=== PATIENT | male | born 1940 | race Caucasian/White ===

== ENCOUNTER 2019-11-07 18:41 | Inpatient (IN) | payer MEDICARE ==
--- NOTE | 2019-11-07 19:04 | ED ---
Chest Pain HPI - General Chief Complaint: Chest Pain Stated Complaint: chest pain Time Seen by Provider: 11/07/19 18:51 Source: patient, RN notes reviewed, old records reviewed Mode of arrival: wheelchair Limitations: no limitations - History of Present Illness Initial Comments: This is a 70-year-old male here with chest pain history of heart disease history of significant bypass with stents after bypass. Patient does follow-up cardiology in the area is on blood thinners. Patient states she's had increasing chest pain for about a month now/C with exertion but sometimes a sporadic he does take nitro has been taking his nitroglycerin more than normal. Patient is currently having chest pain left-sided chest pain and heaviness MD Complaint: chest pain -: month(s) Onset: during rest, during exertion Pain Location: left chest Severity: mild Severity scale (1-10): 3 Quality: aching, heaviness Consistency: intermittent Improves With: nothing Worsens With: exertion, inspiration Anginal Symptoms: diaphoresis, dyspnea Other Symptoms: palpitations Treatments Prior to Arrival: nitroglycerin - Related Data Allergies Allergy/AdvReac Type Severity Reaction Status Date / Time morphine Allergy Unknown Verified 11/07/19 18:45 Review of Systems ROS Statement: Those systems with pertinent positive or pertinent negative responses have been documented in the HPI. ROS Other: All systems not noted in ROS Statement are negative. EKG Findings - EKG Comments: EKG Findings:: EKG shows sinus a rate of 90, WI 162, QRS 110, QTC 497 Past Medical History Past Medical History: Hyperlipidemia, Hypertension, Myocardial Infarction ([place]), Thyroid Disorder History of Any Multi-Drug Resistant Organisms: None Reported Past Surgical History: Cholecystectomy, Heart Catheterization With Stent Additional Past Surgical History / Comment(s): thyroidectomy Past Psychological History: No Psychological Hx Reported Smoking Status: Never smoker Past Alcohol Use History: None Reported Past Drug Use History: None Reported General Exam Limitations: no limitations General appearance: alert, in no apparent distress Head exam: Present: atraumatic, normocephalic, normal inspection Eye exam: Present: normal appearance, PERRL, EOMI. Absent: scleral icterus, conjunctival injection, periorbital swelling ENT exam: Present: normal exam, mucous membranes moist Neck exam: Present: normal inspection. Absent: tenderness, meningismus, lymphadenopathy Respiratory exam: Present: normal lung sounds bilaterally. Absent: respiratory distress, wheezes, rales, rhonchi, stridor Cardiovascular Exam: Present: regular rate, normal rhythm, normal heart sounds. Absent: systolic murmur, diastolic murmur, rubs, gallop, clicks GI/Abdominal exam: Present: soft, normal bowel sounds. Absent: distended, tenderness, guarding, rebound, rigid Extremities exam: Present: normal inspection, full ROM, normal capillary refill. Absent: tenderness, pedal edema, joint swelling, calf tenderness Back exam: Present: normal inspection Neurological exam: Present: alert, oriented X3, CN II-XII intact Psychiatric exam: Present: normal affect, normal mood Skin exam: Present: warm, dry, intact, normal color. Absent: rash Course Vital Signs 11/07/19 11/07/19 18:46 20:13 Temperature 97.4 F L Pulse Rate 100 100 Respiratory 18 18 Rate Blood Pressure 156/96 150/101 O2 Sat by Pulse 93 L 95 Oximetry - Reevaluation(s) Reevaluation #1: 11/07/19 21:09 Medical records reviewed Reevaluation #2: 11/07/19 21:09 Patient's pain is improved, improve here in the ER Reevaluation #3: 11/07/19 21:09 Patient informed of findings results, questions answered - Consultations Consultation #1: Spoke with [facility] agreeable for admission Chest Pain MDM - MDM 78 male to the ER for evaluation. Patient was is a for evaluation of chest pain. Patient to be admitted for chest pain elevated troponin anticoagulation and cardiology management evaluation Critical Care Time Critical Care Time: Yes Total Critical Care Time: 31 Disposition Clinical Impression: NSTEMI (non-ST elevated myocardial infarction), ACS (acute coronary syndrome) Disposition: ADMITTED IP TO THIS HOSP Condition: Serious Is patient prescribed a controlled substance at d/c from ED?: No Referrals: Neville Sorensen DO [Primary Care Provider] - 1-2 days
[2019-11-07 19:19] LABS: Basophils # (A) 0.1 k/uL (0-0.2); Basophils % (A) 1 %; Eosinophils # (A) 0.3 k/uL (0-0.7); Eosinophils % (A) 3 %; HCT 43.9 % (39.0-53.0); Lymphocytes # (A) 1.9 k/uL (1.0-4.8); Lymphocytes % (A) 19 %; MCH 29.7 pg (25.0-35.0); MCHC 31.8 g/dL (31.0-37.0); MCV 93.3 fL (80.0-100.0); Mean Platelet Volume 7.8; Monocytes # (A) 0.7 k/uL (0-1.0); Monocytes % (A) 8 %; Neutrophils # (A) 6.7 k/uL (1.3-7.7); Neutrophils % (A) 68 %; Platelet Count 264 k/uL (150-450); RBC 4.71 m/uL (4.30-5.90); RDW 14.7 % (11.5-15.5); WBC 9.9 k/uL (3.8-10.6)
[2019-11-07 19:30] LABS: Calcium 9.7 mg/dL (8.4-10.2); Potassium 4.3 mmol/L (3.5-5.1); Total Bilirubin 0.6 mg/dL (0.2-1.3); Total Protein 6.8 g/dL (6.3-8.2)
[2019-11-07 19:40] LABS: Partial Thromboplastin Time 22.2 sec (22.0-30.0); Prothrombin Time 10.7 sec (9.0-12.0)
[2019-11-07] MEDS ORDERED: NITROGLYCERIN OINT 1 INCH/GM PACKET TOPICAL STA (20:04)
[2019-11-07] MEDS ORDERED: HYDROmorphone 1 MG/ML 1 ML SYRINGE IVP PRN (20:04)
[2019-11-07] MEDS ORDERED: HYDROmorphone 1 MG/ML 1 ML SYRINGE IVP STA (20:04)
--- NOTE | 2019-11-07 20:05 | XR ---
EXAMINATION TYPE: XR chest 2V DATE OF EXAM: 11/07/2019 COMPARISON: NONE HISTORY: Chest pain TECHNIQUE: 2 views FINDINGS: There is coarse interstitial density throughout the lungs. There are sternal wires. There i s mild blunting right costophrenic angle. There are chest leads. IMPRESSION: Interstitial pulmonary infiltrates probably due to pulmonary fibrosis. Mild heart failure not excluded. Small right pleural effusion. No significant cardiomegaly.
[2019-11-07] MEDS ORDERED: HEPARIN SODIUM,PORCINE 5,000 UNIT/ML 1 ML VIAL IV ONE (21:06)
[2019-11-07] MEDS ORDERED: HEPARIN SODIUM,PORCINE 5,000 UNIT/ML 1 ML VIAL IV PRN (21:06)
[2019-11-07] MEDS ORDERED: ASPIRIN 81 MG PO STA (21:06)
[2019-11-07] MEDS ORDERED: NITROGLYCERIN SL TABS 0.4 MG TAB SUBLINGUAL PRN (21:06)
[2019-11-07] MEDS: SODIUM CHLORIDE 0.9% 1,000 ML IV SCH (21:23)
[2019-11-07] MEDS: HEPARIN SOD,PORK IN 0.45% NACL 25,000 UNIT in 0.45% NACL 1 250ML.BAG IV SCH (21:29)
[2019-11-08 06:08] LABS: Glucose,Whole Blood 91 mg/dL (75-99)
[2019-11-08] MEDS: LEVOTHYROXINE 125 MCG TAB PO SCH (06:17)
[2019-11-08] MEDS: INSULIN ASPART (NovoLOG) 100 UNIT/ML VIAL SQ SCH ×4 (06:17→20:24)
--- NOTE | 2019-11-08 08:39 | P.CRDCN ---
History of Present Illness Consult date: 11/08/19 Chief complaint: Chest pain History of present illness: This is a very pleasant 78-year-old gentleman who currently follows with Dr. Vasquez or regular basis with a past medical history significant for coronary artery disease and prior coronary artery bypass grafting as well as stenting with unknown details at this point, chronic kidney disease, hypertension, and dyslipidemia, presented to the hospital complaining of chest discomfort. The patient underwent a heart catheterization about 6 months ago pleasant and subsequently he was sent to [facility] where he underwent stenting. The details on all of that are unavailable and we are in process of getting a copy of the heart catheterization from [place] and also a copy of the procedure from [facility]. Clinically he has done well still about a week ago when he started experiencing intermittent episodes of chest discomfort. For the last week he has been experiencing the chest discomfort mostly once he walked from his car to his home and at that point he has been utilizing nitroglycerin. Yesterday the chest discomfort has gotten worse where he utilize 3 nitroglycerin without any improvement in the chest discomfort. Because of that he decided to come to the emergency room. Currently he is chest pain-free. The chest discomfort was radiating to his arm and was associated with shortness of breath as well as sweating. The EKG showed sinus rhythm with ST segment elevation about 1 mm in aVR. The enzymes came in to be abnormal with first troponin normal but subsequent troponin came in to be at 12. The patient was ruled in for acute non-ST elevation myocardial infarction. Beside that his creatinine is not completely normal and his GFR around 45 at this point. He is on IV fluid at this point and also he is on heparin. I had a long discussion with him regard ing the next step. I did advise the patient to undergo a heart catheterization for further cardiac evaluation. Meanwhile I am going to restart the patient on dual antiplatelet therapy and also anti-ischemic medication and also obtain an echocardiogram was Doppler to evaluate the left ventricle systolic function. Beside that I would contact Dr. Vasquez to perform a heart catheterization on the gentleman Past Medical History Past Medical History: Diabetes Mellitus, Hyperlipidemia, Hypertension, Myocardial Infarction ([place]), Thyroid Disorder Last Myocardial Infarction Date:: unknown History of Any Multi-Drug Resistant Organisms: None Reported Past Surgical History: Cholecystectomy, Heart Catheterization With Stent Additional Past Surgical History / Comment(s): thyroidectomy Date of Last Stent Placement:: unknown Past Psychological History: No Psychological Hx Reported Smoking Status: Never smoker Past Alcohol Use History: None Reported Past Drug Use History: None Reported Medications and Allergies Home Medications Medication Instructions Recorded Confirmed Type Aspirin 81 mg PO HS@209911/07/19 11/07/19 History Atorvastatin [Lipitor] 20 mg PO HS@209911/07/19 11/07/19 History Carvedilol [Coreg] 3.125 mg PO BID@0900,209911/07/19 11/07/19 History Docusate [Colace] 100 mg PO BID@999,219911/07/19 11/07/19 History Febuxostat [Uloric] 40 mg PO DAILY@99911/07/19 11/07/19 History Fenofibrate Nanocrystallized 145 mg PO DAILY@99911/07/19 11/07/19 History [Fenofibrate] Fluocinolone Acetonide [Lidex Soln] 1 applic TOPICAL BID PRN 11/07/19 11/07/19 History Insulin Detemir [Levemir Flextouch] 35 units SQ HS@209911/07/19 11/07/19 History Isosorbide Mononitrate ER [Imdur] 30 mg PO BID@0900,209911/07/19 11/07/19 History Ketoconazole 2% Shampoo [Nizoral] 1 applic TOPICAL Q3D PRN 11/07/19 11/07/19 History Levothyroxine Sodium 125 mcg PO AC-BRKFST 11/07/19 11/07/19 History Linagliptin [Tradjenta] 5 mg PO DAILY@99911/07/19 11/07/19 History Multivitamins, Thera [Multivitamin 1 tab PO DAILY@99911/07/19 11/07/19 History (formulary)] Nitroglycerin Sl Tabs [Nitrostat] 0.4 mg SUBLINGUAL Q5M PRN 11/07/19 11/07/19 History [place]-3 Fatty Acids/Fish Oil [Fish 1 cap PO DAILY@99911/07/19 11/07/19 History Oil 1,000 mg Softgel] Ranolazine [Ranexa] 1,000 mg PO BID@0900,209911/07/19 11/07/19 History Ticagrelor [Brilinta] 90 mg PO BID@0900,2100 11/07/19 11/07/19 History Triamterene-Hctz 37.5-25Mg 1 cap PO Q48H 11/07/19 11/07/19 History [Dyazide 37.5-25 Capsule] Ubidecarenone [Co Q-10] 200 mg PO HS@2200 11/07/19 11/07/19 History Allergies Allergy/AdvReac Type Severity Reaction Status Date / Time morphine Allergy Unknown Verified 11/07/19 18:45 Physical Exam Vitals: Vital Signs Temp Pulse Pulse Resp BP BP Pulse Ox 11/08/19 04:00 98.1 F 84 16 141/77 94 L 11/08/19 00:00 87 18 11/07/19 22:14 92 18 142/94 95 11/07/19 21:21 98.3 F 87 18 143/89 95 11/07/19 20:30 94 16 138/96 95 11/07/19 20:13 100 18 150/101 95 11/07/19 18:46 97.4 F L 100 18 156/96 93 L Intake and Output 11/07/19 11/08/19 11/08/19 22:59 06:59 14:59 Intake Total 540 54.219 Output Total 300 200 Balance 540 -245.781 -200 Intake: Intake, IV Titration 54.219 Amount Heparin Sod,Pork in 0.45% 54.219 NaCl 25,000 unit In 0.45 % NaCl 1 250ml.bag @ 11 UNITS/KG/HR 9.979 mls/hr IV .Q24H [facility] Rx#: [id number] Oral 540 Output: Urine 300 200 Other: Voiding Method Urinal # Voids 1 Weight 90.718 kg 85.9 kg - Constitutional General appearance: no acute distress - Respiratory Respiratory: bilateral: CTA - Cardiovascular Rhythm: regular Heart sounds: normal: S1, S2 Results 11/07/19 19:05 11/07/19 19:05 Cardiac Enzymes 11/07/19 11/07/19 11/08/19 Range/Units 19:05 19:05 01:59 AST 41 (17-59) U/L Troponin I 0.128 H* 12.900 H* (0.000-0.034) ng/mL Coagulation 11/07/19 11/08/19 Range/Units 19:05 01:59 PT 10.7 (9.0-12.0) sec APTT 22.2 31.8 H (22.0-30.0) sec CBC 11/07/19 Range/Units 19:05 WBC 9.9 (3.8-10.6) k/uL RBC 4.71 (4.30-5.90) m/uL Hgb 14.0 (13.0-17.5) gm/dL Hct 43.9 (39.0-53.0) % Plt Count 264 (150-450) k/uL Comprehensive Metabolic Panel 11/07/19 Range/Units 19:05 Sodium 138 (137-145) mmol/L Potassium 4.3 (3.5-5.1) mmol/L Chloride 106 (98-107) mmol/L Carbon Dioxide 25 (22-30) mmol/L BUN 31 H (9-20) mg/dL Creatinine 1.44 H (0.66-1.25) mg/dL Glucose 121 H (74-99) mg/dL Calcium 9.7 (8.4-10.2) mg/dL AST 41 (17-59) U/L ALT 22 (4-49) U/L Alkaline Phosphatase 87 (38-126) U/L Total Protein 6.8 (6.3-8.2) g/dL Albumin 4.0 (3.5-5.0) g/dL Current Medications Generic Name Dose Route Start Last Admin Trade Name Freq PRN Reason Stop Dose Admin Aspirin 325 mg 11/08/19 09:00 Aspirin PO DAILY [facility] Heparin Sodium (Porcine) 0 unit 11/07/19 21:06 Heparin IV Q6HR PRN Low PTT Protocol Hydromorphone HCl 1 mg 11/07/19 20:04 11/07/19 22:21 Dilaudid IVP 1 mg Q4HR PRN Administration Pain Sodium Chloride 1,000 mls @ 100 mls/hr 11/07/19 21:15 11/07/19 21:23 Saline 0.9% IV 100 mls/hr .Q10H [place] Administration Heparin Sodium/Sodium Chloride 250 mls @ 9.979 mls/hr 11/07/19 21:15 11/08/19 02:55 25,000 unit/ Sodium Chloride IV 14 units/kg/hr .Q24H [facility] 12.701 mls/hr Titration Protocol 11 UNITS/KG/HR Insulin Aspart 0 unit 11/08/19 07:30 11/08/19 06:17 Novolog SQ Not Given ACHS [facility] Protocol Levothyroxine Sodium 125 mcg 11/08/19 07:30 11/08/19 06:17 Synthroid PO Not Given AC-BRKFST [facility] Metoprolol Tartrate 25 mg 11/08/19 09:00 Lopressor PO BID [facility] Nitroglycerin 0.4 mg 11/07/19 21:06 Nitrostat SUBLINGUAL Q5M PRN Chest Pain Intake and Output 11/07/19 11/08/19 11/08/19 22:59 06:59 14:59 Intake Total 540 54.219 Output Total 300 200 Balance 540 -245.781 -200 Intake: Intake, IV Titration 54.219 Amount Heparin Sod,Pork in 0.45% 54.219 NaCl 25,000 unit In 0.45 % NaCl 1 250ml.bag @ 11 UNITS/KG/HR 9.979 mls/hr IV .Q24H [facility] Rx#: [id number] Oral 540 Output: Urine 300 200 Other: Voiding Method Urinal # Voids 1 Weight 90.718 kg 85.9 kg 11/07/19 19:05 11/07/19 19:05 Assessment and Plan Assessment: Assessment #1 acute non-ST elevation myocardial infarction #2 history of coronary artery disease with prior revascularization with unknown details #3 chronic kidney disease #4 diabetes #5 hypertension #6 dyslipidemia Plan Continue IV heparin at this point Obtain a copy of the heart catheterization and angioplasty and stenting I recommended proceeding with coronary angiogram Continue dual antiplatelet therapy An echocardiogram was Doppler IV fluid Follow-up with the patient
[2019-11-08] MEDS ORDERED: METOPROLOL TARTRATE 25 MG TAB PO SCH (09:00)
[2019-11-08 09:14] LABS: Mean Platelet Volume 7.6; Platelet Count 242 k/uL (150-450)
[2019-11-08] MEDS: RANOLAZINE 500 MG TAB.ER.12H PO SCH ×2 (09:40→20:43)
[2019-11-08] MEDS: ISOSORBIDE MONONITRATE ER 30 MG TAB.ER.24H PO SCH ×2 (09:40→20:43)
[2019-11-08] MEDS: ASPIRIN 325 MG TAB PO SCH (09:40)
[2019-11-08] MEDS: CARVEDILOL 3.125 MG TAB PO SCH ×2 (09:40→17:19)
[2019-11-08] MEDS: ALLOPURINOL 100 MG TAB PO SCH (09:41)
[2019-11-08] MEDS: FENOFIBRATE 160 MG TAB PO SCH (09:41)
[2019-11-08] MEDS: TICAGRELOR 90 MG TAB PO SCH ×2 (09:41→20:43)
[2019-11-08] MEDS: DOCUSATE 100 MG CAP PO SCH ×2 (09:41→20:43)
[2019-11-08] MEDS: MULTIVITAMINS, THERA 1 EACH TAB PO SCH (09:41)
[2019-11-08 09:43] LABS: Cholesterol 138 mg/dL (<200); HDL Cholesterol 40 mg/dL (40-60); LDL Cholesterol,Calculated 63 mg/dL (0-99); Triglycerides 177 mg/dL (<150)
[2019-11-08] MEDS: SODIUM CHLORIDE 0.9% 1,000 ML IV SCH ×2 (09:50→17:22)
[2019-11-08] MEDS ORDERED: NITROGLYCERIN SL TABS 0.4 MG TAB SUBLINGUAL PRN (10:04)
[2019-11-08] MEDS ORDERED: ATORVASTATIN 80 MG TAB PO STA (10:04)
[2019-11-08] MEDS ORDERED: ALPRAZolam 0.5 MG TAB PO PRN (10:04)
[2019-11-08] MEDS ORDERED: ASPIRIN 325 MG TAB PO STA (10:04)
[2019-11-08] MEDS ORDERED: SODIUM CHLORIDE 0.9% 1,000 ML in EMPTY BAG 1 BAG IV ONE (10:04)
[2019-11-08] MEDS ORDERED: ALPRAZolam 0.25 MG TAB PO PRN (10:04)
--- NOTE | 2019-11-08 10:36 | P.HPIM ---
History of Present Illness Patient is a 72-year-old pleasant male came in with compensative chest pain pressure-like sensation had has been having on and off episodes from for about a be did take one nitroglycerin which didn't help his chest pain was much worse yesterday because of which he does it complain ER and patient is found to have significant EKG changes in the anterolateral leads ST depressions in the anterolateral leads with elevated troponin up to 12 patient is on IV heparin being treated for non-ST elevation myocardial infarction. Patient denied any chest pain presently patient is an ideal antiplatelet therapy beta preston at this time. Patient denied any short of breath orthopnea proximal nocturnal dyspnea does not doesn't appear to be in heart failure exacerbation at this time patient will undergo cardiac catheterization today. Review of Systems REVIEW OF SYSTEMS: CONSTITUTIONAL: No fever, no malaise, no fatigue. HEENT: No recent visual problems or hearing problems. Denied any sore throat. CARDIOVASCULAR: No orthopnea, PND, no palpitations, no syncope. PULMONARY: No shortness of breath, no cough, no hemoptysis. GASTROINTESTINAL: No diarrhea, no nausea, no vomiting, no abdominal pain. NEUROLOGICAL: No headaches, no weakness, no numbness. HEMATOLOGICAL: Denies any bleeding or petechiae. GENITOURINARY: Denies any burning micturition, frequency, or urgency. MUSCULOSKELETAL/RHEUMATOLOGICAL: Denies any joint pain, swelling, or any muscle pain. ENDOCRINE: Denies any polyuria or polydipsia. The rest of the 14-point review of systems is negative. Past Medical History Past Medical History: Diabetes Mellitus, Hyperlipidemia, Hypertension, Myoc ardial Infarction (VT), Thyroid Disorder Last Myocardial Infarction Date:: unknown History of Any Multi-Drug Resistant Organisms: None Reported Past Surgical History: Cholecystectomy, Heart Catheterization With Stent Additional Past Surgical History / Comment(s): thyroidectomy Date of Last Stent Placement:: unknown Past Psychological History: No Psychological Hx Reported Smoking Status: Never smoker Past Alcohol Use History: None Reported Past Drug Use History: None Reported Medications and Allergies Home Medications Medication Instructions Recorded Confirmed Type Aspirin 81 mg PO HS@209911/07/19 11/07/19 History Atorvastatin [Lipitor] 20 mg PO HS@209911/07/19 11/07/19 History Carvedilol [Coreg] 3.125 mg PO BID@0900,209911/07/19 11/07/19 History Docusate [Colace] 100 mg PO BID@999,219911/07/19 11/07/19 History Febuxostat [Uloric] 40 mg PO DAILY@99911/07/19 11/07/19 History Fenofibrate Nanocrystallized 145 mg PO DAILY@99911/07/19 11/07/19 History [Fenofibrate] Fluocinolone Acetonide [Lidex Soln] 1 applic TOPICAL BID PRN 11/07/19 11/07/19 History Insulin Detemir [Levemir Flextouch] 35 units SQ HS@209911/07/19 11/07/19 History Isosorbide Mononitrate ER [Imdur] 30 mg PO BID@899,209911/07/19 11/07/19 History Ketoconazole 2% Shampoo [Nizoral] 1 applic TOPICAL Q3D PRN 11/07/19 11/07/19 History Levothyroxine Sodium 125 mcg PO AC-BRKFST 11/07/19 11/07/19 History Linagliptin [Tradjenta] 5 mg PO DAILY@99911/07/19 11/07/19 History Multivitamins, Thera [Multivitamin 1 tab PO DAILY@99911/07/19 11/07/19 History (formulary)] Nitroglycerin Sl Tabs [Nitrostat] 0.4 mg SUBLINGUAL Q5M PRN 11/07/19 11/07/19 History [place]-3 Fatty Acids/Fish Oil [Fish 1 cap PO DAILY@99911/07/19 11/07/19 History Oil 1,000 mg Softgel] Ranolazine [Ranexa] 1,000 mg PO BID@0900,209911/07/19 11/07/19 History Ticagrelor [Brilinta] 90 mg PO BID@0900,209911/07/19 11/07/19 History Triamterene-Hctz 37.5-25Mg 1 cap PO Q48H 11/07/19 11/07/19 History [Dyazide 37.5-25 Capsule] Ubidecarenone [Co Q-10] 200 mg PO HS@219911/07/19 11/07/19 History Allergies Allergy/AdvReac Type Severity Reaction Status Date / Time morphine Allergy Unknown Verified 11/07/19 18:45 Physical Exam Vitals: Vital Signs Temp Pulse Pulse Resp BP BP Pulse Ox 11/08/19 08:28 79 18 11/08/19 07:25 97.8 F 74 18 130/84 11/08/19 04:00 98.1 F 84 16 141/77 94 L 11/08/19 00:00 87 18 11/07/19 22:14 92 18 142/94 95 11/07/19 21:21 98.3 F 87 18 143/89 95 11/07/19 20:30 94 16 138/96 95 11/07/19 20:13 100 18 150/101 95 11/07/19 18:46 97.4 F L 100 18 156/96 93 L Intake and Output 11/07/19 11/08/19 11/08/19 22:59 06:59 14:59 Intake Total 540 54.219 Output Total 300 200 Balance 540 -245.781 -200 Intake: Intake, IV Titration 54.219 Amount Heparin Sod,Pork in 0.45% 54.219 NaCl 25,000 unit In 0.45 % NaCl 1 250ml.bag @ 11 UNITS/KG/HR 9.979 mls/hr IV .Q24H [facility] Rx#: [id number] Oral 540 Output: Urine 300 200 Other: Voiding Method Urinal Urinal # Voids 1 Weight 90.718 kg 85.9 kg PHYSICAL EXAMINATION: GENERAL: The patient is alert and oriented x3, not in any acute distress. Well developed, well nourished. HEENT: Pupils are round and equally reacting to light. EOMI. No scleral icterus. No conjunctival pallor. Normocephalic, atraumatic. No pharyngeal erythema. No thyromegaly. CARDIOVASCULAR: S1 and S2 present. No murmurs, rubs, or gallops. PULMONARY: Chest is clear to auscultation, no wheezing or crackles. ABDOMEN: Soft, nontender, nondistended, normoactive bowel sounds. No palpable organomegaly. MUSCULOSKELETAL: No joint swelling or deformity. EXTREMITIES: No cyanosis, clubbing, or pedal edema. NEUROLOGICAL: Gross neurological examination did not reveal any focal deficits. SKIN: No rashes. Results CBC & Chem 7: 11/08/19 08:35 11/07/19 19:05 Labs: Abnormal Lab Results - Last 24 Hours (Table) 11/07/19 11/07/19 11/08/19 Range/Units 19:05 19:05 01:59 APTT (22.0-30.0) sec BUN 31 H (9-20) mg/dL Creatinine 1.44 H (0.66-1.25) mg/dL Glucose 121 H (74-99) mg/dL Troponin I 0.128 H* 12.900 H* (0.000-0.034) ng/mL Triglycerides (<150) mg/dL 11/08/19 11/08/19 11/08/19 Range/Units 01:59 08:35 08:35 APTT 31.8 H (22.0-30.0) sec BUN (9-20) mg/dL Creatinine (0.66-1.25) mg/dL Glucose (74-99) mg/dL Troponin I 32.000 H* (0.000-0.034) ng/mL Triglycerides 177 H (<150) mg/dL 11/08/19 Range/Units 08:35 APTT 35.3 H (22.0-30.0) sec BUN (9-20) mg/dL Creatinine (0.66-1.25) mg/dL Glucose (74-99) mg/dL Troponin I (0.000-0.034) ng/mL Triglycerides (<150) mg/dL Thrombosis Risk Factor Assmnt - Choose All That Apply Any of the Below Risk Factors Present?: Yes Each Factor Represents 1 point: Acute VT, Heart failure (<1month) Other Risk Factors: Yes Each Risk Factor Represents 3 Points: Age 75 years or older Other congenital or acquired thrombophilia - If yes, enter type in comment: No Thrombosis Risk Factor Assessment Total Risk Factor Score: 5 Thrombosis Risk Factor Assessment Level: High Risk Assessment and Plan Plan: -Possible non-ST elevation microinfarction patient was monitored on heparin beta preston a dual antiplatelet therapy patient appears to have anterolateral ischemia in the circumflex or LAD lesion. Patient does have a history of coronary artery disease with a CABG in the past -Diabetes mellitus next and-hyperlipidemia -Hypertension -possible acute renal failure may be related to myocardial infarction we'll repeat the basic metabolic profile tomorrow, patient's present creatinine is 1.4 -Hyperlipidemia next line-hypothyroidism
[2019-11-08 11:56] LABS: Glucose,Whole Blood 97 mg/dL (75-99)
--- NOTE | 2019-11-08 15:47 | ECHOF ---
Referral Reason:chest pain MEASUREMENTS -------- HEIGHT: 177.8 cm WEIGHT: 85.7 kg BP: IVSd: 1.6 cm (0.6 - 1.1) LVIDd: 4.7 cm (3.9 - 5.3) LVPWd: 1.7 cm (0.6 - 1.1) IVSs: 1.9 cm LVIDs: 3.6 cm LVPWs: 2.1 cm RVIDd: 3.3 cm (< 3.3) LAESV Index (A-L): 50.34 ml/m Ao Diam: 3.6 cm (2.0 - 3.7) LA Diam: 4.5 cm (2.7 - 3.8) AV Cusp: 1.8 cm (1.5 - 2.6) EPSS: 0.6 cm MV E Conrad: 1.16 m/s MV DecT: 125 ms MV A Conrad: 0.82 m/s MV E/A Ratio: 1.42 RAP: 5.00 mmHg RVSP: 32.84 mmHg MV EF SLOPE: 93.74 mm/s (70 - 150) MV EXCURSION: 17.19 mm (> 18.000) FINDINGS -------- Sinus rhythm. This was a technically adequate study. The left ventricular size is normal. There is moderate concentric left ventricular hypertrophy. O verall left ventricular systolic function is moderately impaired with, an EF between 35 - 40 %. Lef t ventricular fillimg pressure cannot be estimated due to severe mitral regurgitation. Mid anterose ptal LV wall motion is hypokinetic. Apical septum LV wall motion is hypokinetic. The right ventricle is mildly enlarged. LA is severely dilated >40 ml/m2 The right atrial size is normal. Interatrial and interventricular septum intact. The aortic valve is trileaflet and appears structurally normal. There is mild aortic valve sclerosi s. There is no evidence of aortic regurgitation. There is no evidence of aortic stenosis. [id number] mitral regurgitation is present. Mild tricuspid regurgitation present. There is borderline pulmonary artery hypertension. The righ t ventricular systolic pressure, as measured by Doppler, is 32.84mmHg. There is no pulmonic regurgitation present. The aortic root size is normal. IVC Not well visulized. There is no pericardial effusion. CONCLUSIONS -------- 1. Sinus rhythm. 2. This was a technically adequate study. 3. The left ventricular size is normal. 4. There is moderate concentric left ventricular hypertrophy. 5. Overall left ventricular systolic function is moderately impaired with, an EF between 35 - 40 %. 6. Left ventricular fillimg pressure cannot be estimated due to severe mitral regurgitation. 7. Mid anteroseptal LV wall motion is hypokinetic. 8. Apical septum LV wall motion is hypokinetic. 9. The right ventricle is mildly enlarged. 10. LA is severely dilated >40 ml/m2 11. The right atrial size is normal. 12. Interatrial and interventricular septum intact. 13. The aortic valve is trileaflet and appears structurally normal. 14. There is mild aortic valve sclerosis. 15. There is no evidence of aortic regurgitation. 16. There is no evidence of aortic stenosis. 17. [id number] mitral regurgitation is present. 18. Mild tricuspid regurgitation present. 19. There is borderline pulmonary artery hypertension. 20. The right ventricular systolic pressure, as measured by Doppler, is 32.84mmHg. 21. There is no pulmonic regurgitation present. 22. The aortic root size is normal. 23. IVC Not well visulized. 24. There is no pericardial effusion. LOCOMOTIVE PIPE FITTER: Isadora Ryan RDCS
[2019-11-08 16:59] LABS: Glucose,Whole Blood 122 mg/dL (75-99)
[2019-11-08] MEDS: HEPARIN SOD,PORK IN 0.45% NACL 25,000 UNIT in 0.45% NACL 1 250ML.BAG IV SCH (17:20)
[2019-11-08 20:19] LABS: Glucose,Whole Blood 93 mg/dL (75-99)
[2019-11-08] MEDS: ATORVASTATIN 20 MG TAB PO SCH (20:43)
[2019-11-08] MEDS: INSULIN DETEMIR (LEVEMIR) 100 UNIT/ML SYR SQ SCH (20:46)
[2019-11-09] MEDS: INSULIN ASPART (NovoLOG) 100 UNIT/ML VIAL SQ SCH ×4 (06:06→21:04)
[2019-11-09 06:20] LABS: Glucose,Whole Blood 85 mg/dL (75-99)
[2019-11-09] MEDS: ALLOPURINOL 100 MG TAB PO SCH (06:29)
[2019-11-09] MEDS: LEVOTHYROXINE 125 MCG TAB PO SCH (06:29)
[2019-11-09] MEDS: CARVEDILOL 3.125 MG TAB PO SCH ×2 (06:29→16:42)
[2019-11-09] MEDS: FENOFIBRATE 160 MG TAB PO SCH (06:30)
[2019-11-09] MEDS: MULTIVITAMINS, THERA 1 EACH TAB PO SCH (06:30)
[2019-11-09] MEDS: DOCUSATE 100 MG CAP PO SCH ×2 (06:30→21:04)
[2019-11-09] MEDS: ASPIRIN 325 MG TAB PO SCH (06:30)
[2019-11-09] MEDS: ISOSORBIDE MONONITRATE ER 30 MG TAB.ER.24H PO SCH ×2 (06:31→21:04)
[2019-11-09] MEDS: RANOLAZINE 500 MG TAB.ER.12H PO SCH ×2 (06:31→21:04)
[2019-11-09] MEDS: TICAGRELOR 90 MG TAB PO SCH ×2 (06:34→21:04)
[2019-11-09] MEDS: HEPARIN SOD,PORK IN 0.45% NACL 25,000 UNIT in 0.45% NACL 1 250ML.BAG IV SCH (06:39)
[2019-11-09 06:44] LABS: Mean Platelet Volume 7.8; Platelet Count 234 k/uL (150-450)
[2019-11-09 07:48] LABS: Potassium 4.3 mmol/L (3.5-5.1)
[2019-11-09] MEDS ORDERED: IV FLUID CONTINUATION 600 ML IV ONE (08:32)
[2019-11-09] MEDS ORDERED: LIDOCAINE 1% INJ 10MG/ML (20 ML MDV) ONE (08:47)
[2019-11-09] MEDS ORDERED: TRIAMTERENE-HCTZ 37.5-25MG 1 EACH CAP PO SCH (09:00)
[2019-11-09] MEDS ORDERED: MIDAZOLAM 2 MG/2 ML VIAL IV ONE (09:13)
[2019-11-09] MEDS ORDERED: LIDOCAINE 1% INJ 10MG/ML (20 ML MDV) SQ ONE (09:14)
[2019-11-09] MEDS ORDERED: IOPAMIDOL-370 50ML BTL INJ ONE (09:58)
[2019-11-09] MEDS ORDERED: IOPAMIDOL-370 125ML BTL INJ ONE (09:58)
[2019-11-09] MEDS ORDERED: MAG HYDROX/AL HYDROX/SIMETH 30 ML CUP PO PRN (09:59)
[2019-11-09] MEDS ORDERED: RX INFO: IV CONTRAST WAS GIVEN 1 EACH MISC MISCELLANE PRN (09:59)
[2019-11-09] MEDS ORDERED: ATROPINE SULFATE 0.1 MG/ML 10ML SYRINGE IV PRN (09:59)
[2019-11-09] MEDS ORDERED: ZOLPIDEM 5 MG TAB PO PRN (09:59)
[2019-11-09] MEDS ORDERED: SODIUM CHLORIDE 0.9% 1,000 ML IV SCH (10:00)
--- NOTE | 2019-11-09 10:19 | P.PN ---
Subjective Patient is admitted for non-ST elevation microinfarction patient will undergo cardiac catheterization today Constitutional: Denied any fatigue denied any fever. Cardio vascular: denied any chest pain, palpitations Gastrointestinal denied any nausea vomiting Pulmonary: Denied any shortness of breath cough Neurologic denied any new focal deficits All inpatient medications were reviewed and appropriate changes in these medications as dictated in the interval history and assessment and plan. Objective - Vital Signs Vital signs: Vital Signs Temp 97.7 F 11/09/19 08:00 Pulse 78 11/09/19 08:00 Resp 18 11/09/19 08:00 BP 143/79 11/09/19 08:00 Pulse Ox 99 11/09/19 08:00 Intake & Output 11/08/19 11/09/19 11/09/19 18:59 06:59 18:59 Intake Total 1743.106 193.291 50 Output Total 200 Balance 1543.106 193.291 50 Weight 89.1 kg Intake: IV 50 Intake, IV Titration 1383.106 193.291 Amount Heparin Sod,Pork in 0.45% 183.106 193.291 NaCl 25,000 unit In 0.45 % NaCl 1 250ml.bag @ 11 UNITS/KG/HR 9.979 mls/hr IV .Q24H [facility] Rx#: [id number] Sodium Chloride 0.9% 1, 1200 000 ml @ 100 mls/hr IV . Q10H [facility] Rx#:[id number] Oral 360 Output: Urine 200 Other: Voiding Method Urinal Urinal # Voids 1 1 1 - Exam PHYSICAL EXAMINATION: GENERAL: The patient is alert and oriented x3, not in any acute distress. Well developed, well nourished. HEENT: Pupils are round and equally reacting to light. EOMI. No scleral icterus. No conjunctival pallor. Normocephalic, atraumatic. No pharyngeal erythema. No thyromegaly. CARDIOVASCULAR: S1 and S2 present. No murmurs, rubs, or gallops. PULMONARY: Chest is clear to auscultation, no wheezing or crackles. ABDOMEN: Soft, nontender, nondistended, normoactive bowel sounds. No palpable organomegaly. MUSCULOSKELETAL: No joint swelling or deformity. EXTREMITIES: No cyanosis, clubbing, or pedal edema. NEUROLOGICAL: Gross neurological examination did not reveal any focal deficits. SKIN: No rashes. - Labs CBC & Chem 7: 11/09/19 06:25 11/09/19 06:25 Labs: Abnormal Lab Results - Last 24 Hours (Table) 11/08/19 11/08/19 11/09/19 Range/Units 16:52 23:20 06:25 APTT 54.3 H (22.0-30.0) sec Chloride 110 H (98-107) mmol/L BUN 22 H (9-20) mg/dL Creatinine 1.31 H (0.66-1.25) mg/dL POC Glucose (mg/dL) 122 H (75-99) mg/dL 11/09/19 Range/Units 06:25 APTT 64.9 H (22.0-30.0) sec Chloride (98-107) mmol/L BUN (9-20) mg/dL Creatinine (0.66-1.25) mg/dL POC Glucose (mg/dL) (75-99) mg/dL Assessment and Plan Plan: -Possible non-ST elevation myocardial infarction patient was monitored on heparin beta preston a dual antiplatelet therapy patient appears to have anterolateral ischemia in the circumflex or LAD lesion. Patient does have a history of coronary artery disease with a CABG in the past. Patient will undergo cardiac catheterization to -Can start failure probably acute systolic dysfunction EF of around 35-40% patient is not in heart failure exacerbation at this time -Diabetes mellitus -hyperlipidemia -Hypertension -possible acute renal failure may be related to myocardial infarction we'll repeat the basic metabolic profile tomorrow, patient's present creatinine is 1.3, mild improvement competitors to -Hyperlipidemia -hypothyroidism
--- NOTE | 2019-11-09 10:25 | CC ---
CARDIAC CATHETERIZATION REPORT DATE OF SERVICE: 11/09/2019 PERFORMING PHYSICIAN: Jakub Kaur MD. PROCEDURE PERFORMED: 1. Selective left and right coronary angiogram. 2. ABREU to LAD angiogram. 3. SVG to RCA angiogram. 4. Aortic root angiogram. 5. Left heart catheterization. INDICATION: This is a 78-year-old gentleman with history of coronary artery disease and prior coronary artery bypass grafting and stenting with the last heart catheterization was performed at [facility] where at that point he underwent stenting of the SVG to RCA and was found to have patent ABREU to LAD, presented to [facility] with chest discomfort and ruled in for acute [id number] myocardial infarction. The patient does follow with Dr. Vasquez in the office on a regular basis. Dr. Vasquez is out of the town and I am performing the heart catheterization for him. APPROACH: Right common femoral artery. COMPLICATION: None. LEVEL OF SEDATION: Moderate with sedation length of 40 minutes. PROCEDURE DESCRIPTION: After obtaining an informed consent, the patient was brought to the cardiac blender laborer. The right common femoral artery was cannulated using micropuncture technique, the micropuncture wire passed easily, then I placed a 6-Occitan sheath in the right common femoral artery. I did selective right and left coronary angiogram using JL4 and JR4 catheters. SVG to RCA angiogram was performed using multipurpose catheter. The ABREU to LAD angiogram was performed using an IM catheter. After that, I did aortic root angiogram using a 6- Occitan pigtail catheter. After I did perform a left heart catheterization using a pigtail catheter as well. The procedure was completed without any complication. SELECTIVE CORONARY ANGIOGRAM: 1. The left main is 100% occluded. 2. RCA is 100% occluded as well in the midportion. CORONARY BYPASS ANGIOGRAM: 1. The ABREU to LAD is patent. 2. The SVG to RCA has in-stent restenosis appeared to be in the range of only 50%. 3. The aortic root angiogram was performed in the DENISE projection and using a power injection. The aortic root appeared to be mildly dilated. No evidence of any additional bypass is seen. HEMODYNAMICS: The LVEDP was 18-20 mmHg without significant gradient across the aortic valve. CONCLUSION: 1. Severe triple-vessel coronary artery disease. 2. Patent ABREU to LAD. 3. Intermediate in-stent restenosis involving the SVG to RCA. 4. Mildly dilated aortic root. 5. Elevated LVEDP. POSTPROCEDURE MANAGEMENT: Giving the above anatomy, I did recommend maximized medical treatment and follow up with the patient. JULIAN / TEQUILA: [id number] /
[2019-11-09 11:49] LABS: Glucose,Whole Blood 95 mg/dL (75-99)
[2019-11-09] MEDS: LINAGLIPTIN 5 MG TABLET PO SCH (12:14)
[2019-11-09 12:52] VITALS: BMI 28.1
[2019-11-09 16:57] LABS: Glucose,Whole Blood 88 mg/dL (75-99)
[2019-11-09] MEDS: NITROGLYCERIN SL TABS 0.4 MG TAB SUBLINGUAL PRN (18:03)
[2019-11-09] MEDS: INSULIN DETEMIR (LEVEMIR) 100 UNIT/ML SYR SQ SCH (21:04)
[2019-11-09] MEDS: ATORVASTATIN 20 MG TAB PO SCH (21:04)
[2019-11-09 21:14] LABS: Glucose,Whole Blood 109 mg/dL (75-99)
[2019-11-10] MEDS: NITROGLYCERIN SL TABS 0.4 MG TAB SUBLINGUAL PRN (01:59)
[2019-11-10 06:17] LABS: Glucose,Whole Blood 92 mg/dL (75-99)
[2019-11-10] MEDS: INSULIN ASPART (NovoLOG) 100 UNIT/ML VIAL SQ SCH ×4 (06:18→19:58)
[2019-11-10] MEDS: LEVOTHYROXINE 125 MCG TAB PO SCH (06:39)
[2019-11-10] MEDS: CARVEDILOL 3.125 MG TAB PO SCH (06:39)
[2019-11-10] MEDS: MULTIVITAMINS, THERA 1 EACH TAB PO SCH (09:41)
[2019-11-10] MEDS: TICAGRELOR 90 MG TAB PO SCH ×2 (09:41→19:56)
[2019-11-10] MEDS: ASPIRIN 325 MG TAB PO SCH (09:41)
[2019-11-10] MEDS: DOCUSATE 100 MG CAP PO SCH ×2 (09:41→19:56)
[2019-11-10] MEDS: ALLOPURINOL 100 MG TAB PO SCH (09:42)
[2019-11-10] MEDS: ISOSORBIDE MONONITRATE ER 30 MG TAB.ER.24H PO SCH (09:42)
[2019-11-10] MEDS: LINAGLIPTIN 5 MG TABLET PO SCH (09:42)
[2019-11-10] MEDS: RANOLAZINE 500 MG TAB.ER.12H PO SCH ×2 (09:42→19:56)
[2019-11-10] MEDS: FENOFIBRATE 160 MG TAB PO SCH (09:42)
[2019-11-10] MEDS ORDERED: CLOPIDOGREL 75 MG TAB PO SCH (10:00)
[2019-11-10 11:41] LABS: Glucose,Whole Blood 97 mg/dL (75-99)
--- NOTE | 2019-11-10 12:19 | P.PN ---
Subjective Progress Note Date: 11/10/19 Principal diagnosis: Acute non-ST elevation MO This is a very pleasant 78-year-old gentleman with history of coronary artery disease and prior coronary artery bypass grafting and stenting who was admitted to the hospital with a chest discomfort and ruled in for acute non ST elevation MO. He underwent a heart catheterization which revealed occluded left main and RCA with patent stent to the right coronary artery and patent ABREU to LAD. Maximize medical treatment was advised. The patient was seen today, 11/11/2019. He did have an episode of chest discomfort early this morning. Otherwise he has been up and around and he is asymptomatic. I am going to increase the dose of Coreg and also increase the dose of Imdur. He was started yesterday on Plavix as well as Ranexa. The echocardiogram revealed impaired LV function with EF between 35-40%. Objective - Vital Signs Vital signs: Vital Signs Temp 98.0 F 11/10/19 08:00 Pulse 89 11/10/19 04:00 Resp 18 11/10/19 08:00 BP 159/81 11/10/19 08:00 Pulse Ox 97 11/10/19 08:00 Intake & Output 11/09/19 11/10/19 11/10/19 18:59 06:59 18:59 Intake Total 290 370 180 Output Total 200 375 Balance 90 -5 180 Weight 89.1 kg 86.1 kg Intake: IV 50 Oral 240 370 180 Output: Urine 200 375 Other: Voiding Method Urinal Urinal # Voids 1 1 - Constitutional General appearance: Present: no acute distress - Respiratory Respiratory: bilateral: CTA - Cardiovascular Rhythm: regular Heart sounds: normal: S1, S2 - Labs CBC & Chem 7: 11/09/19 06:25 11/09/19 06:25 Labs: Abnormal Lab Results - Last 24 Hours (Table) 11/09/19 Range/Units 21:13 POC Glucose (mg/dL) 109 H (75-99) mg/dL Assessment and Plan Assessment: Assessment #1 acute non-ST elevation myocardial infarction #2 history of coronary artery disease with prior revascularization with unknown details #3 chronic kidney disease #4 diabetes #5 hypertension #6 dyslipidemia Plan Continue the current medical regimen. Continue dual antiplatelet therapy Increase the dose of Imdur Increase the dose of Coreg Continue Plavix and Ranexa
--- NOTE | 2019-11-10 14:57 | P.PN ---
Subjective Progress Note Date: 11/10/19 Principal diagnosis: Patient is a 72-year-old pleasant male came in with compensative chest pain pressure-like sensation had has been having on and off episodes from for about a be did take one nitroglycerin which didn't help his chest pain was much worse yesterday because of which he does it complain ER and patient is found to have significant EKG changes in the anterolateral leads ST depressions in the anterolateral leads with elevated troponin up to 12 patient is on IV heparin being treated for non-ST elevation myocardial infarction. Patient denied any chest pain presently patient is an ideal antiplatelet therapy beta preston at this time. Patient denied any short of breath orthopnea proximal nocturnal dyspnea does not doesn't appear to be in heart failure exacerbation at this time patient will undergo cardiac catheterization today. 11/09/2019 Patient is admitted for non-ST elevation microinfarction patient will undergo cardiac catheterization today Constitutional: Denied any fatigue denied any fever. Cardio vascular: denied any chest pain, palpitations Gastrointestinal denied any nausea vomiting Pulmonary: Denied any shortness of breath cough Neurologic denied any new focal deficits 11/10/2019 Patient is sitting up in the chair and appears to be in no acute distress. Patient underwent cardiac catheterization with Dr. Kaur yesterday and recommending maximum medical management at this time. Multiple medication adjustments have been made. Patient has been started on Plavix and will continue. Overnight patient had a brief episode of chest pain along with left arm pain and was given a nitro along with an EKG showing no new changes. Chest pain was relieved with nitro. Currently patient has no reports of chest pain, shortness of breath, or palpitations. Patient is afebrile. No reports of nausea or vomiting and patient is tolerating diet. Patient has been up and walking with no difficulties. Objective - Vital Signs Vital signs: Vital Signs Temp 98.0 F 11/10/19 08:00 Pulse 89 11/10/19 04:00 Resp 18 11/10/19 08:00 BP 159/81 11/10/19 08:00 Pulse Ox 97 11/10/19 08:00 Intake & Output 11/09/19 11/10/19 11/10/19 18:59 06:59 18:59 Intake Total 290 370 180 Output Total 200 375 Balance 90 -5 180 Weight 89.1 kg 86.1 kg Intake: IV 50 Oral 240 370 180 Output: Urine 200 375 Other: Voiding Method Urinal Urinal # Voids 1 1 - Exam GENERAL: The patient is alert and oriented x3, not in any acute distress. Well developed, well nourished. HEENT: Pupils are round and equally reacting to light. EOMI. No scleral icterus. No conjunctival pallor. Normocephalic, atraumatic. No pharyngeal erythema. No thyromegaly. CARDIOVASCULAR: S1 and S2 present. No murmurs, rubs, or gallops. PULMONARY: Chest is clear to auscultation, with no wheezing or crackles noted on exam ABDOMEN: Soft, nontender, nondistended, normoactive bowel sounds. No palpable organomegaly. MUSCULOSKELETAL: No joint swelling or deformity. EXTREMITIES: No cyanosis, clubbing, or pedal edema. NEUROLOGICAL: Gross neurological examination did not reveal any focal deficits. SKIN: No rashes. - Labs CBC & Chem 7: 11/09/19 06:25 11/09/19 06:25 Labs: Abnormal Lab Results - Last 24 Hours (Table) 11/09/19 Range/Units 21:13 POC Glucose (mg/dL) 109 H (75-99) mg/dL Assessment and Plan Assessment: -Possible non-ST elevation myocardial infarction patient was monitored on heparin beta preston a dual antiplatelet therapy patient appears to have anterolateral ischemia in the circumflex or LAD lesion. Patient does have a history of coronary artery disease with a CABG in the past. Patient underwent cardiac catheterization showing severe triple-vessel coronary artery disease, patent ABREU to LAD, intermediate in-stent restenosis involving the SVG to RCA, mildly dilated aortic root, elevated LVEDP. Recommending maximum medical treatment. Cardiology is following. Patient was started on Plavix -Congestive heart failure probably acute systolic dysfunction EF of around 35- 40%. patient is not in heart failure exacerbation at this time -Diabetes mellitus -hyperlipidemia -Hypertension -possible acute renal failure may be related to myocardial infarction, will re peat a.m. labs. Patient refused today's labs as he thought he was going home today. -Chronic kidney disease stage II-III -Hyperlipidemia -hypothyroidism
[2019-11-10 16:38] LABS: Glucose,Whole Blood 86 mg/dL (75-99)
[2019-11-10] MEDS: CARVEDILOL 6.25 MG TAB PO SCH (16:47)
[2019-11-10] MEDS: ATORVASTATIN 20 MG TAB PO SCH (19:55)
[2019-11-10] MEDS: ISOSORBIDE MONONITRATE ER 60 MG TAB.ER.24H PO SCH (19:55)
[2019-11-10 19:58] LABS: Glucose,Whole Blood 121 mg/dL (75-99)
[2019-11-10] MEDS: INSULIN DETEMIR (LEVEMIR) 100 UNIT/ML SYR SQ SCH (19:58)
[2019-11-11 06:18] LABS: Glucose,Whole Blood 78 mg/dL (75-99)
[2019-11-11] MEDS: CARVEDILOL 6.25 MG TAB PO SCH (06:31)
[2019-11-11] MEDS: INSULIN ASPART (NovoLOG) 100 UNIT/ML VIAL SQ SCH ×2 (06:31→14:25)
[2019-11-11] MEDS: LEVOTHYROXINE 125 MCG TAB PO SCH (06:31)
[2019-11-11 06:54] LABS: Calcium 9.1 mg/dL (8.4-10.2); Potassium 4.1 mmol/L (3.5-5.1)
[2019-11-11 07:56] VITALS: RESP 16
--- NOTE | 2019-11-11 08:57 | P.PN ---
Subjective Progress Note Date: 11/11/19 Principal diagnosis: Acute non-ST elevation IN This is a very pleasant 78-year-old gentleman with history of coronary artery disease and prior coronary artery bypass grafting and stenting who was admitted to the hospital with a chest discomfort and ruled in for acute non ST elevation IN. He underwent a heart catheterization which revealed occluded left main and RCA with patent stent to the right coronary artery and patent ABREU to LAD. Maximize medical treatment was advised. The patient was seen today, November [id number]. He had no more episodes of chest discomfort. He is on maximize medical treatment. From a cardiovascular standpoint overview, the patient can be discharged home Objective - Vital Signs Vital signs: Vital Signs Temp 98.7 F 11/11/19 07:55 Pulse 76 11/11/19 07:55 Resp 16 11/11/19 07:55 BP 142/83 11/11/19 07:55 Pulse Ox 96 11/11/19 07:55 Intake & Output 11/10/19 11/11/19 11/11/19 18:59 06:59 18:59 Intake Total 420 Output Total 800 Balance 420 -800 Weight 86.8 kg Intake: Oral 420 Output: Urine 800 Other: Voiding Method Urinal Urinal # Voids 1 - Constitutional General appearance: Present: no acute distress - Respiratory Respiratory: bilateral: CTA - Cardiovascular Rhythm: regular Heart sounds: normal: S1, S2 - Labs CBC & Chem 7: 11/09/19 06:25 11/11/19 06:17 Labs: Abnormal Lab Results - Last 24 Hours (Table) 11/10/19 11/11/19 Range/Units 19:57 06:17 Chloride 108 H (98-107) mmol/L Creatinine 1.27 H (0.66-1.25) mg/dL Glucose 72 L (74-99) mg/dL POC Glucose (mg/dL) 121 H (75-99) mg/dL Assessment and Plan Assessment: Assessment #1 acute non-ST elevation myocardial infarction #2 history of coronary artery disease with prior revascularization with unknown details #3 chronic kidney disease #4 diabetes #5 hypertension #6 dyslipidemia Plan Continue the current medical regimen. Continue dual antiplatelet therapy The patient can be discharged home
[2019-11-11] MEDS: ISOSORBIDE MONONITRATE ER 60 MG TAB.ER.24H PO SCH (09:07)
[2019-11-11] MEDS: RANOLAZINE 500 MG TAB.ER.12H PO SCH (09:07)
[2019-11-11] MEDS: TICAGRELOR 90 MG TAB PO SCH (09:07)
[2019-11-11] MEDS: FENOFIBRATE 160 MG TAB PO SCH (09:08)
[2019-11-11] MEDS: ALLOPURINOL 100 MG TAB PO SCH (09:08)
[2019-11-11] MEDS: ASPIRIN 325 MG TAB PO SCH (09:08)
[2019-11-11] MEDS: LINAGLIPTIN 5 MG TABLET PO SCH (09:08)
[2019-11-11] MEDS: MULTIVITAMINS, THERA 1 EACH TAB PO SCH (09:08)
[2019-11-11] MEDS: DOCUSATE 100 MG CAP PO SCH (09:08)
[2019-11-11 11:29] VITALS: BP 130/78; PULSE 71; TEMP 97.8
[2019-11-11 12:07] LABS: Glucose,Whole Blood 91 mg/dL (75-99)
--- NOTE | 2019-11-11 12:26 | P.DS ---
Providers Date of admission: 11/07/19 21:06 Expected date of discharge: 11/11/19 Attending physician: Tamiko Payne Consults: 11/07/19 21:06 Consult Physician Urgent Consulting Provider: Bishop Morgan Consult Reason/Comments: nstemi Do you want consulting provider notified?: Yes 11/09/19 09:59 Consult Physician Routine Consulting Provider: [facility] Consult Reason/Comments: Post Interventional patient Do you want consulting provider notified?: Already Contacted Primary care physician: Neville Sorensen Hospital Course: Final diagnosis -Possible non-ST elevation myocardial infarction patient appears to have anterolateral ischemia in the circumflex or LAD lesion. Patient does have a history of coronary artery disease with a CABG in the past. Patient underwent cardiac catheterization showing severe triple-vessel coronary artery disease, patent ABREU to LAD, intermediate in-stent restenosis involving the SVG to RCA, mildly dilated aortic root, elevated LVEDP. -Congestive heart failure probably acute systolic dysfunction EF of around 35- 40%, not in acute exacerbation -Diabetes mellitus -hyperlipidemia -Hypertension -possible acute renal failure may be related to myocardial infarction -Chronic kidney disease stage II-III -Hyperlipidemia -hypothyroidism Discharge disposition Patient is being discharged in a stable condition with guarded prognosis to home and will have home care in the outpatient setting. Patient will follow-up with Dr. Sorensen his primary care provider upon discharge. Patient will also be following up with cardiology in the outpatient setting as scheduled. Total time taken is 35 minutes. History of present illness Patient is a 72-year-old pleasant male came in with compensative chest pain pressure-like sensation had has been having on and off episodes from for about a be did take one nitroglycerin which didn't help his chest pain was much worse yesterday because of which he does it complain ER and patient is found to have significant EKG changes in the anterolateral leads ST depressions in the anterolateral leads with elevated troponin up to 12 patient is on IV heparin being treated for non-ST elevation myocardial infarction. Patient denied any chest pain presently patient is an ideal antiplatelet therapy beta preston at this time. Patient denied any short of breath orthopnea proximal nocturnal dyspnea does not doesn't appear to be in heart failure exacerbation at this time patient will undergo cardiac catheterization. 11/11/2019 During hospitalization patient underwent cardiac catheterization and cardiology is recommending maximum medical management. No further stenting done at this time and previous stents found to be patent. Patient will follow-up with cardiology in the outpatient setting in 1-2 weeks as scheduled. Patient will continue on aspirin along with Brilinta upon discharge. Patient has been free of chest pain for last 2-3 days per patient. patient would like to go home today . During hospitalization patient was found to have slightly elevated creatinine although it is currently trending down. Recommend repeat labs in a couple of days at his primary care follow-up to monitor creatinine. Current creatinine is 1.27. Patient denies any chest pain, shortness of breath, or palpitations. Patient is afebrile. No reports of nausea or vomiting and patient is tolerating diet. Today patient is stable for discharge and will be going today. On exam vital signs are stable. Temp is 97.8F, pulse is 71, respirations are 16, blood pressure is 130/78 oxygen saturation is 98% on room air. Cardio S1, S2 are present. Respiratory system shows clear to auscultation. Abdomen is soft and nontender. Nervous system shows no focal deficits. Please refer to medication reconciliation sheet for a list of medications. Patient Condition at Discharge: Stable Plan - Discharge Summary Discharge Rx Participant: No New Discharge Prescriptions: New Aspirin 325 mg PO DAILY 30 Days #30 tab Carvedilol [Coreg] 6.25 mg PO BID-W/MEALS 30 Days #60 tab Bisacodyl [Dulcolax] 5 mg PO DAILY #5 tablet. Isosorbide Mononitrate ER [Imdur] 60 mg PO BID@0900,2100 30 Days #60 tab.er.24h Continue Docusate [Colace] 100 mg PO BID@1000,2200 Fairview-3 Fatty Acids/Fish Oil [Fish Oil 1,000 mg Softgel] 1 cap PO DAILY@1000 Multivitamins, Thera [Multivitamin (formulary)] 1 tab PO DAILY@1000 Ketoconazole 2% Shampoo [Nizoral] 1 applic TOPICAL Q3D PRN PRN Reason: PSORIASIS Insulin Detemir [Levemir Flextouch] 35 units SQ HS@2100 Fluocinolone Acetonide [Lidex Soln] 1 applic TOPICAL BID PRN PRN Reason: PSORIASIS Nitroglycerin Sl Tabs [Nitrostat] 0.4 mg SUBLINGUAL Q5M PRN PRN Reason: Chest Pain Levothyroxine Sodium 125 mcg PO AC-BRKFST Ranolazine [Ranexa] 1,000 mg PO BID@899,2099 Fenofibrate Nanocrystallized [Fenofibrate] 145 mg PO DAILY@1000 Atorvastatin [Lipitor] 20 mg PO HS@2099 Ticagrelor [Brilinta] 90 mg PO BID@899,2099 Linagliptin [Tradjenta] 5 mg PO DAILY@1000 Febuxostat [Uloric] 40 mg PO DAILY@1000 Ubidecarenone [Co Q-10] 200 mg PO HS@220 Discontinued Aspirin 81 mg PO HS@2099 Triamterene-Hctz 37.5-25Mg [Dyazide 37.5-25 Capsule] 1 cap PO Q48H Isosorbide Mononitrate ER [Imdur] 30 mg PO BID@899,2099 Carvedilol [Coreg] 3.125 mg PO BID@00,2099 Discharge Medication List Atorvastatin [Lipitor] 20 mg PO HS@209911/07/19 [History] Docusate [Colace] 100 mg PO BID@999,219911/07/19 [History] Febuxostat [Uloric] 40 mg PO DAILY@99911/07/19 [History] Fenofibrate Nanocrystallized [Fenofibrate] 145 mg PO DAILY@99911/07/19 [History] Fluocinolone Acetonide [Lidex Soln] 1 applic TOPICAL BID PRN 11/07/19 [History] Insulin Detemir [Levemir Flextouch] 35 units SQ HS@209911/07/19 [History] Ketoconazole 2% Shampoo [Nizoral] 1 applic TOPICAL Q3D PRN 11/07/19 [History] Levothyroxine Sodium 125 mcg PO AC-BRKFST 11/07/19 [History] Linagliptin [Tradjenta] 5 mg PO DAILY@99911/07/19 [History] Multivitamins, Thera [Multivitamin (formulary)] 1 tab PO DAILY@99911/07/19 [History] Nitroglycerin Sl Tabs [Nitrostat] 0.4 mg SUBLINGUAL Q5M PRN 11/07/19 [History] [place]view-3 Fatty Acids/Fish Oil [Fish Oil 1,000 mg Softgel] 1 cap PO DAILY@99911/07/19 [History] Ranolazine [Ranexa] 1,000 mg PO BID@0900,209911/07/19 [History] Ticagrelor [Brilinta] 90 mg PO BID@0900,209911/07/19 [History] Ubidecarenone [Co Q-10] 200 mg PO HS@219911/07/19 [History] Aspirin 325 mg PO DAILY 30 Days #30 tab 11/11/19 [Rx] Bisacodyl [Dulcolax] 5 mg PO DAILY #5 tablet.dr 11/11/19 [Rx] Carvedilol [Coreg] 6.25 mg PO BID-W/MEALS 30 Days #60 tab 11/11/19 [Rx] Isosorbide Mononitrate ER [Imdur] 60 mg PO BID@899,2099 30 Days #60 tab.er.24h 11/11/19 [Rx] Follow up Appointment(s)/Referral(s): [facility]Card[facility] [NON-STAFF] - (After discharge, you will follow-up with your porter sample case. Once you have obtained a prescription for cardiac rehab, please call [phone] to set up an evaluation.) Neville Sorensen DO [Primary Care Provider] - 11/16/19 11:45 am Wilberto Vasquez MD [STAFF PHYSICIAN] - 11/18/19 2:45 pm (November 30 appt moved.) Patient Instructions/Handouts: *Surgery [facility] - After Heart Catheterization - [facility] Instructions, Angina (DC), Heart Healthy Diet (DC) Activity/Diet/Wound Care/Special Instructions: Cardiac catheterization precautions: 1. Support your puncture site by applying firm, steady pressure whenever you cough, laugh, sneeze or bear down to have a bowel movement (2-day restriction). 2. Watch for any excessive bruising, active bleeding, a firm knot forming under your skin, extreme tenderness and signs of infection (redness, swelling, fever). 3. Shower daily, do not soak puncture in a tub bath, jacuzzi, pool, blankenship etc. for 1 week. This is to prevent risk of infection. 4. Drink plenty of fluids the day of and day after your procedure to flush contrast dye out of your kidneys. 5. Take all medications as directed. Never stop any new medication without your physicians OK. 6. No driving for 2 days after procedure. 7. 10- pound weight lifting restriction for 1 week. 8. Low sodium/low fat diet. 9. Activity limited until follow up appointment with your porter sample case. In case of any problems, please call [facility], Antonia Bucio @ [phone]. Activity Limited until follow-up Follow-up with primary care provider upon discharge Follow-up with cardiology in the outpatient setting Continue current diet Discharge Disposition: HOME SELF-CARE
--- NOTE | 2019-11-14 11:09 | CDI ---
Documentation Clarification Form Date: 11/14/19 From: Buffy Ceron Phone: If you have a question about this query, please contact Jes Calabrese, [employer] at [phone] between 8am and 5pm. Admit Date: 11/07/19 Discharge Date:11/11/19 Patient Name: Jose Oshea Visit Number: [id number] ATTENTION: The Clinical Documentation Specialists (CDI) and [facility] Coding Staff appreciate your assistance in clarifying documentation. Please respond to the clarification below the line at the bottom and electronically sign. The CDI & [facility] Coding staff will review the response and follow-up if needed. Please note: Queries are made part of the Legal Health Record. If you have any questions, please contact the author of this message via ITS. Dear Dr. Jakub Kaur Acute non-ST elevation myocardial infarction is documented in: your consult note & 11/09 progress notes.Possible non-ST elevation myocardial infarction is documented in Dr. Cuevas's notes. Patient History/Risk Factors: CAD Clinical Indicators: CAD, previous CABG and stent placement. Heart cath revealed in-stent re-stenosis involving the SVG to RCA. Troponin: 0.128, 12.900, 32.000 EKG Results: H&P documentation states significant EKG changes in the anterolateral leads. Your consult documentation states EKG showed sinus rhythm with ST segment elevation about 1 mm in aVR. Treatment: Maximized medical treatment. In order to capture the severity of condition and necessary documentation specificity, please clarify cause of the NSTEMI: Coronary artery disease In-stent restenosis Other(please specify): Unable to determine Coronary artery disease MTDD
== END 2019-11-11 14:06 | disposition home or self-care (01) | DRG 281 ==
LOC: EC 18:41 → 3SCARD 21:06
PROVIDERS: ADMIT Hospitalist; ATTEND Hospitalist
PROC: B2111ZZ Fluoroscopy of Multiple Coronary Arteries using Low Osmolar Contrast (ICD-10-PCS; principal; 2019-11-09 09:00)
PROC: B2131ZZ Fluoroscopy of Multiple Coronary Artery Bypass Grafts using Low Osmolar Contrast (ICD-10-PCS; principal; 2019-11-09 09:00)
PROC: 4A023N7 Measurement of Cardiac Sampling and Pressure, Left Heart, Percutaneous Approach (ICD-10-PCS; principal; 2019-11-09 09:00)
DX: I21.4 Non-ST elevation (NSTEMI) myocardial infarction (principal); I13.0 Hypertensive heart and chronic kidney disease with heart failure and stage 1 through stage 4 chronic kidney disease, or unspecified chronic kidney disease; T82.855A Stenosis of coronary artery stent, initial encounter; I50.22 Chronic systolic (congestive) heart failure; E11.22 Type 2 diabetes mellitus with diabetic chronic kidney disease; N18.3 Chronic kidney disease, stage 3 (moderate); I25.10 Atherosclerotic heart disease of native coronary artery without angina pectoris; I77.819 Aortic ectasia, unspecified site; I77.810 Thoracic aortic ectasia; E78.5 Hyperlipidemia, unspecified; E89.0 Postprocedural hypothyroidism; I25.2 Old myocardial infarction; Z79.02 Long term (current) use of antithrombotics/antiplatelets; Z79.4 Long term (current) use of insulin; Z79.82 Long term (current) use of aspirin; Z79.890 Hormone replacement therapy; Z79.899 Other long term (current) drug therapy; Z95.1 Presence of aortocoronary bypass graft; Z88.5 Allergy status to narcotic agent; Y83.1 Surgical operation with implant of artificial internal device as the cause of abnormal reaction of the patient, or of later complication, without mention of misadventure at the time of the procedure
CPT/HCPCS: 36415; 71046; 80048; 80053; 80061; 83690; 83735; 83880; 84484; 85025; 85049; 85610; 85730; 93005; 93306; 93458; 94760; 96365; 96375; 96376; 99285

== ENCOUNTER 2021-07-02 10:31 | Observation (INO) | payer MEDICARE ==
[2021-07-02] MEDS ORDERED: ASPIRIN 81 MG PO STA (10:58)
--- NOTE | 2021-07-02 11:01 | ED ---
General Adult HPI - General Chief complaint: Chest Pain Stated complaint: Chest pain/left arm pain Time Seen by Provider: 07/02/21 10:43 Source: patient Mode of arrival: wheelchair Limitations: no limitations - History of Present Illness Initial comments: Dictation was produced using [employer] dictation software. please excuse any grammatical, word or spelling errors. Chief Complaint: 80-year-old male presents to the emergency department for chest pain and left upper extremity pain History of Present Illness: And is an 80-year-old male he reports that he has extensive history of coronary artery disease. 20 some odd years ago patient had quadruple bypass procedure. Patient has also had a multiple coronary artery stents placed after the bypass. Over the last several days patient has been having achy chest pressure with ration the left upper extremity. He states his symptoms have been increasing in intensity, duration and frequency. Patient states is nonexertional. His symptoms remind him of heart attacks in the past. Patient denies any chest pain at rest. He does however so have some mild left upper extremity pain. The ROS documented in this emergency department record has been reviewed and confirmed by me. Those systems with pertinent positive or negative responses have been documented in the HPI. All other systems are other negative and/or noncontributory. PHYSICAL EXAM: General Impression: Alert and oriented x3, not in acute distress HEENT: Normocephalic atraumatic, extra-ocular movements intact, pupils equal and reactive to light bilaterally, mucous membranes moist. Cardiovascular: Heart regular rate and rhythm Chest: Able to complete full sentences, no retractions, no tachypnea Abdomen: abdomen soft, non-tender, non-distended, no organomegaly Musculoskeletal: Pulses present and equal in all extremities, no peripheral edema Motor: no focal deficits noted Neurological: CN II-XII grossly intact, no focal motor or sensory deficits noted Skin: Intact with no visualized rashes Psych: Normal affect and mood ED course: 80-year-old male presents to the emergency department for symptoms concerning for acute coronary syndrome. Patient is extensive history of coronary artery disease. Vital signs upon arrival are within acceptable limits. Patient's well-appearing at bedside. He denies any chest pain at this time. He does however have some left upper chest pain that he reports is an indication that he is having coronary syndrome. EKG interpretation: Ventricular rate 70, sinus rhythm, IA interval 92, QRS 90, QTC 475. No IA prolongation, no QTC prolongation, no ST or T-wave changes noted. EKG compared to 11/07/2019 showing no changes. Overall, this EKG is unremarkable Laboratory evaluation obtained. CBC, coag panel, metabolic panel is unremarkable. Troponin is 0.077. Patient has history of elevated troponin. Chest x-ray shows right lower lobe infiltrate. Patient not having a cough or URI symptoms. Furthermore his pain is on the left side. Patient reevaluated at bedside 12:30 PM Condition. Patient is asymptomatic. Patient will be admitted to observation for serial troponins and cardiology consultation. - Related Data Home Medications Medication Instructions Recorded Confirmed Atorvastatin [Lipitor] 20 mg PO HS@209911/07/19 11/07/19 Docusate [Colace] 100 mg PO BID@999,219911/07/19 11/07/19 Febuxostat [Uloric] 40 mg PO DAILY@99911/07/19 11/07/19 Fenofibrate Nanocrystallized 145 mg PO DAILY@99911/07/19 11/07/19 [Fenofibrate] Fluocinolone Acetonide [Lidex 1 applic TOPICAL BID PRN 11/07/19 11/07/19 0.01% Soln] Insulin Detemir [Levemir Flextouch 35 units SQ HS@209911/07/19 11/07/19 Pen] Ketoconazole 2% Shampoo [Nizoral] 1 applic TOPICAL Q3D PRN 11/07/19 11/07/19 Levothyroxine Sodium 125 mcg PO AC-BRKFST 11/07/19 11/07/19 Linagliptin [Tradjenta] 5 mg PO DAILY@99911/07/19 11/07/19 Multivitamins, Thera [Multivitamin 1 tab PO DAILY@99911/07/19 11/07/19 (formulary)] Nitroglycerin Sl Tabs [Nitrostat] 0.4 mg SUBLINGUAL Q5M PRN 11/07/19 11/07/19 Hiram-3 Fatty Acids/Fish Oil [Fish 1 cap PO DAILY@99911/07/19 11/07/19 Oil 1,000 mg Softgel] Ranolazine [Ranexa] 1,000 mg PO BID@0900,209911/07/19 11/07/19 Ticagrelor [Brilinta] 90 mg PO BID@0900,2100 11/07/19 11/07/19 Ubidecarenone [Co Q-10] 200 mg PO HS@0 11/07/19 11/07/19 Previous Rx's Medication Instructions Recorded Aspirin 325 mg PO DAILY 30 Days #30 tab 11/11/19 Isosorbide Mononitrate ER [Imdur] 60 mg PO BID@0900,2100 30 Days #60 11/11/19 tab.er.24h bisacodyL [Dulcolax] 5 mg PO DAILY #5 tablet. 11/11/19 carvediloL [Coreg] 6.25 mg PO BID-W/MEALS 30 Days #60 11/11/19 tab Allergies Allergy/AdvReac Type Severity Reaction Status Date / Time morphine Allergy Unknown Verified 07/02/21 10:34 Review of Systems ROS Statement: Those systems with pertinent positive or pertinent negative responses have been documented in the HPI. ROS Other: All systems not noted in ROS Statement are negative. Past Medical History Past Medical History: Diabetes Mellitus, Hyperlipidemia, Hypertension, Myocardial Infarction ([place]), Thyroid Disorder Last Myocardial Infarction Date:: unknown History of Any Multi-Drug Resistant Organisms: None Reported Past Surgical History: Cholecystectomy, Heart Catheterization With Stent Additional Past Surgical History / Comment(s): thyroidectomy Date of Last Stent Placement:: unknown Past Psychological History: No Psychological Hx Reported Smoking Status: Never smoker Past Alcohol Use History: None Reported Past Drug Use History: None Reported General Exam Limitations: no limitations Course Vital Signs 07/02/21 07/02/21 07/02/21 10:35 11:00 11:40 Temperature 97.6 F Pulse Rate 69 68 Respiratory 18 24 16 Rate Blood Pressure 125/84 124/88 O2 Sat by Pulse 99 99 Oximetry Medical Decision Making - Lab Data Result diagrams: 07/02/21 11:02 07/02/21 11:02 Lab Results 07/02/21 07/02/21 07/02/21 Range/Units 11:02 11:02 11:02 WBC 11.7 H (3.8-10.6) k/uL RBC 5.09 (4.30-5.90) m/uL Hgb 15.5 (13.0-17.5) gm/dL Hct 46.6 (39.0-53.0) % MCV 91.6 (80.0-100.0) fL MCH 30.5 (25.0-35.0) pg MCHC 33.3 (31.0-37.0) g/dL RDW 14.7 (11.5-15.5) % Plt Count 379 (150-450) k/uL MPV 7.3 Neutrophils % 64 % Lymphocytes % 22 % Monocytes % 7 % Eosinophils % 3 % Basophils % 1 % Neutrophils # 7.4 (1.3-7.7) k/uL Lymphocytes # 2.6 (1.0-4.8) k/uL Monocytes # 0.8 (0-1.0) k/uL Eosinophils # 0.3 (0-0.7) k/uL Basophils # 0.1 (0-0.2) k/uL PT 10.5 (9.0-12.0) sec INR 1.0 (<1.2) APTT 22.1 (22.0-30.0) sec Sodium 138 (137-145) mmol/L Potassium 4.4 (3.5-5.1) mmol/L Chloride 103 (98-107) mmol/L Carbon Dioxide 25 (22-30) mmol/L Anion Gap 10 mmol/L BUN 30 H (9-20) mg/dL Creatinine 1.62 H (0.66-1.25) mg/dL Est GFR (CKD-EPI)AfAm 46 (>60 ml/min/1.73 sqM) Est GFR (CKD-EPI)NonAf 39 (>60 ml/min/1.73 sqM) Glucose 130 H (74-99) mg/dL Calcium 10.3 H (8.4-10.2) mg/dL Magnesium 2.2 (1.6-2.3) mg/dL Total Bilirubin 0.9 (0.2-1.3) mg/dL AST 28 (17-59) U/L ALT 15 (4-49) U/L Alkaline Phosphatase 68 (38-126) U/L Troponin I (0.000-0.034) ng/mL NT-Pro-B Natriuret Pep pg/mL Total Protein 7.4 (6.3-8.2) g/dL Albumin 4.2 (3.5-5.0) g/dL Lipase 143 (23-300) U/L 07/02/21 07/02/21 Range/Units 11:02 11:02 WBC (3.8-10.6) k/uL RBC (4.30-5.90) m/uL Hgb (13.0-17.5) gm/dL Hct (39.0-53.0) % MCV (80.0-100.0) fL MCH (25.0-35.0) pg MCHC (31.0-37.0) g/dL RDW (11.5-15.5) % Plt Count (150-450) k/uL MPV Neutrophils % % Lymphocytes % % Monocytes % % Eosinophils % % Basophils % % Neutrophils # (1.3-7.7) k/uL Lymphocytes # (1.0-4.8) k/uL Monocytes # (0-1.0) k/uL Eosinophils # (0-0.7) k/uL Basophils # (0-0.2) k/uL PT (9.0-12.0) sec INR (<1.2) APTT (22.0-30.0) sec Sodium (137-145) mmol/L Potassium (3.5-5.1) mmol/L Chloride (98-107) mmol/L Carbon Dioxide (22-30) mmol/L Anion Gap mmol/L BUN (9-20) mg/dL Creatinine (0.66-1.25) mg/dL Est GFR (CKD-EPI)AfAm (>60 ml/min/1.73 sqM) Est GFR (CKD-EPI)NonAf (>60 ml/min/1.73 sqM) Glucose (74-99) mg/dL Calcium (8.4-10.2) mg/dL Magnesium (1.6-2.3) mg/dL Total Bilirubin (0.2-1.3) mg/dL AST (17-59) U/L ALT (4-49) U/L Alkaline Phosphatase (38-126) U/L Troponin I 0.077 H* (0.000-0.034) ng/mL NT-Pro-B Natriuret Pep 2490 pg/mL Total Protein (6.3-8.2) g/dL Albumin (3.5-5.0) g/dL Lipase (23-300) U/L Disposition Clinical Impression: Chest pain Disposition: ADMITTED IP TO THIS HOSP Condition: Fair Referrals: Neville Sorensen DO [Primary Care Provider] - 1-2 days
[2021-07-02 11:13] LABS: Basophils # (A) 0.1 k/uL (0-0.2); Basophils % (A) 1 %; Eosinophils # (A) 0.3 k/uL (0-0.7); Eosinophils % (A) 3 %; HCT 46.6 % (39.0-53.0); HGB 15.5 gm/dL (13.0-17.5); Lymphocytes # (A) 2.6 k/uL (1.0-4.8); Lymphocytes % (A) 22 %; MCH 30.5 pg (25.0-35.0); MCHC 33.3 g/dL (31.0-37.0); MCV 91.6 fL (80.0-100.0); Mean Platelet Volume 7.3; Monocytes # (A) 0.8 k/uL (0-1.0); Monocytes % (A) 7 %; Neutrophils # (A) 7.4 k/uL (1.3-7.7); Neutrophils % (A) 64 %; Platelet Count 379 k/uL (150-450); RBC 5.09 m/uL (4.30-5.90); RDW 14.7 % (11.5-15.5); WBC 11.7 k/uL (3.8-10.6)
[2021-07-02 11:24] LABS: Albumin 4.2 g/dL (3.5-5.0); Calcium 10.3 mg/dL (8.4-10.2); Magnesium 2.2 mg/dL (1.6-2.3); Potassium 4.4 mmol/L (3.5-5.1); Total Bilirubin 0.9 mg/dL (0.2-1.3); Total Protein 7.4 g/dL (6.3-8.2)
--- NOTE | 2021-07-02 11:25 | XR ---
EXAMINATION TYPE: XR chest 2V DATE OF EXAM: 07/02/2021 COMPARISON: 11/07/2019 TECHNIQUE: PA and lateral views submitted. HISTORY: Chest pain FINDINGS: Heart enlarged and there is postoperative change. Right-sided consolidation and pleural effusion. No overt failure or pneumothorax. Curvature of the spine with arthropathy of the shoulders and degenerat veda changes. No overt failure. Underlying COPD suspected. IMPRESSION: 1. Right lower lobe infiltrate and small effusion.
[2021-07-02 11:36] LABS: Partial Thromboplastin Time 22.1 sec (22.0-30.0); Prothrombin Time 10.5 sec (9.0-12.0)
[2021-07-02] MEDS ORDERED: NITROGLYCERIN SL TABS 0.4 MG TAB SUBLINGUAL PRN (12:30)
--- NOTE | 2021-07-02 14:16 | P.CRDCN ---
History of Present Illness History of present illness: HISTORY OF PRESENTING ILLNESS This is a pleasant 80-year-old male past medical history significant for coronary artery disease status post CABG 1994 (ABREU-LAD, SVG-RCA, SVG- RC) and angioplasty with stent placement SBG- RCA in 2017 and PCI to rPLV in 2019 at [facility], ischemic cardiomyopathy, type 2 diabetes, hypertension, dyslipidemia. He follows in the office with Dr. Vasquez. We have been asked to see in consultation for chest pain. Patient presents emergency department with c hest pain and left arm pain. Patient states his chest pain started 1 week ago. Located on the left side of his chest. Describes it as aching. Non-exertional. He also has left upper extremity pain. He endorses associated shortness of breath and some dyspnea on exertion. His left arm pain is exacerbated by lifting his arm up, he denies injury. His symptoms are alleviated by resting. He cannot describe any specific aggravating symptoms. He denies any associated diaphoresis, nausea, palpitations, lightheadedness, dizziness, syncope or presyncope. He denies any symptoms of orthopnea or PND. He states his chest pain is similar to when he had stents placed in the past. He denies tobacco or alcohol use. DIAGNOSTICS EKG reveals sinus rhythm, PAC, heart rate 70, T wave inversions in lead I and a VL. Prior EKG in the office 10/2020 with similar findings Last Cardiac Catheterization 10/2019 revealed severe triple-vessel coronary artery disease, patent ABREU to LAD, SVG to RCA has in-stent restenosis appeared to be in the range of 50%, mildly dilated aortic root, elevated LVEDP. Most recent echocardiogram in the office 06/2020 revealed an EF 40-45%, moderate concentric hypertrophy, grade 2 diastolic dysfunction, mild mitral regurgitation, mild tricuspid regurgitation, aortic root is enlarged, ascending aorta is enlarged Chest xray right lower lobe infiltrate and small effusion, heart enlarged, no overt failure. Laboratory reviewed, troponin 0.07, proBNP 2490, WBC 11.7, hemoglobin 15.5, platelets 379, sodium 138, potassium 4.4, BUN 30, serum creatinine 1.6, magnesium 2.2, COVID-19 PCR negative REVIEW OF SYSTEMS At the time of my exam: CONSTITUTIONAL: Denies fever or chills. CARDIOVASCULAR: +chest pain, +shortness of breath, Denies orthopnea, PND or palpitations. RESPIRATORY: Denies cough. GASTROINTESTINAL: Denies abdominal pain, diarrhea, constipation, nausea or vomiting. MUSCULOSKELETAL: Denies myalgias. NEUROLOGIC: Denies numbness, tingling, headacbe or weakness. ENDOCRINE: Denies fatigue, weight change, polydipsia or polyurina. GENITOURINARY: Denies burning, hematuria or urgency with micturation. HEMATOLOGIC: Denies history of anemia or bleeding. PHYSICAL EXAMINATION Blood pressure 124/88 HR 68, afebrile 99% on room air CONSTITUTIONAL: No apparent distress. HEENT: Head is normocephalic. Pupils are equal, round. Sclerae anicteric. Mucous membranes of the mouth are moist. No JVD. No carotid bruit. CHEST EXAMINATION: Lungs are clear to auscultation. No chest wall tenderness is noted on palpation or with deep breathing. HEART EXAMINATION: Regular rate and rhythm. S1, S2 heard. Systolic murmur noted at apex. ABDOMEN: Soft, nontender. Positive bowel sounds. EXTREMITIES: 2+ peripheral pulses, no lower extremity edema and no calf tenderness. SKIN: warm, dry NEUROLOGIC EXAMINATION: Patient is awake, alert and oriented x3. ASSESSMENT Chest pain Acute on chronic kidney disease Coronary artery disease status post CABG and angioplasty with stent placement of bypass grafts at [facility] Ischemic cardiomyopathy Type 2 diabetes Hypertension Dyslipidemia PLAN Obtain 2D echocardiogram and doppler study to assess cardiac structure and function. Trend troponin Repeat EKG Lipid Panel Continue home cardiac medications Further recommendations based on further evaluation by Dr. Kaur and above findings Will keep NPO at midnight for possible testing/intervention Thank you kindly for this consultation. Nurse Practitioner note has been reviewed, I agree with a documented findings and plan of care. Patient was seen and examined. Past Medical History Past Medical History: Diabetes Mellitus, Hyperlipidemia, Hypertension, Myocardial Infarction ([place]), Thyroid Disorder Last Myocardial Infarction Date:: unknown History of Any Multi-Drug Resistant Organisms: None Reported Past Surgical History: Cholecystectomy, Heart Catheterization With Stent Additional Past Surgical History / Comment(s): thyroidectomy Date of Last Stent Placement:: unknown Past Psychological History: No Psychological Hx Reported Smoking Status: Never smoker Past Alcohol Use History: None Reported Past Drug Use History: None Reported Medications and Allergies Home Medications Medication Instructions Recorded Confirmed Type Atorvastatin [Lipitor] 20 mg PO HS@2100 11/07/19 07/02/21 History Febuxostat [Uloric] 40 mg PO HS 11/07/19 07/02/21 History Fenofibrate Nanocrystallized 145 mg PO HS 11/07/19 07/02/21 History [Fenofibrate] Linagliptin [Tradjenta] 5 mg PO DAILY 11/07/19 07/02/21 History Nitroglycerin Sl Tabs [Nitrostat] 0.4 mg SUBLINGUAL Q5M PRN 11/07/19 07/02/21 History Ranolazine [Ranexa] 1,000 mg PO BID@0900,209911/07/19 07/02/21 History Ticagrelor [Brilinta] 90 mg PO BID@0900,209911/07/19 07/02/21 History Aspirin EC [Ecotrin Low Dose] 81 mg PO HS 07/02/21 07/02/21 History Cinnamon 2,000mg 2,000 mg PO DAILY 07/02/21 07/02/21 History Co Q-10 200 mg PO DAILY 07/02/21 07/02/21 History Docusate [Colace] 200 mg PO BID 07/02/21 07/02/21 History Fish Oil/Dha/Epa [Fish Oil 1,200 1 cap PO DAILY 07/02/21 07/02/21 History mg Fish Oil] Isosorbide Mononitrate ER [Imdur] 60 mg PO HS 07/02/21 07/02/21 History Levothyroxine Sodium [Synthroid] 150 mcg PO DAILY 07/02/21 07/02/21 History Triamterene-Hctz 37.5-25Mg 1 cap PO DAILY 07/02/21 07/02/21 History [Dyazide 37.5-25 Capsule] carvediloL [Coreg] 6.25 mg PO DAILY 07/02/21 07/02/21 History Allergies Allergy/AdvReac Type Severity Reaction Status Date / Time morphine Allergy Unknown Verified 07/02/21 13:13 Physical Exam Vitals: Vital Signs Temp Pulse Resp BP Pulse Ox 07/02/21 11:40 68 16 124/88 99 07/02/21 11:00 24 07/02/21 10:35 97.6 F 69 18 125/84 99 Intake and Output 07/01/21 07/02/21 07/02/21 22:59 06:59 14:59 Other: Weight 86.183 kg Results 07/02/21 11:02 07/02/21 11:02 Cardiac Enzymes 07/02/21 07/02/21 Range/Units 11:02 11:02 AST 28 (17-59) U/L Troponin I 0.077 H* (0.000-0.034) ng/mL Coagulation 07/02/21 Range/Units 11:02 PT 10.5 (9.0-12.0) sec APTT 22.1 (22.0-30.0) sec CBC 07/02/21 Range/Units 11:02 WBC 11.7 H (3.8-10.6) k/uL RBC 5.09 (4.30-5.90) m/uL Hgb 15.5 (13.0-17.5) gm/dL Hct 46.6 (39.0-53.0) % Plt Count 379 (150-450) k/uL Comprehensive Metabolic Panel 07/02/21 Range/Units 11:02 Sodium 138 (137-145) mmol/L Potassium 4.4 (3.5-5.1) mmol/L Chloride 103 (98-107) mmol/L Carbon Dioxide 25 (22-30) mmol/L BUN 30 H (9-20) mg/dL Creatinine 1.62 H (0.66-1.25) mg/dL Glucose 130 H (74-99) mg/dL Calcium 10.3 H (8.4-10.2) mg/dL AST 28 (17-59) U/L ALT 15 (4-49) U/L Alkaline Phosphatase 68 (38-126) U/L Total Protein 7.4 (6.3-8.2) g/dL Albumin 4.2 (3.5-5.0) g/dL Current Medications Generic Name Dose Route Start Last Admin Trade Name Freq PRN Reason Stop Dose Admin Aspirin 325 mg 07/03/21 09:00 Aspirin 325 Mg Tab PO DAILY CALIXTO Nitroglycerin 0.4 mg 07/02/21 12:30 Nitroglycerin Sl Tabs 0.4 Mg Tab SUBLINGUAL Q5M PRN Chest Pain Intake and Output 07/01/21 07/02/21 07/02/21 22:59 06:59 14:59 Other: Weight 86.183 kg Patient Weight 07/03/21 06:59 Weight 86.183 kg 07/02/21 11:02 07/02/21 11:02
[2021-07-02] MEDS ORDERED: ISOSORBIDE MONONITRATE ER 60 MG TAB.ER.24H PO SCH (21:00)
[2021-07-02] MEDS ORDERED: ATORVASTATIN 20 MG TAB PO SCH (21:00)
[2021-07-02] MEDS ORDERED: FENOFIBRATE 160 MG TAB PO SCH (21:00)
[2021-07-02] MEDS: TICAGRELOR 90 MG TAB PO SCH (21:07)
[2021-07-02] MEDS ORDERED: MAG HYDROX/AL HYDROX/SIMETH 30 ML CUP PO PRN (21:21)
[2021-07-02] MEDS ORDERED: CALCIUM CARBONATE 500 MG CHEWABLE PO PRN (21:21)
[2021-07-02] MEDS ORDERED: ACETAMINOPHEN TAB 325 MG TAB PO PRN (21:21)
[2021-07-02] MEDS ORDERED: LACTULOSE 20 GM/30 ML CUP PO PRN (21:21)
[2021-07-02] MEDS ORDERED: NALOXONE 0.4 MG/ML 1 ML VIAL IV PRN (21:21)
[2021-07-02] MEDS ORDERED: ONDANSETRON 4 MG/2 ML VIAL IVP PRN (21:21)
[2021-07-02] MEDS ORDERED: MAGNESIUM HYDROXIDE 2,400 MG/10 ML CUP PO PRN (21:21)
[2021-07-02] MEDS ORDERED: MELATONIN 3 MG TABLET PO PRN (21:21)
[2021-07-02] MEDS ORDERED: ALPRAZolam 0.25 MG TAB PO PRN (21:21)
[2021-07-02] MEDS ORDERED: allopurinoL 100 MG TAB PO SCH (21:30)
[2021-07-02] MEDS ORDERED: NON FORMULARY DRUG (Aspirin Ec 81 MG Tablet) PO SCH (21:30)
--- NOTE | 2021-07-02 21:36 | P.HPIM ---
History of Present Illness H&P Date: 07/02/21 Chief Complaint: Chest pain This is a very pleasant 80-year-old patient who follows with . Package D[employer] Dr. Juancarlos Flowers locally. Chronic stable medical conditions include diabetes, hypertension, hyperlipidemia, hypothyroid. Has a history of coronary artery bypass. In October of last year patient had a non-Q-wave CT. Patient is found to have severe triple-vessel disease. It was decided to proceed with medical management. Patient normally active around the house. With 2 weeks's been having episodes of left-sided chest pain with left arm aching. Described a s a dull ache. No dizziness or lightheadedness. No perspiration. Patient normally is helped with nitroglycerin but for short durations now. Has decided to come in. Troponin was positive at 0.077. Patient has underlying CAD. Patient is accompanied by his daughter in the ER. Review of systems: GEN.: Tired EYES: None HEENT: None NECK: None RESPIRATORY: None CARDIOVASCULAR: As above GASTROINTESTINAL: Uses a stool softener has a bowel movement every day GENITOURINARY: None MUSCULOSKELETAL: None LYMPHATICS: None HEMATOLOGICAL: None PSYCHIATRY: None NEUROLOGICAL: None Past medical history to include: CAD with coronary bypass and stent. Last cardiac catheterization in October 2019 showing severe triple-vessel disease. Diabetes, hyperlipidemia, hypertension, CAD, hypothyroid. Social history: . Does not smoke or drink alcohol. Family history: Reviewed, noncontributory to presentation Physical examination: VITAL SIGNS: 97.6, 69, 18, 125/84, 99% of room air GENERAL: BMI 28.9, sitting up at the edge of the bed, awake a bit tired. EYES: Pupils equal. Conjunctiva normal. HEENT: External appearance of nose and ears normal, oral cavity grossly normal. NECK: JVD not raised; masses not palpable. HEART: First and second heart sounds are normal; no edema. LUNGS: Respiratory rate normal; clear to auscultation. ABDOMEN: Soft, nontender, liver spleen not palpable, no masses palpable. PSYCH: Alert and oriented x3; mood and affect normal. MUSCULOSKELETAL: Evidence of OA NEUROLOGICAL: Cranial nerves grossly intact; no facial asymmetry, power and sensation grossly intact. LYMPHATICS: No lymph nodes palpable in the axilla and neck INVESTIGATIONS, reviewed in the clinical context: WBC 11.7 hemoglobin 15.5 platelets 379 potassium 4.4 BUN 30 creatinine 1.6 to [Creatinine was 1.27 in October 2019] Troponin I 0.077, 0.053, 0.054 Coronavirus [PCR]: Not detected EKG tracing personally reviewed by me-normal sinus rhythm, poor R-wave progression, ST/T-wave changes Chest x-ray film personally reviewed by me-no infiltrates Assessment and plan: -Patient presented to [facility] chest pain. With known underlying CAD. Last cardiac catheterization in 2019 showed severe triple- vessel disease. Decision was made for medical management. Patient has positive troponin. With EKG changes. Possible acute non-Q wave CT. Patient does get some relief with nitrates. -CAD with a prior history of carotid bypass. 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 Given his age this is rather significant dose. Check thyroid function. -Hyperlipidemia Lipitor 20 mg daily at bedtime. -Diabetes mellitus type 2, oral hypoglycemic Lj 5 mg daily. Follow Accu-Chek -Chronic congestive heart failure from systolic dysfunction EF 35-40%. Follow fluid status -Moderate to severe mitral regurgitation Follow clinically Cardiology was consulted. Home medications resumed. Follow Accu-Cheks. Patient currently chest pain-free. Patient is being kept nothing by mouth after midnight for possible testing per cardiology. Past Medical History Past Medical History: Diabetes Mellitus, Hyperlipidemia, Hypertension, Myocardial Infarction (CT), Thyroid Disorder Last Myocardial Infarction Date:: unknown History of Any Multi-Drug Resistant Organisms: None Reported Past Surgical History: Cholecystectomy, Heart Catheterization With Stent Additional Past Surgical History / Comment(s): thyroidectomy Date of Last Stent Placement:: unknown Past Psychological History: No Psychological Hx Reported Smoking Status: Never smoker Past Alcohol Use History: None Reported Past Drug Use History: None Reported Medications and Allergies Home Medications Medication Instructions Recorded Confirmed Type Atorvastatin [Lipitor] 20 mg PO HS@2100 11/07/19 07/02/21 History Febuxostat [Uloric] 40 mg PO HS 11/07/19 07/02/21 History Fenofibrate Nanocrystallized 145 mg PO HS 11/07/19 07/02/21 History [Fenofibrate] Linagliptin [Tradjenta] 5 mg PO DAILY 11/07/19 07/02/21 History Nitroglycerin Sl Tabs [Nitrostat] 0.4 mg SUBLINGUAL Q5M PRN 11/07/19 07/02/21 History Ranolazine [Ranexa] 1,000 mg PO BID@0900,2100 11/07/19 07/02/21 History Ticagrelor [Brilinta] 90 mg PO BID@0900,2100 11/07/19 07/02/21 History Aspirin EC [Ecotrin Low Dose] 81 mg PO HS 07/02/21 07/02/21 History Cinnamon 2,000mg 2,000 mg PO DAILY 07/02/21 07/02/21 History Co Q-10 200 mg PO DAILY 07/02/21 07/02/21 History Docusate [Colace] 200 mg PO BID 07/02/21 07/02/21 History Fish Oil/Dha/Epa [Fish Oil 1,200 1 cap PO DAILY 07/02/21 07/02/21 History mg Fish Oil] Isosorbide Mononitrate ER [Imdur] 60 mg PO HS 07/02/21 07/02/21 History Levothyroxine Sodium [Synthroid] 150 mcg PO DAILY 07/02/21 07/02/21 History Triamterene-Hctz 37.5-25Mg 1 cap PO DAILY 07/02/21 07/02/21 History [Dyazide 37.5-25 Capsule] carvediloL [Coreg] 6.25 mg PO DAILY 07/02/21 07/02/21 History Allergies Allergy/AdvReac Type Severity Reaction Status Date / Time morphine Allergy Unknown Verified 07/02/21 13:13 Physical Exam Vitals: Vital Signs Temp Pulse Resp BP Pulse Ox 07/02/21 21:12 97.9 F 70 16 133/78 99 07/02/21 11:40 68 16 124/88 99 07/02/21 11:00 24 07/02/21 10:35 97.6 F 69 18 125/84 99 Intake and Output 07/02/21 07/02/21 07/02/21 06:59 14:59 22:59 Other: Weight 86.183 kg Results CBC & Chem 7: 07/02/21 11:02 07/02/21 11:02 Labs: Abnormal Lab Results - Last 24 Hours (Table) 07/02/21 07/02/21 07/02/21 Range/Units 11:02 11:02 11:02 WBC 11.7 H (3.8-10.6) k/uL BUN 30 H (9-20) mg/dL Creatinine 1.62 H (0.66-1.25) mg/dL Glucose 130 H (74-99) mg/dL Calcium 10.3 H (8.4-10.2) mg/dL Troponin I 0.077 H* (0.000-0.034) ng/mL 07/02/21 07/02/21 Range/Units 14:11 18:15 WBC (3.8-10.6) k/uL BUN (9-20) mg/dL Creatinine (0.66-1.25) mg/dL Glucose (74-99) mg/dL Calcium (8.4-10.2) mg/dL Troponin I 0.053 H* 0.054 H* (0.000-0.034) ng/mL
[2021-07-02 22:03] LABS: Glucose,Whole Blood 105 mg/dL (75-99)
[2021-07-02] MEDS: INSULIN ASPART (NovoLOG) 100 UNIT/ML VIAL SQ SCH (22:12)
[2021-07-02] MEDS: DOCUSATE 100 MG CAP PO SCH (22:27)
[2021-07-03 01:06] VITALS: TEMP 98
[2021-07-03 06:21] LABS: Glucose,Whole Blood 125 mg/dL (75-99)
[2021-07-03] MEDS: INSULIN ASPART (NovoLOG) 100 UNIT/ML VIAL SQ SCH ×2 (06:22→12:15)
[2021-07-03] MEDS ORDERED: LEVOTHYROXINE 75 MCG TAB PO SCH (06:30)
[2021-07-03] MEDS: DOCUSATE 100 MG CAP PO SCH (08:38)
[2021-07-03] MEDS: TICAGRELOR 90 MG TAB PO SCH (08:39)
[2021-07-03 09:00] VITALS: RESP 16
[2021-07-03] MEDS ORDERED: carvediloL 6.25 MG TAB PO SCH (09:00)
[2021-07-03] MEDS ORDERED: ASPIRIN 81 MG PO SCH (09:00)
[2021-07-03] MEDS ORDERED: LINAGLIPTIN 5 MG TABLET PO SCH (09:00)
[2021-07-03] MEDS ORDERED: ASPIRIN 325 MG TAB PO SCH (09:00)
[2021-07-03] MEDS ORDERED: carvediloL 12.5 MG TAB PO SCH ×2 (09:00→17:30)
[2021-07-03] MEDS ORDERED: TRIAMTERENE-HCTZ 37.5-25MG 1 EACH CAP PO SCH (09:00)
[2021-07-03] MEDS ORDERED: RANOLAZINE 500 MG TAB.ER.12H PO SCH (09:00)
[2021-07-03 10:41] LABS: Calcium 9.9 mg/dL (8.4-10.2); Potassium 4.3 mmol/L (3.5-5.1)
--- NOTE | 2021-07-03 11:34 | P.PN ---
Subjective This is a pleasant 80-year-old male past medical history significant for coronary artery disease status post CABG 1994 (ABREU-LAD, SVG-RCA, SVG- RC) and angioplasty with stent placement SBG- RCA in 2017 and PCI to rPLV in [address] [facility], ischemic cardiomyopathy, type 2 diabetes, hypertension, dyslipidemia. He follows in the office with Dr. Vasquez. We have been asked to see in consultation for chest pain. Patient presents emergency department with chest pain and left arm pain. Patient states his chest pain started 1 week ago. Located on the left side of his chest. Describes it as aching. Non-exertional. He also has left upper extremity pain. He endorses associated shortness of breath and some dyspnea on exertion. His left arm pain is exacerbated by lifting his arm up, he denies injury. His symptoms are alleviated by resting. He cannot describe any specific aggravating symptoms. He denies any associated diaphoresis, nausea, palpitations, lightheadedness, dizziness, syncope or presyncope. He denies any symptoms of orthopnea or PND. He states his chest pain is similar to when he had stents placed in the past. He denies tobacco or alcohol use. DIAGNOSTICS EKG reveals sinus rhythm, PAC, heart rate 70, T wave inversions in lead I and aVL. Prior EKG in the office 10/2020 with similar findings Last Cardiac Catheterization 10/2019 revealed severe triple-vessel coronary artery disease, patent ABREU to LAD, SVG to RCA has in-stent restenosis appeared to be in the range of 50%, mildly dilated aortic root, elevated LVEDP. Most recent echocardiogram in the office 06/2020 revealed an EF 40-45%, moderate concentric hypertrophy, grade 2 diastolic dysfunction, mild mitral regurgitation, mild tricuspid regurgitation, aortic root is enlarged, ascending aorta is enlarged 07/03/21: Patient seen and examined at bedside, no distress. He denies any further chest pain or shortness of breath. His left arm pain has improved. Labs reviewed troponin 0.07, 0.053, 0.054, sodium 135, potassium 4.3, BUN 30, serum creatinine 1.77. Patient states he is feeling much better and wants to be discharged later today. He's currently maintained on dual antiplatelet therapy with aspirin 81 mg daily, Brilinta 90 mg twice a day, atorvastatin 20 mg daily, carvedilol 6.25 Daily, lofibra 160 mg nightly, Imdur 60 mg nightly, Ranexa 1000 mg twice a day, Dyazide 30 7. 525mg daily. PHYSICAL EXAMINATION Blood pressure 117/84, heart rate 79, afebrile, maintaining saturations 99% on room air CONSTITUTIONAL: No apparent distress. HEENT: Neck Supple. No JVD. CHEST EXAMINATION: Lungs are clear to auscultation. HEART EXAMINATION: Regular rate and rhythm. S1, S2 heard. Systolic murmur noted at apex. ABDOMEN: Soft, nontender. Positive bowel sounds. EXTREMITIES: 2+ peripheral pulses, no lower extremity edema and no calf tenderness. NEUROLOGIC EXAMINATION: Patient is awake, alert and oriented x3. ASSESSMENT Chest pain Elevated troponin, could be related to patient's kidney disease however, cannot rule out ischemia Acute on chronic kidney disease Coronary artery disease status post CABG and angioplasty with stent placement of bypass grafts at [facility] Ischemic cardiomyopathy Type 2 diabetes Hypertension Dyslipidemia PLAN Obtain 2D echocardiogram and doppler study to assess cardiac structure and function. Recommend maximizing medical therapy at this time We will increase carvedilol to 12.5mg BID Continue aspirin, Brilinta, statin, Imdur, Ranexa, Lobfibra and Dyazide From a cardiology perspective, recommend increasing activity, if patient feeling well, no further chest pain or shortness of breath. Ok to discharge from cardiology perspective with current medical therapy and follow up with Dr. Vasquez in the office in 1-2 weeks. Nurse Practitioner note has been reviewed, I agree with a documented findings and plan of care. Patient was seen and examined. Objective - Vital Signs Vital signs: Vital Signs Temp 98.0 F 07/03/21 04:00 Pulse 79 07/03/21 08:00 Resp 16 07/03/21 08:00 BP 117/84 07/03/21 08:00 Pulse Ox 99 07/03/21 08:00 Intake & Output 07/02/21 07/03/21 07/03/21 18:59 06:59 18:59 Intake Total 0 Balance 0 Weight 86.183 kg 85.5 kg Intake: Oral 0 Other: # Voids 1 - Labs CBC & Chem 7: 07/02/21 11:02 07/03/21 09:31 Labs: Abnormal Lab Results - Last 24 Hours (Table) 07/02/21 07/02/21 07/02/21 Range/Units 11:02 11:02 14:11 Sodium (137-145) mmol/L BUN 30 H (9-20) mg/dL Creatinine 1.62 H (0.66-1.25) mg/dL Glucose 130 H (74-99) mg/dL POC Glucose (mg/dL) (75-99) mg/dL Calcium 10.3 H (8.4-10.2) mg/dL Troponin I 0.077 H* 0.053 H* (0.000-0.034) ng/mL 07/02/21 07/02/21 07/03/21 Range/Units 18:15 22:01 06:20 Sodium (137-145) mmol/L BUN (9-20) mg/dL Creatinine (0.66-1.25) mg/dL Glucose (74-99) mg/dL POC Glucose (mg/dL) 105 H 125 H (75-99) mg/dL Calcium (8.4-10.2) mg/dL Troponin I 0.054 H* (0.000-0.034) ng/mL 07/03/21 Range/Units 09:31 Sodium 135 L (137-145) mmol/L BUN 30 H (9-20) mg/dL Creatinine 1.77 H (0.66-1.25) mg/dL Glucose 147 H (74-99) mg/dL POC Glucose (mg/dL) (75-99) mg/dL Calcium (8.4-10.2) mg/dL Troponin I (0.000-0.034) ng/mL
[2021-07-03 11:53] LABS: Glucose,Whole Blood 118 mg/dL (75-99)
[2021-07-03 12:22] VITALS: BP 110/68; PULSE 71
--- NOTE | 2021-07-03 13:01 | ECHOF ---
Referral Reason:LV function MEASUREMENTS -------- HEIGHT: 172.7 cm WEIGHT: 86.2 kg BP: IVSd: 1.2 cm (0.6 - 1.1) LVIDd: 5.0 cm (3.9 - 5.3) LVPWd: 1.4 cm (0.6 - 1.1) EDV(Teich): 120 ml IVSs: 1.9 cm LVIDs: 2.8 cm LVPWs: 2.2 cm %IVS Thck: 58 % ESV(Teich): 30 ml EF(Teich): 75 % %FS: 44 % SV(Teich): 90 ml RVIDd: 3.1 cm (< 3.3) Ao Diam: 3.6 cm (2.0 - 3.7) LA Diam: 3.8 cm (2.7 - 3.8) AV Cusp: 2.3 cm (1.5 - 2.6) EPSS: 1.2 cm MV E Conrad: 0.63 m/s MV DecT: 324 ms MV Dec Grand: 2.0 m/s MV A Conrad: 0.92 m/s MV E/A Ratio: 0.69 MV PHT: 94 ms MR Vmax: 1.03 m/s MR maxP.27 mmHg AV Vmax: 1.18 m/s AV maxP.57 mmHg PV Vmax: 1.00 m/s PV maxP.99 mmHg ID Vmax: 1.40 m/s ID maxP.83 mmHg ID PHT: 257 ms ID DecT: 886 ms ID Dec Grand: 1.6 m/s TR Vmax: 1.24 m/s TR maxP.16 mmHg RAP: 5.00 mmHg RVSP: 11.16 mmHg MV EF SLOPE: 26.45 mm/s (70 - 150) MV EXCURSION: 13.28 mm (> 18.000) FINDINGS -------- This was a technically difficult study with suboptimal views. The left ventricular size is normal. There is mild concentric left ventricular hypertrophy. Overa ll left ventricular systolic function is low-normal with, an EF between 50 - 55 %. There is paradox ical/dysynergic septal motion consistent with post-operative status. dISTAL SEPTAL HYPOKINESIS The right ventricle is normal in size. The left atrial size is normal. The right atrial size is normal. The aortic valve is trileaflet and appears structurally normal. The mitral valve is normal. There is trace mitral regurgitation. The tricuspid valve appears structurally normal. Mild tricuspid regurgitation present. Right vent ricular systolic pressure is normal at < 35 mmHg. Pulmonic valve appears structurally normal. Trace/mild (physiologic) pulmonic regurgitation. The aortic root size is normal. IVC Not well visulized. There is no pericardial effusion. Lumason used CONCLUSIONS -------- 1. The left ventricular size is normal. 2. There is mild concentric left ventricular hypertrophy. 3. Overall left ventricular systolic function is low-normal with, an EF between 50 - 55 %. 4. There is paradoxical/dysynergic septal motion consistent with post-operative status. 5. There is trace mitral regurgitation. 6. Mild tricuspid regurgitation present. 7. Trace/mild (physiologic) pulmonic regurgitation. 8. There is no pericardial effusion. MACHINE HOSTLER: Shereen Raymundo RDCS
[2021-07-03 19:21] LABS: Chol/HDL Ratio 6.18 Ratio; HDL Cholesterol 36.1 mg/dL (40.00-60.00); LDL Cholesterol,Calculated 126.7 mg/dL (0.0-131.0); VLDL Calculation 60.2 mg/dL (5.00-40.00)
--- NOTE | 2021-07-03 22:27 | P.DS ---
Providers Date of admission: 07/02/21 12:30 Expected date of discharge: 07/03/21 Attending physician: Pranav Lemon Consults: 07/02/21 12:30 Consult Physician Urgent Consulting Provider: Wilberto Vasquez Consult Reason/Comments: chest pain Do you want consulting provider notified?: Yes Primary care physician: Neville Sorensen [facility] Course: Chief Complaint: Chest pain This is a very pleasant 80-year-old patient who follows with . [employer] Dr. Juancarlos Flowers locally. Chronic stable medical conditions include diabetes, hypertension, hyperlipidemia, hypothyroid. Has a history of coronary artery bypass. In October of last year patient had a non-Q-wave NC. Patient is found to have severe triple-vessel disease. It was decided to proceed with medical management. Patient normally active around the house. With 2 weeks's been having episodes of left-sided chest pain with left arm aching. Described as a dull ache. No dizziness or lightheadedness. No perspiration. Patient normally is helped with nitroglycerin but for short durations now. Has decided to come in. Troponin was positive at 0.077. Patient has underlying CAD. Patient is accompanied by his daughter in the ER. Admitted with acute non-Q wave NC. Seen by currently. Dose of Coreg increased. Nitrate increased. July 03. Patient is ambulating in the hallway. No cardiac symptoms. Doing well. Discussed with the patient and son. Cleared by cardiology. Patient will follow with Dr. Juancarlos Flowers Consultation: Dr. Perez from cardiology Past medical history to include: CAD with coronary bypass and stent. Last cardiac catheterization in October 2019 showing severe triple-vessel disease. Diabetes, hyperlipidemia, hypertension, CAD, hypothyroid. Social history: . Does not smoke or drink alcohol. Family history: Reviewed, noncontributory to presentation Physical examination: VITAL SIGNS: Afebrile, 71, 16, 1 10 x 68, 99% room air GENERAL: Sitting up, comfortable EYES: Pupils equal. Conjunctiva normal. HEENT: External appearance of nose and ears normal, oral cavity grossly normal. NECK: JVD not raised; masses not palpable. HEART: First and second heart sounds are normal; no edema. LUNGS: Respiratory rate normal; clear to auscultation. ABDOMEN: Soft, nontender, liver spleen not palpable, no masses palpable. PSYCH: Alert and oriented x3; mood and affect normal. MUSCULOSKELETAL: Evidence of OA INVESTIGATIONS, reviewed in the clinical context: July 03: Potassium 4.3 creatinine 1.77 LDL 126 2-D echocardiogram: EF 50-55%. WBC 11.7 hemoglobin 15.5 platelets 379 potassium 4.4 BUN 30 creatinine 1.6 to [Creatinine was 1.27 in October 2019] Troponin I 0.077, 0.053, 0.054 Coronavirus [PCR]: Not detected EKG tracing personally reviewed by me-normal sinus rhythm, poor R-wave progression, ST/T-wave changes Chest x-ray film personally reviewed by me-no infiltrates Assessment and plan: -. Possible acute non-Q wave NC. -CAD with a prior history of carotid bypass. 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 Given his age this is rather significant dose. Check thyroid function. -Hyperlipidemia Lipitor 20 mg daily at bedtime. -Diabetes mellitus type 2, oral hypoglycemic Lj 5 mg daily. Follow Accu-Chek -Chronic congestive heart failure from systolic dysfunction EF 35-40%. Follow fluid status -Moderate to severe mitral regurgitation Follow clinically Disposition: Home Patient Condition at Discharge: Fair Plan - Discharge Summary Discharge Rx Participant: Yes New Discharge Prescriptions: New Isosorbide Mononitrate ER [Imdur] 15 mg PO HS #30 tab Continue Nitroglycerin Sl Tabs [Nitrostat] 0.4 mg SUBLINGUAL Q5M PRN PRN Reason: Chest Pain Ranolazine [Ranexa] 1,000 mg PO BID@0900,2100 Fenofibrate Nanocrystallized [Fenofibrate] 145 mg PO HS Atorvastatin [Lipitor] 20 mg PO HS@2100 Ticagrelor [Brilinta] 90 mg PO BID@0900,2100 Linagliptin [Tradjenta] 5 mg PO DAILY Febuxostat [Uloric] 40 mg PO HS Triamterene-Hctz 37.5-25Mg [Dyazide 37.5-25 Capsule] 1 cap PO DAILY Docusate [Colace] 200 mg PO BID Aspirin EC [Ecotrin Low Dose] 81 mg PO HS Cinnamon 2,000mg 2,000 mg PO DAILY Levothyroxine Sodium [Synthroid] 150 mcg PO DAILY Fish Oil/Dha/Epa [Fish Oil 1,200 mg Fish Oil] 1 cap PO DAILY Co Q-10 200 mg PO DAILY Isosorbide Mononitrate ER [Imdur] 60 mg PO HS Changed carvediloL [Coreg] 6.25 mg PO BID #60 tab Discharge Medication List Atorvastatin [Lipitor] 20 mg PO HS@209911/07/19 [History] Febuxostat [Uloric] 40 mg PO HS 11/07/19 [History] Fenofibrate Nanocrystallized [Fenofibrate] 145 mg PO HS 11/07/19 [History] Linagliptin [Tradjenta] 5 mg PO DAILY 11/07/19 [History] Nitroglycerin Sl Tabs [Nitrostat] 0.4 mg SUBLINGUAL Q5M PRN 11/07/19 [History] Ranolazine [Ranexa] 1,000 mg PO BID@0900,209911/07/19 [History] Ticagrelor [Brilinta] 90 mg PO BID@0900,209911/07/19 [History] Aspirin EC [Ecotrin Low Dose] 81 mg PO HS 07/02/21 [History] Cinnamon 2,000mg 2,000 mg PO DAILY 07/02/21 [History] Co Q-10 200 mg PO DAILY 07/02/21 [History] Docusate [Colace] 200 mg PO BID 07/02/21 [History] Fish Oil/Dha/Epa [Fish Oil 1,200 mg Fish Oil] 1 cap PO DAILY 07/02/21 [History] Isosorbide Mononitrate ER [Imdur] 60 mg PO HS 07/02/21 [History] Levothyroxine Sodium [Synthroid] 150 mcg PO DAILY 07/02/21 [History] Triamterene-Hctz 37.5-25Mg [Dyazide 37.5-25 Capsule] 1 cap PO DAILY 07/02/21 [History] Isosorbide Mononitrate ER [Imdur] 15 mg PO HS #30 tab 07/03/21 [Rx] carvediloL [Coreg] 6.25 mg PO BID #60 tab 07/03/21 [Rx] Follow up Appointment(s)/Referral(s): Neville Sorensen DO [Primary Care Provider] - 1-2 days Wilberto Vasquez MD [STAFF PHYSICIAN] - 1 Week Discharge Disposition: HOME SELF-CARE
[2021-07-04] MEDS ORDERED: carvediloL 12.5 MG TAB PO SCH (09:00)
== END 2021-07-03 13:37 | disposition home or self-care (01) ==
LOC: EC 10:31 → 3SCARD 12:30
PROVIDERS: ADMIT Hospitalist; ATTEND Hospitalist
DX: R07.89 Other chest pain (principal); I25.5 Ischemic cardiomyopathy; R79.89 Other specified abnormal findings of blood chemistry; I25.10 Atherosclerotic heart disease of native coronary artery without angina pectoris; T82.855A Stenosis of coronary artery stent, initial encounter; I13.0 Hypertensive heart and chronic kidney disease with heart failure and stage 1 through stage 4 chronic kidney disease, or unspecified chronic kidney disease; I50.22 Chronic systolic (congestive) heart failure; N18.30 Chronic kidney disease, stage 3 unspecified; I08.1 Rheumatic disorders of both mitral and tricuspid valves; M19.90 Unspecified osteoarthritis, unspecified site; E11.22 Type 2 diabetes mellitus with diabetic chronic kidney disease; E78.5 Hyperlipidemia, unspecified; E89.0 Postprocedural hypothyroidism; R91.8 Other nonspecific abnormal finding of lung field; M79.602 Pain in left arm; I25.2 Old myocardial infarction; Z20.822 Contact with and (suspected) exposure to COVID-19; Z79.890 Hormone replacement therapy; Z79.4 Long term (current) use of insulin; Z79.899 Other long term (current) drug therapy; Z79.84 Long term (current) use of oral hypoglycemic drugs; Z79.02 Long term (current) use of antithrombotics/antiplatelets; Z79.82 Long term (current) use of aspirin; Z88.5 Allergy status to narcotic agent; Z90.49 Acquired absence of other specified parts of digestive tract; Z95.5 Presence of coronary angioplasty implant and graft; Z95.1 Presence of aortocoronary bypass graft
CPT/HCPCS: 99285; 36415; 93005; 83880; 80061; 80053; 80048; 84443; 83690; 83735; 84484; 85025; 85610; 85730; 87635; 71046; G0378 ×2; C8929; Q9950; 93306

== ENCOUNTER 2021-10-25 06:43 | Day surgery (SDC) | payer MEDICARE ==
[2021-10-23 15:13] VITALS: BMI 30.7
[~2021-10-25 06:43] MED LIST: ALPRAZolam 0.25 MG TAB PO PRN; ALPRAZolam 0.5 MG TAB PO PRN; ASPIRIN 325 MG TAB PO STA; ATORVASTATIN 80 MG TAB PO STA; NITROGLYCERIN SL TABS 0.4 MG TAB SUBLINGUAL PRN; SODIUM CHLORIDE 0.9% 1,000 ML in EMPTY BAG 1 BAG IV SCH
[2021-10-25] MEDS ORDERED: LIDOCAINE 1% INJ 10MG/ML (20 ML MDV) ONE (07:12)
[2021-10-25] MEDS ORDERED: VERAPAMIL 2.5 MG/ML 2 ML AMP ONE (07:12)
[2021-10-25 07:14] VITALS: RESP 18; TEMP 98
[2021-10-25 07:24] LABS: Basophils # (A) 0.1 k/uL (0-0.2); Basophils % (A) 1 %; Eosinophils # (A) 0.3 k/uL (0-0.7); Eosinophils % (A) 2 %; HCT 43.4 % (39.0-53.0); Lymphocytes # (A) 3.2 k/uL (1.0-4.8); Lymphocytes % (A) 28 %; MCH 30.5 pg (25.0-35.0); MCHC 32.3 g/dL (31.0-37.0); MCV 94.6 fL (80.0-100.0); Mean Platelet Volume 7.9; Monocytes # (A) 0.8 k/uL (0-1.0); Monocytes % (A) 7 %; Neutrophils # (A) 6.8 k/uL (1.3-7.7); Neutrophils % (A) 59 %; Platelet Count 291 k/uL (150-450); RBC 4.59 m/uL (4.30-5.90); RDW 14.1 % (11.5-15.5); WBC 11.4 k/uL (3.8-10.6)
[2021-10-25 07:33] LABS: Calcium 9.7 mg/dL (8.4-10.2); Potassium 4.5 mmol/L (3.5-5.1)
[2021-10-25] MEDS ORDERED: fentaNYL (PF) 50 MCG/ML 2 ML AMP ONE (07:36)
[2021-10-25] MEDS ORDERED: fentaNYL (PF) 50 MCG/ML 2 ML AMP IV ONE (07:43)
[2021-10-25] MEDS ORDERED: MIDAZOLAM 2 MG/2 ML VIAL IV ONE (07:43)
[2021-10-25] MEDS ORDERED: LIDOCAINE 1% INJ 10MG/ML (20 ML MDV) SQ ONE (07:45)
[2021-10-25] MEDS ORDERED: IOPAMIDOL-370 125ML BTL INJ ONE (08:23)
[2021-10-25] MEDS ORDERED: RX INFO: IV CONTRAST WAS GIVEN 1 EACH MISC MISCELLANE PRN (08:24)
[2021-10-25] MEDS ORDERED: SODIUM CHLORIDE 0.9% 1,000 ML IV SCH (08:30)
[2021-10-25] MEDS ORDERED: SODIUM CHLORIDE 0.9% 500 ML 500 ML IV ONE (12:35)
[2021-10-25 14:58] VITALS: PULSE 64
[2021-10-25 14:59] VITALS: BP 140/74
--- NOTE | 2021-11-06 09:23 | CC ---
CARDIAC CATHETERIZATION REPORT DATE OF PROCEDURE: 10/25/2021. INDICATION: Unstable angina. PROCEDURE NOTE: After obtaining informed consent, left heart catheterization, coronary angiogram and selective injection of the bypass grafts was performed via the right femoral artery. The pilot point right and left coronary arteries were engaged using size 4 right and left Martha catheters. ABREU was engaged using a Tawana catheter. The right coronary artery bypass was finally engaged using a multipurpose catheter. Patient tolerated the procedure well without any obvious immediate complications. Total sedation time was 30 minutes. FINDINGS: HEMODYNAMICS: Left ventricular end-diastolic pressure was 18 mm. There was no significant gradient across the aortic valve. LEFT VENTRICULOGRAM: Left ventriculogram was not performed. ANGIOGRAPHIC DATA Left main coronary artery. Left main coronary artery is a short vessel and appears occluded, divides into LAD and circumflex coronary artery. Both have severe disease and are occluded proximally. Right coronary artery appears totally occluded in its mid portion with severe disease involving the proximal and mid segments. Venous graft to the RCA is patent. It was previously stented; the stent appears patent. There is diffuse disease in it. The pilot point PLV is diffusely diseased. PDA is free of disease. ABREU to LAD appears patent. CONCLUSIONS: Severe three-vessel coronary artery disease with patent ABREU to LAD and patent venous graft to the RCA with diffuse disease involving the PLV branch. MMODL / IJN: [id number] /
== END 2021-10-25 15:31 | disposition home or self-care (01) ==
LOC: CATHCVL 06:43
PROVIDERS: ATTEND Internal Medicine Cardiovascular Disease
DX: I20.0 Unstable angina (principal); I25.10 Atherosclerotic heart disease of native coronary artery without angina pectoris
CPT/HCPCS: 93459; 80048; 85025; C1887; C1769 ×2; C1894 ×2; J2250; J2001; J3010; Q9967

== ENCOUNTER 2022-04-06 12:10 | Emergency (ER) | payer MEDICARE ==
[2022-04-06 12:21] VITALS: RESP 18; TEMP 98.5
[2022-04-06] MEDS ORDERED: LIDOCAINE 5% PATCH TOPICAL STA (12:48)
[2022-04-06] MEDS ORDERED: SODIUM CHLORIDE 0.9% 500 ML 500 ML IV STA (12:55)
--- NOTE | 2022-04-06 13:00 | ED ---
General Adult HPI - General Chief complaint: Fall Stated complaint: Fall, R shoulder pain Time Seen by Provider: 04/06/22 12:14 Source: patient, RN notes reviewed, old records reviewed Mode of arrival: wheelchair Limitations: no limitations - History of Present Illness Initial comments: Patient is an 81-year-old male with past medical history remarkable for CAD, diabetes, hypertension who presents emergency Department with musculoskeletal pain following a fall. Patient fell twice in the last week. Last week he fell and hurt his right shoulder, as well as his right forehead. X-ray of the shoulder at that time revealed no acute fractures. Patient also fell a few days ago, and injured his left inferior anterior rib. There is bruising at that site as well as over his right knee, in improved bruising over his right shoulder. Was brought in by his , who is concerned for possible urinary issues as his urine has been dark in the normal addition to musculoskeletal trauma. No loss of consciousness when he fell. Patient is on antiplatelet medications. Last fall was 3 days ago. Has been acting normally except for intermittent lighthead edness episodes which resolved when he sits down. Denies any cough, chest pain, fevers, chills. Denies any abdominal pain, nausea, vomiting. Normally does not ambulate with a walker, but has been using it for ounces he states he feels somewhat more weak lately as well as unsteady due to the falls the pain in his knee, ribs, shoulder. Presents for further evaluation at this time. - Related Data Home Medications Medication Instructions Recorded Confirmed Atorvastatin [Lipitor] 20 mg PO HS@209911/07/19 10/25/21 Febuxostat [Uloric] 40 mg PO HS 11/07/19 10/25/21 Fenofibrate Nanocrystallized 145 mg PO HS 11/07/19 10/25/21 [Fenofibrate] Nitroglycerin Sl Tabs [Nitrostat] 0.4 mg SUBLINGUAL Q5M PRN 11/07/19 10/25/21 Ranolazine [Ranexa] 1,000 mg PO BID@0900,209911/07/19 10/25/21 Ticagrelor [Brilinta] 90 mg PO BID@0900,209911/07/19 10/25/21 Aspirin EC [Ecotrin Low Dose] 81 mg PO HS 07/02/21 10/25/21 Cinnamon 2,000mg 2,000 mg PO DAILY 07/02/21 10/25/21 Co Q-10 200 mg PO DAILY 07/02/21 10/25/21 Docusate [Colace] 200 mg PO BID 07/02/21 10/25/21 Fish Oil/Dha/Epa [Fish Oil 1,200 1 cap PO DAILY 07/02/21 10/25/21 mg Fish Oil] Isosorbide Mononitrate ER [Imdur] 60 mg PO HS 07/02/21 10/25/21 Levothyroxine Sodium [Synthroid] 150 mcg PO DAILY 07/02/21 10/25/21 Triamterene-Hctz 37.5-25Mg 1 cap PO DAILY 07/02/21 10/25/21 [Dyazide 37.5-25 Capsule] Isosorbide Mononitrate ER [Imdur] 15 mg PO QAM 10/23/21 10/25/21 Previous Rx's Medication Instructions Recorded carvediloL [Coreg] 6.25 mg PO BID #60 tab 07/03/21 Lidocaine 5% Patch [Lidoderm 5% 1 patch TOPICAL DAILY PRN 7 Days 04/06/22 Patch] #7 patch Allergies Allergy/AdvReac Type Severity Reaction Status Date / Time morphine Allergy Unknown Verified 04/06/22 12:21 Review of Systems ROS Statement: Those systems with pertinent positive or pertinent negative responses have been documented in the HPI. Review of Systems: CONST: Denies fever EYES: Denies blurry vision ENT: Denies nasal congestion C/V: Denies Chest pain RESP: Denies shortness of breath GI: Denies abdominal pain : Denies dysuria SKIN: Denies rash. MSK: Endorses joint pain NEURO: Denies headache ROS Other: All systems not noted in ROS Statement are negative. Past Medical History Past Medical History: Coronary Artery Disease (CAD), Diabetes Mellitus, Hyperlipidemia, Hypertension, Myocardial Infarction (NH), Thyroid Disorder Additional Past Medical History / Comment(s): SOB, diet control diabetic, Last Myocardial Infarction Date:: unknown History of Any Multi-Drug Resistant Organisms: None Reported Past Surgical History: Appendectomy, Coronary Bypass/CABG, Heart Catheterization With Stent Additional Past Surgical History / Comment(s): thyroidectomy , CABG 25 yrs ago, 2-3 cardiac stents, toya cataracts Past Anesthesia/Blood Transfusion Reactions: No Reported Reaction Date of Last Stent Placement:: 2019 Past Psychological History: No Psychological Hx Reported Smoking Status: Never smoker Past Alcohol Use History: None Reported Past Drug Use History: None Reported - Past Family History Mother Family Medical History: No Reported History General Exam - General Exam Comments Initial Comments: General: Appears in no acute distress. HEAD: Normal with no signs of head trauma. Healing abrasion over the right forehead. No step-offs or deformities. Negative arizmendi sign. Negative raccoon eyes. EYES: PERRLA, EOMI, conjunctiva normal, no discharge. Pupils are 3 mm and equal bilaterally. ENT: Hearing grossly intact, normal oropharynx. RESPIRATORY: Clear breath sounds bilaterally. No wheezes, rales, or rhonchi. C/V: Regular rate and rhythm. S1 and S2 auscultated, no edema, peripheral pulses 2+ and intact throughout ABD: Abd is soft, nontender, nondistended EXT: Normal range of motion, no obvious deformity. Pelvis is stable. No midline spinal tenderness palpation. Tenderness to palpation over the inferior most anterior rib on the left side with overlying bruising. Tenderness to palpation over the patella on the right knee. Normal range of motion of all extremities. Tenderness to palpation over the anterior right shoulder at the AC joint. No obvious signs of separation. SKIN: Located over the superior aspect of the anterior right humerus, anterior aspect of the right knee. Has a healing abrasion to the right forehead. NEURO: Alert and oriented x 4. Cranial nerves II-XII intact. No focal sensory or strength deficits. And to ambulate without difficulty. GCS of 15. NIH of 0. Limitations: no limitations Course Vital Signs 04/06/22 04/06/22 12:18 15:48 Temperature 98.5 F Pulse Rate 91 Pulse Rate [ 82 Sitting] Pulse Rate [ 87 Standing] Pulse Rate [ 75 Supine] Respiratory 18 Rate Blood Pressure 112/73 Blood Pressure 122/89 [Sitting] Blood Pressure 91/65 [Standing] Blood Pressure 126/83 [Supine] O2 Sat by Pulse 95 Oximetry Medical Decision Making - Medical Decision Making Based on the patient's presentation and physical exam, I did recommend that we obtain basic laboratory studies with concern for kidney issues as he has had darker urine lately. We'll also obtain a screening EKG due to his lightheadedness as well as plain film x-rays of the right shoulder, chest and ribs, pelvis, right knee. Recommended CT brain as well due to the fall last week and some increased lightheadedness. Patient was in agreement with this plan. Declines analgesia at this time except for lidocaine patch. Will be given a small fluid bolus. Vital signs are within normal limits. Patient's EKG shows no signs of acute ischemia. His chronic changes. Dr. studies are remarkable for leukocytosis of 12.1. Patient has a elevated BUN/creatinine at his baseline in the setting of CK D. Urinalysis is unremarkable. Patient's imaging shows no acute injuries. Brain CT shows no acute intracranial process. Orthostatic vital signs were obtained and were somewhat positive. However he was asymptomatic. I discussed at length with the patient as well as his . Decision was made to discharge home at this time with close follow-up. They were in agreement this plan. Discussed strict return precautions. I will provide the patient with a prescription for lidocaine patch, incentive spirometer. I instructed the patient to follow up with their PCP in the next 1-3 days. I explained that the patient should return to the emergency department if they experience any worsening symptoms. Strict return precautions were discussed with the patient. The patient expressed understanding of these instructions. I answered all questions that the patient had. The patient was discharged home in good condition with their prescriptions and follow up information. - Lab Data Result diagrams: 04/06/22 12:57 04/06/22 12:57 Lab Results 04/06/22 04/06/22 04/06/22 Range/Units 12:57 12:57 12:57 WBC 12.1 H (3.8-10.6) k/uL RBC 5.21 (4.30-5.90) m/uL Hgb 15.6 (13.0-17.5) gm/dL Hct 48.8 (39.0-53.0) % MCV 93.7 (80.0-100.0) fL MCH 29.9 (25.0-35.0) pg MCHC 32.0 (31.0-37.0) g/dL RDW 14.2 (11.5-15.5) % Plt Count 363 (150-450) k/uL MPV 7.8 Neutrophils % 68 % Lymphocytes % 19 % Monocytes % 8 % Eosinophils % 1 % Basophils % 1 % Neutrophils # 8.3 H (1.3-7.7) k/uL Lymphocytes # 2.3 (1.0-4.8) k/uL Monocytes # 1.0 (0-1.0) k/uL Eosinophils # 0.2 (0-0.7) k/uL Basophils # 0.1 (0-0.2) k/uL Sodium 134 L (137-145) mmol/L Potassium 3.9 (3.5-5.1) mmol/L Chloride 98 (98-107) mmol/L Carbon Dioxide 26 (22-30) mmol/L Anion Gap 10 mmol/L BUN 40 H (9-20) mg/dL Creatinine 1.76 H (0.66-1.25) mg/dL Est GFR (CKD-EPI)AfAm 41 (>60 ml/min/1.73 sqM) Est GFR (CKD-EPI)NonAf 36 (>60 ml/min/1.73 sqM) Glucose 188 H (74-99) mg/dL Calcium 9.8 (8.4-10.2) mg/dL Magnesium 2.3 (1.6-2.3) mg/dL Total Bilirubin 1.0 (0.2-1.3) mg/dL AST 42 (17-59) U/L ALT 23 (4-49) U/L Alkaline Phosphatase 81 (38-126) U/L Total Protein 7.0 (6.3-8.2) g/dL Albumin 4.2 (3.5-5.0) g/dL Urine Color Yellow Urine Appearance Clear (Clear) Urine pH 6.0 (5.0-8.0) Ur Specific [place] 1.013 (1.001-1.035) Urine Protein Negative (Negative) Urine Glucose (UA) Trace H (Negative) Urine Ketones Negative (Negative) Urine Blood Negative (Negative) Urine Nitrite Negative (Negative) Urine Bilirubin Negative (Negative) Urine Urobilinogen <2.0 (<2.0) mg/dL Ur Leukocyte Esterase Negative (Negative) Disposition Clinical Impression: Fall, Rib pain, Orthostatic hypotension, CKD (chronic kidney disease) Disposition: HOME SELF-CARE Condition: Good Additional Instructions: Falls may be related to orthostatic hypotension. Please stay hydrated and follow up with PCP and cardiology for Blood Pressure medication review and monitoring. Prescriptions: Lidocaine 5% Patch [Lidoderm 5% Patch] 1 patch TOPICAL DAILY PRN 7 Days #7 patch PRN Reason: Pain Is patient prescribed a controlled substance at d/c from ED?: No Referrals: Rody Mercedes DO [Primary Care Provider] - 1-2 days Time of Disposition: 15:40
[2022-04-06 13:07] LABS: Basophils # (A) 0.1 k/uL (0-0.2); Basophils % (A) 1 %; Eosinophils # (A) 0.2 k/uL (0-0.7); Eosinophils % (A) 1 %; HCT 48.8 % (39.0-53.0); HGB 15.6 gm/dL (13.0-17.5); Lymphocytes # (A) 2.3 k/uL (1.0-4.8); Lymphocytes % (A) 19 %; MCH 29.9 pg (25.0-35.0); MCV 93.7 fL (80.0-100.0); Mean Platelet Volume 7.8; Monocytes % (A) 8 %; Neutrophils # (A) 8.3 k/uL (1.3-7.7); Neutrophils % (A) 68 %; Platelet Count 363 k/uL (150-450); RBC 5.21 m/uL (4.30-5.90); RDW 14.2 % (11.5-15.5); WBC 12.1 k/uL (3.8-10.6)
[2022-04-06 13:30] LABS: Albumin 4.2 g/dL (3.5-5.0); Calcium 9.8 mg/dL (8.4-10.2); Magnesium 2.3 mg/dL (1.6-2.3); Potassium 3.9 mmol/L (3.5-5.1)
--- NOTE | 2022-04-06 13:49 | XR ---
EXAMINATION TYPE: XR knee complete RT DATE OF EXAM: 04/06/2022 1:29 PM INDICATION: Patient age:Male; 81 years old; Reason for study: fall, pain; COMPARISON: None. TECHNIQUE: The Right knee(s) was examined in 3 projections. Frontal, lateral and oblique. FINDINGS: Unicompartmental total knee arthroplasty of the medial compartment. Hardware appears intact . Mild osteophyte formation of the lateral joint compartment and patellofemoral joint. No evidence of any acute osseous pathology, joint space narrowing, soft tissue swelling, or joint effusion is noted . There is significant atherosclerosis of the arterial vasculature. IMPRESSION: 1. No acute osseous pathology. 2. Unicompartmental arthroplasty with hardware in appropriate position. 3. Bicompartmental osteoarthritic changes.
--- NOTE | 2022-04-06 13:50 | XR ---
EXAMINATION TYPE: XR shoulder complete RT DATE OF EXAM: 04/06/2022 1:29 PM INDICATION: Patient age:Male; 81 years old; Reason for study: fall, pain; COMPARISON: None TECHNIQUE: The right shoulder was examined in AP, internally rotated and scapular Y projections. . FINDINGS: No evidence of acute osseous pathology, joint dislocation, or soft tissue swelling. The remaining por tions of the visualized chest are unremarkable. [place]ssify formation of the distal clavicle and acromion are present as well as the glenoid and humeral h ead. Sternotomy wires and surgical clips are present. IMPRESSION: 1. No acute osseous pathology. 2. Moderate osteoarthrosis changes of the shoulder.
--- NOTE | 2022-04-06 13:52 | XR ---
EXAMINATION TYPE: XR ribs LT w pa chest xray DATE OF EXAM: 04/06/2022 1:29 PM INDICATION: Patient age:Male; 81 years old; Reason for study: fall, pain; COMPARISON: None TECHNIQUE: Multiple views of the left ribs including frontal lateral and oblique FINDINGS: No evidence for displaced rib fracture. There is multilevel disc degeneration changes with scoliosis changes. There are surgical clips throughout the mediastinum and sternotomy wires. There is degeneration changes of the left shoulder. There is moderate stool burden throughout the colon. IMPRESSION RIBS: 1. No acute osseous pathology. 2. Left shoulder osteoarthrosis. 3. Postsurgical changes mediastinum. 4. Large severe degeneration changes of the spine.
--- NOTE | 2022-04-06 13:52 | XR ---
EXAMINATION TYPE: XR pelvis AP view DATE OF EXAM: 04/06/2022 1:29 PM INDICATION: Patient age:Male; 81 years old; Reason for study: fall; PHH. COMPARISON: None TECHNIQUE: The pelvis was examined in a single projection. FINDINGS: There is no evidence of fracture or dislocation. There is no soft tissue abnormality. No a bnormal calcifications are present. Multilevel degenerative changes of the lower spine. Degeneration changes of the hips with osteophyte formation. IMPRESSION: 1. No acute osseous pathology. 2. Mild to moderate bilateral hip osteoarthrosis.
--- NOTE | 2022-04-06 14:17 | CT ---
EXAMINATION TYPE: CT brain wo con CT DLP: 1239.4 mGycm, Automated exposure control for dose reduction was used. DATE OF EXAM: 04/06/2022 2:09 PM COMPARISON: None. CLINICAL INDICATION:Male, 81 years old with history of fall, Fall, on blood thinners TECHNIQUE: Brain: Multiple axial CT images of the brain were obtained without IV contrast. Coronal and sagittal reformats reviewed. FINDINGS: Brain: Extra-axial spaces: No abnormal extra-axial fluid collections. Ventricular system: Exvacuodilatation of the posterior horn of the left lateral ventricle. Cerebral parenchyma: No acute intraparenchymal hemorrhage or mass effect. Encephalomalacia demonstra danny within the left occipital lobe. The chirinos-white junction is well differentiated. Scattered hypoatt enuating areas are seen within the white matter. Cerebellum: Unremarkable. Mass effect: No evidence of midline shift. Intracranial vasculature: Atherosclerotic calcifications of the intracranial vessels. Soft tissues: Normal. Calvarium/osseous structures: No depressed skull fracture. Paranasal sinuses and mastoid air cells: Clear Visualized orbits: Bilateral aphakia IMPRESSION: * No acute intracranial process. * Remote injury to the left occipital lobe. * Nonspecific white matter changes, likely secondary to chronic small vessel ischemic disease.
[2022-04-06 15:19] LABS: Appearance,Urine Clear (Clear); Bilirubin,Urine Negative (Negative); Blood,Urine Negative (Negative); Color,Urine Yellow; Glucose,Urine (UA) Trace (Negative); Ketones,Urine Negative (Negative); Leukocyte Esterase,Urine Negative (Negative); Nitrite,Urine Negative (Negative); Protein,Urine Negative (Negative); Specific Gravity,Urine 1.013 (1.001-1.035); Urobilinogen,Urine <2.0 mg/dL (<2.0)
[2022-04-06 15:49] VITALS: BP 126/83; PULSE 75
== END 2022-04-06 16:10 | disposition home or self-care (01) ==
LOC: EC 12:10
DX: S40.011A Contusion of right shoulder, initial encounter (principal); S00.81XA Abrasion of other part of head, initial encounter; R07.81 Pleurodynia; I95.1 Orthostatic hypotension; I12.0 Hypertensive chronic kidney disease with stage 5 chronic kidney disease or end stage renal disease; E11.22 Type 2 diabetes mellitus with diabetic chronic kidney disease; N18.9 Chronic kidney disease, unspecified; D72.829 Elevated white blood cell count, unspecified; R94.4 Abnormal results of kidney function studies; I25.10 Atherosclerotic heart disease of native coronary artery without angina pectoris; E78.5 Hyperlipidemia, unspecified; I25.2 Old myocardial infarction; E07.9 Disorder of thyroid, unspecified; Z95.1 Presence of aortocoronary bypass graft; Z79.899 Other long term (current) drug therapy; Z79.890 Hormone replacement therapy; Z79.82 Long term (current) use of aspirin; Z88.5 Allergy status to narcotic agent; W19.XXXA Unspecified fall, initial encounter
CPT/HCPCS: 36415; 70450; 72170; 80053; 81003; 83735; 85025; 93005; 96360; 99284

== ENCOUNTER 2022-06-18 19:14 | Inpatient (IN) | payer MEDICARE ==
[2022-06-18] MEDS ORDERED: ASPIRIN 81 MG PO STA (19:38)
[2022-06-18] MEDS ORDERED: NITROGLYCERIN OINT 1 INCH/GM PACKET TOPICAL STA (19:38)
--- NOTE | 2022-06-18 19:53 | ED ---
General Adult HPI - General Chief complaint: Chest Pain Stated complaint: chest pain Time Seen by Provider: 06/18/22 19:30 Source: patient, RN notes reviewed, old records reviewed Mode of arrival: wheelchair - History of Present Illness Initial comments: This is an 81-year-old male with a past medical history significant for high blood pressure high cholesterol and previous coronary artery stents and history of PR. I saw the patient the hallway prior to him getting to a room. Patient complains of chest pain for the last week he states it's in the anterior left portion of his chest that does not radiate anywhere he states he is significantly more short of breath than normal. Patient states the pain is intermittent. Patient denies any fever chills or cough. Patient denies any diaphoretic episodes. Patient denies any nausea vomiting. Patient denies any significant cough. Patient denies abdominal pain patient denies nausea vomiting diarrhea. Patient denies lightheadedness or dizziness. Patient took 3 nitroglycerin which took his pain away. - Related Data Home Medications Medication Instructions Recorded Confirmed Atorvastatin [Lipitor] 20 mg PO HS@209911/07/19 10/25/21 Febuxostat [Uloric] 40 mg PO HS 11/07/19 10/25/21 Fenofibrate Nanocrystallized 145 mg PO HS 11/07/19 10/25/21 [Fenofibrate] Nitroglycerin Sl Tabs [Nitrostat] 0.4 mg SUBLINGUAL Q5M PRN 11/07/19 10/25/21 Ranolazine [Ranexa] 1,000 mg PO BID@0900,209911/07/19 10/25/21 Ticagrelor [Brilinta] 90 mg PO BID@0900,209911/07/19 10/25/21 Aspirin EC [Ecotrin Low Dose] 81 mg PO HS 07/02/21 10/25/21 Cinnamon 2,000mg 2,000 mg PO DAILY 07/02/21 10/25/21 Co Q-10 200 mg PO DAILY 07/02/21 10/25/21 Docusate [Colace] 200 mg PO BID 07/02/21 10/25/21 Fish Oil/Dha/Epa [Fish Oil 1,200 1 cap PO DAILY 07/02/21 10/25/21 mg Fish Oil] Isosorbide Mononitrate ER [Imdur] 60 mg PO HS 07/02/21 10/25/21 Levothyroxine Sodium [Synthroid] 150 mcg PO DAILY 07/02/21 10/25/21 Triamterene-Hctz 37.5-25Mg 1 cap PO DAILY 07/02/21 10/25/21 [Dyazide 37.5-25 Capsule] Isosorbide Mononitrate ER [Imdur] 15 mg PO QAM 10/23/21 10/25/21 Previous Rx's Medication Instructions Recorded carvediloL [Coreg] 6.25 mg PO BID #60 tab 07/03/21 Lidocaine 5% Patch [Lidoderm 5% 1 patch TOPICAL DAILY PRN 7 Days 04/06/22 Patch] #7 patch Allergies Allergy/AdvReac Type Severity Reaction Status Date / Time morphine Allergy Unknown Verified 06/18/22 19:25 Review of Systems ROS Statement: Those systems with pertinent positive or pertinent negative responses have been documented in the HPI. ROS Other: All systems not noted in ROS Statement are negative. Past Medical History Past Medical History: Coronary Artery Disease (CAD), Diabetes Mellitus, Hyperlipidemia, Hypertension, Myocardial Infarction (PR), Thyroid Disorder Additional Past Medical History / Comment(s): SOB, diet control diabetic, Last Myocardial Infarction Date:: unknown History of Any Multi-Drug Resistant Organisms: None Reported Past Surgical History: Appendectomy, Coronary Bypass/CABG, Heart Catheterization With Stent Additional Past Surgical History / Comment(s): thyroidectomy , CABG 25 yrs ago, 2-3 cardiac stents, toya cataracts Past Anesthesia/Blood Transfusion Reactions: No Reported Reaction Date of Last Stent Placement:: 2019 Past Psychological History: No Psychological Hx Reported Smoking Status: Never smoker Past Alcohol Use History: None Reported Past Drug Use History: None Reported - Past Family History Mother Family Medical History: No Reported History General Exam - General Exam Comments Initial Comments: GENERAL: Patient is well-developed and well-nourished. Patient is nontoxic and well- hydrated and is in mild distress. ENT: Neck is soft and supple. No significant lymphadenopathy is noted. Oropharynx is clear. Moist mucous membranes. Neck has full range of motion without e liciting any pain. EYES: The sclera were anicteric and conjunctiva were pink and moist. Extraocular movements were intact and pupils were equal round and reactive to light. Eyelids were unremarkable. PULMONARY: Unlabored respirations. Good breath sounds bilaterally. No audible rales rhonchi or wheezing was noted. CARDIOVASCULAR: There is a regular rate and rhythm without any murmurs gallops or rubs. ABDOMEN: Soft and nontender with normal bowel sounds. SKIN: Skin is clear with no lesions or rashes and otherwise unremarkable. NEUROLOGIC: Patient is alert and oriented x3. Cranial nerves II through XII are grossly intact. Motor and sensory are also intact. Normal speech, volume and content. Symmetrical smile. MUSCULOSKELETAL: Normal extremities with adequate strength and full range of motion. No lower extremity swelling or edema. No calf tenderness. LYMPHATICS: No significant lymphadenopathy is noted PSYCHIATRIC: Normal psychiatric evaluation. Course Vital Signs 06/18/22 06/18/22 06/18/22 19:20 20:13 20:14 Temperature 97.8 F Pulse Rate 88 84 Respiratory 18 18 Rate Blood Pressure 134/83 110/86 O2 Sat by Pulse 99 98 Oximetry Medical Decision Making - Medical Decision Making EKG shows sinus rhythm at 87 bpm SD interval is 233 QRS is 1:30 QT interval 410 QTC is 454. Patient's EKG shows no significant ST segment elevation however there are Q waves in V1 and V2 which was seen in previous EKGs. Patient also has slight ST segment depression in 1 and aVL which again was seen in previous EKG. Patient had a chest x-ray done showed pulmonary edema. I give the patient Lasix. Patient's troponin was elevated. Patient had a non-STEMI so started the patient on heparin. I spoke with cardiology. Dr. Allred will see the patient in the morning. [facility] agreed to admit the patient I admitted the patient wro te admitting orders. I continue nitro paste heparin and aspirin on the floor. - Lab Data Result diagrams: 06/18/22 20:02 06/18/22 20:02 Lab Results 06/18/22 06/18/22 06/18/22 Range/Units 20:02 20:02 20:02 WBC 10.0 (3.8-10.6) k/uL RBC 4.11 L (4.30-5.90) m/uL Hgb 12.7 L (13.0-17.5) gm/dL Hct 38.9 L (39.0-53.0) % MCV 94.6 (80.0-100.0) fL MCH 31.0 (25.0-35.0) pg MCHC 32.8 (31.0-37.0) g/dL RDW 14.3 (11.5-15.5) % Plt Count 262 (150-450) k/uL MPV 8.2 Neutrophils % 69 % Lymphocytes % 20 % Monocytes % 7 % Eosinophils % 1 % Basophils % 1 % Neutrophils # 6.9 (1.3-7.7) k/uL Lymphocytes # 1.9 (1.0-4.8) k/uL Monocytes # 0.7 (0-1.0) k/uL Eosinophils # 0.1 (0-0.7) k/uL Basophils # 0.1 (0-0.2) k/uL PT 11.5 (9.0-12.0) sec INR 1.1 (<1.2) APTT 22.1 (22.0-30.0) sec Sodium 139 (137-145) mmol/L Potassium 4.1 (3.5-5.1) mmol/L Chloride 106 (98-107) mmol/L Carbon Dioxide 22 (22-30) mmol/L Anion Gap 11 mmol/L BUN 26 H (9-20) mg/dL Creatinine 1.42 H (0.66-1.25) mg/dL Est GFR (CKD-EPI)AfAm 53 (>60 ml/min/1.73 sqM) Est GFR (CKD-EPI)NonAf 46 (>60 ml/min/1.73 sqM) Glucose 118 H (74-99) mg/dL Calcium 9.2 (8.4-10.2) mg/dL Magnesium 1.9 (1.6-2.3) mg/dL Total Bilirubin 0.9 (0.2-1.3) mg/dL AST 33 (17-59) U/L ALT 18 (4-49) U/L Alkaline Phosphatase 64 (38-126) U/L Troponin I (0.000-0.034) ng/mL NT-Pro-B Natriuret Pep pg/mL Total Protein 5.9 L (6.3-8.2) g/dL Albumin 3.6 (3.5-5.0) g/dL Coronavirus (PCR) (Not Detectd) 06/18/22 06/18/22 06/18/22 Range/Units 20:02 20:02 20:09 WBC (3.8-10.6) k/uL RBC (4.30-5.90) m/uL Hgb (13.0-17.5) gm/dL Hct (39.0-53.0) % MCV (80.0-100.0) fL MCH (25.0-35.0) pg MCHC (31.0-37.0) g/dL RDW (11.5-15.5) % Plt Count (150-450) k/uL MPV Neutrophils % % Lymphocytes % % Monocytes % % Eosinophils % % Basophils % % Neutrophils # (1.3-7.7) k/uL Lymphocytes # (1.0-4.8) k/uL Monocytes # (0-1.0) k/uL Eosinophils # (0-0.7) k/uL Basophils # (0-0.2) k/uL PT (9.0-12.0) sec INR (<1.2) APTT (22.0-30.0) sec Sodium (137-145) mmol/L Potassium (3.5-5.1) mmol/L Chloride (98-107) mmol/L Carbon Dioxide (22-30) mmol/L Anion Gap mmol/L BUN (9-20) mg/dL Creatinine (0.66-1.25) mg/dL Est GFR (CKD-EPI)AfAm (>60 ml/min/1.73 sqM) Est GFR (CKD-EPI)NonAf (>60 ml/min/1.73 sqM) Glucose (74-99) mg/dL Calcium (8.4-10.2) mg/dL Magnesium (1.6-2.3) mg/dL Total Bilirubin (0.2-1.3) mg/dL AST (17-59) U/L ALT (4-49) U/L Alkaline Phosphatase (38-126) U/L Troponin I 0.440 H* (0.000-0.034) ng/mL NT-Pro-B Natriuret Pep 6980 pg/mL Total Protein (6.3-8.2) g/dL Albumin (3.5-5.0) g/dL Coronavirus (PCR) Not Detected (Not Detectd) Critical Care Time Critical Care Time: Yes Total Critical Care Time: 35 Disposition Clinical Impression: NSTEMI (non-ST elevated myocardial infarction), Pulmonary edema Disposition: ADMITTED IP TO THIS HOSP Time of Disposition: 20:46
[2022-06-18 20:09] LABS: Basophils # (A) 0.1 k/uL (0-0.2); Basophils % (A) 1 %; Eosinophils # (A) 0.1 k/uL (0-0.7); Eosinophils % (A) 1 %; HCT 38.9 % (39.0-53.0); HGB 12.7 gm/dL (13.0-17.5); Lymphocytes # (A) 1.9 k/uL (1.0-4.8); Lymphocytes % (A) 20 %; MCHC 32.8 g/dL (31.0-37.0); MCV 94.6 fL (80.0-100.0); Mean Platelet Volume 8.2; Monocytes # (A) 0.7 k/uL (0-1.0); Monocytes % (A) 7 %; Neutrophils # (A) 6.9 k/uL (1.3-7.7); Neutrophils % (A) 69 %; Platelet Count 262 k/uL (150-450); RBC 4.11 m/uL (4.30-5.90); RDW 14.3 % (11.5-15.5)
[2022-06-18 20:18] LABS: INR 1.1 (<1.2); Partial Thromboplastin Time 22.1 sec (22.0-30.0); Prothrombin Time 11.5 sec (9.0-12.0)
--- NOTE | 2022-06-18 20:25 | XR ---
EXAMINATION TYPE: XR chest 2V DATE OF EXAM: 06/18/2022 8:20 PM COMPARISON: Chest radiographs from 04/06/2022 TECHNIQUE: XR chest 2V Frontal view of the chest. CLINICAL INDICATION:Male, 81 years old with history of Chest Pain; FINDINGS: Lungs/Pleura: There is no evidence of pleural effusion, focal consolidation, or pneumothorax. Pulmonary vascularity: Pulmonary vascular congestion. Heart/mediastinum: Cardiomediastinal silhouette is enlarged and stable. Musculoskeletal: No acute osseous pathology. Midline sternotomy wires and surgical clips project over the mediastinum. IMPRESSION: Cardiomegaly and mild pulmonary vascular congestion. Correlate with BNP for congestive heart failure.
[2022-06-18 20:27] LABS: Albumin 3.6 g/dL (3.5-5.0); Calcium 9.2 mg/dL (8.4-10.2); Magnesium 1.9 mg/dL (1.6-2.3); Potassium 4.1 mmol/L (3.5-5.1); Total Bilirubin 0.9 mg/dL (0.2-1.3); Total Protein 5.9 g/dL (6.3-8.2)
[2022-06-18] MEDS ORDERED: FUROSEMIDE 10 MG/ML 4 ML VIAL IV STA (20:39)
[2022-06-18] MEDS ORDERED: HEPARIN SODIUM 1,000 UN/ML (10ML VL) IV ONE (20:43)
[2022-06-18] MEDS ORDERED: NITROGLYCERIN SL TABS 0.4 MG TAB SUBLINGUAL PRN (20:47)
[2022-06-18] MEDS: HEPARIN SOD,PORK IN 0.45% NACL 25,000 UNIT in 0.45% NACL 1 250ML.BAG IV SCH (21:20)
[2022-06-18] MEDS ORDERED: NITROGLYCERIN-D5W PMX 50 MG in DEXTROSE/WATER 1 250ML.BAG IV SCH (23:15)
[2022-06-19] MEDS ORDERED: NITROGLYCERIN OINT 1 INCH/GM PACKET TOPICAL SCH
[2022-06-19] MEDS ORDERED: ATORVASTATIN 20 MG TAB PO SCH (00:30)
[2022-06-19 04:06] LABS: African American GFR (CKD) 50 (>60 ml/min/1.73 sqM); Anion Gap 12 mmol/L; Blood Urea Nitrogen 27 mg/dL (9-20); Carbon Dioxide 22 mmol/L (22-30); Chloride 105 mmol/L (98-107); Glucose 110 mg/dL (74-99); Non-African American GFR(CKD) 43 (>60 ml/min/1.73 sqM); Potassium 3.7 mmol/L (3.5-5.1); Sodium 139 mmol/L (137-145)
[2022-06-19] MEDS ORDERED: HEPARIN SODIUM 1,000 UN/ML (10ML VL) IV PRN (06:07)
[2022-06-19] MEDS ORDERED: carvediloL 6.25 MG TAB PO SCH (07:30)
[2022-06-19] MEDS ORDERED: carvediloL 6.25 MG TAB PO STA (08:44)
[2022-06-19] MEDS ORDERED: ASPIRIN 325 MG TAB PO SCH (09:00)
[2022-06-19] MEDS ORDERED: TRIAMTERENE-HCTZ 37.5-25MG 1 EACH TAB PO SCH (09:00)
[2022-06-19 09:02] LABS: LDL Cholesterol,Calculated 87.6 mg/dL (0.0-131.0)
[2022-06-19] MEDS: RANOLAZINE 500 MG TAB.ER.12H PO SCH ×2 (09:11→20:49)
[2022-06-19] MEDS: SODIUM CHLORIDE 0.9% 1,000 ML IV SCH ×2 (09:12→20:49)
[2022-06-19] MEDS: TICAGRELOR 90 MG TAB PO SCH ×2 (09:12→20:49)
[2022-06-19] MEDS ORDERED: ALPRAZolam 0.25 MG TAB PO PRN (10:26)
[2022-06-19] MEDS ORDERED: NITROGLYCERIN SL TABS 0.4 MG TAB SUBLINGUAL PRN (10:26)
[2022-06-19] MEDS ORDERED: ALPRAZolam 0.5 MG TAB PO PRN (10:26)
--- NOTE | 2022-06-19 10:37 | CA ---
Transthoracic Echo Report Name: Jose Oshea Age: 81 Gender: M : 1940 Exam Date: 06/19/2022 09:48 Exam Location: [facility] Ht (in): 69 Wt (lb): 166 Ordering Physician: Kimberly Boothe Attending/Referring Phys: [id number], Tl [employer] Beveler Shira Quintanilla, KEITH Procedure CPT: Indications: LV function, Chest pain, NSTEMI Cardiac Hx: Technical Quality: Good Contrast 1: Total Dose (mL): Contrast 2: Total Dose (mL): MEASUREMENTS (Male / Female) Normal Values 2D ECHO LV Diastolic Diameter PLAX 5.2 cm 4.2 - 5.9 / 3.9 - 5.3 cm LV Systolic Diameter PLAX 3.6 cm IVS Diastolic Thickness 1.5 cm 0.6 - 1.0 / 0.6 - 0.9 cm LVPW Diastolic Thickness 1.4 cm 0.6 - 1.0 / 0.6 - 0.9 cm LV Relative Wall Thickness 0.6 RV Internal Dim ED PLAX 3.4 cm LA Systolic Diameter LX 4.0 cm 3.0 - 4.0 / 2.7 - 3.8 cm LA Volume 68.6 cm??? 18 - 58 / 22 - 52 cm??? M-MODE Aortic Root Diameter MM 3.6 cm MV E Point Septal Separation 1.3 cm AV Cusp Separation MM 2.0 cm DOPPLER AV Peak Velocity 128.0 cm/s AV Peak Gradient 6.6 mmHg MV Area PHT 4.6 cm??? Mitral E Point Velocity 88.6 cm/s Mitral A Point Velocity 113.5 cm/s Mitral E to A Ratio 0.8 MV Deceleration Time 163.5 ms MV E' Velocity 3.1 cm/s Mitral E to MV E' Ratio 29.0 FINDINGS Left Ventricle Left ventricular ejection fraction is estimated at 35-40 %. Left ventricular cavity size normal. Moderate concentric left ventricular hypertrophy. Severe hypokinesis to akinesis of the mid anterior wall, anteroapical and apical septal segment. Right Ventricle Mild right ventricular dilatation. Unable to estimate the right ventricular systolic pressure. Right Atrium Normal right atrial size. Left Atrium Mildly increased left atrial volume. Mildly increased left atrial area. No evidence for an atrial septal defect. Mitral Valve Mitral valve thickened. Mild mitral regurgitation. Aortic Valve Focal thickening of the aortic valve cusps. No aortic valve stenosis or regurgitation. Tricuspid Valve Structurally normal tricuspid valve. Pulmonic Valve Mild pulmonic regurgitation. Pericardium Normal pericardium. No pericardial or pleural effusion. Aorta Normal size aortic root and proximal ascending aorta. CONCLUSIONS 1. Severely impaired left ventricle systolic function with segmental wall motion abnormality consistent with CAD 2. Mild mitral regurgitation 3. No pericardial effusion Previewed by: Dr. Bishop Morgan MD (Electronically Signed) Final Date: 19 June 2022 10:36
--- NOTE | 2022-06-19 10:39 | P.CRDCN ---
History of Present Illness Consult date: 06/19/22 History of present illness: HISTORY OF PRESENT ILLNESS: This is a 81-year-old male with a past medical history significant for coronary artery disease with previous CABG x 3 vessel in 1994 (ABREU to LAD, SVG to PDA, SVG to PLV of RCA)and subsequent stenting at [facility] in 2019 of the PLV branch, chronic kidney disease, hypertension, and hyperlipidemia. Patient follows in the office with Dr. Vasquez. We have been asked to see the patient in consultation for chest pain. Patient examined at the bedside. Patient states he has been having chest pain on and off for proximally last 2 weeks. He reports having shortness of breath with minimal exertion. He states the pain this time is located in the middle of his chest. He states usually in the past he has had radiation down his arm. He reports yesterday the pain was severe and he took a total of 3 nitro with minimal relief so he came to the emergency room for further evaluation. The patient was started on IV heparin and IV nitro. The patient states that since his infusions began, he has remained chest pain-free. * EKG reveals sinus mechanism with nonspecific ST-T wave changes. Repeat EKG reveals mild ST depression. * Chest xray cardiomegaly and mild pulmonary vascular congestion. * Laboratory data: WBC 10.0. Hemoglobin 12.7. Platelet count 262. Sodium 139. Potassium 3.7. BUN 27. Creatinine 1.51. Troponin 0.440. 0.497. 0.4-9. * Current home cardiac medications include Brilinta 90mg BID, aspirin 81 mg daily, Lipitor 20 mg at night, fenofibrate 145 mg at night, carvedilol 6.25 mg daily, Imdur 75 mg at night, Ranexa 1000 mg twice a day, and Triamterene-hctz 37.5-25mg daily * Most recent echocardiogram obtained in June 2021 revealed ejection fraction 50-55%. * Cardiac catheterization history: October 2021 revealing severe three-vessel coronary artery disease with patent ABREU to LAD and patent venous graft to the RCA with diffuse disease involving the PLV branch. Medical management was recommended. REVIEW OF SYSTEMS: At the time of my exam: CONSTITUTIONAL: Denies fever or chills. HEENT: Denies blurred vision, vision changes, or eye pain. Denies hemoptysis CARDIOVASCULAR: Denies chest pain. Denies orthopnea. Denies PND. Denies palpitations RESPIRATORY: Denies shortness of breath. GASTROINTESTINAL: Denies abdominal pain. Denies nausea or vomiting. HEMATOLOGIC: Denies bleeding disorders. GENITOURINARY: Denies any blood in urine. SKIN: Denies pruitis. Denies rash. PHYSICAL EXAM: VITAL SIGNS: Reviewed. GENERAL: Well-developed in no acute distress. HEENT: Head is normocephalic. Pupils are equal, round. Sclerae anicteric. Mucous membranes of the mouth are moist. Neck supple. No JVD or thyromegaly LUNGS: Respirations even and unlabored. Lungs essentially clear to auscultation bilaterally. HEART: Regular rate and rhythm. S1 and S2 heard. ABDOMEN: Soft. Nondistended. Nontender. EXTREMITIES: Normal range of motion. No clubbing or cyanosis. Peripheral pulses intact. No lower extremity edema NEUROLOGIC: Awake and alert. Oriented x 3. ASSESSMENT: Chest pain Non-STEMI Coronary artery disease with previous CABG and PCI Hypertension Hyperlipidemia Chronic kidney disease PLAN: Resume home cardiac medications Increase carvedilol to 12.5 mg twice a day Continue IV heparin infusion Decrease nitro drip to 5 mics and wean off as tolerated Hold Triamterene-hctz Continue with IVF hydration Check BMP in AM Obtain 2-D echo to assess cardiac structure and function Nothing by mouth at midnight Patient to undergo cardiac cath tomorrow with Dr. Vasquez Nurse practitioner note has been reviewed by physician. Signing provider agrees with the documented findings, assessment, and plan of care. Past Medical History Past Medical History: Coronary Artery Disease (CAD), Diabetes Mellitus, Hyperlipidemia, Hypertension, Myocardial Infarction ([place]), Thyroid Disorder Additional Past Medical History / Comment(s): SOB, diet control diabetic, Last Myocardial Infarction Date:: unknown History of Any Multi-Drug Resistant Organisms: None Reported Past Surgical History: Appendectomy, Coronary Bypass/CABG, Heart Catheterization With Stent Additional Past Surgical History / Comment(s): thyroidectomy , CABG 25 yrs ago, 2-3 cardiac stents, toya cataracts Past Anesthesia/Blood Transfusion Reactions: No Reported Reaction Date of Last Stent Placement:: 2019 Past Psychological History: No Psychological Hx Reported Smoking Status: Never smoker Past Alcohol Use History: None Reported Past Drug Use History: None Reported - Past Family History Mother Family Medical History: No Reported History Medications and Allergies Home Medications Medication Instructions Recorded Confirmed Type Atorvastatin [Lipitor] 20 mg PO HS 11/07/19 06/18/22 History Febuxostat [Uloric] 40 mg PO DAILY 11/07/19 06/18/22 History Fenofibrate Nanocrystallized 145 mg PO HS 11/07/19 06/18/22 History [Fenofibrate] Nitroglycerin Sl Tabs [Nitrostat] 0.4 mg SUBLINGUAL Q5M PRN 11/07/19 06/18/22 History Ticagrelor [Brilinta] 90 mg PO BID 11/07/19 06/18/22 History Aspirin EC [Ecotrin Low Dose] 81 mg PO DAILY 07/02/21 06/18/22 History Isosorbide Mononitrate ER [Imdur] 60 mg PO HS 07/02/21 06/18/22 History Ascorbic Acid [Vitamin C] 500 mg PO DAILY 06/18/22 06/18/22 History Isosorbide Mononitrate ER [Imdur] 15 mg PO HS 06/18/22 06/18/22 History Levothyroxine Sodium [Synthroid] 125 mcg PO DAILY 06/18/22 06/18/22 History Ranolazine [Ranolazine ER] 1,000 mg PO BID 06/18/22 06/18/22 History Triamterene/Hydrochlorothiazid 1 tab PO DAILY 06/18/22 06/18/22 History [Triamterene-Hctz 37.5-25 mg Tb] Ubidecarenone [Coenzyme Q10] 200 mg PO DAILY 06/18/22 06/18/22 History carvediloL [Coreg] 6.25 mg PO DAILY 06/18/22 06/18/22 History Allergies Allergy/AdvReac Type Severity Reaction Status Date / Time morphine Allergy Unknown Verified 06/18/22 21:12 Physical Exam Vitals: Vital Signs Temp Pulse Pulse Resp BP BP Pulse Ox 06/19/22 08:00 97.7 F 86 17 125/86 98 06/19/22 06:38 142/89 06/19/22 05:36 89 142/97 06/19/22 04:36 86 152/98 06/19/22 03:36 97.8 F 91 22 149/81 98 06/19/22 02:36 92 143/92 06/19/22 01:36 90 146/95 06/19/22 00:36 92 147/94 97 06/19/22 00:21 90 146/92 06/19/22 00:06 94 154/96 06/18/22 23:51 89 136/84 06/18/22 23:07 97.7 F 94 20 129/84 93 L 06/18/22 23:00 90 133/89 06/18/22 22:33 90 122/82 06/18/22 21:55 97.6 F 84 20 130/86 96 06/18/22 21:17 84 18 144/93 98 06/18/22 20:14 110/86 06/18/22 20:13 84 18 98 06/18/22 19:20 97.8 F 88 18 134/83 99 Intake and Output 06/18/22 06/19/22 06/19/22 22:59 06:59 14:59 Intake Total 81.91 58.4 Output Total 600 Balance -518.09 58.4 Intake: Intake, IV Titration 81.91 58.4 Amount Heparin Sod,Pork in 0.45% 81.91 NaCl 25,000 unit In 0.45 % NaCl 1 250ml.bag @ 12 UNITS/KG/HR 9.308 mls/hr IV .Q24H [facility] Rx#: [id number] Nitroglycerin-D5w Pmx 50 58.4 mg In Dextrose/Water 1 250ml.bag @ 20 MCG/MIN 6 mls/hr IV .Q24H [facility] Rx#: [id number] Output: Urine 600 Other: Voiding Method External Catheter Urinal Urinal Weight 77.564 kg 75.5 kg Results 06/18/22 20:02 06/19/22 03:27 Cardiac Enzymes 06/18/22 06/18/22 06/18/22 Range/Units 20:02 20:02 21:33 AST 33 (17-59) U/L Troponin I 0.440 H* 0.497 H* (0.000-0.034) ng/mL 06/19/22 Range/Units 00:10 AST (17-59) U/L Troponin I 0.429 H* (0.000-0.034) ng/mL Coagulation 06/18/22 06/19/22 Range/Units 20:02 03:27 PT 11.5 (9.0-12.0) sec APTT 22.1 36.2 H (22.0-30.0) sec Lipids 06/19/22 Range/Units 03:27 Triglycerides 239.00 H (0.00-149.00) mg/dL Cholesterol 172.00 (0.00-200.00) mg/dL HDL Cholesterol 36.60 L (40.00-60.00) mg/dL Cholesterol/HDL Ratio 4.70 Ratio CBC 06/18/22 Range/Units 20:02 WBC 10.0 (3.8-10.6) k/uL RBC 4.11 L (4.30-5.90) m/uL Hgb 12.7 L (13.0-17.5) gm/dL Hct 38.9 L (39.0-53.0) % Plt Count 262 (150-450) k/uL Comprehensive Metabolic Panel 06/18/22 06/19/22 Range/Units 20:02 03:27 Sodium 139 139 (137-145) mmol/L Potassium 4.1 3.7 (3.5-5.1) mmol/L Chloride 106 105 (98-107) mmol/L Carbon Dioxide 22 22 (22-30) mmol/L BUN 26 H 27 H (9-20) mg/dL Creatinine 1.42 H 1.51 H (0.66-1.25) mg/dL Glucose 118 H 110 H (74-99) mg/dL Calcium 9.2 9.0 (8.4-10.2) mg/dL AST 33 (17-59) U/L ALT 18 (4-49) U/L Alkaline Phosphatase 64 (38-126) U/L Total Protein 5.9 L (6.3-8.2) g/dL Albumin 3.6 (3.5-5.0) g/dL Current Medications Generic Name Dose Route Start Last Admin Trade Name Freq PRN Reason Stop Dose Admin Aspirin 81 mg 06/20/22 09:00 Aspirin 81 Mg PO DAILY [facility] Atorvastatin Calcium 40 mg 06/19/22 21:00 Atorvastatin 40 Mg Tab PO HS [facility] Carvedilol 12.5 mg 06/19/22 17:30 Carvedilol 12.5 Mg Tab PO BID-W/MEALS [facility] Fenofibrate 160 mg 06/19/22 21:00 Fenofibrate 160 Mg Tab PO HS [facility] Heparin Sodium (Porcine) 0 unit 06/19/22 06:07 06/19/22 06:31 Heparin Sodium 1,000 Un/Ml (10ml Vl) IV 1,925 unit PER PROTOCOL PRN Administration Low PTT Protocol Heparin Sodium/Sodium Chloride 250 mls @ 9.308 mls/hr 06/18/22 21:00 06/19/22 06:08 25,000 unit/ Sodium Chloride IV 14 units/kg/hr .Q24H [facility] 10.859 mls/hr Titration Protocol 12 UNITS/KG/HR Nitroglycerin/Dextrose 50 mg/ 250 mls @ 1.5 mls/hr 06/18/22 23:15 06/19/22 09:14 IV Solution IV 5 mcg/min .Q24H [facility] 1.5 mls/hr Titration Protocol 5 MCG/MIN Sodium Chloride 1,000 mls @ 100 mls/hr 06/19/22 08:45 06/19/22 09:12 Saline 0.9% IV 100 mls/hr .Q10H [facility] Administration Nitroglycerin 0.4 mg 06/18/22 20:47 06/18/22 22:31 Nitroglycerin Sl Tabs 0.4 Mg Tab SUBLINGUAL 0.4 mg Q5M PRN Administration Chest Pain Ranolazine 1,000 mg 06/19/22 09:00 06/19/22 09:11 Ranolazine 500 Mg Tab.Er.12h PO 1,000 mg BID [facility] Administration Ticagrelor 90 mg 06/19/22 09:00 06/19/22 09:12 Ticagrelor 90 Mg Tab PO 90 mg BID [facility] Administration Triamterene/Hydrochlorothiazide 1 each 06/19/22 09:00 06/19/22 09:13 Triamterene-Hctz 37.5-25mg 1 Each Tab PO 1 each DAILY [facility] Administration Intake and Output 06/18/22 06/19/22 06/19/22 22:59 06:59 14:59 Intake Total 81.91 58.4 Output Total 600 Balance -518.09 58.4 Intake: Intake, IV Titration 81.91 58.4 Amount Heparin Sod,Pork in 0.45% 81.91 NaCl 25,000 unit In 0.45 % NaCl 1 250ml.bag @ 12 UNITS/KG/HR 9.308 mls/hr IV .Q24H [facility] Rx#: [id number] Nitroglycerin-D5w Pmx 50 58.4 mg In Dextrose/Water 1 250ml.bag @ 20 MCG/MIN 6 mls/hr IV .Q24H [facility] Rx#: [id number] Output: Urine 600 Other: Voiding Method External Catheter Urinal Urinal Weight 77.564 kg 75.5 kg 06/18/22 20:02 06/19/22 03:27
[2022-06-19] MEDS: NITROGLYCERIN OINT 1 INCH/GM PACKET TOPICAL SCH ×2 (12:19→20:49)
--- NOTE | 2022-06-19 12:22 | P.HPIM ---
History of Present Illness H&P Date: 06/19/22 Chief Complaint: Chest pain History of present illness; patient is a 81-year-old gentleman with past medical history significant for coronary artery disease status post CABG and stenting, hypertension, hyperlipidemia who presented to the ER because of chest pain that started 1 week ago. Chest pain was central in location, pressure-like, associated with shortness of breath. Shortness of breath was present on exertion and patient is only walk up to his driveway and he would get short of breath. Patient denies any orthopnea or PND. There was no complete of any swelling of feet. Because of this chest pain and shortness of breath patient decided to come to the ER of [place]. In the ER, patient was worked up, initial WBC was 10, hemoglobin 12.7, sodium was 139, potassium was 4.1, creatinine was 1.42. Initial troponin was elevated at 0.440. Patient was started on pharmacy dose heparin and nitro drip and was admitted to hospitalist service with consultation to cardiology. REVIEW OF SYSTEMS: CONSTITUTIONAL: No fever, no malaise, no fatigue. HEENT: No recent visual problems or hearing problems. Denied any sore throat. CARDIOVASCULAR: No orthopnea, PND, no palpitations, no syncope. PULMONARY: Complaining of shortness of breath on exertion. no cough, no hemoptysis. GASTROINTESTINAL: No diarrhea, no nausea, no vomiting, no abdominal pain. NEUROLOGICAL: No headaches, no weakness, no numbness. HEMATOLOGICAL: Denies any bleeding or petechiae. GENITOURINARY: Denies any burning micturition, frequency, or urgency. MUSCULOSKELETAL/RHEUMATOLOGICAL: Denies any joint pain, swelling, or any muscle pain. ENDOCRINE: Denies any polyuria or polydipsia. The rest of the 14-point review of systems is negative. PHYSICAL EXAMINATION: GENERAL: The patient is alert and oriented x3, not in any acute distress. Well developed, well nourished. HEENT: Pupils are round and equally reacting to light. EOMI. No scleral icterus. No conjunctival pallor. Normocephalic, atraumatic. No pharyngeal erythema. No thyromegaly. CARDIOVASCULAR: S1 and S2 present. No murmurs, rubs, or gallops. PULMONARY: Chest is clear to auscultation, no wheezing or crackles. ABDOMEN: Soft, nontender, nondistended, normoactive bowel sounds. No palpable organomegaly. MUSCULOSKELETAL: No joint swelling or deformity. EXTREMITIES: No cyanosis, clubbing, or pedal edema. NEUROLOGICAL: Gross neurological examination did not reveal any focal deficits. SKIN: No rashes. Assessment Chest pain Non-STEMI Coronary artery disease with previous CABG and PCI Hypertension Hyperlipidemia Chronic kidney disease Plan; Monitor vital signs. Monitor CBC. Continue telemetry monitoring. Monitor renal functions. Continue pharmacy dose heparin. Continue nitro drip. Resume home meds. Consult cardiology DVT prophylaxis: Heparin Past Medical History Past Medical History: Coronary Artery Disease (CAD), Diabetes Mellitus, Hyperlipidemia, Hypertension, Myocardial Infarction ([place]), Thyroid Disorder Additional Past Medical History / Comment(s): SOB, diet control diabetic, Last Myocardial Infarction Date:: unknown History of Any Multi-Drug Resistant Organisms: None Reported Past Surgical History: Appendectomy, Coronary Bypass/CABG, Heart Catheterization With Stent Additional Past Surgical History / Comment(s): thyroidectomy , CABG 25 yrs ago, 2-3 cardiac stents, toya cataracts Past Anesthesia/Blood Transfusion Reactions: No Reported Reaction Date of Last Stent Placement:: 2019 Past Psychological History: No Psychological Hx Reported Smoking Status: Never smoker Past Alcohol Use History: None Reported Past Drug Use History: None Reported - Past Family History Mother Family Medical History: No Reported History Medications and Allergies Home Medications Medication Instructions Recorded Confirmed Type Atorvastatin [Lipitor] 20 mg PO HS 11/07/19 06/18/22 History Febuxostat [Uloric] 40 mg PO DAILY 11/07/19 06/18/22 History Fenofibrate Nanocrystallized 145 mg PO HS 11/07/19 06/18/22 History [Fenofibrate] Nitroglycerin Sl Tabs [Nitrostat] 0.4 mg SUBLINGUAL Q5M PRN 11/07/19 06/18/22 History Ticagrelor [Brilinta] 90 mg PO BID 11/07/19 06/18/22 History Aspirin EC [Ecotrin Low Dose] 81 mg PO DAILY 07/02/21 06/18/22 History Isosorbide Mononitrate ER [Imdur] 60 mg PO HS 07/02/21 06/18/22 History Ascorbic Acid [Vitamin C] 500 mg PO DAILY 06/18/22 06/18/22 History Isosorbide Mononitrate ER [Imdur] 15 mg PO HS 06/18/22 06/18/22 History Levothyroxine Sodium [Synthroid] 125 mcg PO DAILY 06/18/22 06/18/22 History Ranolazine [Ranolazine ER] 1,000 mg PO BID 06/18/22 06/18/22 History Triamterene/Hydrochlorothiazid 1 tab PO DAILY 06/18/22 06/18/22 History [Triamterene-Hctz 37.5-25 mg Tb] Ubidecarenone [Coenzyme Q10] 200 mg PO DAILY 06/18/22 06/18/22 History carvediloL [Coreg] 6.25 mg PO DAILY 06/18/22 06/18/22 History Allergies Allergy/AdvReac Type Severity Reaction Status Date / Time morphine Allergy Unknown Verified 06/18/22 21:12 Physical Exam Vitals: Vital Signs Temp Pulse Pulse Resp BP BP Pulse Ox 06/19/22 08:00 97.7 F 86 17 125/86 98 06/19/22 06:38 142/89 06/19/22 05:36 89 142/97 06/19/22 04:36 86 152/98 06/19/22 03:36 97.8 F 91 22 149/81 98 06/19/22 02:36 92 143/92 06/19/22 01:36 90 146/95 06/19/22 00:36 92 147/94 97 06/19/22 00:21 90 146/92 06/19/22 00:06 94 154/96 06/18/22 23:51 89 136/84 06/18/22 23:07 97.7 F 94 20 129/84 93 L 06/18/22 23:00 90 133/89 06/18/22 22:33 90 122/82 06/18/22 21:55 97.6 F 84 20 130/86 96 06/18/22 21:17 84 18 144/93 98 06/18/22 20:14 110/86 06/18/22 20:13 84 18 98 06/18/22 19:20 97.8 F 88 18 134/83 99 Intake and Output 06/18/22 06/19/22 06/19/22 22:59 06:59 14:59 Intake Total 81.91 62.325 Output Total 600 Balance -518.09 62.325 Intake: Intake, IV Titration 81.91 62.325 Amount Heparin Sod,Pork in 0.45% 81.91 NaCl 25,000 unit In 0.45 % NaCl 1 250ml.bag @ 12 UNITS/KG/HR 9.308 mls/hr IV .Q24H [facility] Rx#: [id number] Nitroglycerin-D5w Pmx 50 62.325 mg In Dextrose/Water 1 250ml.bag @ 20 MCG/MIN 6 mls/hr IV .Q24H [facility] Rx#: [id number] Output: Urine 600 Other: Voiding Method External Catheter Urinal Urinal Weight 77.564 kg 75.5 kg Results CBC & Chem 7: 06/18/22 20:02 06/19/22 03:27 Labs: Abnormal Lab Results - Last 24 Hours (Table) 06/18/22 06/18/22 06/18/22 Range/Units 20:02 20:02 20:02 RBC 4.11 L (4.30-5.90) m/uL Hgb 12.7 L (13.0-17.5) gm/dL Hct 38.9 L (39.0-53.0) % APTT (22.0-30.0) sec BUN 26 H (9-20) mg/dL Creatinine 1.42 H (0.66-1.25) mg/dL Glucose 118 H (74-99) mg/dL Troponin I 0.440 H* (0.000-0.034) ng/mL Total Protein 5.9 L (6.3-8.2) g/dL Triglycerides (0.00-149.00) mg/dL VLDL Cholesterol, Calc (5.00-40.00) mg/dL HDL Cholesterol (40.00-60.00) mg/dL 06/18/22 06/19/22 06/19/22 Range/Units 21:33 00:10 03:27 RBC (4.30-5.90) m/uL Hgb (13.0-17.5) gm/dL Hct (39.0-53.0) % APTT (22.0-30.0) sec BUN 27 H (9-20) mg/dL Creatinine 1.51 H (0.66-1.25) mg/dL Glucose 110 H (74-99) mg/dL Troponin I 0.497 H* 0.429 H* (0.000-0.034) ng/mL Total Protein (6.3-8.2) g/dL Triglycerides 239.00 H (0.00-149.00) mg/dL VLDL Cholesterol, Calc 47.80 H (5.00-40.00) mg/dL HDL Cholesterol 36.60 L (40.00-60.00) mg/dL 06/19/22 06/19/22 Range/Units 03:27 11:16 RBC (4.30-5.90) m/uL Hgb (13.0-17.5) gm/dL Hct (39.0-53.0) % APTT 36.2 H 61.6 H (22.0-30.0) sec BUN (9-20) mg/dL Creatinine (0.66-1.25) mg/dL Glucose (74-99) mg/dL Troponin I (0.000-0.034) ng/mL Total Protein (6.3-8.2) g/dL Triglycerides (0.00-149.00) mg/dL VLDL Cholesterol, Calc (5.00-40.00) mg/dL HDL Cholesterol (40.00-60.00) mg/dL Thrombosis Risk Factor Assmnt - Choose All That Apply Each Risk Factor Represents 3 Points: Age 75 years or older Thrombosis Risk Factor Assessment Total Risk Factor Score: 3 Thrombosis Risk Factor Assessment Level: Moderate Risk
[2022-06-19] MEDS: carvediloL 12.5 MG TAB PO SCH (17:29)
[2022-06-19] MEDS: ATORVASTATIN 40 MG TAB PO SCH (20:49)
[2022-06-19] MEDS: FENOFIBRATE 160 MG TAB PO SCH (20:49)
[2022-06-19] MEDS: HEPARIN SOD,PORK IN 0.45% NACL 25,000 UNIT in 0.45% NACL 1 250ML.BAG IV SCH (20:52)
[2022-06-20] MEDS: NITROGLYCERIN OINT 1 INCH/GM PACKET TOPICAL SCH ×3 (04:24→21:55)
[2022-06-20] MEDS: SODIUM CHLORIDE 0.9% 1,000 ML in EMPTY BAG 1 BAG IV SCH ×2 (04:24→16:03)
[2022-06-20] MEDS: SODIUM CHLORIDE 0.9% 1,000 ML IV SCH ×2 (04:25→21:55)
[2022-06-20] MEDS ORDERED: ASPIRIN 325 MG TAB PO ONE (05:00)
[2022-06-20] MEDS ORDERED: ATORVASTATIN 80 MG TAB PO ONE (05:00)
[2022-06-20] MEDS: carvediloL 12.5 MG TAB PO SCH ×2 (05:07→17:44)
[2022-06-20] MEDS: LEVOTHYROXINE 125 MCG TAB PO SCH (05:07)
[2022-06-20] MEDS: RANOLAZINE 500 MG TAB.ER.12H PO SCH ×2 (05:07→19:54)
[2022-06-20] MEDS: TICAGRELOR 90 MG TAB PO SCH ×2 (05:08→19:54)
[2022-06-20 06:04] LABS: Glucose,Whole Blood 110 mg/dL (70-110)
[2022-06-20] MEDS ORDERED: HEPARIN SODIUM,PORCINE 10,000 UNIT in SODIUM CHLORIDE 0.9% 1,000 ML IRRIGATION PRN (07:00)
[2022-06-20] MEDS ORDERED: HEPARIN SODIUM,PORCINE 2,500 UNIT in SODIUM CHLORIDE 0.9% 250 ML IRRIGATION PRN (07:00)
[2022-06-20] MEDS ORDERED: IV FLUID CONTINUATION 1,000 ML IV ONE (07:25)
[2022-06-20] MEDS ORDERED: fentaNYL (PF) 50 MCG/ML 2 ML AMP ONE (07:31)
[2022-06-20] MEDS ORDERED: fentaNYL (PF) 50 MCG/ML 2 ML AMP IV ONE (07:42)
[2022-06-20] MEDS ORDERED: MIDAZOLAM 2 MG/2 ML VIAL IV ONE (07:42)
[2022-06-20] MEDS ORDERED: LIDOCAINE 1% INJ 10MG/ML (30 ML VIAL-PF) SQ ONE (07:44)
[2022-06-20] MEDS ORDERED: HEPARIN SODIUM 1,000 UN/ML (10ML VL) ONE (08:08)
[2022-06-20] MEDS ORDERED: niCARdipine 25 MG/10 ML VIAL ONE (08:08)
[2022-06-20] MEDS ORDERED: HEPARIN SODIUM 1,000 UN/ML (10ML VL) IV ONE (08:10)
[2022-06-20] MEDS: niCARdipine Syringe (1,000 mcg/10 mL) INTRACORON ONE ×3 (08:36→09:20)
[2022-06-20] MEDS ORDERED: IOPAMIDOL-370 125ML BTL INJ ONE ×3 (08:52)
[2022-06-20] MEDS ORDERED: IOPAMIDOL-370 100ML BTL INJ ONE (09:39)
[2022-06-20] MEDS ORDERED: SODIUM CHLORIDE 0.9% 1,000 ML IV ONE (09:40)
[2022-06-20] MEDS ORDERED: RX INFO: IV CONTRAST WAS GIVEN 1 EACH MISC MISCELLANE PRN (10:00)
[2022-06-20] MEDS ORDERED: SODIUM CHLORIDE 0.9% 1,000 ML in EMPTY BAG 1 BAG IV SCH (10:00)
[2022-06-20] MEDS ORDERED: ZOLPIDEM 5 MG TAB PO PRN (10:00)
[2022-06-20] MEDS ORDERED: ATROPINE SULFATE 0.1 MG/ML 10ML SYRINGE IV PRN (10:00)
[2022-06-20] MEDS ORDERED: MAG HYDROX/AL HYDROX/SIMETH 30 ML CUP PO PRN (10:00)
[2022-06-20] MEDS ORDERED: NITROGLYCERIN SL TABS 0.4 MG TAB SUBLINGUAL PRN (10:00)
[2022-06-20 10:52] LABS: Basophils # (A) 0.1 k/uL (0-0.2); Basophils % (A) 1 %; Eosinophils # (A) 0.2 k/uL (0-0.7); Eosinophils % (A) 2 %; HCT 37.8 % (39.0-53.0); Hypochromasia Slight; Lymphocytes # (A) 1.7 k/uL (1.0-4.8); Lymphocytes % (A) 16 %; MCH 30.7 pg (25.0-35.0); MCHC 31.7 g/dL (31.0-37.0); MCV 96.7 fL (80.0-100.0); Mean Platelet Volume 8.3; Monocytes # (A) 0.7 k/uL (0-1.0); Monocytes % (A) 7 %; Neutrophils % (A) 73 %; Platelet Count 219 k/uL (150-450); RBC 3.91 m/uL (4.30-5.90); RDW 14.1 % (11.5-15.5)
[2022-06-20 11:12] LABS: Calcium 8.2 mg/dL (8.4-10.2); Potassium 3.8 mmol/L (3.5-5.1); Total Bilirubin 0.9 mg/dL (0.2-1.3); Total Protein 5.5 g/dL (6.3-8.2)
[2022-06-20] MEDS: ASCORBIC ACID 500 MG TAB PO SCH (12:04)
[2022-06-20] MEDS: allopurinoL 100 MG TAB PO SCH (12:04)
--- NOTE | 2022-06-20 13:28 | P.PN ---
Subjective Progress Note Date: 06/20/22 patient is a 81-year-old gentleman with past medical history significant for coronary artery disease status post CABG and stenting, hypertension, hyperlipidemia who presented to the ER because of chest pain that started 1 week ago. Chest pain was central in location, pressure-like, associated with shortn ess of breath. Shortness of breath was present on exertion and patient is only walk up to his driveway and he would get short of breath. Patient denies any orthopnea or PND. There was no complete of any swelling of feet. Because of this chest pain and shortness of breath patient decided to come to the ER of [facility]. In the ER, patient was worked up, initial WBC was 10, hemoglobin 12.7, sodium was 139, potassium was 4.1, creatinine was 1.42. Initial troponin was elevated at 0.440. Patient was started on pharmacy dose heparin and nitro drip and was admitted to hospitalist service with consultation to cardiology. 06/20/22. Patient seen and examined. Currently nothing by mouth going for cardiac cath today. No acute issues overnight. Vital signs stable REVIEW OF SYSTEMS: CONSTITUTIONAL: No fever, no malaise, no fatigue. CARDIOVASCULAR: No chest pain, orthopnea, PND, no palpitations, no syncope. PULMONARY: No shortness of breath, no cough, no hemoptysis. PHYSICAL EXAMINATION: GENERAL: The patient is alert and oriented x3, not in any acute distress. Well developed, well nourished. HEENT: Pupils are round and equally reacting to light. EOMI. No scleral icterus. No conjunctival pallor. Normocephalic, atraumatic. No pharyngeal erythema. No thyromegaly. CARDIOVASCULAR: S1 and S2 present. No murmurs, rubs, or gallops. PULMONARY: Chest is clear to auscultation, no wheezing or crackles. ABDOMEN: Soft, nontender, nondistended, normoactive bowel sounds. No palpable organomegaly. MUSCULOSKELETAL: No joint swelling or deformity. EXTREMITIES: No cyanosis, clubbing, or pedal edema. NEUROLOGICAL: Gross neurological examination did not reveal any focal deficits. SKIN: No rashes. Assessment Chest pain Non-STEMI Coronary artery disease with previous CABG and PCI Hypertension Hyperlipidemia Chronic kidney disease Plan; Monitor vital signs. Monitor CBC. Continue telemetry monitoring. Monitor renal functions. Continue pharmacy dose heparin. Continue nitro drip. Currently nothing by mouth going for cardiac cath. Follow-up on cardiology recommendations Objective - Vital Signs Vital signs: Vital Signs Temp 97.8 F 06/19/22 20:00 Pulse 56 L 06/20/22 13:03 Resp 16 06/20/22 13:03 BP 116/72 06/20/22 13:03 Pulse Ox 100 06/20/22 13:03 FiO2 Intake & Output 06/19/22 06/20/22 06/20/22 18:59 06:59 18:59 Intake Total 2726.331 1386.989 600 Output Total 200 250 Balance 1233.445 989.989 600 Weight 82.8 kg Intake: IV 93.12 80 600 Heparin Sod,Pork in 0.45% 87.12 80 NaCl 25,000 unit In 0.45 % NaCl 1 250ml.bag @ 12 UNITS/KG/HR 9.308 mls/hr IV .Q24H [facility] Rx#: [id number] Nitroglycerin-D5w Pmx 50 6 mg In Dextrose/Water 1 250ml.bag @ 5 MCG/MIN 1.5 mls/hr IV .Q24H [facility] Rx#: [id number] Intake, IV Titration 121.133 8606.989 Amount Heparin Sod,Pork in 0.45% 159.989 NaCl 25,000 unit In 0.45 % NaCl 1 250ml.bag @ 12 UNITS/KG/HR 9.308 mls/hr IV .Q24H [facility] Rx#: [id number] Nitroglycerin-D5w Pmx 50 62.325 mg In Dextrose/Water 1 250ml.bag @ 5 MCG/MIN 1.5 mls/hr IV .Q24H [facility] Rx#: [id number] Sodium Chloride 0.9% 1, 800 1000 000 ml @ 100 mls/hr IV . Q10H [facility] Rx#:[id number] Oral 478 0 Output: Urine 200 250 Other: Voiding Method Urinal Urinal # Voids 1 - Labs CBC & Chem 7: 06/20/22 10:28 06/20/22 10:28 Labs: Abnormal Lab Results - Last 24 Hours (Table) 06/20/22 06/20/22 06/20/22 Range/Units 10:28 10: 10: WBC 11.0 H (3.8-10.6) k/uL RBC 3.91 L (4.30-5.90) m/uL Hgb 12.0 L (13.0-17.5) gm/dL Hct 37.8 L (39.0-53.0) % Neutrophils # 8.0 H (1.3-7.7) k/uL APTT 161.0 H* (22.0-30.0) sec Sodium 133 L (137-145) mmol/L BUN 35 H (9-20) mg/dL Creatinine 2.13 H (0.66-1.25) mg/dL Glucose 109 H (74-99) mg/dL Calcium 8.2 L (8.4-10.2) mg/dL Total Protein 5.5 L (6.3-8.2) g/dL Albumin 3.0 L (3.5-5.0) g/dL
[2022-06-20] MEDS: ATORVASTATIN 40 MG TAB PO SCH (19:54)
[2022-06-20] MEDS: FENOFIBRATE 160 MG TAB PO SCH (19:54)
[2022-06-20] MEDS ORDERED: FAMOTIDINE 20 MG/2 ML VIAL IV SCH (21:00)
[2022-06-20] MEDS: HEPARIN SOD,PORK IN 0.45% NACL 25,000 UNIT in 0.45% NACL 1 250ML.BAG IV SCH (21:55)
[2022-06-21] MEDS: SODIUM CHLORIDE 0.9% 1,000 ML IV SCH ×2 (03:36→20:29)
[2022-06-21] MEDS: SODIUM CHLORIDE 0.9% 1,000 ML in EMPTY BAG 1 BAG IV SCH ×2 (03:36→20:38)
[2022-06-21] MEDS: NITROGLYCERIN OINT 1 INCH/GM PACKET TOPICAL SCH ×3 (03:36→20:37)
[2022-06-21] MEDS: carvediloL 12.5 MG TAB PO SCH ×2 (06:10→18:40)
[2022-06-21] MEDS: LEVOTHYROXINE 125 MCG TAB PO SCH (06:10)
--- NOTE | 2022-06-21 07:23 | P.PN ---
Subjective Progress Note Date: 06/21/22 Principal diagnosis: CAD This is a very pleasant 81-year-old gentleman with extensive cardiac history consistent CAD with prior revascularization in terms off bypass and stenting as well as ischemic cardiomyopathy as well as hypertension and dyslipidemia who presented to the hospital with chest discomfort and ruled in for acute coronary event. He underwent a heart catheterization by Dr. Flowers yesterday and was found to have ear CAD involving the graft to the PDA and the graft to PLV. He underwent revascularization with balloon angioplasty of the graft to PDA and stenting of the graft to PLV. He was seen this morning. He is asymptomatic. He is hemodynamically stable. He is on dual antiplatelet therapy and he is also on high intensity statin. His creatinine is slightly worse and he is known to have low GFR to start with. From a cardiovascular standpoint of view, the patient potentially can be discharged home and follows with Dr. Flowers as an outpatient. Currently he is not on any nephrotoxic medication. Objective - Vital Signs Vital signs: Vital Signs Temp 98.1 F 06/20/22 20:00 Pulse 62 06/21/22 04:00 Resp 18 06/21/22 04:00 BP 126/70 06/21/22 04:00 Pulse Ox 95 06/21/22 04:00 FiO2 Intake & Output 06/20/22 06/21/22 06/21/22 18:59 06:59 18:59 Intake Total 840 400 Output Total 2200 Balance 840 -1800 Intake: IV 600 Intake, IV Titration 400 Amount Sodium Chloride 0.9% 1, 400 000 ml @ 100 mls/hr IV . Q10H [facility] Rx#:[id number] Oral 240 Output: Urine 2200 Straight 1000 Other: Voiding Method Urinal - Constitutional General appearance: Present: no acute distress - Respiratory Respiratory: bilateral: CTA - Cardiovascular Heart sounds: normal: S1, S2 - Labs CBC & Chem 7: 06/20/22 10:28 06/20/22 10:28 Labs: Abnormal Lab Results - Last 24 Hours (Table) 06/20/22 06/20/22 06/20/22 Range/Units 10:28 10: 10: WBC 11.0 H (3.8-10.6) k/uL RBC 3.91 L (4.30-5.90) m/uL Hgb 12.0 L (13.0-17.5) gm/dL Hct 37.8 L (39.0-53.0) % Neutrophils # 8.0 H (1.3-7.7) k/uL APTT 161.0 H* (22.0-30.0) sec Sodium 133 L (137-145) mmol/L BUN 35 H (9-20) mg/dL Creatinine 2.13 H (0.66-1.25) mg/dL Glucose 109 H (74-99) mg/dL Calcium 8.2 L (8.4-10.2) mg/dL Total Protein 5.5 L (6.3-8.2) g/dL Albumin 3.0 L (3.5-5.0) g/dL Assessment and Plan Assessment: Assessment #1 CAD and status post PCI as described above #2 hypertension #3 hyperlipidemia #4 renal failure #5 cardiomyopathy, ischemic Plan #1 continue the current medical regimen #2 monitor the creatinine as an outpatient #3 continue dual antiplatelet therapy #4 follow-up with the patient and the patient potentially can be discharged home in the next 12-24
[2022-06-21] MEDS: allopurinoL 100 MG TAB PO SCH (10:02)
[2022-06-21] MEDS: RANOLAZINE 500 MG TAB.ER.12H PO SCH ×2 (10:02→20:37)
[2022-06-21] MEDS: ASPIRIN 81 MG PO SCH (10:02)
[2022-06-21] MEDS: TICAGRELOR 90 MG TAB PO SCH ×2 (10:03→20:36)
[2022-06-21] MEDS: ASCORBIC ACID 500 MG TAB PO SCH (10:03)
[2022-06-21 10:22] LABS: Basophils # (A) 0.1 k/uL (0-0.2); Basophils % (A) 1 %; Eosinophils # (A) 0.3 k/uL (0-0.7); Eosinophils % (A) 3 %; HCT 39.9 % (39.0-53.0); HGB 12.3 gm/dL (13.0-17.5); Hypochromasia Slight; Lymphocytes # (A) 1.3 k/uL (1.0-4.8); Lymphocytes % (A) 13 %; MCH 29.5 pg (25.0-35.0); MCHC 30.9 g/dL (31.0-37.0); MCV 95.7 fL (80.0-100.0); Monocytes # (A) 0.5 k/uL (0-1.0); Monocytes % (A) 5 %; Neutrophils # (A) 7.7 k/uL (1.3-7.7); Neutrophils % (A) 77 %; Platelet Count 239 k/uL (150-450); RBC 4.17 m/uL (4.30-5.90); RDW 14.5 % (11.5-15.5); WBC 10.1 k/uL (3.8-10.6)
[2022-06-21 12:41] LABS: Amorphous Sediment,Urine Few /hpf; Appearance,Urine Cloudy (Clear); Bilirubin,Urine Negative (Negative); Blood,Urine Large (Negative); Color,Urine Light Red; Glucose,Urine (UA) Negative (Negative); Ketones,Urine Negative (Negative); Leukocyte Esterase,Urine Negative (Negative); Nitrite,Urine Negative (Negative); Protein,Urine Trace (Negative); RBC,Urine >182 /hpf (0-5); Specific Gravity,Urine 1.023 (1.001-1.035); Squamous Epithelial Cell,Urine <1 /hpf (0-4); Urobilinogen,Urine <2.0 mg/dL (<2.0); WBC,Urine 6 /hpf (0-5)
--- NOTE | 2022-06-21 12:55 | P.PN ---
Subjective patient is a 81-year-old gentleman with past medical history significant for coronary artery disease status post CABG and stenting, hypertension, hy perlipidemia who presented to the ER because of chest pain that started 1 week ago. Chest pain was central in location, pressure-like, associated with shortness of breath. Shortness of breath was present on exertion and patient is only walk up to his driveway and he would get short of breath. Patient denies any orthopnea or PND. There was no complete of any swelling of feet. Because of this chest pain and shortness of breath patient decided to come to the ER of [place]. In the ER, patient was worked up, initial WBC was 10, hemoglobin 12.7, sodium was 139, potassium was 4.1, creatinine was 1.42. Initial troponin was elevated at 0.440. Patient was started on pharmacy dose heparin and nitro drip and was admitted to hospitalist service with consultation to cardiology. 06/20/22. Patient seen and examined. Currently nothing by mouth going for cardiac cath today. No acute issues overnight. Vital signs stable Resume care of the patient today 06/21/2022 This is a pleasant 81 old male who presents with chest pain. He is status post cardiac cath with Dr. Vasquez yesterday status post balloon angioplasty of the graft to the posterior descending artery, ORTHOPEDIC SURGEON and stenting of the graft to the PLV branch posterior left ventricular branch. Patient currently kept on aspirin and brillinta , and is doing well with no more chest pain or dyspnea he was asking if he can be discharged home. Over patient creatinine is going up 1.5, 2.1 today 2.6. He has some evidence of obstructive uropathy and Hargrove catheter was placed, looks mildly traumatic on urinalysis. We got to repeat urinalysis Also he is on Coreg Patient wanted to leave today, I explained the risks and benefits for him and he verbalized understanding and acceptance Objective - Vital Signs Vital signs: Vital Signs Temp 97.2 F L 06/21/22 11:45 Pulse 58 L 06/21/22 11:45 Resp 16 06/21/22 11:45 BP 112/69 06/21/22 11:45 Pulse Ox 100 06/21/22 11:45 FiO2 Intake & Output 06/20/22 06/21/22 06/21/22 18:59 06:59 18:59 Intake Total 840 400 118 Output Total 2200 650 Balance 840 -1800 -532 Intake: IV 600 Intake, IV Titration 400 Amount Sodium Chloride 0.9% 1, 400 000 ml @ 100 mls/hr IV . Q10H [facility] Rx#:[id number] Oral 240 118 Output: Urine 2200 650 Straight 1000 Other: Voiding Method Urinal Urinal - Exam GENERAL: The patient is alert and oriented x3, not in any acute distress. Well developed, well nourished. HEENT: Pupils are round and equally reacting to light. EOMI. No scleral icterus. No conjunctival pallor. Normocephalic, atraumatic. No pharyngeal erythema. No thyromegaly. CARDIOVASCULAR: S1 and S2 present. No murmurs, rubs, or gallops. PULMONARY: Chest is clear to auscultation, no wheezing or crackles. ABDOMEN: Soft, nontender, nondistended, normoactive bowel sounds. No palpable organomegaly. MUSCULOSKELETAL: No joint swelling or deformity. EXTREMITIES: No cyanosis, clubbing, or pedal edema. NEUROLOGICAL: Gross neurological examination did not reveal any focal deficits. SKIN: No rashes. no petechiae. - Labs CBC & Chem 7: 06/21/22 09:13 06/21/22 09:13 Labs: Abnormal Lab Results - Last 24 Hours (Table) 06/21/22 06/21/22 06/21/22 Range/Units 09:13 09:13 12:00 RBC 4.17 L (4.30-5.90) m/uL Hgb 12.3 L (13.0-17.5) gm/dL MCHC 30.9 L (31.0-37.0) g/dL Sodium 134 L (137-145) mmol/L Carbon Dioxide 21 L (22-30) mmol/L BUN 35 H (9-20) mg/dL Creatinine 2.68 H (0.66-1.25) mg/dL Glucose 176 H (74-99) mg/dL Urine Protein Trace H (Negative) Urine Blood Large H (Negative) Urine RBC >182 H (0-5) /hpf Urine WBC 6 H (0-5) /hpf Amorphous Sediment Few H (None) /hpf Assessment and Plan Assessment: non-STEMI status post cardiac cath and balloon angioplasty of the graft to the posterior descending artery, ORTHOPEDIC SURGEON and stenting of the graft to the PLV branch posterior left ventricular branch Acute kidney injury Chronic kidney disease Hypertension Hyperlipidemia Plan: This is a pleasant 81 years old male status post balloon angioplasty and revascularization for his coronary artery graft but he is developing a KI Continue with aspirin and brillinta 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 Continue same treatment. Continue with symptomatic treatment. Resume home medication. Monitor lytes and vitals. DVT and GI prophylaxis. Further recommendations as per clinical course of the patient DVT prophylaxis: On aspirin and brillinta GI Prophylaxis: Pepcid PT/OT: Pending Prognosis is guarded
[2022-06-21 14:12] VITALS: BMI 26.9
[2022-06-21] MEDS: ATORVASTATIN 40 MG TAB PO SCH (20:36)
[2022-06-21] MEDS: FAMOTIDINE 20 MG TAB PO SCH (20:37)
[2022-06-21] MEDS: FENOFIBRATE 160 MG TAB PO SCH (20:37)
[2022-06-22] MEDS: SODIUM CHLORIDE 0.9% 1,000 ML IV SCH ×3 (05:09→20:39)
[2022-06-22] MEDS: NITROGLYCERIN OINT 1 INCH/GM PACKET TOPICAL SCH ×3 (05:10→20:39)
[2022-06-22] MEDS: HEPARIN SOD,PORK IN 0.45% NACL 25,000 UNIT in 0.45% NACL 1 250ML.BAG IV SCH ×2 (05:10→23:49)
[2022-06-22] MEDS: SODIUM CHLORIDE 0.9% 1,000 ML in EMPTY BAG 1 BAG IV SCH ×2 (05:10→19:51)
[2022-06-22] MEDS: LEVOTHYROXINE 125 MCG TAB PO SCH (06:26)
[2022-06-22] MEDS: carvediloL 12.5 MG TAB PO SCH ×2 (06:26→17:19)
--- NOTE | 2022-06-22 07:12 | P.PN ---
Subjective Progress Note Date: 06/22/22 Principal diagnosis: CAD This is a very pleasant 81-year-old gentleman with extensive cardiac history consistent CAD with prior revascularization in terms off bypass and stenting as well as ischemic cardiomyopathy as well as hypertension and dyslipidemia who presented to the hospital with chest discomfort and ruled in for acute coronary event. He underwent a heart catheterization by Dr. Flowers yesterday and was found to have ear CAD involving the graft to the PDA and the graft to PLV. He underwent revascularization with balloon angioplasty of the graft to PDA and stenting of the graft to PLV. He was seen this morning. He is asymptomatic. He is hemodynamically stable. He is on dual antiplatelet therapy and he is also on high intensity statin. His creatinine is slightly worse and he is known to have low GFR to start with. From a cardiovascular standpoint of view, the patient potentially can be discharged home and follows with Dr. Flowers as an outpatient. Currently he is not on any nephrotoxic medication. 06/22/2022 The patient was this morning. He remains asymptomatic from a cardiovascular standpoint overview. And he remains hemodynamically stable. Apparently he has been struggling in urinating and currently he does have a Hargrove catheter. He might have a component of obstructive uropathy. That could be contributing to his elevated creatinine yesterday. We don't have creatinine from this morning. He is on dual antiplatelet therapy and statin. From a cardiovascular standpoint of view, the patient potentially can be discharged home if he is stable from the urology standpoint overview Objective - Vital Signs Vital signs: Vital Signs Temp 98.9 F 06/22/22 04:00 Pulse 76 06/22/22 04:00 Resp 18 06/22/22 04:00 BP 129/72 06/22/22 04:00 Pulse Ox 98 06/22/22 04:00 FiO2 Intake & Output 06/21/22 06/22/22 06/22/22 18:59 06:59 18:59 Intake Total 598 120 Output Total 650 1999 Balance -52 -1880 Weight 82.8 kg Intake: Oral 598 120 Output: Urine 650 2000 Straight 600 Other: Voiding Method Urinal Indwelling Catheter - Constitutional General appearance: Present: no acute distress - Respiratory Respiratory: bilateral: diminished - Cardiovascular Rhythm: regular Abnormal Heart Sounds: Present: systolic murmur - Labs CBC & Chem 7: 06/21/22 09:13 06/21/22 09:13 Labs: Abnormal Lab Results - Last 24 Hours (Table) 06/21/22 06/21/22 06/21/22 Range/Units 09:13 09:13 12:00 RBC 4.17 L (4.30-5.90) m/uL Hgb 12.3 L (13.0-17.5) gm/dL MCHC 30.9 L (31.0-37.0) g/dL Sodium 134 L (137-145) mmol/L Carbon Dioxide 21 L (22-30) mmol/L BUN 35 H (9-20) mg/dL Creatinine 2.68 H (0.66-1.25) mg/dL Glucose 176 H (74-99) mg/dL Urine Protein Trace H (Negative) Urine Blood Large H (Negative) Urine RBC >182 H (0-5) /hpf Urine WBC 6 H (0-5) /hpf Amorphous Sediment Few H (None) /hpf Assessment and Plan Assessment: Assessment #1 CAD and status post PCI as described above #2 hypertension #3 hyperlipidemia #4 renal failure #5 cardiomyopathy, ischemic Plan #1 continue the current medical regimen #2 monitor the creatinine as an outpatient #3 the patient can be discharged home if he is stable from the urology standpoint of view
[2022-06-22] MEDS: TICAGRELOR 90 MG TAB PO SCH ×2 (08:34→20:40)
[2022-06-22] MEDS: RANOLAZINE 500 MG TAB.ER.12H PO SCH ×2 (08:34→20:40)
[2022-06-22] MEDS: allopurinoL 100 MG TAB PO SCH (08:34)
[2022-06-22] MEDS: ASPIRIN 81 MG PO SCH (08:34)
[2022-06-22] MEDS: ASCORBIC ACID 500 MG TAB PO SCH (08:34)
[2022-06-22 09:04] LABS: Appearance,Urine Cloudy (Clear); Bacteria,Urine Rare /hpf; Bilirubin,Urine Negative (Negative); Blood,Urine Large (Negative); Color,Urine Light Red; Glucose,Urine (UA) Negative (Negative); Ketones,Urine Negative (Negative); Leukocyte Esterase,Urine Large (Negative); Mucus,Urine Rare /hpf; Nitrite,Urine Negative (Negative); Protein,Urine 1+ (Negative); RBC,Urine >182 /hpf (0-5); Specific Gravity,Urine 1.017 (1.001-1.035); Squamous Epithelial Cell,Urine 2 /hpf (0-4); Urobilinogen,Urine <2.0 mg/dL (<2.0); WBC,Urine 71 /hpf (0-5)
[2022-06-22 10:42] LABS: Calcium 8.7 mg/dL (8.4-10.2); Magnesium 1.9 mg/dL (1.6-2.3)
--- NOTE | 2022-06-22 11:17 | P.NPCON ---
History of Present Illness - Reason for Consult Consult date: 06/22/22 acute renal failure - Chief Complaint Chest pains - History of Present Illness 81-year-old gentleman with history of coronary artery disease status post CABG coming to the hospital with chest pains. He has chronic kidney disease stage IIIB with a baseline creatinine of 1.5-1.7 MG per DL. He underwent cardiac catheterization with balloon angioplasty. He also has Hargrove catheter. Denies any nausea vomiting diarrhea. Post cardiac cath she had fluid resuscitation. Peak creatinine in the hospital with 0.68 MG per DL, improved to 1.9 MG per DL today. Review of Systems Constitutional: Reports as per HPI Past Medical History Past Medical History: Coronary Artery Disease (CAD), Diabetes Mellitus, Hyperlipidemia, Hypertension, Myocardial Infarction ([place]), Thyroid Disorder Additional Past Medical History / Comment(s): SOB, diet control diabetic, Last Myocardial Infarction Date:: unknown History of Any Multi-Drug Resistant Organisms: None Reported Past Surgical History: Appendectomy, Coronary Bypass/CABG, Heart Catheterization With Stent Additional Past Surgical History / Comment(s): thyroidectomy , CABG 25 yrs ago, 2-3 cardiac stents, toya cataracts Past Anesthesia/Blood Transfusion Reactions: No Reported Reaction Date of Last Stent Placement:: 2019 Past Psychological History: No Psychological Hx Reported Smoking Status: Never smoker Past Alcohol Use History: None Reported Past Drug Use History: None Reported - Past Family History Mother Family Medical History: No Reported History Medications and Allergies Home Medications Medication Instructions Recorded Confirmed Type Atorvastatin [Lipitor] 20 mg PO HS 11/07/19 06/18/22 History Febuxostat [Uloric] 40 mg PO DAILY 11/07/19 06/18/22 History Fenofibrate Nanocrystallized 145 mg PO HS 11/07/19 06/18/22 History [Fenofibrate] Nitroglycerin Sl Tabs [Nitrostat] 0.4 mg SUBLINGUAL Q5M PRN 11/07/19 06/18/22 History Ticagrelor [Brilinta] 90 mg PO BID 11/07/19 06/18/22 History Aspirin EC [Ecotrin Low Dose] 81 mg PO DAILY 07/02/21 06/18/22 History Isosorbide Mononitrate ER [Imdur] 60 mg PO HS 07/02/21 06/18/22 History Ascorbic Acid [Vitamin C] 500 mg PO DAILY 06/18/22 06/18/22 History Isosorbide Mononitrate ER [Imdur] 15 mg PO HS 06/18/22 06/18/22 History Levothyroxine Sodium [Synthroid] 125 mcg PO DAILY 06/18/22 06/18/22 History Ranolazine [Ranolazine ER] 1,000 mg PO BID 06/18/22 06/18/22 History Triamterene/Hydrochlorothiazid 1 tab PO DAILY 06/18/22 06/18/22 History [Triamterene-Hctz 37.5-25 mg Tb] Ubidecarenone [Coenzyme Q10] 200 mg PO DAILY 06/18/22 06/18/22 History carvediloL [Coreg] 6.25 mg PO DAILY 06/18/22 06/18/22 History Allergies Allergy/AdvReac Type Severity Reaction Status Date / Time morphine Allergy Unknown Verified 06/18/22 21:12 Physical Exam Vitals: Vital Signs Temp Pulse Pulse Resp BP Pulse Ox 06/22/22 08:30 97.7 F 74 16 103/64 99 06/22/22 04:00 98.9 F 76 18 129/72 98 06/22/22 01:21 63 62 17 06/21/22 23:00 97.7 F 63 17 102/62 99 06/21/22 21:00 94 L 06/21/22 20:00 97.4 F L 65 18 114/72 97 06/21/22 16:00 70 18 121/76 98 06/21/22 11:45 97.2 F L 58 L 16 112/69 100 Intake and Output 06/21/22 06/22/22 06/22/22 22:59 06:59 14:59 Intake Total 120 120 Output Total 600 1400 Balance -480 -1400 120 Intake: Oral 120 120 Output: Urine 600 1400 Straight 600 Other: Voiding Method Indwelling Catheter Indwelling Catheter Indwelling Catheter No acute distress S1-S2 heard Lungs clear No edema Hargrove Results - Lab Results Most recent lab results Calcium 8.7 mg/dL (8.4-10.2) 06/22/22 10:04 Magnesium 1.9 mg/dL (1.6-2.3) 06/22/22 10:04 06/21/22 09:13 06/22/22 10:04 Assessment and Plan Assessment: #1 acute kidney injury multifactorial ATN. #2 CK D stage IIIB with a baseline creatinine of 1.5-1.7 MG per DL. #3 coronary artery disease status post CABG #4 hypertension with chronic kidney disease Plan: #1 renal function improving. Continue with IV fluids overnight. #2 avoid nephrotoxic agents and hypotensive episodes. #3 no JERONIMO inhibitor's/ARB's at this time. Can be restarted as outpatient when renal function stable.
--- NOTE | 2022-06-22 11:35 | P.PN ---
Subjective patient is a 81-year-old gentleman with past medical history significant for coronary artery disease status post CABG and stenting, hypertension, hy perlipidemia who presented to the ER because of chest pain that started 1 week ago. Chest pain was central in location, pressure-like, associated with shortness of breath. Shortness of breath was present on exertion and patient is only walk up to his driveway and he would get short of breath. Patient denies any orthopnea or PND. There was no complete of any swelling of feet. Because of this chest pain and shortness of breath patient decided to come to the ER of [place]. In the ER, patient was worked up, initial WBC was 10, hemoglobin 12.7, sodium was 139, potassium was 4.1, creatinine was 1.42. Initial troponin was elevated at 0.440. Patient was started on pharmacy dose heparin and nitro drip and was admitted to hospitalist service with consultation to cardiology. 06/20/22. Patient seen and examined. Currently nothing by mouth going for cardiac cath today. No acute issues overnight. Vital signs stable Resume care of the patient today 06/21/2022 This is a pleasant 81 old male who presents with chest pain. He is status post cardiac cath with Dr. Vasquez yesterday status post balloon angioplasty of the graft to the posterior descending artery, DATABASE DESIGN ANALYST and stenting of the graft to the PLV branch posterior left ventricular branch. Patient currently kept on aspirin and brillinta , and is doing well with no more chest pain or dyspnea he was asking if he can be discharged home. Over patient creatinine is going up 1.5, 2.1 today 2.6. He has some evidence of obstructive uropathy and Hargrove catheter was placed, looks mildly traumatic on urinalysis. We got to repeat urinalysis Also he is on Coreg Patient wanted to leave today, I explained the risks and benefits for him and he verbalized understanding and acceptance 06/22/2022 Patient awake and alert, no chest pain, eager to go home and started by sanitation worker However patient with evidence of obstructive uropathy, status post Hargrove catheter placement and Flomax started. Creatinine started coming down 1.9 today. On the top of his chronic kidney disease. Also repeat urine analysis Stool samples showing evidence of urinary tract infection. Urine culture is pending, started on ceftriaxone so far. Check labs in the morning patient continued on aspirin and brillinta pt is agreeable to stay in hospital today Objective - Vital Signs Vital signs: Vital Signs Temp 97.7 F 06/22/22 08:30 Pulse 74 06/22/22 08:30 Resp 16 06/22/22 08:30 BP 103/64 06/22/22 08:30 Pulse Ox 99 06/22/22 08:30 FiO2 Intake & Output 06/21/22 06/22/22 06/22/22 18:59 06:59 18:59 Intake Total 598 120 120 Output Total 1300 2000 Balance -702 -1880 120 Weight 82.8 kg Intake: Oral 598 120 120 Output: Urine 650 2000 Straight 600 Post Void Residual 650 Other: Voiding Method Indwelling Catheter Indwelling Catheter Indwelling Catheter - Exam GENERAL: The patient is alert and oriented x3, not in any acute distress. Well developed, well nourished. HEENT: Pupils are round and equally reacting to light. EOMI. No scleral icterus. No conjunctival pallor. Normocephalic, atraumatic. No pharyngeal erythema. No thyromegaly. CARDIOVASCULAR: S1 and S2 present. No murmurs, rubs, or gallops. PULMONARY: Chest is clear to auscultation, no wheezing or crackles. ABDOMEN: Soft, nontender, nondistended, normoactive bowel sounds. No palpable organomegaly. MUSCULOSKELETAL: No joint swelling or deformity. EXTREMITIES: No cyanosis, clubbing, or pedal edema. NEUROLOGICAL: Gross neurological examination did not reveal any focal deficits. SKIN: No rashes. no petechiae. - Labs CBC & Chem 7: 06/21/22 09:13 06/22/22 10:04 Labs: Abnormal Lab Results - Last 24 Hours (Table) 06/21/22 06/21/22 06/21/22 Range/Units 09:13 09:13 12:00 RBC 4.17 L (4.30-5.90) m/uL Hgb 12.3 L (13.0-17.5) gm/dL MCHC 30.9 L (31.0-37.0) g/dL Sodium 134 L (137-145) mmol/L Carbon Dioxide 21 L (22-30) mmol/L BUN 35 H (9-20) mg/dL Creatinine 2.68 H (0.66-1.25) mg/dL Glucose 176 H (74-99) mg/dL Urine Protein Trace H (Negative) Urine Blood Large H (Negative) Ur Leukocyte Esterase (Negative) Urine RBC >182 H (0-5) /hpf Urine WBC 6 H (0-5) /hpf Amorphous Sediment Few H (None) /hpf Urine Bacteria (None) /hpf Urine Mucus (None) /hpf 06/22/22 Range/Units 08:30 RBC (4.30-5.90) m/uL Hgb (13.0-17.5) gm/dL MCHC (31.0-37.0) g/dL Sodium (137-145) mmol/L Carbon Dioxide (22-30) mmol/L BUN (9-20) mg/dL Creatinine (0.66-1.25) mg/dL Glucose (74-99) mg/dL Urine Protein 1+ H (Negative) Urine Blood Large H (Negative) Ur Leukocyte Esterase Large H (Negative) Urine RBC >182 H (0-5) /hpf Urine WBC 71 H (0-5) /hpf Amorphous Sediment (None) /hpf Urine Bacteria Rare H (None) /hpf Urine Mucus Rare H (None) /hpf Assessment and Plan Assessment: Acute urinary tract infection Obstructive uropathy with urinary retention status post Hargrove catheter non-STEMI status pos, secondary to above improvement t cardiac cath and balloon angioplasty of the graft to the posterior descending artery, DATABASE DESIGN ANALYST and stenting of the graft to the PLV branch posterior left ventricular branch Acute kidney injury Chronic kidney disease Hypertension Hyperlipidemia Plan: This is a pleasant 81 years old male status post balloon angioplasty and revascularization for his coronary artery graft but he is developing a KI Start ceftriaxone follow-up urine culture Continue with Flomax and Hargrove catheter Continue with aspirin and brillinta [employer] on the case Consults nephrology team today Monitor creatinine Labs and medication were reviewed.. Continue same treatment. Continue with symptomatic treatment. Resume home medication. Monitor lytes and vitals. DVT and GI prophylaxis. Further recommendations as per clinical course of the patient DVT prophylaxis: On aspirin and brillinta GI Prophylaxis: Pepcid PT/OT: Pending Prognosis is guarded
[2022-06-22] MEDS: TAMSULOSIN 0.4 MG CAP.ER.24H PO SCH (11:49)
[2022-06-22] MEDS: ATORVASTATIN 40 MG TAB PO SCH (20:39)
[2022-06-22] MEDS: FAMOTIDINE 20 MG TAB PO SCH (20:40)
[2022-06-22] MEDS: FENOFIBRATE 160 MG TAB PO SCH (20:40)
[2022-06-23] MEDS: SODIUM CHLORIDE 0.9% 1,000 ML IV SCH (02:49)
[2022-06-23] MEDS: NITROGLYCERIN OINT 1 INCH/GM PACKET TOPICAL SCH ×3 (03:10→20:08)
[2022-06-23] MEDS: carvediloL 12.5 MG TAB PO SCH ×2 (06:20→17:06)
[2022-06-23] MEDS: LEVOTHYROXINE 125 MCG TAB PO SCH (06:20)
[2022-06-23] MEDS: SODIUM CHLORIDE 0.9% 1,000 ML in EMPTY BAG 1 BAG IV SCH (06:20)
[2022-06-23 09:15] LABS: Calcium 8.7 mg/dL (8.4-10.2); Potassium 3.9 mmol/L (3.5-5.1)
[2022-06-23] MEDS: TAMSULOSIN 0.4 MG CAP.ER.24H PO SCH (09:22)
[2022-06-23] MEDS: TICAGRELOR 90 MG TAB PO SCH ×2 (09:22→20:08)
[2022-06-23] MEDS: allopurinoL 100 MG TAB PO SCH (09:22)
[2022-06-23] MEDS: ASPIRIN 81 MG PO SCH (09:22)
[2022-06-23] MEDS: RANOLAZINE 500 MG TAB.ER.12H PO SCH ×2 (09:22→20:08)
[2022-06-23] MEDS: ASCORBIC ACID 500 MG TAB PO SCH (09:22)
[2022-06-23 09:30] LABS: Basophils # (A) 0.1 k/uL (0-0.2); Basophils % (A) 1 %; Eosinophils # (A) 0.4 k/uL (0-0.7); Eosinophils % (A) 4 %; HCT 37.3 % (39.0-53.0); HGB 12.1 gm/dL (13.0-17.5); Hypochromasia Moderate; Lymphocytes # (A) 1.5 k/uL (1.0-4.8); Lymphocytes % (A) 16 %; MCH 31.8 pg (25.0-35.0); MCHC 32.4 g/dL (31.0-37.0); MCV 98.3 fL (80.0-100.0); Mean Platelet Volume 8.8; Monocytes # (A) 0.6 k/uL (0-1.0); Monocytes % (A) 6 %; Neutrophils # (A) 6.7 k/uL (1.3-7.7); Neutrophils % (A) 70 %; Platelet Count 223 k/uL (150-450); RBC 3.79 m/uL (4.30-5.90); RDW 14.8 % (11.5-15.5); WBC 9.5 k/uL (3.8-10.6)
--- NOTE | 2022-06-23 11:21 | P.PN ---
Subjective Patient is seen in follow-up for acute kidney injury on chronic kidney disease. Renal function improved. Denies chest pain or shortness of breath. Blood pressure stable. Nonoliguric. Hargrove catheter placed yesterday for urinary retention. Vital signs are stable. General: Awake. No acute distress. HEENT: Head exam is unremarkable. LUNGS: Breath sounds decreased. HEART: Rate and Rhythm are regular. ABDOMEN: Soft, no distention. EXTREMITITES: No edema. Objective - Vital Signs Vital signs: Vital Signs Temp 98 F 06/23/22 02:00 Pulse 65 06/23/22 02:00 Resp 18 06/23/22 02:00 BP 110/65 06/23/22 02:00 Pulse Ox 100 06/23/22 02:00 FiO2 Intake & Output 06/22/22 06/23/22 06/23/22 18:59 06:59 18:59 Intake Total 720 600 0 Output Total 1500 Balance 720 -900 0 Intake: Oral 720 600 0 Output: Urine 1500 Straight 1500 Other: Voiding Method Indwelling Catheter Indwelling Catheter - Labs CBC & Chem 7: 06/23/22 08:38 06/23/22 08:38 Labs: Abnormal Lab Results - Last 24 Hours (Table) 06/23/22 06/23/22 Range/Units 08:38 08:38 RBC 3.79 L (4.30-5.90) m/uL Hgb 12.1 L (13.0-17.5) gm/dL Hct 37.3 L (39.0-53.0) % BUN 23 H (9-20) mg/dL Creatinine 1.53 H (0.66-1.25) mg/dL Glucose 199 H (74-99) mg/dL Microbiology - Last 24 Hours (Table) 06/22/22 08:30 Urine Culture - Final Urine,Voided Assessment and Plan Plan: Assessment: 1. Acute kidney injury secondary to ATN from hypovolemia as well as contrast- induced acute kidney injury. Also component of urinary retention. Creatinine was 1.4 on admission and peaked at 2.68 on 06/21/2022 -1.53 today. 2. Coronary artery disease status post cardiac stenting 06/21/2022. 3. Ischemic cardiomyopathy with ejection fraction of 35-40%. 4. Urinary retention. Hargrove catheter placed. On Flomax. Plan: Currently off IV fluids. Encouraged oral intake. Avoid nephrotoxins. Urology consulted for urinary retention.
--- NOTE | 2022-06-23 13:05 | P.GSCN ---
History of Present Illness Consult date: 06/23/22 History of present illness: 81 yo male in the hospital for cardiac problems. Went into urine retention and a cath was placed a few days ago for about 1000ml. Historically the patient describes voiding issues for several mos He admits to urinary frequency, slow stream, hesitancy, incomplete voiding. He has never seen a urologist. He didnot tell this to his primary care doctor either. He has not had flomax until yesterday. He denies hematuria. He gets up 2-3 x per pm. He has had occasional urgency incontinence. Review of Systems All systems: negative - Constitutional Denies fever, Denies weight loss - EENT Eyes: denies blurred vision Ears, nose, mouth and throat: Denies dysphagia - Cardiovascular Denies chest pain, Denies shortness of breath - Respiratory Denies cough, Denies 7 - Gastrointestinal Reports as per HPI - Genitourinary Denies dysuria, Denies hematuria - Integumentary Denies rash, Denies unusual bruising - Neurological Denies headaches, Denies syncope - Hematologic/Lymphatic Denies easy bleeding, Denies easy bruising Past Medical History Past Medical History: Coronary Artery Disease (CAD), Diabetes Mellitus, Hyperlipidemia, Hypertension, Myocardial Infarction (AL), Thyroid Disorder Additional Past Medical History / Comment(s): SOB, diet control diabetic, Last Myocardial Infarction Date:: unknown History of Any Multi-Drug Resistant Organisms: None Reported Past Surgical History: Appendectomy, Coronary Bypass/CABG, Heart Catheterization With Stent Additional Past Surgical History / Comment(s): thyroidectomy , CABG 25 yrs ago, 2-3 cardiac stents, toya cataracts Past Anesthesia/Blood Transfusion Reactions: No Reported Reaction Date of Last Stent Placement:: 2019 Past Psychological History: No Psychological Hx Reported Smoking Status: Never smoker Past Alcohol Use History: None Reported Past Drug Use History: None Reported - Past Family History Mother Family Medical History: No Reported History Medications and Allergies Home Medications Medication Instructions Recorded Confirmed Type Atorvastatin [Lipitor] 20 mg PO HS 11/07/19 06/18/22 History Febuxostat [Uloric] 40 mg PO DAILY 11/07/19 06/18/22 History Fenofibrate Nanocrystallized 145 mg PO HS 11/07/19 06/18/22 History [Fenofibrate] Nitroglycerin Sl Tabs [Nitrostat] 0.4 mg SUBLINGUAL Q5M PRN 11/07/19 06/18/22 History Ticagrelor [Brilinta] 90 mg PO BID 11/07/19 06/18/22 History Aspirin EC [Ecotrin Low Dose] 81 mg PO DAILY 07/02/21 06/18/22 History Isosorbide Mononitrate ER [Imdur] 60 mg PO HS 07/02/21 06/18/22 History Ascorbic Acid [Vitamin C] 500 mg PO DAILY 06/18/22 06/18/22 History Isosorbide Mononitrate ER [Imdur] 15 mg PO HS 06/18/22 06/18/22 History Levothyroxine Sodium [Synthroid] 125 mcg PO DAILY 06/18/22 06/18/22 History Ranolazine [Ranolazine ER] 1,000 mg PO BID 06/18/22 06/18/22 History Triamterene/Hydrochlorothiazid 1 tab PO DAILY 06/18/22 06/18/22 History [Triamterene-Hctz 37.5-25 mg Tb] Ubidecarenone [Coenzyme Q10] 200 mg PO DAILY 06/18/22 06/18/22 History carvediloL [Coreg] 6.25 mg PO DAILY 06/18/22 06/18/22 History Allergies Allergy/AdvReac Type Severity Reaction Status Date / Time morphine Allergy Unknown Verified 06/18/22 21:12 Surgical - Exam Vital Signs Temp Pulse Resp BP Pulse Ox 97.8 F 88 18 134/83 99 06/18/22 19:20 06/18/22 19:20 06/18/22 19:20 06/18/22 19:20 06/18/22 19:20 - General well developed, well nourished - Eyes PERRL - ENT no hearing loss - Neck trachea midline - Respiratory normal respiratory effort - Cardiovascular Rhythm: regular - Abdomen Abdomen: soft, non tender - Genitourinary indwelliing catheter witha 30-40 gm prostate normal penis with no external lesions, testicles present - Integumentary no rash, no growths - Neurologic normal coordination, normal sensation - Musculoskeletal normal posture - Psychiatric oriented to time, oriented to person, oriented to place, speech is normal, memory intact Results - Labs 06/23/22 08:38 06/23/22 08:38 Abnormal Lab Results - Last 24 Hours (Table) 06/23/22 06/23/22 Range/Units 08:38 08:38 RBC 3.79 L (4.30-5.90) m/uL Hgb 12.1 L (13.0-17.5) gm/dL Hct 37.3 L (39.0-53.0) % BUN 23 H (9-20) mg/dL Creatinine 1.53 H (0.66-1.25) mg/dL Glucose 199 H (74-99) mg/dL Microbiology - Last 24 Hours (Table) 06/22/22 08:30 Urine Culture - Final Urine,Voided Diabetes panel 06/23/22 Range/Units 08:38 Sodium 138 (137-145) mmol/L Potassium 3.9 (3.5-5.1) mmol/L Chloride 106 (98-107) mmol/L Carbon Dioxide 25 (22-30) mmol/L BUN 23 H (9-20) mg/dL Creatinine 1.53 H (0.66-1.25) mg/dL Glucose 199 H (74-99) mg/dL Calcium 8.7 (8.4-10.2) mg/dL Calcium panel 06/23/22 Range/Units 08:38 Calcium 8.7 (8.4-10.2) mg/dL Pituitary panel 06/23/22 Range/Units 08:38 Sodium 138 (137-145) mmol/L Potassium 3.9 (3.5-5.1) mmol/L Chloride 106 (98-107) mmol/L Carbon Dioxide 25 (22-30) mmol/L BUN 23 H (9-20) mg/dL Creatinine 1.53 H (0.66-1.25) mg/dL Glucose 199 H (74-99) mg/dL Calcium 8.7 (8.4-10.2) mg/dL Adrenal panel 06/23/22 Range/Units 08:38 Sodium 138 (137-145) mmol/L Potassium 3.9 (3.5-5.1) mmol/L Chloride 106 (98-107) mmol/L Carbon Dioxide 25 (22-30) mmol/L BUN 23 H (9-20) mg/dL Creatinine 1.53 H (0.66-1.25) mg/dL Glucose 199 H (74-99) mg/dL Calcium 8.7 (8.4-10.2) mg/dL Assessment and Plan Assessment: Impression: urine retention acute on chronic. BPH with obstruction. cardiac issues as per H&P. Plan. THe patient has only had two doses of flomax. He could possibly have a voiding trial in the next 24-48 if he still is in the hospital from a medical standpoint. If not he would go home with the rocha and have a voiding trial as an outpatient. He should go home on the flomax. I will follow.
[2022-06-23] MEDS: ATORVASTATIN 40 MG TAB PO SCH (20:08)
[2022-06-23] MEDS: HEPARIN SOD,PORK IN 0.45% NACL 25,000 UNIT in 0.45% NACL 1 250ML.BAG IV SCH (20:08)
[2022-06-23] MEDS: FAMOTIDINE 20 MG TAB PO SCH (20:08)
[2022-06-23] MEDS: FENOFIBRATE 160 MG TAB PO SCH (20:08)
[2022-06-24] MEDS: NITROGLYCERIN OINT 1 INCH/GM PACKET TOPICAL SCH ×2 (04:48→12:55)
[2022-06-24] MEDS: carvediloL 12.5 MG TAB PO SCH (06:22)
[2022-06-24] MEDS: LEVOTHYROXINE 125 MCG TAB PO SCH (06:22)
[2022-06-24] MEDS: allopurinoL 100 MG TAB PO SCH (08:35)
[2022-06-24] MEDS: ASCORBIC ACID 500 MG TAB PO SCH (08:35)
[2022-06-24] MEDS: TAMSULOSIN 0.4 MG CAP.ER.24H PO SCH (08:35)
[2022-06-24] MEDS: ASPIRIN 81 MG PO SCH (08:35)
[2022-06-24] MEDS: RANOLAZINE 500 MG TAB.ER.12H PO SCH (08:35)
[2022-06-24] MEDS: TICAGRELOR 90 MG TAB PO SCH (08:36)
[2022-06-24 08:40] LABS: Basophils # (A) 0.1 k/uL (0-0.2); Basophils % (A) 1 %; Eosinophils # (A) 0.3 k/uL (0-0.7); Eosinophils % (A) 4 %; HCT 38.5 % (39.0-53.0); HGB 12.4 gm/dL (13.0-17.5); Hypochromasia Slight; Lymphocytes # (A) 1.6 k/uL (1.0-4.8); Lymphocytes % (A) 20 %; MCH 31.4 pg (25.0-35.0); MCHC 32.2 g/dL (31.0-37.0); MCV 97.6 fL (80.0-100.0); Mean Platelet Volume 8.6; Monocytes # (A) 0.6 k/uL (0-1.0); Monocytes % (A) 7 %; Neutrophils # (A) 5.3 k/uL (1.3-7.7); Neutrophils % (A) 65 %; Platelet Count 246 k/uL (150-450); RBC 3.94 m/uL (4.30-5.90); RDW 14.7 % (11.5-15.5); WBC 8.2 k/uL (3.8-10.6)
[2022-06-24 08:58] LABS: Potassium 4.2 mmol/L (3.5-5.1)
[2022-06-24 08:59] LABS: Calcium 9.2 mg/dL (8.4-10.2)
--- NOTE | 2022-06-24 09:26 | P.PN ---
Subjective Progress Note Date: 06/23/22 patient is a 81-year-old gentleman with past medical history significant for coronary artery disease status post CABG and stenting, hypertension, hyperlipidemia who presented to the ER because of chest pain that started 1 week ago. Chest pain was central in location, pressure-like, associated with shortn ess of breath. Shortness of breath was present on exertion and patient is only walk up to his driveway and he would get short of breath. Patient denies any orthopnea or PND. There was no complete of any swelling of feet. Because of this chest pain and shortness of breath patient decided to come to the ER of [place]. In the ER, patient was worked up, initial WBC was 10, hemoglobin 12.7, sodium was 139, potassium was 4.1, creatinine was 1.42. Initial troponin was elevated at 0.440. Patient was started on pharmacy dose heparin and nitro drip and was admitted to hospitalist service with consultation to cardiology. 06/20/22. Patient seen and examined. Currently nothing by mouth going for cardiac cath today. No acute issues overnight. Vital signs stable Resume care of the patient today 06/21/2022 This is a pleasant 81 old male who presents with chest pain. He is status post cardiac cath with Dr. Vasquez yesterday status post balloon angioplasty of the graft to the posterior descending artery, WATER RIGHTS SPECIALIST and stenting of the graft to the PLV branch posterior left ventricular branch. Patient currently kept on aspirin and brillinta , and is doing well with no more chest pain or dyspnea he was asking if he can be discharged home. Over patient creatinine is going up 1.5, 2.1 today 2.6. He has some evidence of obstructive uropathy and Hargrove catheter was placed, looks mildly traumatic on urinalysis. We got to repeat urinalysis Also he is on Coreg Patient wanted to leave today, I explained the risks and benefits for him and he verbalized understanding and acceptance 06/22/2022 Patient awake and alert, no chest pain, eager to go home and started by pricing manager However patient with evidence of obstructive uropathy, status post Hargrove catheter placement and Flomax started. Creatinine started coming down 1.9 today. On the top of his chronic kidney disease. Also repeat urine analysis Stool samples showing evidence of urinary tract infection. Urine culture is pending, started on ceftriaxone so far. Check labs in the morning patient continued on aspirin and brillinta; 06/23/22 Patient is currently lying in the bed. Awake alert and oriented 3. Status post Hargrove catheter placement. No complaints of chest pain shortness of breath. Patient has been afebrile. Renal function is improving. He is being continued on antibiotics and cough ceftriaxone and follow-up urine culture report. He was seen by urology and recommends to continue Flomax. Remains in sinus rhythm. No other acute overnight issues. Anticipate discharge in next 24 was with more improvement in renal function. Laboratory data showed no loosening 0.5 hemoglobin 12.1 and platelets 223, BUN 23 and creatinine 1.53 and blood sugar 1 99 morning Current medications reviewed. Objective - Vital Signs Vital signs: Vital Signs Temp 98 F 06/23/22 02:00 Pulse 65 06/23/22 02:00 Resp 18 06/23/22 02:00 BP 110/65 06/23/22 02:00 Pulse Ox 100 06/23/22 02:00 FiO2 Intake & Output 06/22/22 06/23/22 06/23/22 18:59 06:59 18:59 Intake Total 720 600 0 Output Total 1500 Balance 720 -900 0 Intake: Oral 720 600 0 Output: Urine 1500 Straight 1500 Other: Voiding Method Indwelling Catheter Indwelling Catheter - Exam - Exam GENERAL: The patient is alert and oriented x3, not in any acute distress. Well developed, well nourished. HEENT: Pupils are round and equally reacting to light. EOMI. No scleral icterus. No conjunctival pallor. Normocephalic, atraumatic. No pharyngeal erythema. No thyromegaly. CARDIOVASCULAR: S1 and S2 present. No murmurs, rubs, or gallops. PULMONARY: Chest is clear to auscultation, no wheezing or crackles. ABDOMEN: Soft, nontender, nondistended, normoactive bowel sounds. No palpable organomegaly. MUSCULOSKELETAL: No joint swelling or deformity. EXTREMITIES: No cyanosis, clubbing, or pedal edema. NEUROLOGICAL: Gross neurological examination did not reveal any focal deficits. SKIN: No rashes. no petechiae. - Labs CBC & Chem 7: 06/24/22 08:12 06/24/22 08:12 Labs: Abnormal Lab Results - Last 24 Hours (Table) 06/23/22 06/23/22 Range/Units 08:38 08:38 RBC 3.79 L (4.30-5.90) m/uL Hgb 12.1 L (13.0-17.5) gm/dL Hct 37.3 L (39.0-53.0) % BUN 23 H (9-20) mg/dL Creatinine 1.53 H (0.66-1.25) mg/dL Glucose 199 H (74-99) mg/dL Microbiology - Last 24 Hours (Table) 06/22/22 08:30 Urine Culture - Final Urine,Voided Assessment and Plan Assessment: Obstructive uropathy with urinary retention status post Hargrove catheter Possible Acute urinary tract infection non-STEMI status pos, secondary to above improvement t cardiac cath and balloon angioplasty of the graft to the posterior descending artery, WATER RIGHTS SPECIALIST and stenting of the graft to the PLV branch posterior left ventricular branch Acute kidney injury secondary to ATN due to hypotension and urinary retention. Chronic kidney disease stage III Hypertension Hyperlipidemia DVT prophylaxis with heparin subcu Plan: This is a pleasant 81 years old male status post balloon angioplasty and revascularization for his coronary artery graft but later developed acute kidney injury Continue on ceftriaxone. Urine culture showed no growth. Continue with Flomax and Hargrove catheter. Patient was seen by urology and recommended to continue Flomax upon discharge. Continue with aspirin and brillinta Follow-up creatinine level. Nephrology and urology is on board. Monitor lytes and vitals. DVT and GI prophylaxis. DVT prophylaxis: On aspirin and brillinta GI Prophylaxis: Pepcid PT/OT: Pending Prognosis is guarded Time with Patient: Greater than 30
--- NOTE | 2022-06-24 10:32 | P.PN ---
Subjective Patient is seen in follow-up for acute kidney injury on chronic kidney disease. Renal function stable. Denies chest pain or shortness of breath. Blood pressure stable. Nonoliguric. Has Hargrove catheter for urinary retention. Being followed by urology. Vital signs are stable. General: Awake. No acute distress. HEENT: Head exam is unremarkable. LUNGS: Breath sounds decreased. HEART: Rate and Rhythm are regular. ABDOMEN: Soft, no distention. EXTREMITITES: No edema. Objective - Vital Signs Vital signs: Vital Signs Temp 97.7 F 06/24/22 08:00 Pulse 66 06/24/22 08:00 Resp 14 06/24/22 08:00 BP 121/68 06/24/22 08:00 Pulse Ox 99 06/24/22 08:00 FiO2 Intake & Output 06/23/22 06/24/22 06/24/22 18:59 06:59 18:59 Intake Total 838 400 118 Output Total 2000 400 Balance 838 -1600 -282 Intake: Oral 838 400 118 Output: Urine 2000 400 Straight 2000 Other: Voiding Method Indwelling Catheter Indwelling Catheter Indwelling Catheter # Bowel Movements 0 - Labs CBC & Chem 7: 06/24/22 08:12 06/24/22 08:12 Labs: Abnormal Lab Results - Last 24 Hours (Table) 06/24/22 06/24/22 Range/Units 08:12 08:12 RBC 3.94 L (4.30-5.90) m/uL Hgb 12.4 L (13.0-17.5) gm/dL Hct 38.5 L (39.0-53.0) % BUN 21 H (9-20) mg/dL Creatinine 1.56 H (0.66-1.25) mg/dL Glucose 118 H (74-99) mg/dL Microbiology - Last 24 Hours (Table) 06/22/22 08:30 Urine Culture - Final Urine,Voided Assessment and Plan Plan: Assessment: 1. Acute kidney injury secondary to ATN from hypovolemia as well as contrast- induced acute kidney injury. Also component of urinary retention. Creatinine was 1.4 on admission and peaked at 2.68 on 06/21/2022 -stable at 1.56 today. 2. Coronary artery disease status post cardiac stenting 06/21/2022. 3. Ischemic cardiomyopathy with ejection fraction of 35-40%. 4. Urinary retention. Hargrove catheter placed. On Flomax. Urology following. Plan: Off IV fluids. Encouraged oral intake. Avoid nephrotoxins.
[2022-06-24 13:03] VITALS: RESP 15
[2022-06-24 15:43] VITALS: BP 103/64; PULSE 69; TEMP 97
[2022-06-24] MEDS ORDERED: HEPARIN SODIUM,PORCINE/PF 5,000 UNIT/0.5 ML SYRINGE SQ SCH (16:00)
--- NOTE | 2022-07-09 09:29 | P.DS ---
Providers Date of admission: 06/18/22 20:48 Expected date of discharge: 06/24/22 Attending physician: Luis Lora MD Consults: 06/18/22 20:48 Consult Physician Urgent Consulting Provider: Aicha Cruz Consult Reason/Comments: Non-STEMI Do you want consulting provider notified?: Yes 06/20/22 10:00 Consult Physician Routine Consulting Provider: Aicha Cruz Consult Reason/Comments: Post Interventional Patient Do you want consulting provider notified?: Already Contacted 06/21/22 12:42 Consult Physician Urgent Consulting Provider: Tanna Peraza Consult Reason/Comments: dar Do you want consulting provider notified?: Yes 06/23/22 11:04 Consult Physician Routine Consulting Provider: Joes Flores Consult Reason/Comments: retention Do you want consulting provider notified?: Yes Primary care physician: Rody Mercedes [facility] Course: Discharge diagnosis Obstructive uropathy with urinary retention status post Hargrove catheter. Trial Void as an outpatient. Possible Acute urinary tract infection. Urine Cultures showed no growth non-STEMI status pos, secondary to above improvement t cardiac cath and balloon angioplasty of the graft to the posterior descending artery, AIR SAMPLER and stenting of the graft to the PLV branch posterior left ventricular branch Acute kidney injury secondary to ATN due to hypotension and urinary retention. Chronic kidney disease stage III Hypertension Hyperlipidemia DVT prophylaxis with heparin subcu Hospital course patient is a 81-year-old gentleman with past medical history significant for coronary artery disease status post CABG and stenting, hypertension, hyperlipidemia who presented to the ER because of chest pain that started 1 week ago. Chest pain was central in location, pressure-like, associated with shortness of breath. Shortness of breath was present on exertion and patient is only walk up to his driveway and he would get short of breath. Patient denies any orthopnea or PND. There was no complete of any swelling of feet. Because of this chest pain and shortness of breath patient decided to come to the ER of [place]. In the ER, patient was worked up, initial WBC was 10, hemoglobin 1 2.7, sodium was 139, potassium was 4.1, creatinine was 1.42. Initial troponin was elevated at 0.440. Patient was started on pharmacy dose heparin and nitro drip and was admitted to hospitalist service with consultation to cardiology. 06/20/22. Patient seen and examined. Currently nothing by mouth going for cardiac cath today. No acute issues overnight. Vital signs stable Resume care of the patient today 06/21/2022 This is a pleasant 81 old male who presents with chest pain. He is status post cardiac cath with Dr. Vasquez yesterday status post balloon angioplasty of the graft to the posterior descending artery, AIR SAMPLER and stenting of the graft to the PLV branch posterior left ventricular branch. Patient currently kept on aspirin and brillinta , and is doing well with no more chest pain or dyspnea he was asking if he can be discharged home. Over patient creatinine is going up 1.5, 2.1 today 2.6. He has some evidence of obstructive uropathy and Hargrove catheter was placed, looks mildly traumatic on urinalysis. 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 Creatinine started coming down 1.9 today. On the top of his chronic kidney disease. Also repeat urine analysis Stool samples showing evidence of urinary tract infection. Urine culture is pending, started on ceftriaxone so far. Check labs in the morning patient continued on aspirin and brillinta; 06/23/22 Patient is currently lying in the bed. Awake alert and oriented 3. Status post Hargrove catheter placement. No complaints of chest pain shortness of breath. Patient has been afebrile. Renal function is improving. He is being continued on antibiotics and cough ceftriaxone and follow-up urine culture report. He was seen by urology and recommends to continue Flomax. Remains in sinus rhythm. No other acute overnight issues. Anticipate discharge in next 24 was with more improvement in renal function. Laboratory data showed no loosening 0.5 hemoglobin 12.1 and platelets 223, BUN 23 and creatinine 1.53 and blood sugar 1 99 morning 06/24/2022 Patient is currently lying in bed. Awake alert and oriented 3. Renal function is much improved. Plans of dizziness or lightheadedness. Blood pressure is stable. No cough or sputum production. No compressive chest pain or shortness breath. Patient will be continued on Hargrove catheter and follow-up with urology for trial void. Continue with Flomax. Otherwise patient is currently in sinus rhythm. Cleared from nephrology and cardiology standpoint. Patient is being discharged home today. GENERAL: The patient is alert and oriented x3, not in any acute distress. Well developed, well nourished. HEENT: Pupils are round and equally reacting to light. EOMI. No scleral icterus. No conjunctival pallor. Normocephalic, atraumatic. No pharyngeal erythema. No thyromegaly. CARDIOVASCULAR: S1 and S2 present. No murmurs, rubs, or gallops. PULMONARY: Chest is clear to auscultation, no wheezing or crackles. ABDOMEN: Soft, nontender, nondistended, normoactive bowel sounds. No palpable organomegaly. MUSCULOSKELETAL: No joint swelling or deformity. EXTREMITIES: No cyanosis, clubbing, or pedal edema. NEUROLOGICAL: Gross neurological examination did not reveal any focal deficits. SKIN: No rashes. no petechiae. Vital signs: Vital Signs Temp 97.7 F 06/24/22 08:00 Pulse 66 06/24/22 08:00 Resp 14 06/24/22 08:00 BP 121/68 06/24/22 08:00 Pulse Ox 99 06/24/22 08:00 FiO2 Intake & Output 06/23/22 06/24/22 06/24/22 18:59 06:59 18:59 Intake Total 838 400 118 Output Total 1999 400 Balance 838 -1600 -282 Intake: Oral 838 400 118 Output: Urine 1999 400 Straight 2000 Other: Voiding Method Indwelling Catheter Indwelling Catheter Indwelling Catheter # Bowel Movements 0 Patient Condition at Discharge: Good Plan - Discharge Summary Discharge Rx Participant: No New Discharge Prescriptions: New carvediloL [Coreg*] 12.5 mg PO BID-W/MEALS #30 tab Tamsulosin [Flomax] 0.4 mg PO PC-BRKFST #30 cap Continue Nitroglycerin Sl Tabs [Nitrostat] 0.4 mg SUBLINGUAL Q5M PRN PRN Reason: Chest Pain Fenofibrate Nanocrystallized [Fenofibrate] 145 mg PO HS Atorvastatin [Lipitor] 20 mg PO HS Ticagrelor [Brilinta] 90 mg PO BID Febuxostat [Uloric] 40 mg PO DAILY Aspirin EC [Ecotrin Low Dose] 81 mg PO DAILY Isosorbide Mononitrate ER [Imdur] 15 mg PO HS Levothyroxine Sodium [Synthroid] 125 mcg PO DAILY Ascorbic Acid [Vitamin C] 500 mg PO DAILY Isosorbide Mononitrate ER [Imdur] 60 mg PO HS Ranolazine [Ranolazine ER] 1,000 mg PO BID Ubidecarenone [Coenzyme Q10] 200 mg PO DAILY Discontinued carvediloL [Coreg] 6.25 mg PO DAILY Triamterene/Hydrochlorothiazid [Triamterene-Hctz 37.5-25 mg Tb] 1 tab PO DAILY Discharge Medication List Atorvastatin [Lipitor] 20 mg PO HS 11/07/19 [History] Febuxostat [Uloric] 40 mg PO DAILY 11/07/19 [History] Fenofibrate Nanocrystallized [Fenofibrate] 145 mg PO HS 11/07/19 [History] Nitroglycerin Sl Tabs [Nitrostat] 0.4 mg SUBLINGUAL Q5M PRN 11/07/19 [History] Ticagrelor [Brilinta] 90 mg PO BID 11/07/19 [History] Aspirin EC [Ecotrin Low Dose] 81 mg PO DAILY 07/02/21 [History] Isosorbide Mononitrate ER [Imdur] 60 mg PO HS 07/02/21 [History] Ascorbic Acid [Vitamin C] 500 mg PO DAILY 06/18/22 [History] Isosorbide Mononitrate ER [Imdur] 15 mg PO HS 06/18/22 [History] Levothyroxine Sodium [Synthroid] 125 mcg PO DAILY 06/18/22 [History] Ranolazine [Ranolazine ER] 1,000 mg PO BID 06/18/22 [History] Ubidecarenone [Coenzyme Q10] 200 mg PO DAILY 06/18/22 [History] Tamsulosin [Flomax] 0.4 mg PO PC-BRKFST #30 cap 06/24/22 [Rx] carvediloL [Coreg*] 12.5 mg PO BID-W/MEALS #30 tab 06/24/22 [Rx] Follow up Appointment(s)/Referral(s): Rody Mercedes DO [Primary Care Provider] - 1 Week (PLEASE CALL AND SCHEDULE APPOINTMENT.) Wilberto Vasquez MD [STAFF PHYSICIAN] - 06/30/22 3:15 pm Poli Iglesias MD [STAFF PHYSICIAN] - 1 Week (DR IGLESIAS'S OFFICE WILL CALL YOU BY THE END OF THIS WEEK WITH AN APPOINTMENT DATE/TIME. 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
--- NOTE | 2022-07-10 10:00 | CC ---
CARDIAC CATHETERIZATION REPORT INDICATION: Non ST segment elevation CT in a patient with known CAD, status post prior bypass surgery with ABREU to LAD, venous graft to PDA and PLV, and prior stenting of the PLV branch. PROCEDURE NOTE: After obtaining informed consent, left heart catheterization and coronary angiogram were performed via the right femoral artery using standard Martha catheters. The patient tolerated the procedure well without any obvious immediate complications. The patient received moderate conscious sedation. Total sedation time was 18 minutes. FINDINGS: 1. Hemodynamics: Left ventricular end-diastolic pressure is 4 mmHg. There is no significant gradient across the aortic valve. 2. Left ventriculogram is not performed. 3. Angiographic data: The left main coronary artery is a normal-sized vessel that appears totally occluded in the proximal portion. Right coronary artery was engaged using the right Martha catheter and it is totally occluded. Venous graft to the right coronary artery was engaged using a Tawana catheter and shows a 95% stenosis. ABREU to LAD was patent. After my initial catheterization, there was a second graft noted that was from ABREU to the PDA. CONCLUSION: Severe three-vessel coronary artery disease with; 1. Patent ABREU to LAD. 2. Patent venous graft to the PLV with a focal severe stenotic lesion. 3. Patent venous graft to the PDA. PLAN: The patient will undergo angioplasty of venous graft to the PLV that we identified. MMODL / IJN: [id number] /
--- NOTE | 2022-07-10 12:54 | P.PCN ---
Date of Procedure: 06/20/22 Operative Findings: PERCUTANEOUS CORONARY INTERVENTION Performing physician Jakub Kaur M.D. Procedure Performed: 1. Successful stenting of the SVG to PLV of RCA using 3.5 x 23 mm Xience drug- eluting stent with an excellent angiographic results and reduction of stenosis from 99% to 0% 2. Successful balloon angioplasty of the SVG to PDA of RCA using 3.5 x 15 mm balloon with an excellent angiographic results and reduction of stenosis from 80% to 0% 3. SVG to PDA angiogram 4. ABREU into LAD angiogram 5. Gradient measurement across the left subclavian artery 6. Selective right common femoral artery angiogram Indication: Acute non-ST patient myocardial infarction in this 81-year-old gentleman who is known to have CAD with prior revascularization in terms off CABG and stenting. He underwent heart catheterization by Dr. Vasquez and was found to have critical disease involving the SVG to PLV. Also he was found to have severe disease involving the SVG to RCA. Approach: Right common femoral artery Complications: None Level of Sedation: Moderate with a sedation length of 80 minutes Procedure Discussion: Please refer to iliac no sick heart catheterization was performed by Dr. Vasquez earlier today Anticoagulation was initiated using heparin with continuous ACT monitoring. Because of the extreme tortuosity in the distal aorta and iliac on the right side and because I was unable to transmit by torque using the 11 cm short 6- Guine[place] sheath I had to change the sheath into a 45 cm shuttle sheath over 035 stiff wire. Subsequently I did engage the SVG to PDA using a JR4 guiding catheter. Subsequently I did an angiogram which showed in-stent restenosis in the proximal portion of the graft which appears to be stented with 2 layers before. I did wired using a run-through wire. Subsequently I did balloon angioplasty initially using 30 by 15 mm see my compliant balloon and subsequently 3.5 x 15 mm noncompliant balloon. The following angiogram showed excellent angiographic results. For the SVG to PLV I did try to engage the graft using JR4 guiding catheter but that was unsuccessful but finally I was able to engage his using an a.l. 0.75 guide. Because I had heart time engaging get and to secure the guide I did place 2 wires. The first wire was a run-through wire and the second wire was run-through wire. Balloon angioplasty was performed using 3.0 x 15 mm balloon which was inflated under 24 brianda to open the graft. Subsequently I deployed 3.5 x 23 mm stent where the stent was positioned under fluoroscopy guidance and deployed under fluoroscopy guidance. The following angiogram showed excellent angiographic results and the procedure was completed without any complications Finally I did ABREU into LAD angiogram using a glide catheter because I had heart time advancing JR4 catheter or an IM catheter. The ABREU angiogram showed patent ABREU and patent LAD distal to ABREU anastomosis. Because I had heart time engaging and advancing the catheter through the left subclavian I did a gradient measurement and that came in to be insignificant. By the end I did selective right common femoral artery angiogram. Postprocedure Management: 1. Dual antiplatelet therapy using aspirin and Brilinta for 12 month 2. Aggressive cholesterol control 3. Risk factors modification
== END 2022-06-24 15:51 | disposition home or self-care (01) | DRG 246 ==
LOC: EC 19:14 → 3SCARD 20:48
PROVIDERS: ADMIT Internal Medicine; ATTEND Internal Medicine
PROC: B2131ZZ Fluoroscopy of Multiple Coronary Artery Bypass Grafts using Low Osmolar Contrast (ICD-10-PCS; principal; 2022-06-18)
PROC: B2111ZZ Fluoroscopy of Multiple Coronary Arteries using Low Osmolar Contrast (ICD-10-PCS; principal; 2022-06-18)
PROC: 027034Z Dilation of Coronary Artery, One Artery with Drug-eluting Intraluminal Device, Percutaneous Approach (ICD-10-PCS; principal; 2022-06-18)
PROC: 4A023N7 Measurement of Cardiac Sampling and Pressure, Left Heart, Percutaneous Approach (ICD-10-PCS; principal; 2022-06-18)
DX: I21.4 Non-ST elevation (NSTEMI) myocardial infarction (principal); N17.0 Acute kidney failure with tubular necrosis; J81.1 Chronic pulmonary edema; N13.8 Other obstructive and reflux uropathy; N39.0 Urinary tract infection, site not specified; I25.810 Atherosclerosis of coronary artery bypass graft(s) without angina pectoris; I25.10 Atherosclerotic heart disease of native coronary artery without angina pectoris; I12.9 Hypertensive chronic kidney disease with stage 1 through stage 4 chronic kidney disease, or unspecified chronic kidney disease; I25.5 Ischemic cardiomyopathy; N18.32 Chronic kidney disease, stage 3b; N40.1 Benign prostatic hyperplasia with lower urinary tract symptoms; I25.2 Old myocardial infarction; E11.22 Type 2 diabetes mellitus with diabetic chronic kidney disease; N39.41 Urge incontinence; E78.00 Pure hypercholesterolemia, unspecified; E78.5 Hyperlipidemia, unspecified; E86.1 Hypovolemia; E89.0 Postprocedural hypothyroidism; I95.9 Hypotension, unspecified; Z95.1 Presence of aortocoronary bypass graft; Z71.3 Dietary counseling and surveillance; Z79.02 Long term (current) use of antithrombotics/antiplatelets; Z79.82 Long term (current) use of aspirin; Z79.890 Hormone replacement therapy; Z79.899 Other long term (current) drug therapy; Z95.5 Presence of coronary angioplasty implant and graft
CPT/HCPCS: 36415; 71046; 80048; 80053; 80061; 81001; 83735; 83880; 84484; 85025; 85610; 85730; 87086; 87635; 93005; 93306; 93459; 96374; 96375; 99291

== ENCOUNTER 2023-04-22 20:29 | Inpatient (IN) | payer MEDICARE ==
[2023-04-22 21:43] LABS: Basophils # (A) 0.1 k/uL (0-0.2); Basophils % (A) 1 %; Eosinophils # (A) 0.1 k/uL (0-0.7); Eosinophils % (A) 1 %; HCT 40.3 % (39.0-53.0); HGB 13.3 gm/dL (13.0-17.5); Lymphocytes # (A) 1.9 k/uL (1.0-4.8); Lymphocytes % (A) 14 %; MCH 31.3 pg (25.0-35.0); MCHC 33.1 g/dL (31.0-37.0); MCV 94.5 fL (80.0-100.0); Mean Platelet Volume 8.5; Monocytes % (A) 7 %; Neutrophils # (A) 10.2 k/uL (1.3-7.7); Neutrophils % (A) 75 %; Platelet Count 232 k/uL (150-450); RBC 4.27 m/uL (4.30-5.90); RDW 14.6 % (11.5-15.5); WBC 13.5 k/uL (3.8-10.6)
--- NOTE | 2023-04-22 21:50 | XR ---
EXAMINATION TYPE: XR chest 2V DATE OF EXAM: 04/22/2023 COMPARISON: 06/18/2022 HISTORY: 82-year-old male with chest pain and shortness of breath TECHNIQUE: AP and lateral views FINDINGS: Median sternotomy wires with numerous post-CABG clips. Heart borderline enlarged. Diffuse interstitia l and vascular density. Some mild patchy posterior basilar opacity on the lateral view. IMPRESSION: Borderline cardiomegaly and diffuse interstitial opacities. Correlate for mild CHF with pulmonary vas cular congestion. Some patchy atelectasis or early patchy edema posterior base on the lateral view.
[2023-04-22 21:51] LABS: Partial Thromboplastin Time 23.9 sec (22.0-30.0); Prothrombin Time 10.6 sec (9.0-12.0)
[2023-04-22 22:02] LABS: ALT 17 U/L (4-49); AST 25 U/L (17-59); African American GFR (CKD) 41 (>60 ml/min/1.73 sqM); Albumin 3.6 g/dL (3.5-5.0); Alkaline Phosphatase 62 U/L (38-126); Anion Gap 12 mmol/L; Blood Urea Nitrogen 36 mg/dL (9-20); Calcium 9.6 mg/dL (8.4-10.2); Carbon Dioxide 22 mmol/L (22-30); Chloride 101 mmol/L (98-107); Glucose 173 mg/dL (74-99); Lipase 74 U/L (23-300); Magnesium 2.1 mg/dL (1.6-2.3); Non-African American GFR(CKD) 36 (>60 ml/min/1.73 sqM); Potassium 4.5 mmol/L (3.5-5.1); Sodium 135 mmol/L (137-145); Total Protein 6.5 g/dL (6.3-8.2)
--- NOTE | 2023-04-22 22:02 | ED ---
General Adult HPI - General Chief complaint: Chest Pain Stated complaint: Chest Pain,Sob Time Seen by Provider: 04/22/23 21:02 Source: patient, RN notes reviewed, old records reviewed Mode of arrival: wheelchair Limitations: no limitations - History of Present Illness Initial comments: 82-year-old male presenting for evaluation of exertional dyspnea, chest discomfort and epigastric discomfort for the past several days. Patient does have history of coronary artery disease. He states he's had exertional dyspnea. Denies lower extremity pain or swelling. Denies cough. Denies fever. Denies vomiting. - Related Data Home Medications Medication Instructions Recorded Confirmed Atorvastatin [Lipitor] 20 mg PO HS 11/07/19 04/22/23 Febuxostat [Uloric] 40 mg PO DAILY 11/07/19 04/22/23 Fenofibrate Nanocrystallized 145 mg PO HS 11/07/19 04/22/23 [Fenofibrate] Nitroglycerin Sl Tabs [Nitrostat] 0.4 mg SUBLINGUAL Q5M PRN 11/07/19 04/22/23 Ticagrelor [Brilinta] 90 mg PO BID 11/07/19 04/22/23 Isosorbide Mononitrate ER [Imdur] 60 mg PO DAILY 07/02/21 04/22/23 Levothyroxine Sodium [Synthroid] 125 mcg PO DAILY 06/18/22 04/22/23 Ranolazine [Ranexa] 1,000 mg PO BID 06/18/22 04/22/23 Cinnamon Bark [Cinnamon] 2,000 mg PO BID 10/29/22 04/22/23 Triamterene/Hydrochlorothiazid 1 tab PO DAILY 04/22/23 04/22/23 [Triamterene-Hctz 37.5-25 mg Tb] Previous Rx's Medication Instructions Recorded carvediloL [Coreg*] 12.5 mg PO BID-W/MEALS #30 tab 06/24/22 Allergies Allergy/AdvReac Type Severity Reaction Status Date / Time morphine Allergy Unknown Verified 04/22/23 21:20 Review of Systems ROS Statement: Those systems with pertinent positive or pertinent negative responses have been documented in the HPI. ROS Other: All systems not noted in ROS Statement are negative. Past Medical History Past Medical History: Coronary Artery Disease (CAD), Hyperlipidemia, Myocardial Infarction (MD), Thyroid Disorder Additional Past Medical History / Comment(s): SOB, Last Myocardial Infarction Date:: unknown History of Any Multi-Drug Resistant Organisms: None Reported Past Surgical History: Appendectomy, Cholecystectomy, Coronary Bypass/CABG, Heart Catheterization With Stent Additional Past Surgical History / Comment(s): thyroidectomy , CABG 25 yrs ago, 2-3 cardiac stents, toya cataracts Past Anesthesia/Blood Transfusion Reactions: No Reported Reaction Date of Last Stent Placement:: 2019 Past Psychological History: No Psychological Hx Reported Smoking Status: Never smoker Past Alcohol Use History: None Reported Past Drug Use History: None Reported - Past Family History Mother Family Medical History: No Reported History General Exam Limitations: no limitations General appearance: alert, in no apparent distress Head exam: Present: atraumatic, normocephalic Eye exam: Present: normal appearance, PERRL ENT exam: Present: normal exam Neck exam: Present: normal inspection. Absent: tenderness, meningismus Respiratory exam: Present: normal lung sounds bilaterally. Absent: respiratory distress, wheezes Cardiovascular Exam: Present: regular rate, normal rhythm GI/Abdominal exam: Present: soft, distended. Absent: tenderness, guarding, rebound Extremities exam: Present: normal inspection, normal capillary refill. Absent: pedal edema, calf tenderness Neurological exam: Present: alert, oriented X3, CN II-XII intact. Absent: motor sensory deficit Psychiatric exam: Present: normal affect, normal mood Skin exam: Present: warm, dry, intact. Absent: cyanosis, diaphoretic Course Vital Signs 04/22/23 20:40 Temperature 98.8 F Pulse Rate 65 Respiratory 18 Rate Blood Pressure 98/63 O2 Sat by Pulse 99 Oximetry Medical Decision Making - Medical Decision Making Was pt. sent in by a medical professional or institution (, PA, SCREEN REPAIRER CRUSHER, urgent care, hospital, or jail...) When possible be specific @ -No Did you speak to anyone other than the patient for history (EMS, parent, family, police, friend...)? What history was obtained from this source @ -No Did you review nursing and triage notes (agree or disagree)? Why? @ -I reviewed and agree with nursing and triage notes Were old charts reviewed (outside hosp., previous admission, EMS record, old EKG, old radiological studies, urgent care reports/EKG's, jail records)? Report findings @ -No old charts were reviewed Differential Diagnosis (chest pain, altered mental status, abdominal pain women, abdominal pain men, vaginal bleeding, weakness, fever, dyspnea, syncope, headache, dizziness, GI bleed, back pain, seizure, CVA, palpatations, mental health, musculoskeletal)? @ Differential Dyspnea: Coronary syndrome, arrhythmia, tamponade, asthma, COPD, pulmonary embolism, pneumonia, pneumothorax, pulmonary effusion, anaphylaxis, diabetic ketoacidosis, flailed chest, pulmonary contusion, diaphragmatic rupture, anemia, neuromuscular, this is not meant to be an all-inclusive list. EKG interpreted by me (3pts min.). @ EKG: Sinus rhythm rate of 64 TX interval 196, QRS duration 111, QTC 438 T- wave abnormality in aVL X-rays interpreted by me (1pt min.). @ Rest x-ray showed cardiomegaly and pulmonary edema.] CT interpreted by me (1pt min.). @ -None done U/S interpreted by me (1pt. min.). @ -None done What testing was considered but not performed or refused? (CT, X-rays, U/S, labs)? Why? @ -None What meds were considered but not given or refused? Why? @ -None Did you discuss the management of the patient with other professionals (professionals i.e. , PA, SCREEN REPAIRER CRUSHER, lab, RT, psych nurse, social media campaign manager, civil preparedness officer, teacher, multisensor intelligence officer, case resolution specialist)? Give summary @ -[Sound physician group Was smoking cessation discussed for >3mins.? @ -No Was critical care preformed (if so, how long)? @ -No Were there social determinants of health that impacted care today? How? (Homelessness, low income, unemployed, alcoholism, drug addiction, transportation, low edu. Level, literacy, decrease access to med. care, fci, rehab)? @ -No Was there de-escalation of care discussed even if they declined (Discuss DNR or withdrawal of care, Hospice)? DNR status @ -No What co-morbidities impacted this encounter? (DM, HTN, Smoking, COPD, CAD, Cancer, CVA, ARF, Chemo, Hep., AIDS, mental health diagnosis, sleep apnea, morbid obesity)? @ -[Coronary artery disease Was patient admitted / discharged? Hospital course, mention meds given and route, prescriptions, significant lab abnormalities, going to OR and other pertinent info. @ -[82-year-old male with exertional dyspnea, chest discomfort over the past 3 days. Patient is in sinus rhythm. Chest x-ray is consistent with CHF. He has an elevated BNP, he has chronic stable kidney disease. He has a minimally elevated troponin 0.05. No significant chest pain while in the emergency department. His troponin level will be trended, this is likely secondary to both CHF and chronic kidney disease. He will be admitted for diuresis and cardiology consultation. Undiagnosed new problem with uncertain prognosis? @ -No Drug Therapy requiring intensive monitoring for toxicity (Heparin, Nitro, Insulin, Cardizem)? @ -No Were any procedures done? @ -No Diagnosis/symptom? @ -CHF, troponin elevation Acute, or Chronic, or Acute on Chronic? @ -Acute Uncomplicated (without systemic symptoms) or Complicated (systemic symptoms)? @ -default Side effects of treatment? @ -No Exacerbation, Progression, or Severe Exacerbation? @ -No Poses a threat to life or bodily function? How? (Chest pain, USA, MD, pneumonia, PE, COPD, DKA, ARF, appy, cholecystitis, CVA, Diverticulitis, Homicidal, Suicidal, threat to staff... and all critical care pts) @ -Yes, CHF - Lab Data Result diagrams: 04/22/23 21:20 04/22/23 21:20 Lab Results 04/22/23 04/22/23 04/22/23 Range/Units 21:20 21:20 21:20 WBC 13.5 H (3.8-10.6) k/uL RBC 4.27 L (4.30-5.90) m/uL Hgb 13.3 (13.0-17.5) gm/dL Hct 40.3 (39.0-53.0) % MCV 94.5 (80.0-100.0) fL MCH 31.3 (25.0-35.0) pg MCHC 33.1 (31.0-37.0) g/dL RDW 14.6 (11.5-15.5) % Plt Count 232 (150-450) k/uL MPV 8.5 Neutrophils % 75 % Lymphocytes % 14 % Monocytes % 7 % Eosinophils % 1 % Basophils % 1 % Neutrophils # 10.2 H (1.3-7.7) k/uL Lymphocytes # 1.9 (1.0-4.8) k/uL Monocytes # 1.0 (0-1.0) k/uL Eosinophils # 0.1 (0-0.7) k/uL Basophils # 0.1 (0-0.2) k/uL PT 10.6 (9.0-12.0) sec INR 1.0 (<1.2) APTT 23.9 (22.0-30.0) sec Sodium 135 L (137-145) mmol/L Potassium 4.5 (3.5-5.1) mmol/L Chloride 101 (98-107) mmol/L Carbon Dioxide 22 (22-30) mmol/L Anion Gap 12 mmol/L BUN 36 H (9-20) mg/dL Creatinine 1.74 H (0.66-1.25) mg/dL Est GFR (CKD-EPI)AfAm 41 (>60 ml/min/1.73 sqM) Est GFR (CKD-EPI)NonAf 36 (>60 ml/min/1.73 sqM) Glucose 173 H (74-99) mg/dL Calcium 9.6 (8.4-10.2) mg/dL Magnesium 2.1 (1.6-2.3) mg/dL Total Bilirubin 1.0 (0.2-1.3) mg/dL AST 25 (17-59) U/L ALT 17 (4-49) U/L Alkaline Phosphatase 62 (38-126) U/L Troponin I (0.000-0.034) ng/mL NT-Pro-B Natriuret Pep 3780 pg/mL Total Protein 6.5 (6.3-8.2) g/dL Albumin 3.6 (3.5-5.0) g/dL Lipase 74 (23-300) U/L 04/22/23 Range/Units 21:20 WBC (3.8-10.6) k/uL RBC (4.30-5.90) m/uL Hgb (13.0-17.5) gm/dL Hct (39.0-53.0) % MCV (80.0-100.0) fL MCH (25.0-35.0) pg MCHC (31.0-37.0) g/dL RDW (11.5-15.5) % Plt Count (150-450) k/uL MPV Neutrophils % % Lymphocytes % % Monocytes % % Eosinophils % % Basophils % % Neutrophils # (1.3-7.7) k/uL Lymphocytes # (1.0-4.8) k/uL Monocytes # (0-1.0) k/uL Eosinophils # (0-0.7) k/uL Basophils # (0-0.2) k/uL PT (9.0-12.0) sec INR (<1.2) APTT (22.0-30.0) sec Sodium (137-145) mmol/L Potassium (3.5-5.1) mmol/L Chloride (98-107) mmol/L Carbon Dioxide (22-30) mmol/L Anion Gap mmol/L BUN (9-20) mg/dL Creatinine (0.66-1.25) mg/dL Est GFR (CKD-EPI)AfAm (>60 ml/min/1.73 sqM) Est GFR (CKD-EPI)NonAf (>60 ml/min/1.73 sqM) Glucose (74-99) mg/dL Calcium (8.4-10.2) mg/dL Magnesium (1.6-2.3) mg/dL Total Bilirubin (0.2-1.3) mg/dL AST (17-59) U/L ALT (4-49) U/L Alkaline Phosphatase (38-126) U/L Troponin I 0.050 H* (0.000-0.034) ng/mL NT-Pro-B Natriuret Pep pg/mL Total Protein (6.3-8.2) g/dL Albumin (3.5-5.0) g/dL Lipase (23-300) U/L Disposition Clinical Impression: CHF (congestive heart failure) Disposition: ADMITTED IP TO THIS HOSP Condition: Stable Is patient prescribed a controlled substance at d/c from ED?: No Referrals: Rody Mercedes DO [Primary Care Provider] - 1-2 days Time of Disposition: 23:01
[2023-04-22 22:10] LABS: NT-Pro-B-Type Natriuretic Pept 3780 pg/mL
[2023-04-22] MEDS ORDERED: FUROSEMIDE 10 MG/ML 4 ML VIAL IV STA (22:58)
[2023-04-22] MEDS ORDERED: NALOXONE 0.4 MG/ML 1 ML VIAL IV PRN (22:58)
--- NOTE | 2023-04-23 04:45 | P.HPIM ---
History of Present Illness H&P Date: 04/23/23 Chief Complaint: shortness of breath 82-year-old male with coronary artery disease status post stents, CK D Patient is coming in for progressive shortness of breath he reports trouble with sleeping and walking around due to exertional dyspnea. Today he decided to come in as he got very short of breath just walking from his car to his house which is a very short distance. He's been having progressive worsening of exertional dyspnea over the past 1 week he describes mild to moderate exertion resulting in some shortness of breath however he denies any leg edema he denies any orthopnea or paroxysmal nocturnal dyspnea. Today he also experienced some chest discomfort across his chest when he was short of breath after the walk from his car for which she decided to come into the hospital for evaluation he denies any fevers or chills denies any coughing denies any runny nose or congestion. He does report history of falling but he has been careful and he denies any falls over the past 6 months. Patient denies any tobacco smoking and illicit drugs or alcohol denies any recent travel history of blood clots or recent hospitalization. . Patient is feeling better after dose of Lasix in the ED review of systems Pertinent positives as noted in HPI. All other systems were reviewed and are negative on exam Constitutional: No acute distress, conversant, pleasant Eyes: Anicteric sclerae, moist conjunctiva, Pupils equal round reactive to light ENMT: NC/AT Oropharynx clear, no erythema, or exudates Neck: Supple, no masses, or JVD No carotid bruits No thyromegaly Lungs: Good breath sounds throughout with some inspiratory rales at lung basis Clear to percussion Normal respiratory effort, no accessory muscle use Cardiovascular: Heart regular in rate and rhythm, No murmurs, gallops, or rubs No peripheral edema Abdominal: Soft Nontender, no guarding, rebound or rigidity Abdomen moving with respiration Normoactive bowel sounds No hepatomegaly, No splenomegaly No palpable mass No abdominal wall hernia noted Skin: Normal temperature, tone, texture, turgor Extremities: No digital cyanosis No clubbing Pedal pulses intact and symmetrical Radial pulses intact and symmetrical No calf tenderness Psychiatric: Alert and oriented to person, place and time Appropriate affect fair judgement Neuro Muscles Strength 5/5 in all 4 extremities Sensation to light touch grossly present throughout Cranial nerves II-XII grossly intact Lymphatics: no palpable cervical or supraclavicular lymph nodes Past Medical History Past Medical History: Coronary Artery Disease (CAD), Hyperlipidemia, Myocardial Infarction (LA), Thyroid Disorder Additional Past Medical History / Comment(s): SOB Last Myocardial Infarction Date:: unknown History of Any Multi-Drug Resistant Organisms: None Reported Past Surgical History: Appendectomy, Cholecystectomy, Coronary Bypass/CABG, Heart Catheterization With Stent Additional Past Surgical History / Comment(s): thyroidectomy, CABG 25 yrs ago, 2-3 cardiac stents, toya cataracts Past Anesthesia/Blood Transfusion Reactions: No Reported Reaction Date of Last Stent Placement:: 2019 Past Psychological History: No Psychological Hx Reported Smoking Status: Never smoker Past Alcohol Use History: None Reported Past Drug Use History: None Reported - Past Family History Mother Family Medical History: No Reported History Medications and Allergies Home Medications Medication Instructions Recorded Confirmed Type Atorvastatin [Lipitor] 20 mg PO HS 11/07/19 04/22/23 History Febuxostat [Uloric] 40 mg PO DAILY 11/07/19 04/22/23 History Fenofibrate Nanocrystallized 145 mg PO HS 11/07/19 04/22/23 History [Fenofibrate] Nitroglycerin Sl Tabs [Nitrostat] 0.4 mg SUBLINGUAL Q5M PRN 11/07/19 04/22/23 H istory Ticagrelor [Brilinta] 90 mg PO BID 11/07/19 04/22/23 History Isosorbide Mononitrate ER [Imdur] 60 mg PO DAILY 07/02/21 04/22/23 History Levothyroxine Sodium [Synthroid] 125 mcg PO DAILY 06/18/22 04/22/23 History Ranolazine [Ranexa] 1,000 mg PO BID 06/18/22 04/22/23 History carvediloL [Coreg*] 12.5 mg PO BID-W/MEALS #30 tab 06/24/22 04/22/23 Rx Cinnamon Bark [Cinnamon] 2,000 mg PO BID 10/29/22 04/22/23 History Triamterene/Hydrochlorothiazid 1 tab PO DAILY 04/22/23 04/22/23 History [Triamterene-Hctz 37.5-25 mg Tb] Allergies Allergy/AdvReac Type Severity Reaction Status Date / Time morphine Allergy Unknown Verified 04/22/23 21:20 Physical Exam Vitals: Vital Signs Temp Pulse Pulse Resp BP BP Pulse Ox 04/23/23 03:55 98.0 F 65 18 123/76 04/23/23 01:49 98.1 F 71 18 118/71 97 04/23/23 01:00 70 22 130/79 98 04/23/23 00:00 71 22 150/88 98 04/22/23 23:30 68 20 127/73 98 04/22/23 23:00 66 13 119/63 99 04/22/23 22:30 70 16 111/70 99 04/22/23 22:00 63 18 122/73 98 04/22/23 21:30 64 16 99/59 99 04/22/23 20:40 98.8 F 65 18 98/63 99 Intake and Output 04/22/23 04/22/23 04/23/23 14:59 22:59 06:59 Intake Total 10 Balance 10 Intake: IV 10 Invasive Line 1 10 Other: Voiding Method Urinal Weight 86.183 kg 86.183 kg Results CBC & Chem 7: 04/22/23 21:20 04/22/23 21:20 Labs: Abnormal Lab Results - Last 24 Hours (Table) 04/22/23 04/22/23 04/22/23 Range/Units 21:20 21:20 21:20 WBC 13.5 H (3.8-10.6) k/uL RBC 4.27 L (4.30-5.90) m/uL Neutrophils # 10.2 H (1.3-7.7) k/uL Sodium 135 L (137-145) mmol/L BUN 36 H (9-20) mg/dL Creatinine 1.74 H (0.66-1.25) mg/dL Glucose 173 H (74-99) mg/dL Troponin I 0.050 H* (0.000-0.034) ng/mL 04/23/23 Range/Units 01:13 WBC (3.8-10.6) k/uL RBC (4.30-5.90) m/uL Neutrophils # (1.3-7.7) k/uL Sodium (137-145) mmol/L BUN (9-20) mg/dL Creatinine (0.66-1.25) mg/dL Glucose (74-99) mg/dL Troponin I 0.047 H* (0.000-0.034) ng/mL Thrombosis Risk Factor Assmnt - Choose All That Apply Any of the Below Risk Factors Present?: Yes Other Risk Factors: Yes Each Risk Factor Represents 3 Points: Age 75 years or older Other congenital or acquired thrombophilia - If yes, enter type in comment: No Thrombosis Risk Factor Assessment Total Risk Factor Score: 3 Thrombosis Risk Factor Assessment Level: Moderate Risk Assessment and Plan Assessment: 82-year-old male with coronary artery disease coming in for progressive exertional dyspnea for the past week and discussed the case with the ED doctor and accepted the admission for acute CHF exacerbation for cardiology evaluation with anticipated length of stay more than 2 midnights Exertional dyspnea progressive, CHF exacerbation Check echocardiogram Monitor vital signs Cardiac monitoring ProBNP elevated Troponins elevated but trending down Lasix 40 mg IV twice a day Cardiology consult Daily weights Fluid restriction 2 L daily Monitor urine output Chest x-ray showing mild pulmonary congestion EKG no acute ST changes Continue with, Imdur, Coreg, Maxzide Coronary artery disease Continue with Brilinta Continue with Ranexa Continue statin CK D stage III stable When necessary 36 creatinine 1.7 Sodium 135 potassium 4.5 Avoid nephrotoxic meds Monitor urine output Hypothyroidism levothyroxin Full code DVT prophylaxis heparin subcu 3 times a day
[2023-04-23] MEDS: carvediloL 12.5 MG TAB PO SCH ×2 (06:37→17:50)
[2023-04-23] MEDS: LEVOTHYROXINE 125 MCG TAB PO SCH (06:37)
[2023-04-23] MEDS: ISOSORBIDE MONONITRATE ER 60 MG TAB.ER.24H PO SCH (08:26)
[2023-04-23] MEDS: RANOLAZINE 500 MG TAB.ER.12H PO SCH ×2 (08:26→21:03)
[2023-04-23] MEDS: HEPARIN SODIUM,PORCINE 5,000 UNIT/ML 1 ML VIAL SQ SCH ×2 (08:26→15:38)
[2023-04-23] MEDS: FUROSEMIDE 40 MG TAB PO SCH (08:26)
[2023-04-23] MEDS: TICAGRELOR 90 MG TAB PO SCH ×2 (08:26→21:03)
[2023-04-23] MEDS ORDERED: TRIAMTERENE-HCTZ 37.5-25MG 1 EACH TAB PO SCH (09:00)
[2023-04-23] MEDS ORDERED: FUROSEMIDE 10 MG/ML 4 ML VIAL IV SCH (09:00)
--- NOTE | 2023-04-23 09:13 | P.CRDCN ---
History of Present Illness History of present illness: HISTORY OF PRESENT ILLNESS: This is a 82-year-old male with a past medical history significant for coronary artery disease with previous CABG, ischemic cardiomyopathy, hypertension, hyperlipidemia, and diabetes. Patient follows in the office with Dr. Vasquez. We have been asked to see the patient in consultation for congestive heart failure. Patient examined at the bedside. Patient presented to the hospital for chief complaint of shortness of breath. Patient states he has been having shortness of breath for the past week or so. He states he has been getting short of breath going from his car to his house and has to sit down to catch his breath. He reports having some epigastric pain yesterday which has since resolved. He denies any chest pain or pressure. He was found to be in acute congestive heart failure. He was started on IV Lasix. Patient reports resolution of his shortness of breath this morning. He is laying flat in bed. Vital signs are stable. * EKG reveals sinus mechanism with no signs of acute ischemia * Chest xray borderline cardiomegaly and diffuse interstitial opacities. Correlate for mild CHF with pulmonary vascular congestion. Some patchy atelectasis or early patchy edema posterior base of the lateral view. * Laboratory data: WBC 13.5. Hemoglobin 13.3. Platelet count 232. Sodium 135. Potassium 4.5. BUN 36. Creatinine 1.74. Magnesium 2.1. Troponin 0.050. 0.047. 0.048. ProBNP 3780. * Current home cardiac medications include Brilinta 90 mg twice a day, Ranexa 1000 mg twice a day, carvedilol 12.5 mg twice a day, Imdur 60 mg daily, Lipitor 29 g at night * Most recent echocardiogram obtained in June 2022 revealing ejection fraction 35-40%, severe hypokinesis to akinesis of the mid anterior wall, anterior apical, and apical septal segment, mild MR * Cardiac catheterization history: June 2022 revealing severe triple vessel coronary disease with patent ABREU to LAD, patent saphenous graft to PLV with a focal severe stenotic lesion, and patent venous graft to PDA REVIEW OF SYSTEMS: At the time of my exam: CONSTITUTIONAL: Denies fever or chills. HEENT: Denies blurred vision, vision changes, or eye pain. Denies hemoptysis CARDIOVASCULAR: Denies chest pain. Denies orthopnea. Denies PND. Denies palpitations RESPIRATORY: Denies shortness of breath. GASTROINTESTINAL: Denies abdominal pain. Denies nausea or vomiting. HEMATOLOGIC: Denies bleeding disorders. GENITOURINARY: Denies any blood in urine. SKIN: Denies pruitis. Denies rash. PHYSICAL EXAM: VITAL SIGNS: Reviewed. GENERAL: Well-developed in no acute distress. HEENT: Head is normocephalic. Pupils are equal, round. Sclerae anicteric. Mucous membranes of the mouth are moist. Neck supple. No JVD or thyromegaly LUNGS: Respirations even and unlabored. Lungs diminished to auscultation bi laterally. HEART: Regular rate and rhythm. S1 and S2 heard. Soft systolic murmur. ABDOMEN: Soft. Nondistended. Nontender. EXTREMITIES: Normal range of motion. No clubbing or cyanosis. Peripheral p ulses intact. No lower extremity edema NEUROLOGIC: Awake and alert. Oriented x 3. ASSESSMENT: Shortness of breath Acute heart failure with reduced EF Coronary artery disease with previous CABG History of ischemic cardiomyopathy, ejection fraction 35-40% Hypertension and hyperlipidemia Diabetes PLAN: Obtain 2-D echo to assess cardiac structure and function Discontinue IV Lasix Begin oral Lasix 40 mg daily Daily weights, accurate I&O, and monitor kidney function Resume home cardiac medications Further recommendations pending patient's course Nurse practitioner note has been reviewed by physician. Signing provider agrees with the documented findings, assessment, and plan of care. Past Medical History Past Medical History: Coronary Artery Disease (CAD), Hyperlipidemia, Myocardial Infarction (PR), Thyroid Disorder Additional Past Medical History / Comment(s): SOB Last Myocardial Infarction Date:: unknown History of Any Multi-Drug Resistant Organisms: None Reported Past Surgical History: Appendectomy, Cholecystectomy, Coronary Bypass/CABG, Heart Catheterization With Stent Additional Past Surgical History / Comment(s): thyroidectomy, CABG 25 yrs ago, 2-3 cardiac stents, toya cataracts Past Anesthesia/Blood Transfusion Reactions: No Reported Reaction Date of Last Stent Placement:: 2019 Past Psychological History: No Psychological Hx Reported Smoking Status: Never smoker Past Alcohol Use History: None Reported Past Drug Use History: None Reported - Past Family History Mother Family Medical History: No Reported History Medications and Allergies Home Medications Medication Instructions Recorded Confirmed Type Atorvastatin [Lipitor] 20 mg PO HS 11/07/19 04/22/23 History Febuxostat [Uloric] 40 mg PO DAILY 11/07/19 04/22/23 History Fenofibrate Nanocrystallized 145 mg PO HS 11/07/19 04/22/23 History [Fenofibrate] Nitroglycerin Sl Tabs [Nitrostat] 0.4 mg SUBLINGUAL Q5M PRN 11/07/19 04/22/23 History Ticagrelor [Brilinta] 90 mg PO BID 11/07/19 04/22/23 History Isosorbide Mononitrate ER [Imdur] 60 mg PO DAILY 07/02/21 04/22/23 History Levothyroxine Sodium [Synthroid] 125 mcg PO DAILY 06/18/22 04/22/23 History Ranolazine [Ranexa] 1,000 mg PO BID 06/18/22 04/22/23 History carvediloL [Coreg*] 12.5 mg PO BID-W/MEALS #30 tab 06/24/22 04/22/23 Rx Cinnamon Bark [Cinnamon] 2,000 mg PO BID 10/29/22 04/22/23 History Allergies Allergy/AdvReac Type Severity Reaction Status Date / Time morphine Allergy Unknown Verified 04/22/23 21:20 Physical Exam Vitals: Vital Signs Temp Pulse Pulse Resp BP BP Pulse Ox 04/23/23 08:21 97.8 F 63 16 128/66 99 04/23/23 03:55 98.0 F 65 18 123/76 04/23/23 01:49 98.1 F 71 18 118/71 97 04/23/23 01:00 70 22 130/79 98 04/23/23 00:00 71 22 150/88 98 04/22/23 23:30 68 20 127/73 98 04/22/23 23:00 66 13 119/63 99 04/22/23 22:30 70 16 111/70 99 04/22/23 22:00 63 18 122/73 98 04/22/23 21:30 64 16 99/59 99 04/22/23 20:40 98.8 F 65 18 98/63 99 Intake and Output 04/22/23 04/23/23 04/23/23 22:59 06:59 14:59 Intake Total 10 Output Total 500 Balance -490 Intake: IV 10 Invasive Line 1 10 Output: Urine 500 Other: Voiding Method Urinal Weight 86.183 kg 84.5 kg Results 04/22/23 21:20 04/22/23 21:20 Cardiac Enzymes 04/22/23 04/22/23 04/23/23 Range/Units 21:20 21:20 01:13 AST 25 (17-59) U/L Troponin I 0.050 H* 0.047 H* (0.000-0.034) ng/mL 04/23/23 Range/Units 04:38 AST (17-59) U/L Troponin I 0.048 H* (0.000-0.034) ng/mL Coagulation 04/22/23 Range/Units 21:20 PT 10.6 (9.0-12.0) sec APTT 23.9 (22.0-30.0) sec CBC 04/22/23 Range/Units 21:20 WBC 13.5 H (3.8-10.6) k/uL RBC 4.27 L (4.30-5.90) m/uL Hgb 13.3 (13.0-17.5) gm/dL Hct 40.3 (39.0-53.0) % Plt Count 232 (150-450) k/uL Comprehensive Metabolic Panel 04/22/23 Range/Units 21:20 Sodium 135 L (137-145) mmol/L Potassium 4.5 (3.5-5.1) mmol/L Chloride 101 (98-107) mmol/L Carbon Dioxide 22 (22-30) mmol/L BUN 36 H (9-20) mg/dL Creatinine 1.74 H (0.66-1.25) mg/dL Glucose 173 H (74-99) mg/dL Calcium 9.6 (8.4-10.2) mg/dL AST 25 (17-59) U/L ALT 17 (4-49) U/L Alkaline Phosphatase 62 (38-126) U/L Total Protein 6.5 (6.3-8.2) g/dL Albumin 3.6 (3.5-5.0) g/dL Current Medications Generic Name Dose Route Start Last Admin Trade Name Freq PRN Reason Stop Dose Admin Atorvastatin Calcium 20 mg 04/23/23 21:00 Atorvastatin 20 Mg Tab PO HS CALIXTO Carvedilol 12.5 mg 04/23/23 07:30 04/23/23 06:37 Carvedilol 12.5 Mg Tab PO 12.5 mg BID-W/MEALS CAL[facility]TO Administration Furosemide 40 mg 04/23/23 09:00 04/23/23 08:26 Furosemide 40 Mg Tab PO 40 mg DAILY [facility]TO Administration Heparin Sodium (Porcine) 5,000 unit 04/23/23 08:00 04/23/23 08:26 Heparin Sodium,Porcine 5,000 Unit/Ml 1 Ml Vial SQ 5,000 unit Q8HR CALIXTO Administration Isosorbide Mononitrate 60 mg 04/23/23 09:00 04/23/23 08:26 Isosorbide Mononitrate Er 60 Mg Tab.Er.24h PO 60 mg DAILY [facility]TO Administration Levothyroxine Sodium 125 mcg 04/23/23 06:30 04/23/23 06:37 Levothyroxine 125 Mcg Tab PO 125 mcg DAILY@0630 [facility]TO Administration Naloxone HCl 0.2 mg 04/22/23 22:58 Naloxone 0.4 Mg/Ml 1 Ml Vial IV Q2M PRN Opioid Reversal Ranolazine 1,000 mg 04/23/23 09:00 04/23/23 08:26 Ranolazine 500 Mg Tab.Er.12h PO 1,000 mg BID [facility] Administration Ticagrelor 90 mg 04/23/23 09:00 04/23/23 08:26 Ticagrelor 90 Mg Tab PO 90 mg BID CAL[facility]TO Administration Intake and Output 04/22/23 04/23/23 04/23/23 22:59 06:59 14:59 Intake Total 10 Output Total 500 Balance -490 Intake: IV 10 Invasive Line 1 10 Output: Urine 500 Other: Voiding Method Urinal Weight 86.183 kg 84.5 kg 04/22/23 21:20 04/22/23 21:20
--- NOTE | 2023-04-23 12:59 | CA ---
Transthoracic Echo Report Name: Jose Oshea Age: 82 Gender: M : 1940 Exam Date: 04/23/2023 07:40 Exam Location: [facility] Ht (in): 68 Wt (lb): 190 Ordering Physician: Lisa Ko MD Attending/Referring Phys: Wilberto Vasquez MD ([id number]) [employer] Navin Coon Procedure CPT: Indications: chf Cardiac Hx: Technical Quality: Fair Contrast 1: Total Dose (mL): Contrast 2: Total Dose (mL): MEASUREMENTS (Male / Female) Normal Values 2D ECHO LV Diastolic Diameter PLAX 4.7 cm 4.2 - 5.9 / 3.9 - 5.3 cm LV Systolic Diameter PLAX 2.6 cm IVS Diastolic Thickness 1.5 cm 0.6 - 1.0 / 0.6 - 0.9 cm LVPW Diastolic Thickness 1.5 cm 0.6 - 1.0 / 0.6 - 0.9 cm LV Relative Wall Thickness 0.6 RV Internal Dim ED PLAX 3.2 cm LVOT Diameter 2.1 cm Aortic Root Diameter 3.4 cm LA Systolic Diameter LX 2.7 cm 3.0 - 4.0 / 2.7 - 3.8 cm LV Diastolic Volume MOD BP 73.3 cm??? 67 - 155 / 56 - 104 cm??? LV Systolic Volume MOD BP 27.5 cm??? 22 - 58 / 19 - 49 cm??? LV Ejection Fraction MOD BP 62.5 % >= 55 % LV Cardiac Index MOD BP 1315.4 cm???/min???m??? LV Diastolic Volume MOD 4C 70.5 cm??? LV Systolic Volume MOD 4C 15.3 cm??? LV Ejection Fraction MOD 4C 78.3 % LV Cardiac Index MOD 4C 1584.8 cm???/min???m??? LV Diastolic Length 4C 7.6 cm LV Systolic Length 4C 2.7 cm LV Diastolic Volume MOD 2C 76.6 cm??? LV Systolic Volume MOD 2C 23.3 cm??? LV Ejection Fraction MOD 2C 69.6 % LV Cardiac Index MOD 2C 1529.5 cm???/min???m??? LV Diastolic Length 2C 7.6 cm LV Systolic Length 2C 5.9 cm LA Volume 52.3 cm??? 18 - 58 / 22 - 52 cm??? Ascending Aorta Diameter 3.9 cm DOPPLER AV Peak Velocity 150.8 cm/s AV Peak Gradient 9.1 mmHg LVOT Peak Velocity 72.0 cm/s LVOT Peak Gradient 2.1 mmHg AV Area Cont Eq pk 1.6 cm??? MV Peak Velocity 91.3 cm/s MV Peak Gradient 3.3 mmHg MV Mean Velocity 47.3 cm/s MV Mean Gradient 1.1 mmHg MV Velocity Time Integral 33.0 cm MR Peak Velocity 284.6 cm/s MR Peak Gradient 32.4 mmHg Mitral E Point Velocity 70.7 cm/s Mitral A Point Velocity 89.9 cm/s Mitral E to A Ratio 0.8 MV Deceleration Time 368.2 ms TR Peak Velocity 133.2 cm/s TR Peak Gradient 7.1 mmHg Right Ventricular Systolic Press 12.8 mmHg PV Peak Velocity 81.4 cm/s PV Peak Gradient 2.7 mmHg FINDINGS Left Ventricle Normal LV size. Mild concentric LVH. Left ventricular ejection fraction is estimated at 50-55 %. No Hypokinetic mid to distal anteroseptal wall. Right Ventricle Normal right ventricular size. Right Atrium Normal right atrial size. Left Atrium Normal left atrial size. LA volume index= 26ml/m2 Mitral Valve Structurally normal mitral valve. Mild MR. Aortic Valve Mild to moderate AV calcification. With no evidence of significant regurgitation or stenosis. Tricuspid Valve Structurally normal tricuspid valve. Trace TR. Pulmonic Valve Pulmonic valve not well visualized. Mild PI. Pericardium No pericardial effusion Aorta Ascending AO erica= 3.9cm CONCLUSIONS Normal LV size and global systolic function. LVEF estimated at 55-60% Hypokinetic mid to distal anteroseptal wall. Aortic valve sclerosis with no stenosis Ascending aorta size at upper limit of normal. When compared to prior echo from 07/03/2022, LVEF is approved and wall motion abnormalities less prominent Previewed by: Dr Sergio Rice (Electronically Signed) Final Date: 23 April 2023 12:58
[2023-04-23] MEDS ORDERED: ATORVASTATIN 20 MG TAB PO SCH (21:00)
[2023-04-24] MEDS: HEPARIN SODIUM,PORCINE 5,000 UNIT/ML 1 ML VIAL SQ SCH ×2 (00:19→09:19)
[2023-04-24 05:37] VITALS: RESP 16
[2023-04-24] MEDS: LEVOTHYROXINE 125 MCG TAB PO SCH (06:33)
[2023-04-24] MEDS: carvediloL 12.5 MG TAB PO SCH (06:33)
[2023-04-24] MEDS: FUROSEMIDE 40 MG TAB PO SCH (09:18)
[2023-04-24] MEDS: TICAGRELOR 90 MG TAB PO SCH (09:18)
[2023-04-24] MEDS: RANOLAZINE 500 MG TAB.ER.12H PO SCH (09:19)
[2023-04-24] MEDS: ISOSORBIDE MONONITRATE ER 60 MG TAB.ER.24H PO SCH (09:19)
[2023-04-24 10:24] VITALS: TEMP 97.9
--- NOTE | 2023-04-24 10:46 | P.PN ---
Subjective HISTORY OF PRESENT ILLNESS: This is a 82-year-old male with a past medical history significant for coronary artery disease with previous CABG, ischemic cardiomyopathy, hypertension, hyperlipidemia, and diabetes. Patient follows in the office with Dr. Vsaquez. We have been asked to see the patient in consultation for congestive heart failure. Patient examined at the bedside. Patient presented to the hospital for chief complaint of shortness of breath. Patient states he has been having shortness of breath for the past week or so. He states he has been getting short of breath going from his car to his house and has to sit down to catch his breath. He reports having some epigastric pain yesterday which has since resolved. He denies any chest pain or pressure. He was found to be in acute congestive heart failure. He was started on IV Lasix. Patient reports resolution of his shortness of breath this morning. He is laying flat in bed. Vital signs are stable. * EKG reveals sinus mechanism with no signs of acute ischemia * Chest xray borderline cardiomegaly and diffuse interstitial opacities. Correlate for mild CHF with pulmonary vascular congestion. Some patchy atelectasis or early patchy edema posterior base of the lateral view. * Laboratory data: WBC 13.5. Hemoglobin 13.3. Platelet count 232. Sodium 135. Potassium 4.5. BUN 36. Creatinine 1.74. Magnesium 2.1. Troponin 0.050. 0.047. 0.048. ProBNP 3780. * Current home cardiac medications include Brilinta 90 mg twice a day, Ranexa 1000 mg twice a day, carvedilol 12.5 mg twice a day, Imdur 60 mg daily, Lipitor 29 g at night * Most recent echocardiogram obtained in June 2022 revealing ejection fraction 35-40%, severe hypokinesis to akinesis of the mid anterior wall, anterior apical, and apical septal segment, mild MR * Cardiac catheterization history: June 2022 revealing severe triple vessel coronary disease with patent ABREU to LAD, patent saphenous graft to PLV with a focal severe stenotic lesion, and patent venous graft to PDA 04/24/2023 patient examined this morning at the bedside. Patient denies chest pain or pressure. He denies shortness of breath. He remains on oral diuretics. Echocardiogram completed revealing ejection fraction 55-60%, hypokinesis of mid to distal anterior septal wall, and aortic valve sclerosis with no stenosis. PHYSICAL EXAM: VITAL SIGNS: Reviewed. GENERAL: Well-developed in no acute distress. HEENT: Head is normocephalic. Pupils are equal, round. Sclerae anicteric. Mucous membranes of the mouth are moist. Neck supple. No JVD or thyromegaly LUNGS: Respirations even and unlabored. Lungs diminished to auscultation bilaterally. HEART: Regular rate and rhythm. S1 and S2 heard. Soft systolic murmur. ABDOMEN: Soft. Nondistended. Nontender. EXTREMITIES: Normal range of motion. No clubbing or cyanosis. Peripheral pulses intact. No lower extremity edema NEUROLOGIC: Awake and alert. Oriented x 3. ASSESSMENT: Shortness of breath Acute heart failure with reduced EF, now improved EF 55-60%, previously 35-40% Coronary artery disease with previous CABG History of ischemic cardiomyopathy, ejection fraction 35-40% Hypertension and hyperlipidemia Diabetes PLAN: Continue current medications No further inpatient recommendations from a cardiology perspective Patient is stable for discharge home today He is to follow up on an outpatient basis with Dr. Vasquez Nurse practitioner note has been reviewed by physician. Signing provider agrees with the documented findings, assessment, and plan of care. Objective - Vital Signs Vital signs: Vital Signs Temp 97.9 F 04/24/23 08:00 Pulse 60 04/24/23 08:00 Resp 16 04/24/23 08:00 BP 112/64 04/24/23 08:00 Pulse Ox 95 04/24/23 08:00 FiO2 Intake & Output 04/23/23 04/24/23 04/24/23 18:59 06:59 18:59 Intake Total 898 540 120 Balance 898 540 120 Weight 80.5 kg Intake: Oral 898 540 120 Other: Voiding Method Toilet Toilet Toilet Urinal Urinal Urinal # Voids 1 - Labs CBC & Chem 7: 04/22/23 21:20 04/22/23 21:20
[2023-04-24 12:13] VITALS: BP 110/66; PULSE 69
--- NOTE | 2023-04-24 14:17 | P.DS ---
Providers Date of admission: 04/22/23 22:59 Expected date of discharge: 04/24/23 Attending physician: Lisa Ko MD Consults: 04/22/23 22:58 Consult Physician Routine Consulting Provider: Wilberto Vasquez Consult Reason/Comments: CHF Do you want consulting provider notified?: Yes Primary care physician: Rody Mercedes Hospital Course: Acute on Chronic Diastolic Heart Failure Exacerbation. CAD CKD III Hypothyroidism 82-year-old male with coronary artery disease coming in for progressive exertional dyspnea for the past week. Pt was admitted for diuresis in setting of CXR showing pulmonary congestion on admission. Seen and cleared by cardioloyg. Treated with IV lasix then converted to PO lasix. Echo showed preserved EF and improvement of prior WMA. Pt returned to baseline by following day and was discharged home with PCP and cardiology f/u. Gen: awake, alert HEENT: normocephalic, atraumatic, good hearing acuity, moist mucous membranes Resp: good air exchange, breathing comfortably with no accessory muscle use CVS: good distal perfusion x 4, GI: soft, NTTP, ND : no SPT, no CVAT, rocha catheter not present MSK: no pitting edema, no clubbing Neuro: non-focal, moving all extremities Psych: cooperative, euthymic mood Patient Condition at Discharge: Good Plan - Discharge Summary Discharge Rx Participant: No New Discharge Prescriptions: New Furosemide [Lasix] 40 mg PO DAILY #30 tab Continue Nitroglycerin Sl Tabs [Nitrostat] 0.4 mg SUBLINGUAL Q5M PRN PRN Reason: Chest Pain Fenofibrate Nanocrystallized [Fenofibrate] 145 mg PO HS Atorvastatin [Lipitor] 20 mg PO HS Ticagrelor [Brilinta] 90 mg PO BID Febuxostat [Uloric] 40 mg PO DAILY Levothyroxine Sodium [Synthroid] 125 mcg PO DAILY Cinnamon Bark [Cinnamon] 2,000 mg PO BID Isosorbide Mononitrate ER [Imdur] 60 mg PO DAILY Ranolazine [Ranexa] 1,000 mg PO BID carvediloL [Coreg*] 12.5 mg PO BID-W/MEALS #30 tab Discontinued Triamterene/Hydrochlorothiazid [Triamterene-Hctz 37.5-25 mg Tb] 1 tab PO DAILY Discharge Medication List Atorvastatin [Lipitor] 20 mg PO HS 11/07/19 [History] Febuxostat [Uloric] 40 mg PO DAILY 11/07/19 [History] Fenofibrate Nanocrystallized [Fenofibrate] 145 mg PO HS 11/07/19 [History] Nitroglycerin Sl Tabs [Nitrostat] 0.4 mg SUBLINGUAL Q5M PRN 11/07/19 [History] Ticagrelor [Brilinta] 90 mg PO BID 11/07/19 [History] Isosorbide Mononitrate ER [Imdur] 60 mg PO DAILY 07/02/21 [History] Levothyroxine Sodium [Synthroid] 125 mcg PO DAILY 06/18/22 [History] Ranolazine [Ranexa] 1,000 mg PO BID 06/18/22 [History] carvediloL [Coreg*] 12.5 mg PO BID-W/MEALS #30 tab 06/24/22 [Rx] Cinnamon Bark [Cinnamon] 2,000 mg PO BID 10/29/22 [History] Furosemide [Lasix] 40 mg PO DAILY #30 tab 04/24/23 [Rx] Follow up Appointment(s)/Referral(s): Rody Mercedes DO [Primary Care Provider] - 1-2 days (Appt 04/30 10:00am) Discharge Disposition: HOME SELF-CARE
== END 2023-04-24 13:52 | disposition home or self-care (01) | DRG 291 ==
LOC: EC 20:29 → 3SCARD 22:59
PROVIDERS: ADMIT Internal Medicine; ATTEND Internal Medicine
DX: I13.0 Hypertensive heart and chronic kidney disease with heart failure and stage 1 through stage 4 chronic kidney disease, or unspecified chronic kidney disease (principal); I50.33 Acute on chronic diastolic (congestive) heart failure; J98.11 Atelectasis; N18.30 Chronic kidney disease, stage 3 unspecified; E78.5 Hyperlipidemia, unspecified; I25.5 Ischemic cardiomyopathy; I25.10 Atherosclerotic heart disease of native coronary artery without angina pectoris; E89.0 Postprocedural hypothyroidism; I25.2 Old myocardial infarction; Z79.02 Long term (current) use of antithrombotics/antiplatelets; Z79.890 Hormone replacement therapy; Z79.899 Other long term (current) drug therapy; Z95.1 Presence of aortocoronary bypass graft; Z95.5 Presence of coronary angioplasty implant and graft; Z91.81 History of falling; Z88.5 Allergy status to narcotic agent
CPT/HCPCS: 36415; 71046; 80053; 83690; 83735; 83880; 84484; 85025; 85610; 85730; 93005; 93306; 94760; 96374; 99285

== ENCOUNTER → 2024-01-25 | Outpatient (CLI) | payer MEDICARE ==
[2024-01-25 15:00] LABS: BUN/Creat Ratio 14.79 Ratio (12.00-20.00); Blood Urea Nitrogen 28.1 mg/dL (9.0-27.0); Calcium 9.6 mg/dL (8.7-10.3); Carbon Dioxide 23.6 mmol/L (21.6-31.8); Chloride 107 mmol/L (96-109); Glucose 163 mg/dL (70-110); Potassium 4.3 mmol/L (3.5-5.5); Sodium 143 mmol/L (135-145)
== END | disposition home or self-care (01) ==
LOC: LABWHC1 10:08
PROVIDERS: ATTEND Internal Medicine Cardiovascular Disease
DX: I50.22 Chronic systolic (congestive) heart failure (principal)
CPT/HCPCS: 36415; 80048

== ENCOUNTER 2024-03-21 12:07 | Observation (INO) | payer MEDICARE ==
--- NOTE | 2024-03-21 12:38 | ED ---
General Adult HPI - General Chief complaint: Chest Pain Stated complaint: chest pain Time Seen by Provider: 03/21/24 12:22 Source: patient, family, RN notes reviewed Mode of arrival: wheelchair Limitations: no limitations - History of Present Illness Initial comments: Patient is a pleasant 83-year-old male present to the emergency department with concerns with chest discomfort. Symptoms have been occurring for a couple weeks. Patient has a difficult time describing the type of discomfort he is having. Patient has had some dyspnea. Symptoms do worsen with exertion. Patient has had 2-3 syncopal episodes during this time period. Patient does siddiqi ve cardiac history with previous bypass and stents. Currently symptom-free. - Related Data Home Medications Medication Instructions Recorded Confirmed Atorvastatin [Lipitor] 20 mg PO HS 11/07/19 04/22/23 Febuxostat [Uloric] 40 mg PO DAILY 11/07/19 04/22/23 Fenofibrate Nanocrystallized 145 mg PO HS 11/07/19 04/22/23 [Fenofibrate] Nitroglycerin Sl Tabs [Nitrostat] 0.4 mg SUBLINGUAL Q5M PRN 11/07/19 04/22/23 Ticagrelor [Brilinta] 90 mg PO BID 11/07/19 04/22/23 Isosorbide Mononitrate ER [Imdur] 60 mg PO DAILY 07/02/21 04/22/23 Levothyroxine Sodium [Synthroid] 125 mcg PO DAILY 06/18/22 04/22/23 Ranolazine [Ranexa] 1,000 mg PO BID 06/18/22 04/22/23 Cinnamon Bark [Cinnamon] 2,000 mg PO BID 10/29/22 04/22/23 Previous Rx's Medication Instructions Recorded carvediloL [Coreg*] 12.5 mg PO BID-W/MEALS #30 tab 06/24/22 Furosemide [Lasix] 40 mg PO DAILY #30 tab 04/24/23 Allergies Allergy/AdvReac Type Severity Reaction Status Date / Time morphine AdvReac bowel Verified 03/21/24 14:15 obstruction/ileus Review of Systems ROS Statement: Those systems with pertinent positive or pertinent negative responses have been documented in the HPI. ROS Other: All systems not noted in ROS Statement are negative. Constitutional: Denies: fever Eyes: Denies: eye pain ENT: Denies: ear pain Respiratory: Reports: as per HPI. Denies: cough Cardiovascular: Reports: as per HPI, chest pain, dyspnea on exertion Musculoskeletal: Denies: back pain Past Medical History Past Medical History: Coronary Artery Disease (CAD), Hyperlipidemia, Hypertension, Myocardial Infarction ([place]), Thyroid Disorder Additional Past Medical History / Comment(s): SOB Last Myocardial Infarction Date:: unknown History of Any Multi-Drug Resistant Organisms: None Reported Past Surgical History: Appendectomy, Cholecystectomy, Coronary Bypass/CABG, Heart Catheterization With Stent Additional Past Surgical History / Comment(s): thyroidectomy, CABG 25 yrs ago, 2-3 cardiac stents, toya cataracts Past Anesthesia/Blood Transfusion Reactions: No Reported Reaction Date of Last Stent Placement:: 2019 Past Psychological History: No Psychological Hx Reported Smoking Status: Never smoker Past Alcohol Use History: None Reported Past Drug Use History: None Reported - Past Family History Mother Family Medical History: No Reported History General Exam Limitations: no limitations General appearance: alert, in no apparent distress Head exam: Present: atraumatic Eye exam: Present: normal appearance, PERRL, EOMI Neck exam: Present: normal inspection. Absent: tenderness Respiratory exam: Present: normal lung sounds bilaterally Cardiovascular Exam: Present: regular rate, normal rhythm, normal heart sounds Expanded Peripheral pulses: 2+: Radial (R), Radial (L), Posterior Tibialis (R), Posterior Tibialis (L) GI/Abdominal exam: Present: soft. Absent: tenderness, pulsatile mass Extremities exam: Present: normal inspection. Absent: pedal edema, calf tenderness Neurological exam: Present: alert, CN II-XII intact. Absent: motor sensory deficit Expanded Neurological exam: Present: protecting the airway Speech: Present: fluid speech Cranial nerves: EOM's Intact: Normal Motor strength exam: RUE: 5, LUE: 5, RLE: 5, LLE: 5 Eye Response: (4) open spontaneously Motor Response: (6) obeys commands Verbal Response: (5) oriented Psychiatric exam: Present: normal affect, normal mood Skin exam: Present: normal color Course Vital Signs 03/21/24 03/21/24 03/21/24 12:14 12:33 12:41 Temperature 97.7 F Pulse Rate 58 L 57 L Pulse Rate [ 57 L Produce Shipper ] Respiratory 20 18 Rate Blood Pressure 127/75 112/67 O2 Sat by Pulse 99 100 Oximetry EKG Findings - EKG Results: EKG: interpreted by ERMD (Septal Q waves.), sinus rhythm, normal axis, normal ST/T Medical Decision Making - Medical Decision Making Discussion with patient and . They do not want any CPR or intubation. No code. Also discussion with them regarding renal function and CT scan with contrast and potential for worsening renal function. They still do want CT scan to be done. Was pt. sent in by a medical professional or institution (, PA, KNOWLEDGE MANAGEMENT CONSULTANT, urgent care, hospital, or fci...) When possible be specific @ -No Did you speak to anyone other than the patient for history (EMS, parent, family, police, friend...)? What history was obtained from this source @ - is present and helps provide history including onset of symptoms Did you review nursing and triage notes (agree or disagree)? Why? @ -I reviewed and agree with nursing and triage notes Were old charts reviewed (outside hosp., previous admission, EMS record, old EKG, old radiological studies, urgent care reports/EKG's, fci records)? Report findings @ -No old charts were reviewed Differential Diagnosis (chest pain, altered mental status, abdominal pain women, abdominal pain men, vaginal bleeding, weakness, fever, dyspnea, syncope, headache, dizziness, GI bleed, back pain, seizure, CVA, palpatations, mental health, musculoskeletal)? @ -MDM differential chest pain. Differential Chest Pain: Stable Angina, Unstable Angina, STEMI, NSTEMI Aortic Dissection, Pneumothorax, Musculoskeletal, Esophageal Spasm GERD, Cholecystitis, Pancreatitis, Zoster, this is not meant to be an all-inclusive list. Differential Dyspnea: Coronary syndrome, arrhythmia, tamponade, asthma, COPD, pulmonary embolism, pneumonia, pneumothorax, pulmonary effusion, anaphylaxis, diabetic ketoacidosis, flailed chest, pulmonary contusion, diaphragmatic rupture, anemia, neuromuscular, this is not meant to be an all-inclusive list. Differential Syncope: Valvular disease, hypertrophic cardiomyopathy, pulmonary embolism, tamponade, tachycardia, bradycardia, [place], hypovolemia, hemorrhage, dissection, anemia, intracranial hemorrhage, seizure, hypoglycemia, carbon monoxide poisoning, this is not meant to be an all-inclusive list. EKG interpreted by me (3pts min.). @ -As above X-rays interpreted by me (1pt min.). @ -Chest x-ray shows cardiomegaly and postoperative changes CT interpreted by me (1pt min.). @ -CT chest shows minimal effusion U/S interpreted by me (1pt. min.). @ -None done What testing was considered but not performed or refused? (CT, X-rays, U/S, labs)? Why? @ -None What meds were considered but not given or refused? Why? @ -None Did you discuss the management of the patient with other professionals (professionals i.e. , PA, KNOWLEDGE MANAGEMENT CONSULTANT, lab, RT, psych nurse, social media project manager, air tucker, teacher, air defense control officer, case work aide)? Give summary @ -Case was discussed with Dr. Acevedo who will admit covering practitioner. Darleneick Was smoking cessation discussed for >3mins.? @ -No Was critical care preformed (if so, how long)? @ -No Were there social determinants of health that impacted care today? How? (Homelessness, low income, unemployed, alcoholism, drug addiction, transportation, low edu. Level, literacy, decrease access to med. care, half-way, rehab)? @ -No Was there de-escalation of care discussed even if they declined (Discuss DNR or withdrawal of care, Hospice)? DNR status @ -See above What co-morbidities impacted this encounter? (DM, HTN, Smoking, COPD, CAD, Cancer, CVA, ARF, Chemo, Hep., AIDS, mental health diagnosis, sleep apnea, morbid obesity)? @ -None Was patient admitted / discharged? Hospital course, mention meds given and route, prescriptions, significant lab abnormalities, going to OR and other per tinent info. @ -Patient reevaluated and resting comfortably in bed. Patient and family updated on results and plan. Patient will be admitted with cardiac consult. Admission orders written Undiagnosed new problem with uncertain prognosis? @ -No Drug Therapy requiring intensive monitoring for toxicity (Heparin, Nitro, Insulin, Cardizem)? @ -No Were any procedures done? @ -No Diagnosis/symptom? @ -Chest pain, syncope Acute, or Chronic, or Acute on Chronic? @ -Acute, acute Uncomplicated (without systemic symptoms) or Complicated (systemic symptoms)? @ -Default Side effects of treatment? @ -No Exacerbation, Progression, or Severe Exacerbation? @ -No Poses a threat to life or bodily function? How? (Chest pain, [place], VA, pneumonia, PE, COPD, DKA, ARF, appy, cholecystitis, CVA, Diverticulitis, Homicidal, Suicidal, threat to staff... and all critical care pts) @ -Threat to cardiac function - Lab Data Result diagrams: 03/21/24 12:31 03/21/24 12:31 Lab Results 03/21/24 03/21/24 03/21/24 Range/Units 12:31 12:31 12:31 WBC 10.7 H (3.8-10.6) k/uL RBC 3.90 L (4.30-5.90) m/uL Hgb 11.1 L (13.0-17.5) gm/dL Hct 37.3 L (39.0-53.0) % MCV 95.6 (80.0-100.0) fL MCH 28.4 (25.0-35.0) pg MCHC 29.7 L (31.0-37.0) g/dL RDW 15.1 (11.5-15.5) % Plt Count 273 (150-450) k/uL MPV 8.9 Neutrophils % 64 % Lymphocytes % 23 % Monocytes % 7 % Eosinophils % 2 % Basophils % 1 % Neutrophils # 6.8 (1.3-7.7) k/uL Lymphocytes # 2.4 (1.0-4.8) k/uL Monocytes # 0.8 (0-1.0) k/uL Eosinophils # 0.2 (0-0.7) k/uL Basophils # 0.1 (0-0.2) k/uL Hypochromasia Slight PT 11.5 (10.0-12.5) sec INR 1.1 (<1.2) APTT 23.0 (22.0-30.0) sec D-Dimer (<0.60) mg/L FEU Sodium 137 (137-145) mmol/L Potassium 4.8 (3.5-5.1) mmol/L Chloride 106 (98-107) mmol/L Carbon Dioxide 26 (22-30) mmol/L Anion Gap 5 mmol/L BUN 32 H (9-20) mg/dL Creatinine 1.71 H (0.66-1.25) mg/dL Est GFR (CKD-EPI)AfAm 42 (>60 ml/min/1.73 sqM) Est GFR (CKD-EPI)NonAf 36 (>60 ml/min/1.73 sqM) Glucose 99 (74-99) mg/dL Calcium 9.5 (8.4-10.2) mg/dL Magnesium 2.1 (1.6-2.3) mg/dL Total Bilirubin 0.8 (0.2-1.3) mg/dL AST 38 (17-59) U/L ALT 14 (4-49) U/L Alkaline Phosphatase 49 (38-126) U/L Troponin I (0.000-0.034) ng/mL Total Protein 6.4 (6.3-8.2) g/dL Albumin 3.6 (3.5-5.0) g/dL 03/21/24 03/21/24 Range/Units 12:31 12:31 WBC (3.8-10.6) k/uL RBC (4.30-5.90) m/uL Hgb (13.0-17.5) gm/dL Hct (39.0-53.0) % MCV (80.0-100.0) fL MCH (25.0-35.0) pg MCHC (31.0-37.0) g/dL RDW (11.5-15.5) % Plt Count (150-450) k/uL MPV Neutrophils % % Lymphocytes % % Monocytes % % Eosinophils % % Basophils % % Neutrophils # (1.3-7.7) k/uL Lymphocytes # (1.0-4.8) k/uL Monocytes # (0-1.0) k/uL Eosinophils # (0-0.7) k/uL Basophils # (0-0.2) k/uL Hypochromasia PT (10.0-12.5) sec INR (<1.2) APTT (22.0-30.0) sec D-Dimer 0.91 H (<0.60) mg/L FEU Sodium (137-145) mmol/L Potassium (3.5-5.1) mmol/L Chloride (98-107) mmol/L Carbon Dioxide (22-30) mmol/L Anion Gap mmol/L BUN (9-20) mg/dL Creatinine (0.66-1.25) mg/dL Est GFR (CKD-EPI)AfAm (>60 ml/min/1.73 sqM) Est GFR (CKD-EPI)NonAf (>60 ml/min/1.73 sqM) Glucose (74-99) mg/dL Calcium (8.4-10.2) mg/dL Magnesium (1.6-2.3) mg/dL Total Bilirubin (0.2-1.3) mg/dL AST (17-59) U/L ALT (4-49) U/L Alkaline Phosphatase (38-126) U/L Troponin I 0.037 H* (0.000-0.034) ng/mL Total Protein (6.3-8.2) g/dL Albumin (3.5-5.0) g/dL Disposition Clinical Impression: Chest pain, Syncope Disposition: ADMITTED IP TO THIS HOSP Is patient prescribed a controlled substance at d/c from ED?: No Referrals: Rody Mercedes DO [Primary Care Provider] - 1-2 days Time of Disposition: 14:21
[2024-03-21] MEDS: ASPIRIN 81 MG PO STA (12:43)
[2024-03-21 12:55] LABS: INR 1.1 (<1.2); Prothrombin Time 11.5 sec (10.0-12.5)
[2024-03-21 13:02] LABS: Basophils # (A) 0.1 k/uL (0-0.2); Basophils % (A) 1 %; Eosinophils # (A) 0.2 k/uL (0-0.7); Eosinophils % (A) 2 %; HCT 37.3 % (39.0-53.0); HGB 11.1 gm/dL (13.0-17.5); Hypochromasia Slight; Lymphocytes # (A) 2.4 k/uL (1.0-4.8); Lymphocytes % (A) 23 %; MCH 28.4 pg (25.0-35.0); MCHC 29.7 g/dL (31.0-37.0); MCV 95.6 fL (80.0-100.0); Mean Platelet Volume 8.9; Monocytes # (A) 0.8 k/uL (0-1.0); Monocytes % (A) 7 %; Neutrophils # (A) 6.8 k/uL (1.3-7.7); Neutrophils % (A) 64 %; Platelet Count 273 k/uL (150-450); RDW 15.1 % (11.5-15.5); WBC 10.7 k/uL (3.8-10.6)
[2024-03-21 13:10] LABS: ALT 14 U/L (4-49); African American GFR (CKD) 42 (>60 ml/min/1.73 sqM); Albumin 3.6 g/dL (3.5-5.0); Anion Gap 5 mmol/L; Blood Urea Nitrogen 32 mg/dL (9-20); Calcium 9.5 mg/dL (8.4-10.2); Carbon Dioxide 26 mmol/L (22-30); Chloride 106 mmol/L (98-107); Glucose 99 mg/dL (74-99); Non-African American GFR(CKD) 36 (>60 ml/min/1.73 sqM); Sodium 137 mmol/L (137-145); Total Bilirubin 0.8 mg/dL (0.2-1.3); Total Protein 6.4 g/dL (6.3-8.2)
--- NOTE | 2024-03-21 13:21 | XR ---
EXAMINATION TYPE: XR chest 2V DATE OF EXAM: 03/21/2024 1:16 PM CLINICAL INDICATION:Male, 83 years old with history of Chest Pain; COMPARISON: Chest radiographs from 04/22/2023 TECHNIQUE: XR chest 2V Frontal view of the chest. FINDINGS: Lungs/Pleura: No evidence of focal consolidation or pneumothorax. Blunting of the costophrenic angles is present. Pulmonary vascularity: Pulmonary vascular congestion. Heart/mediastinum: Cardiomediastinal silhouette is enlarged and stable. Musculoskeletal: No acute osseous pathology. Midline sternotomy wires are noted. IMPRESSION: Cardiomegaly, pulmonary vascular congestion and bilateral pleural effusions. Correlate with BNP for c ongestive heart failure.
[2024-03-21 13:30] LABS: AST 38 U/L (17-59); Alkaline Phosphatase 49 U/L (38-126); Magnesium 2.1 mg/dL (1.6-2.3); Potassium 4.8 mmol/L (3.5-5.1)
--- NOTE | 2024-03-21 14:11 | CT ---
EXAMINATION TYPE: CT angio chest DATE OF EXAM: 03/21/2024 2:02 PM COMPARISON: None HISTORY: CHEST PAIN/SYNCOPE CT DLP: 460.9 mGycm Automated exposure control for dose reduction was used. CONTRAST: CTA scan of the thorax is performed with IV Contrast, patient injected with 65 ml mL of Isovue 370, p ulmonary embolism protocol. The post processing was performed.. FINDINGS: LUNGS: The lungs are grossly clear, there is no concerning parenchymal mass or nodule identified. The re are small pleural effusions, right greater than left. MEDIASTINUM: There is satisfactory enhancement of the pulmonary artery and its branches, there is no CT evidence for pulmonary embolism. There are no greater than 1 cm hilar or mediastinal lymph nodes. No pericardial effusion is seen. There is a moderate hiatal hernia. IMPRESSION: 1. NO EVIDENCE OF PULMONARY EMBOLISM. 2. SMALL BILATERAL PLEURAL EFFUSIONS, RIGHT GREATER THAN LEFT. 3. MODERATE HIATAL HERNIA. 4. NO AIRSPACE CONSOLIDATION OR ABNORMAL INTERSTITIAL DENSITY.
[2024-03-21] MEDS ORDERED: NITROGLYCERIN SL TABS 0.4 MG TAB SUBLINGUAL PRN (14:21)
[2024-03-21] MEDS: SODIUM CHLORIDE 0.9% 1,000 ML IV STA (15:39)
[2024-03-21] MEDS: carvediloL 12.5 MG TAB PO SCH (17:32)
[2024-03-21] MEDS: NITROGLYCERIN OINT 1 INCH/GM PACKET TOPICAL SCH (18:12)
[2024-03-21] MEDS ORDERED: ISOSORBIDE MONONITRATE ER 60 MG TAB.ER.24H PO SCH (21:00)
[2024-03-21] MEDS ORDERED: ISOSORBIDE MONONITRATE ER 30 MG TAB.ER.24H PO SCH (21:00)
[2024-03-21] MEDS ORDERED: NON FORMULARY DRUG (Cinnamon Bark [Cinnamon] 500 MG Capsule) PO SCH (21:00)
[2024-03-21] MEDS: RANOLAZINE 500 MG TAB.ER.12H PO SCH (22:06)
[2024-03-21] MEDS: ATORVASTATIN 20 MG TAB PO SCH (22:06)
[2024-03-21] MEDS: DOCUSATE 100 MG CAP PO SCH (22:07)
[2024-03-21] MEDS: TICAGRELOR 90 MG TAB PO SCH (22:07)
--- NOTE | 2024-03-21 22:42 | P.HPIM ---
History of Present Illness H&P Date: 03/21/24 Chief Complaint: Chest discomfort Patient is a 83-year-old male with a past medical history of hypertension, hyperlipidemia, history of [place], coronary artery disease s/p stent placement, CABG, hypothyroidism presents to ER with complaints of chest discomfort. Patient states that he has been having chest discomfort on and off for the past 3 to 4 weeks associate with shortness of breath. Patient also states that he has 2 episodes of loss of consciousness. His lips turned blue as per his at bedside. Patient passed out but could not respond at the time. Patient's w wilbert states that happened twice. Denied any seizure activity. Patient was able to get up and walk immediately after the syncopal episode. No bladder or bowel incontinence. Otherwise denies any complaints of cough or sputum production. Mild shortness of breath. No nausea vomiting or abdominal pain or diarrhea. Chest x-ray showed pulmonary vascular congestion and bilateral pleural effusions. Correlate with BNP for congestive heart failure. EKG showed sinus rhythm. CTA chest was done due to elevated D-dimer level. No evidence of PE. Small bilateral pleural effusions right greater than left. Moderate hiatal hernia. No airspace consolidation or abnormal interstitial density. Laboratory review WBC 10.7 hemoglobin 9.1 and platelets 273 and D-dimer 0.91 BUN 32 and creatinine 1.71 and blood sugar 99 troponin 0.037, 0.036 and 0.037. Liver enzymes not elevated. Review of Systems Constitutional: Patient denies any fever or chills . No generalized weakness or weight loss. Abdomen: Patient denied nausea vomiting and diarrhea and abdominal pain. Cardiovascular: Patient denies any chest pain or short of breath no palpitations. Respiratory: patient denied any cough or sputum production. No shortness of breath Neurologic: Patient denied any numbness or tingling. no headache. Musculoskeletal: Patient denies any complaints of joint swelling or deformity. Skin: Negative Psychiatric: Negative Endocrine: No heat or cold intolerance. No recent weight gain. Genitourinary: No dysuria or hematuria. All other 14 point ROS negative except the above Past Medical History Past Medical History: Coronary Artery Disease (CAD), Hyperlipidemia, Hypertension, Myocardial Infarction ([place]), Thyroid Disorder Additional Past Medical History / Comment(s): SOB Last Myocardial Infarction Date:: unknown History of Any Multi-Drug Resistant Organisms: None Reported Past Surgical History: Appendectomy, Cholecystectomy, Coronary Bypass/CABG, Heart Catheterization With Stent Additional Past Surgical History / Comment(s): thyroidectomy, CABG 25 yrs ago, 2-3 cardiac stents, toya cataracts Past Anesthesia/Blood Transfusion Reactions: No Reported Reaction Date of Last Stent Placement:: 2019 Past Psychological History: No Psychological Hx Reported Smoking Status: Never smoker Past Alcohol Use History: None Reported Past Drug Use History: None Reported - Past Family History Mother Family Medical History: No Reported History Medications and Allergies Home Medications Medication Instructions Recorded Confirmed Type Atorvastatin [Lipitor] 20 mg PO HS 11/07/19 03/21/24 History Fenofibrate Nanocrystallized 145 mg PO DAILY 11/07/19 03/21/24 History [Fenofibrate] Nitroglycerin Sl Tabs [Nitrostat] 0.4 mg SL Q5M PRN 11/07/19 03/21/24 History Ticagrelor [Brilinta] 90 mg PO BID 11/07/19 03/21/24 History Isosorbide Mononitrate ER [Imdur] 60 mg PO HS 07/02/21 03/21/24 History Levothyroxine Sodium [Synthroid] 125 mcg PO DAILY 06/18/22 03/21/24 History Ranolazine [Ranexa] 1,000 mg PO BID 06/18/22 03/21/24 History carvediloL [Coreg*] 12.5 mg PO BID-W/MEALS #30 tab 06/24/22 03/21/24 Rx Cinnamon Bark [Cinnamon] 2,000 mg PO BID 10/29/22 03/21/24 History Bumetanide [BUMEX] 0.5 mg PO DAILY 03/21/24 03/21/24 History Co Q-10(Unknown Dose) 1 tab PO DAILY 03/21/24 03/21/24 History Docusate [Colace] 200 mg PO BID 03/21/24 03/21/24 History Isosorbide Mononitrate ER [Imdur] 15 mg PO HS 03/21/24 03/21/24 History Potassium Chloride ER [K-Dur 10] 10 meq PO DAILY 03/21/24 03/21/24 History Allergies Allergy/AdvReac Type Severity Reaction Status Date / Time morphine AdvReac bowel Verified 03/21/24 14:15 obstruction/ileus Physical Exam Vitals: Vital Signs Temp Pulse Pulse Resp BP BP BP 03/21/24 18:50 55 L 18 113/75 03/21/24 18:00 58 L 18 121/75 03/21/24 17:00 57 L 18 145/92 03/21/24 16:00 63 18 134/84 03/21/24 15:39 98.2 F 63 18 139/82 135/75 03/21/24 15:00 60 18 150/89 03/21/24 14:00 64 18 143/85 03/21/24 12:41 57 L 18 112/67 03/21/24 12:33 57 L 03/21/24 12:14 97.7 F 58 L 20 127/75 BP Pulse Ox 03/21/24 18:50 98 03/21/24 18:00 96 03/21/24 17:00 98 03/21/24 16:00 97 03/21/24 15:39 141/82 99 03/21/24 15:00 98 03/21/24 14:00 98 03/21/24 12:41 100 03/21/24 12:33 03/21/24 12:14 99 Intake and Output 03/21/24 03/21/24 03/21/24 06:59 14:59 22:59 Other: Weight 81.647 kg PHYSICAL EXAMINATION: Patient is lying in the bed comfortably, no acute distress, awake alert and oriented.. HEENT: Normocephalic. Neck is supple. Pupils reactive. Nostrils clear. Oral cavity is moist. Neck reveals no JVD, carotid bruits, or thyromegaly. CHEST EXAMINATION: Trachea is central. Symmetrical expansion. Lung leonard clear to auscultation and percussion. CARDIAC: Normal S1, S2 with no gallops. No murmurs ABDOMEN: Soft. Bowel sounds normal. No organomegaly. No abdominal bruits. Extremities: reveal no edema. No clubbing or cyanosis Neurologically awake, alert, oriented x3 with well-coordinated movements. No focal deficits noted Skin: No rash or skin lesions. Psychiatric: Coperative. Nonsuicidal Musculoskeletal: No joint swelling or deformity. Normal range of motion. Results CBC & Chem 7: 03/22/24 11:10 03/22/24 11:10 Labs: Abnormal Lab Results - Last 24 Hours (Table) 03/21/24 03/21/24 03/21/24 Range/Units 12:31 12:31 12:31 WBC 10.7 H (3.8-10.6) k/uL RBC 3.90 L (4.30-5.90) m/uL Hgb 11.1 L (13.0-17.5) gm/dL Hct 37.3 L (39.0-53.0) % MCHC 29.7 L (31.0-37.0) g/dL D-Dimer (<0.60) mg/L FEU BUN 32 H (9-20) mg/dL Creatinine 1.71 H (0.66-1.25) mg/dL Troponin I 0.037 H* (0.000-0.034) ng/mL 03/21/24 03/21/24 03/21/24 Range/Units 12:31 15:24 18:42 WBC (3.8-10.6) k/uL RBC (4.30-5.90) m/uL Hgb (13.0-17.5) gm/dL Hct (39.0-53.0) % MCHC (31.0-37.0) g/dL D-Dimer 0.91 H (<0.60) mg/L FEU BUN (9-20) mg/dL Creatinine (0.66-1.25) mg/dL Troponin I 0.036 H* 0.037 H* (0.000-0.034) ng/mL Thrombosis Risk Factor Assmnt - DVT/VTE Prophylaxis DVT/VTE Prophylaxis: Pharmacologic Prophylaxis ordered Assessment and Plan Assessment: Atypical chest pain/discomfort Mild troponin elevation although decreased clearance from CKD Recent syncopal episode x 2 Coronary artery disease there are stent placement and previous history of CABG Chronic CHF with preserved EF CKD stage III with baseline creatinine 1.7 Hypertension Hyperlipidemia Hypothyroidism History of appendectomy and cholecystectomy DVT prophylaxis with heparin subcu Plan: Patient will be continued on telemonitoring. Serial EKG and troponin x 3. Patient will be started back on home medications including Imdur, aspirin and statins and Brilinta. Patient will be continued on Coreg 12.5 mg twice daily. Orthostatic vitals was ordered. CTA chest showed no evidence of PE. Cardiology was consulted. 2D echocardiogram was ordered. Continue with home medications. Continue to follow closely. Time with Patient: Greater than 30
[2024-03-21] MEDS: HEPARIN SODIUM,PORCINE 5,000 UNIT/ML 1 ML VIAL SQ SCH (23:58)
[2024-03-22 05:23] VITALS: RESP 18
[2024-03-22] MEDS: LEVOTHYROXINE 125 MCG TAB PO SCH (06:46)
[2024-03-22] MEDS: ASPIRIN 81 MG PO SCH (08:20)
[2024-03-22] MEDS: FENOFIBRATE 160 MG TAB PO SCH (08:20)
[2024-03-22] MEDS: carvediloL 12.5 MG TAB PO SCH (08:21)
[2024-03-22] MEDS: POTASSIUM CHLORIDE ER 10 MEQ TAB.ER.PRT PO SCH (08:21)
[2024-03-22] MEDS: BUMETANIDE 0.5 MG TABLET PO SCH (08:21)
[2024-03-22] MEDS: FAMOTIDINE 20 MG TAB PO SCH (08:21)
[2024-03-22 08:30] VITALS: BP 140/81; PULSE 72; TEMP 97.9
[2024-03-22] MEDS ORDERED: ASPIRIN 325 MG TAB PO SCH (09:00)
[2024-03-22] MEDS ORDERED: CO Q10 PO SCH (09:00)
[2024-03-22] MEDS ORDERED: ISOSORBIDE MONONITRATE ER 60 MG TAB.ER.24H PO SCH (09:15)
[2024-03-22] MEDS: ISOSORBIDE MONONITRATE ER 60 MG TAB.ER.24H PO SCH (09:47)
[2024-03-22] MEDS: ISOSORBIDE MONONITRATE ER 15 MG TAB PO SCH (09:47)
[2024-03-22 11:46] LABS: Basophils # (A) 0.1 k/uL (0-0.2); Basophils % (A) 1 %; Eosinophils # (A) 0.2 k/uL (0-0.7); Eosinophils % (A) 2 %; HCT 34.7 % (39.0-53.0); HGB 10.8 gm/dL (13.0-17.5); Lymphocytes # (A) 1.9 k/uL (1.0-4.8); Lymphocytes % (A) 20 %; MCHC 31.1 g/dL (31.0-37.0); MCV 96.4 fL (80.0-100.0); Mean Platelet Volume 8.5; Monocytes # (A) 0.7 k/uL (0-1.0); Monocytes % (A) 7 %; Neutrophils # (A) 6.4 k/uL (1.3-7.7); Neutrophils % (A) 67 %; Platelet Count 254 k/uL (150-450); RDW 15.2 % (11.5-15.5); WBC 9.5 k/uL (3.8-10.6)
[2024-03-22 11:59] LABS: African American GFR (CKD) 43 (>60 ml/min/1.73 sqM); Anion Gap 4 mmol/L; Blood Urea Nitrogen 31 mg/dL (9-20); Calcium 9.3 mg/dL (8.4-10.2); Carbon Dioxide 24 mmol/L (22-30); Chloride 106 mmol/L (98-107); Glucose 104 mg/dL (74-99); Non-African American GFR(CKD) 37 (>60 ml/min/1.73 sqM); Potassium 4.4 mmol/L (3.5-5.1); Sodium 134 mmol/L (137-145)
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
--- NOTE | 2024-03-22 13:35 | CA ---
Transthoracic Echo Report Name: Jose Oshea Age: 83 Gender: M : 1940 Exam Date: 03/22/2024 09:46 Exam Location: [facility] Ht (in): 68 Wt (lb): 180 Ordering Physician: Forrest Rawls DO Attending/Referring Phys: Gastroenterology Nurse Merari Solis RDCS Procedure CPT: Indications: cp, syncope Cardiac Hx: Technical Quality: Good Contrast 1: Total Dose (mL): Contrast 2: Total Dose (mL): MEASUREMENTS (Male / Female) Normal Values 2D ECHO LV Diastolic Diameter PLAX 5.5 cm 4.2 - 5.9 / 3.9 - 5.3 cm LV Systolic Diameter PLAX 3.9 cm IVS Diastolic Thickness 1.5 cm 0.6 - 1.0 / 0.6 - 0.9 cm LVPW Diastolic Thickness 1.4 cm 0.6 - 1.0 / 0.6 - 0.9 cm LV Relative Wall Thickness 0.5 LVOT Diameter 2.1 cm LV Diastolic Volume MOD BP 158.6 cm??? 67 - 155 / 56 - 104 cm??? LV Systolic Volume MOD BP 64.8 cm??? 22 - 58 / 19 - 49 cm??? LV Ejection Fraction MOD BP 59.2 % >= 55 % LV Cardiac Index MOD BP 3620.7 cm???/min???m??? LV Diastolic Volume MOD 4C 161.6 cm??? LV Systolic Volume MOD 4C 67.0 cm??? LV Ejection Fraction MOD 4C 58.5 % LV Cardiac Index MOD 4C 3649.3 cm???/min???m??? LV Diastolic Length 4C 9.6 cm LV Systolic Length 4C 8.7 cm LV Diastolic Volume MOD 2C 150.0 cm??? LV Systolic Volume MOD 2C 57.7 cm??? LV Ejection Fraction MOD 2C 61.5 % LV Cardiac Index MOD 2C 3560.9 cm???/min???m??? LV Diastolic Length 2C 10.0 cm LV Systolic Length 2C 7.9 cm LA Volume 98.9 cm??? 18 - 58 / 22 - 52 cm??? LA Volume Index 49.6 cm???/m??? 16 - 28 cm???/m??? Ascending Aorta Diameter 4.4 cm DOPPLER AV Peak Velocity 176.2 cm/s AV Peak Gradient 12.4 mmHg AV Mean Velocity 125.0 cm/s AV Mean Gradient 6.9 mmHg AV Velocity Time Integral 41.6 cm LVOT Peak Velocity 124.8 cm/s LVOT Peak Gradient 6.2 mmHg LVOT Velocity Time Integral 26.9 cm LVOT Stroke Volume 97.2 cm??? LVOT Stroke Volume Index 49.8 ml/m??? LVOT Cardiac Index 3751.7 cm???/min???m??? AV Area Cont Eq vti 2.3 cm??? AV Area Cont Eq pk 2.6 cm??? MV Peak Velocity 138.1 cm/s MV Peak Gradient 7.6 mmHg MV Mean Velocity 87.3 cm/s MV Mean Gradient 3.4 mmHg MV Velocity Time Integral 37.2 cm MV Area PHT 4.2 cm??? Mitral E Point Velocity 111.3 cm/s Mitral A Point Velocity 83.6 cm/s Mitral E to A Ratio 1.3 MV Deceleration Time 180.6 ms TR Peak Velocity 238.9 cm/s TR Peak Gradient 22.8 mmHg Right Atrial Pressure 5.0 mmHg Pulmonary Artery Systolic Pressu 27.8 mmHg Right Ventricular Systolic Press 27.8 mmHg PV Peak Velocity 85.5 cm/s PV Peak Gradient 2.9 mmHg FINDINGS Left Ventricle Left ventricular ejection fraction is estimated at 50 %. Moderately increased septal wall thickness. Mildly increased left ventricular diastolic volume. Mildly increased left ventricular systolic volume. Apical inferior, apical hypokinesis. Right Ventricle Normal right ventricular size and function. Right ventricular systolic pressure within normal limits. Right Atrium Normal right atrial size. Left Atrium Severely increased left atrial volume. Mildly increased left atrial area. Mitral Valve Mitral valve thickened. No evidence for mitral valve prolapse. Mild mitral stenosis. Mild mitral regurgitation. Aortic Valve Trileaflet aortic valve. Aortic valve sclerosis. No aortic regurgitation. Tricuspid Valve Structurally normal tricuspid valve. No tricuspid stenosis. Mild tricuspid regurgitation. Pulmonic Valve Pulmonic valve not well visualized. No pulmonic stenosis. Trace pulmonic regurgitation. Pericardium No pericardial effusion. Aorta Aortic annulus normal. Mildly dilated ascending aorta. CONCLUSIONS Left ventricular ejection fraction 50% Apical inferior, apical hypokinesis. Moderately increased left ventricular wall thickness Mild mitral regurgitation Moderately dilated left atrium Mild tricuspid regurgitation Previewed by: Dr. Freddie Figueredo DO (Electronically Signed) Final Date: 22 March 2024 13:33
[2024-03-22 18:00] LABS: Chol/HDL Ratio 6.86 Ratio; LDL Cholesterol,Calculated 64.4 mg/dL (0.0-131.0)
== END 2024-03-22 15:04 | disposition home health service (06) ==
LOC: EC 12:07 → 3SCARD 14:21
PROVIDERS: ADMIT Internal Medicine; ATTEND Internal Medicine
DX: R06.02 Shortness of breath (principal); R07.89 Other chest pain; I25.10 Atherosclerotic heart disease of native coronary artery without angina pectoris; E78.5 Hyperlipidemia, unspecified; I25.2 Old myocardial infarction; Z95.5 Presence of coronary angioplasty implant and graft; E03.9 Hypothyroidism, unspecified; I13.0 Hypertensive heart and chronic kidney disease with heart failure and stage 1 through stage 4 chronic kidney disease, or unspecified chronic kidney disease; N18.30 Chronic kidney disease, stage 3 unspecified; Z95.1 Presence of aortocoronary bypass graft; Z90.49 Acquired absence of other specified parts of digestive tract; Z79.02 Long term (current) use of antithrombotics/antiplatelets; I50.32 Chronic diastolic (congestive) heart failure; E11.22 Type 2 diabetes mellitus with diabetic chronic kidney disease
CPT/HCPCS: 96360; 96361 ×2; 96372; 99285; 36415; 93005; 93306; 93270; 85379; 80061; 80053; 80048; 83735; 84484; 85025 ×2; 85610; 85730; 71046; 71275; G0378 ×2; J1644; Q9967

== ENCOUNTER 2024-03-28 15:10 | Inpatient (IN) | payer MEDICARE ==
[2024-03-28] MEDS ORDERED: NITROGLYCERIN SL TABS 0.4 MG TAB SUBLINGUAL PRN (20:02)
[2024-03-28] MEDS: RANOLAZINE 500 MG TAB.ER.12H PO SCH (21:12)
[2024-03-28] MEDS: DOCUSATE 100 MG CAP PO SCH (21:12)
[2024-03-28] MEDS: ISOSORBIDE MONONITRATE ER 15 MG TAB PO SCH (21:12)
[2024-03-28] MEDS: ATORVASTATIN 20 MG TAB PO SCH (21:12)
[2024-03-28] MEDS: ISOSORBIDE MONONITRATE ER 60 MG TAB.ER.24H PO SCH (21:12)
[2024-03-28] MEDS: TICAGRELOR 90 MG TAB PO SCH (21:13)
[2024-03-29] MEDS: LEVOTHYROXINE 125 MCG TAB PO SCH (05:58)
[2024-03-29 07:46] VITALS: RESP 16
[2024-03-29] MEDS: BUMETANIDE 0.5 MG TABLET PO SCH (07:46)
[2024-03-29 07:49] LABS: Basophils # (A) 0.1 k/uL (0-0.2); Basophils % (A) 1 %; Eosinophils # (A) 0.3 k/uL (0-0.7); Eosinophils % (A) 3 %; HCT 36.5 % (39.0-53.0); HGB 11.1 gm/dL (13.0-17.5); Hypochromasia Moderate; Lymphocytes # (A) 1.9 k/uL (1.0-4.8); Lymphocytes % (A) 21 %; MCHC 30.4 g/dL (31.0-37.0); MCV 98.5 fL (80.0-100.0); Mean Platelet Volume 8.7; Monocytes # (A) 0.6 k/uL (0-1.0); Monocytes % (A) 6 %; Neutrophils # (A) 6.2 k/uL (1.3-7.7); Neutrophils % (A) 67 %; Platelet Count 323 k/uL (150-450); RBC 3.71 m/uL (4.30-5.90); RDW 15.1 % (11.5-15.5); WBC 9.3 k/uL (3.8-10.6)
[2024-03-29] MEDS: SODIUM CHLORIDE 0.9% 1,000 ML IV SCH ×2 (07:55)
[2024-03-29 08:15] LABS: African American GFR (CKD) 42 (>60 ml/min/1.73 sqM); Anion Gap 5 mmol/L; Blood Urea Nitrogen 30 mg/dL (9-20); Calcium 9.3 mg/dL (8.4-10.2); Carbon Dioxide 24 mmol/L (22-30); Chloride 108 mmol/L (98-107); Glucose 109 mg/dL (74-99); Non-African American GFR(CKD) 36 (>60 ml/min/1.73 sqM); Potassium 4.3 mmol/L (3.5-5.1); Sodium 137 mmol/L (137-145)
[2024-03-29 12:14] LABS: T4, Free (Free Thyroxine) 1.43 ng/dL (0.78-2.19)
--- NOTE | 2024-03-29 12:18 | P.CRDCN ---
History of Present Illness Consult date: 03/29/24 History of present illness: HISTORY OF PRESENT ILLNESS: Caleb is a 83-year-old male with a past medical history significant for coronary artery disease with previous CABG, congestive heart failure, hypertension, hyperlipidemia, and diabetes. Patient follows in the office with Dr. Vasquez. Patient had a recent hospitalization at which time he presented with a syncopal episode and chest pain. Patient was set up for event monitor. On the event monitor, patient was found to have third-degree heart block and was directed to come into the hospital for pacemaker implantation. Patient denies having any chest pain no shortness of breath, no palpitations. He has had no further syncopal episodes since his hospitalization earlier in the month. Heart rate is 79, blood pressure 155/89, pulse ox 95% on room air, afebrile. DIAGNOSTICS: EKG reveals sinus mechanism with no signs of acute ischemia. Laboratory data: WBC 9.3, hemoglobin 11.1. Sodium 137, potassium 4.3, BUN 30 creatinine 1.72. Glucose 109. TSH 12.7 Current home cardiac medications include a atorvastatin 20 mg at bedtime, Bumex 0.5 mg daily, Coreg 12.5 mg twice daily, Imdur 75 mg at bedtime, levothyroxine 125 mcg daily, Nitrostat as needed, potassium chloride 10 mill equivalents daily, Ranexa 1000 mg twice daily, Brilinta 90 mg twice daily. Most recent echocardiogram obtained 03/21/2024 revealed EF 50%, apical inferior and apical hypokinesis, mild MR, mild TR. Cardiac catheterization history: June 2022 revealing patent ABREU to LAD, patent venous graft to the PLV with a focal severe stenotic lesion, patent vein graft to the PDA. Patient underwent angioplasty of VG to PLV. REVIEW OF SYSTEMS: At the time of my exam: CONSTITUTIONAL: Denies fever or chills. HEENT: Denies blurred vision, vision changes, or eye pain. Denies hemoptysis CARDIOVASCULAR: Denies chest pain. Denies orthopnea. Denies PND. Denies palpitations RESPIRATORY: Denies shortness of breath. GASTROINTESTINAL: Denies abdominal pain. Denies nausea or vomiting. HEMATOLOGIC: Denies bleeding disorders. GENITOURINARY: Denies any blood in urine. SKIN: Denies pruitis. Denies rash. PHYSICAL EXAM: VITAL SIGNS: Reviewed. GENERAL: Well-developed in no acute distress. HEENT: Head is normocephalic. Pupils are equal, round. Sclerae anicteric. Mucous membranes of the mouth are moist. Neck supple. No JVD or thyromegaly LUNGS: Respirations even and unlabored. Lungs essentially clear to auscultation bilaterally. HEART: Regular rate and rhythm. S1 and S2 heard. Systolic murmur at the apex. ABDOMEN: Soft. Nondistended. Nontender. EXTREMITIES: No clubbing or cyanosis. Peripheral pulses intact. No lower extremity edema NEUROLOGIC: Awake and alert. Oriented x 3. ASSESSMENT: Third-degree heart block Recent episode of syncope Coronary artery disease with previous CABG Chronic congestive heart failure with preserved EF, currently euvolemic Hypertension Hyperlipidemia Diabetes PLAN: Continue patient's home cardiac medications Patient will be scheduled for permanent pacemaker implantation later today with Dr. Allred Nurse practitioner note has been reviewed by physician. Signing provider agrees with the documented findings, assessment, and plan of care documented by SMOKE JUMPER as a scribe. Past Medical History Past Medical History: Coronary Artery Disease (CAD), Hyperlipidemia, Hypertension, Myocardial Infarction ([place]), Prostate Disorder, Thyroid Disorder Additional Past Medical History / Comment(s): SOB, third degree heart block with syncopal episodes March 2024 with pending pacemaker. Last Myocardial Infarction Date:: unknown History of Any Multi-Drug Resistant Organisms: None Reported Past Surgical History: Appendectomy, Cholecystectomy, Coronary Bypass/CABG, Heart Catheterization With Stent Additional Past Surgical History / Comment(s): thyroidectomy, 4 vessel CABG 25 yrs ago, 2-3 cardiac stents, toya cataracts Past Anesthesia/Blood Transfusion Reactions: No Reported Reaction Date of Last Stent Placement:: 2019 Past Psychological History: No Psychological Hx Reported Smoking Status: Never smoker Past Alcohol Use History: None Reported Past Drug Use History: None Reported - Past Family History Mother Family Medical History: No Reported History Medications and Allergies Home Medications Medication Instructions Recorded Confirmed Type Atorvastatin [Lipitor] 20 mg PO HS 11/07/19 03/28/24 History Fenofibrate Nanocrystallized 145 mg PO DAILY 11/07/19 03/28/24 History [Fenofibrate] Nitroglycerin Sl Tabs [Nitrostat] 0.4 mg SL Q5M PRN 11/07/19 03/28/24 History Ticagrelor [Brilinta] 90 mg PO BID 11/07/19 03/28/24 History Isosorbide Mononitrate ER [Imdur] 60 mg PO HS 07/02/21 03/28/24 History Levothyroxine Sodium [Synthroid] 125 mcg PO DAILY 06/18/22 03/28/24 History Ranolazine [Ranexa] 1,000 mg PO BID 06/18/22 03/28/24 History carvediloL [Coreg*] 12.5 mg PO BID-W/MEALS #30 tab 06/24/22 03/28/24 Rx Cinnamon Bark [Cinnamon] 2,000 mg PO BID 10/29/22 03/28/24 History Bumetanide [BUMEX] 0.5 mg PO DAILY 03/21/24 03/28/24 History Co Q-10(Unknown Dose) 1 tab PO DAILY 03/21/24 03/28/24 History Docusate [Colace] 200 mg PO BID 03/21/24 03/28/24 History Isosorbide Mononitrate ER [Imdur] 15 mg PO HS 03/21/24 03/28/24 History Potassium Chloride ER [K-Dur 10] 10 meq PO DAILY 03/21/24 03/28/24 History Allergies Allergy/AdvReac Type Severity Reaction Status Date / Time morphine AdvReac bowel Verified 03/28/24 18:46 obstruction/ileus Physical Exam Vitals: Vital Signs Temp Pulse Resp BP BP Pulse Ox 03/29/24 07:44 79 16 155/89 99 03/29/24 04:00 97.9 F 78 18 127/69 95 03/29/24 01:53 84 18 03/28/24 23:46 97.4 F L 84 18 150/88 97 03/28/24 20:00 97.6 F 84 18 148/84 97 03/28/24 18:11 97.2 F L 79 18 126/67 97 03/28/24 17:53 97.2 F L 79 17 126/67 97 Intake and Output 03/28/24 03/29/24 03/29/24 22:59 06:59 14:59 Intake Total 10 Output Total 900 200 Balance -890 -200 Intake: IV 10 0.9 10 Output: Urine 900 200 Other: Voiding Method Indwelling Catheter Indwelling Catheter # Bowel Movements 1 1 Weight 81.81 kg 82.4 kg Results 03/29/24 07:14 03/29/24 07:14 CBC 03/29/24 Range/Units 07:14 WBC 9.3 (3.8-10.6) k/uL RBC 3.71 L (4.30-5.90) m/uL Hgb 11.1 L (13.0-17.5) gm/dL Hct 36.5 L (39.0-53.0) % Plt Count 323 (150-450) k/uL Comprehensive Metabolic Panel 03/29/24 Range/Units 07:14 Sodium 137 (137-145) mmol/L Potassium 4.3 (3.5-5.1) mmol/L Chloride 108 H (98-107) mmol/L Carbon Dioxide 24 (22-30) mmol/L BUN 30 H (9-20) mg/dL Creatinine 1.72 H (0.66-1.25) mg/dL Glucose 109 H (74-99) mg/dL Calcium 9.3 (8.4-10.2) mg/dL Current Medications Generic Name Dose Route Start Last Admin Trade Name Freq PRN Reason Stop Dose Admin Atorvastatin Calcium 20 mg 03/28/24 21:00 03/28/24 21:12 Atorvastatin 20 Mg Tab PO 20 mg HS CALIXTO Administration Bumetanide 0.5 mg 03/29/24 09:00 03/29/24 07:46 Bumetanide 0.5 Mg Tablet PO 0.5 mg DAILY CALIXTO Administration Docusate Sodium 200 mg 03/28/24 21:00 03/29/24 07:48 Docusate 100 Mg Cap PO Not Given BID CALIXTO Sodium Chloride 1,000 mls @ 50 mls/hr 03/29/24 07:45 03/29/24 07:55 Saline 0.9% IV 50 mls/hr .Q20H CALIXTO Administration Sodium Chloride 1,000 mls @ 50 mls/hr 03/29/24 07:45 03/29/24 07:55 Saline 0.9% IV Not Given .Q20H CALIXTO Cefazolin Sodium 2 gm/ Sodium 50 mls @ 100 mls/hr 03/29/24 07:00 Chloride IVPB 03/29/24 23:00 ONCE PRN Pre-Op Cefazolin Sodium 1 gm/ Sodium 250 mls @ 250 mls/hr 03/29/24 07:00 Chloride IRRIGATION 03/29/24 23:00 ONCE PRN PRE-OP Isosorbide Mononitrate 15 mg 03/28/24 21:00 03/28/24 21:12 Isosorbide Mononitrate Er 15 Mg Tab PO 15 mg HS CALIXTO Administration Isosorbide Mononitrate 60 mg 03/28/24 21:00 03/28/24 21:12 Isosorbide Mononitrate Er 60 Mg Tab.Er.24h PO 60 mg HS CALIXTO Administration Levothyroxine Sodium 125 mcg 03/29/24 06:30 03/29/24 05:58 Levothyroxine 125 Mcg Tab PO 125 mcg DAILY@0630 CALIXTO Administration Nitroglycerin 0.4 mg 03/28/24 20:02 Nitroglycerin Sl Tabs 0.4 Mg Tab SUBLINGUAL Q5M PRN Chest Pain Ranolazine 1,000 mg 03/28/24 21:00 03/29/24 07:46 Ranolazine 500 Mg Tab.Er.12h PO 1,000 mg BID CALIXTO Administration Ticagrelor 90 mg 03/28/24 21:00 03/29/24 07:46 Ticagrelor 90 Mg Tab PO 90 mg BID CALIXTO Administration Intake and Output 03/28/24 03/29/24 03/29/24 22:59 06:59 14:59 Intake Total 10 Output Total 900 200 Balance -890 -200 Intake: IV 10 0.9 10 Output: Urine 900 200 Other: Voiding Method Indwelling Catheter Indwelling Catheter # Bowel Movements 1 1 Weight 81.81 kg 82.4 kg 03/29/24 07:14 03/29/24 07:14
[2024-03-29] MEDS: IV FLUID CONTINUATION 700 ML IV ONE (17:37)
[2024-03-29] MEDS: IOPAMIDOL-370 100ML BTL INJ ONE (17:50)
[2024-03-29] MEDS ORDERED: LIDOCAINE 1% INJ 10MG/ML (20 ML MDV) ONE (18:09)
[2024-03-29] MEDS: ceFAZolin 1 GM in SODIUM CHLORIDE 0.9% IRRIG BTL 250 ML IRRIGATION PRN (18:16)
[2024-03-29] MEDS: LIDOCAINE 1% INJ 10MG/ML (20 ML MDV) SQ ONE (18:24)
[2024-03-29] MEDS: ROPIVACAINE 5MG/ML 20ML VIAL MISCELLANE ONE (18:26)
[2024-03-29] MEDS ORDERED: ACETAMINOPHEN TAB 325 MG TAB PO PRN (19:34)
--- NOTE | 2024-03-29 19:40 | P.EPPROC ---
- EP Procedure Note Electrophysiology Procedure Note: Diagnosis Symptomatic severe bradycardia associate with Presyncope documented on event monitor Presented with syncope last week Procedure Dual-chamber pacemaker implantation Left upper extremity venogram Conscious sedation Details Patient was brought to the EP lab in a fasting state. Written informed consent was obtained prior to the procedure. Conscious sedation provided.(Time: 1929) Left upper extremity venogram revealed patent left subclavian vein. 10 cc IV dye injected in the left arm IV antibiotics administered. Local anesthesia administered. A 4 cm incision made in the pectoral area. Subfascial pocket made. Venous accesses obtained Venous sheaths placed. Leads placed in the right heart Atrial lead position the right atrial appendage. Medtronic model 5076-lead, active fix lead P waves 0.8 mV, pace impedance 399 ohms and pacing threshold 1 V at 0.4 ms RV lead position in the RV apex, passive lead, Medtronic model #4074 R waves 18 mV, pacing impedance 1026 ohms and pacing threshold 0.75 V at 0.4 ms Device regulatory compliance director: [employer] [place] XT DR MRI Dual-chamber pacemaker device connected to the leads and placed in the subfascial pocket Antibiotic pouch placed Patient tolerated the procedure well without acute complications Pacemaker programming: AAI-DDD 60-130
--- NOTE | 2024-03-29 23:30 | P.CONS ---
History of Present Illness - Reason for Consult Consult date: 03/29/24 Medical management - Chief Complaint Syncopal episode - History of Present Illness Patient is a 83-year-old male with a past medical history of hypertension, hyperlipidemia, history of ID, coronary artery disease s/p stent placement, CABG, hypothyroidism. Patient was recently admitted to the hospital on 03/21/2024 due to syncopal episode x 2 and chest discomfort. ACS was ruled out and patient was discharged home with a event monitor. 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 Patient was taken to [facility] in [place] and from which patient was transferred to [facility] for further evaluation by cardiology. Event monitor found to have third-degree heart block. Patient was admitted to hospital for pacemaker placement. Patient currently denies any complaints of chest pain or shortness of breath. No nausea vomiting abdominal pain or diarrhea. Hemodynamically stable. Laboratory laboratory data showed WBC 9.3 hemoglobin 11.1 and platelets 323 sodium 137 potassium 4.3 chloride 108 bicarb is 24 BUN 30 and creatinine 1.72 and blood sugar 109 TSH 12.7 Free T4 level is pending. CTA on 03/21/2024. CTA chest was done due to elevated D-dimer level. No evidence of PE. Small bilateral pleural effusions right greater than left. Moderate hiatal hernia. No airspace consolidation or abnormal interstitial density. 2D echocardiogram during recent admission showed showed left ventricular ejection fraction 50%. Atypical inferior, apical hypokinesis. Moderately increased left-ventricular wall thickness. Moderately dilated left atrium. Review of Systems Constitutional: Patient denies any fever or chills . No generalized weakness or weight loss. Abdomen: Patient denied nausea vomiting and diarrhea and abdominal pain. Cardiovascular: Patient denies any chest pain or short of breath no pal pitations. Respiratory: patient denied any cough or sputum production. No shortness of breath Neurologic: Patient denied any numbness or tingling. no headache. Musculoskeletal: Patient denies any complaints of joint swelling or deformity. Skin: Negative Psychiatric: Negative Endocrine: No heat or cold intolerance. No recent weight gain. Genitourinary: No dysuria or hematuria. All other 14 point ROS negative except the above Past Medical History Past Medical History: Coronary Artery Disease (CAD), Hyperlipidemia, Hypertension, Myocardial Infarction (ID), Prostate Disorder, Thyroid Disorder Additional Past Medical History / Comment(s): SOB, third degree heart block with syncopal episodes March 2024 with pending pacemaker. Last Myocardial Infarction Date:: unknown History of Any Multi-Drug Resistant Organisms: None Reported Past Surgical History: Appendectomy, Cholecystectomy, Coronary Bypass/CABG, Heart Catheterization With Stent Additional Past Surgical History / Comment(s): thyroidectomy, 4 vessel CABG 25 yrs ago, 2-3 cardiac stents, toya cataracts Past Anesthesia/Blood Transfusion Reactions: No Reported Reaction Date of Last Stent Placement:: 2019 Past Psychological History: No Psychological Hx Reported Smoking Status: Never smoker Past Alcohol Use History: None Reported Past Drug Use History: None Reported - Past Family History Mother Family Medical History: No Reported History Medications and Allergies Home Medications Medication Instructions Recorded Confirmed Type Atorvastatin [Lipitor] 20 mg PO HS 11/07/19 03/28/24 History Fenofibrate Nanocrystallized 145 mg PO DAILY 11/07/19 03/28/24 History [Fenofibrate] Nitroglycerin Sl Tabs [Nitrostat] 0.4 mg SL Q5M PRN 11/07/19 03/28/24 History Ticagrelor [Brilinta] 90 mg PO BID 11/07/19 03/28/24 History Isosorbide Mononitrate ER [Imdur] 60 mg PO HS 07/02/21 03/28/24 History Levothyroxine Sodium [Synthroid] 125 mcg PO DAILY 06/18/22 03/28/24 History Ranolazine [Ranexa] 1,000 mg PO BID 06/18/22 03/28/24 History carvediloL [Coreg*] 12.5 mg PO BID-W/MEALS #30 tab 06/24/22 03/28/24 Rx Cinnamon Bark [Cinnamon] 2,000 mg PO BID 10/29/22 03/28/24 History Bumetanide [BUMEX] 0.5 mg PO DAILY 03/21/24 03/28/24 History Co Q-10(Unknown Dose) 1 tab PO DAILY 03/21/24 03/28/24 History Docusate [Colace] 200 mg PO BID 03/21/24 03/28/24 History Isosorbide Mononitrate ER [Imdur] 15 mg PO HS 03/21/24 03/28/24 History Potassium Chloride ER [K-Dur 10] 10 meq PO DAILY 03/21/24 03/28/24 History Allergies Allergy/AdvReac Type Severity Reaction Status Date / Time morphine AdvReac bowel Verified 03/28/24 18:46 obstruction/ileus Physical Exam Vitals: Vital Signs Temp Pulse Resp BP BP Pulse Ox 03/29/24 07:44 79 16 155/89 99 03/29/24 04:00 97.9 F 78 18 127/69 95 03/29/24 01:53 84 18 03/28/24 23:46 97.4 F L 84 18 150/88 97 03/28/24 20:00 97.6 F 84 18 148/84 97 03/28/24 18:11 97.2 F L 79 18 126/67 97 03/28/24 17:53 97.2 F L 79 17 126/67 97 Intake and Output 03/28/24 03/29/24 03/29/24 22:59 06:59 14:59 Intake Total 10 Output Total 900 200 Balance -890 -200 Intake: IV 10 0.9 10 Output: Urine 900 200 Other: Voiding Method Indwelling Catheter Indwelling Catheter Indwelling Catheter # Bowel Movements 1 1 Weight 81.81 kg 82.4 kg PHYSICAL EXAMINATION: Patient is lying in the bed comfortably, no acute distress, awake alert and oriented.. HEENT: Normocephalic. Neck is supple. Pupils reactive. Nostrils clear. Oral cavity is moist. Neck reveals no JVD, carotid bruits, or thyromegaly. CHEST EXAMINATION: Trachea is central. Symmetrical expansion. Lung leonard clear to auscultation and percussion. CARDIAC: Normal S1, S2 with no gallops. No murmurs ABDOMEN: Soft. Bowel sounds normal. No organomegaly. No abdominal bruits. Extremities: reveal no edema. No clubbing or cyanosis Neurologically awake, alert, oriented x3 with well-coordinated movements. No focal deficits noted Skin: No rash or skin lesions. Psychiatric: Coperative. Nonsuicidal Musculoskeletal: No joint swelling or deformity. Normal range of motion. Results CBC & Chem 7: 03/29/24 07:14 03/29/24 07:14 Labs: Abnormal Lab Results - Last 24 Hours (Table) 03/29/24 03/29/24 03/29/24 Range/Units 07:14 07:14 07:14 RBC 3.71 L (4.30-5.90) m/uL Hgb 11.1 L (13.0-17.5) gm/dL Hct 36.5 L (39.0-53.0) % MCHC 30.4 L (31.0-37.0) g/dL Chloride 108 H (98-107) mmol/L BUN 30 H (9-20) mg/dL Creatinine 1.72 H (0.66-1.25) mg/dL Glucose 109 H (74-99) mg/dL TSH 12.700 H (0.465-4.680) mIU/L Assessment and Plan Assessment: Third-degree AV block Recurrent syncopal episode with recent admission. Patient was discharged home with event monitor., Coronary arteries history of CABG Chronic HFpEF Hypertension Hyperlipidemia Diabetes type 2 diet-controlled Hypothyroidism CKD stage III with baseline creatinine level 1.7 History of appendectomy and cholecystectomy History of appendectomy and cholecystectomy DVT prophylaxis with heparin subcu Plan: Patient will be continued on telemonitoring. Cardiology is planning for pacemaker placement today. Coreg has been discontinued.. Continue other home medications. Free T4 level was ordered due to elevated TSH level. Avoid nephrotoxins. Continue to follow closely. Time with Patient: Greater than 30
[2024-03-29] MEDS: HEPARIN SODIUM,PORCINE 5,000 UNIT/ML 1 ML VIAL SQ SCH (23:43)
[2024-03-30] MEDS: LEVOTHYROXINE 137 MCG TAB PO SCH (05:57)
[2024-03-30 08:12] VITALS: TEMP 97.8
--- NOTE | 2024-03-30 08:53 | XR ---
EXAMINATION TYPE: XR chest 2V DATE OF EXAM: 03/30/2024 COMPARISON: 03/21/2024 HISTORY: 83-year-old male lead placement check TECHNIQUE: PA and lateral views FINDINGS: Left anterior chest wall pacemaker generator with right atrial and right ventricular leads. Median st ernotomy wires and post-CABG clips. Additional surgical clips at the GE junction. Heart upper limits of normal in size. Interstitial densities are unchanged. Possible trace right effusion decreased in t he interval. No appreciable pneumothorax. IMPRESSION: 1. Left anterior chest wall pacemaker generator with right atrial right ventricular leads. No appreci able pneumothorax. 2. Diffuse interstitial density persists, possible pulmonary vascular congestion. 3. There may be a trace right effusion, slightly improved in the interval.
[2024-03-30 08:59] LABS: Basophils # (A) 0.1 k/uL (0-0.2); Basophils % (A) 1 %; Eosinophils # (A) 0.3 k/uL (0-0.7); Eosinophils % (A) 3 %; HGB 10.4 gm/dL (13.0-17.5); Hypochromasia Slight; Lymphocytes # (A) 2.1 k/uL (1.0-4.8); Lymphocytes % (A) 21 %; MCH 29.7 pg (25.0-35.0); MCHC 30.7 g/dL (31.0-37.0); MCV 96.7 fL (80.0-100.0); Mean Platelet Volume 8.6; Monocytes # (A) 0.8 k/uL (0-1.0); Monocytes % (A) 8 %; Neutrophils # (A) 6.4 k/uL (1.3-7.7); Neutrophils % (A) 64 %; Platelet Count 272 k/uL (150-450); RBC 3.52 m/uL (4.30-5.90); RDW 15.5 % (11.5-15.5); WBC 9.9 k/uL (3.8-10.6)
[2024-03-30 09:11] LABS: African American GFR (CKD) 43 (>60 ml/min/1.73 sqM); Anion Gap 4 mmol/L; Blood Urea Nitrogen 31 mg/dL (9-20); Calcium 9.5 mg/dL (8.4-10.2); Carbon Dioxide 26 mmol/L (22-30); Chloride 106 mmol/L (98-107); Glucose 117 mg/dL (74-99); Non-African American GFR(CKD) 37 (>60 ml/min/1.73 sqM); Potassium 4.5 mmol/L (3.5-5.1); Sodium 136 mmol/L (137-145)
--- NOTE | 2024-03-30 09:54 | P.DS ---
Providers Date of admission: 03/28/24 17:42 Expected date of discharge: 03/30/24 Attending physician: Wilberto Vasquez Consults: 03/28/24 20:02 Consult Physician Routine Consulting Provider: Everette Acevedo Consult Reason/Comments: Medical Management Do you want consulting provider notified?: Yes Primary care physician: Stated None Hospital Course: History of present illness: HISTORY OF PRESENT ILLNESS: Caleb is a 83-year-old male with a past medical history significant for coronary artery disease with previous CABG, congestive heart failure, hypertension, hyperlipidemia, and diabetes. Patient follows in the office with Dr. Vasquez. Patient had a recent hospitalization at which time he presented with a syncopal episode and chest pain. Patient was set up for event monitor. On the event monitor, patient was found to have third-degree heart block and was directed to come into the hospital for pacemaker implantation. Patient denies having any chest pain no shortness of breath, no palpitations. He has had no further syncopal episodes since his hospitalization earlier in the month. Heart rate is 79, blood pressure 155/89, pulse ox 95% on room air, afebrile. DIAGNOSTICS: EKG reveals sinus mechanism with no signs of acute ischemia. Laboratory data: WBC 9.3, hemoglobin 11.1. Sodium 137, potassium 4.3, BUN 30 creatinine 1.72. Glucose 109. TSH 12.7 Current home cardiac medications include a atorvastatin 20 mg at bedtime, Bumex 0.5 mg daily, Coreg 12.5 mg twice daily, Imdur 75 mg at bedtime, levothyroxine 125 mcg daily, Nitrostat as needed, potassium chloride 10 mill equivalents daily, Ranexa 1000 mg twice daily, Brilinta 90 mg twice daily. Most recent echocardiogram obtained 03/21/2024 revealed EF 50%, apical inferior and apical hypokinesis, mild MR, mild TR. Cardiac catheterization history: June 2022 revealing patent ABREU to LAD, patent venous graft to the PLV with a focal severe stenotic lesion, patent vein graft to the PDA. Patient underwent angioplasty of VG to PLV. 03/30 Patient is status post dual-chamber Medtronic pacemaker implantation completed yesterday. Pacemaker has been interrogated and chest x-ray has been reviewed by Dr. Allred. Patient has had no complications. He denies any chest pain no lightheadedness or dizziness. Patient has had a small amount of oozing from the pacemaker site which was expected due to Brilinta. Blood pressure 145/84, heart rate 70, pulse ox 100% on room air. No medication changes will be made in blood pressure will be monitored outpatient. PHYSICAL EXAM: VITAL SIGNS: Reviewed. GENERAL: Well-developed in no acute distress. HEENT: Head is normocephalic. Pupils are equal, round. Sclerae anicteric. Mucous membranes of the mouth are moist. Neck supple. No JVD or thyromegaly LUNGS: Respirations even and unlabored. Lungs essentially clear to auscultation bilaterally. HEART: Regular rate and rhythm. S1 and S2 heard. Systolic murmur at the apex. ABDOMEN: Soft. Nondistended. Nontender. EXTREMITIES: No clubbing or cyanosis. Peripheral pulses intact. No lower extremity edema NEUROLOGIC: Awake and alert. Oriented x 3. ASSESSMENT: Third-degree heart block status post dual-chamber Medtronic pacemaker implantation Recent episode of syncope Coronary artery disease with previous CABG Chronic congestive heart failure with preserved EF, currently euvolemic Hypertension Hyperlipidemia Diabetes PLAN: Discharged home Nurse practitioner note has been reviewed by physician. Signing provider agrees with the documented findings, assessment, and plan of care documented by SCREEN EXAMINER as a scribe. Patient Condition at Discharge: Good Plan - Discharge Summary New Discharge Prescriptions: New Levothyroxine Sodium [Synthroid] 137 mcg PO DAILY@0630 #30 tab Tamsulosin [Flomax] 0.4 mg PO PC-BRKFST #30 cap Continue Nitroglycerin Sl Tabs [Nitrostat] 0.4 mg SL Q5M PRN PRN Reason: Chest Pain Fenofibrate Nanocrystallized [Fenofibrate] 145 mg PO DAILY Atorvastatin [Lipitor] 20 mg PO HS Ticagrelor [Brilinta] 90 mg PO BID Cinnamon Bark [Cinnamon] 2,000 mg PO BID Potassium Chloride ER [K-Dur 10] 10 meq PO DAILY Bumetanide [BUMEX] 0.5 mg PO DAILY Isosorbide Mononitrate ER [Imdur] 60 mg PO HS Ranolazine [Ranexa] 1,000 mg PO BID carvediloL [Coreg*] 12.5 mg PO BID-W/MEALS #30 tab Isosorbide Mononitrate ER [Imdur] 15 mg PO HS Docusate [Colace] 200 mg PO BID Co Q-10(Unknown Dose) 1 tab PO DAILY Discontinued Levothyroxine Sodium [Synthroid] 125 mcg PO DAILY Discharge Medication List Atorvastatin [Lipitor] 20 mg PO HS 11/07/19 [History] Fenofibrate Nanocrystallized [Fenofibrate] 145 mg PO DAILY 11/07/19 [History] Nitroglycerin Sl Tabs [Nitrostat] 0.4 mg SL Q5M PRN 11/07/19 [History] Ticagrelor [Brilinta] 90 mg PO BID 11/07/19 [History] Isosorbide Mononitrate ER [Imdur] 60 mg PO HS 07/02/21 [History] Ranolazine [Ranexa] 1,000 mg PO BID 06/18/22 [History] carvediloL [Coreg*] 12.5 mg PO BID-W/MEALS #30 tab 06/24/22 [Rx] Cinnamon Bark [Cinnamon] 2,000 mg PO BID 10/29/22 [History] Bumetanide [BUMEX] 0.5 mg PO DAILY 03/21/24 [History] Co Q-10(Unknown Dose) 1 tab PO DAILY 03/21/24 [History] Docusate [Colace] 200 mg PO BID 03/21/24 [History] Isosorbide Mononitrate ER [Imdur] 15 mg PO HS 03/21/24 [History] Potassium Chloride ER [K-Dur 10] 10 meq PO DAILY 03/21/24 [History] Levothyroxine Sodium [Synthroid] 137 mcg PO DAILY@0630 #30 tab 03/30/24 [Rx] Tamsulosin [Flomax] 0.4 mg PO PC-BRKFST #30 cap 03/30/24 [Rx] Follow up Appointment(s)/Referral(s): Rody Mercedes DO [REFERRING] - 04/04/24 10:00 am (your primary care doctor) Wilberto Vasquez MD [STAFF PHYSICIAN] - 04/05/24 3:00 pm (Thursday Device check and dr's appointment) Poli Webster MD [STAFF PHYSICIAN] - 1 Week (Spoke to airline lounge receptionist. Office will call with appointment time) Patient Instructions/Handouts: Pacemaker (DC) Activity/Diet/Wound Care/Special Instructions: heart healthy diet activity is restricted till you see your doctor Discharge Disposition: HOME SELF-CARE
[2024-03-30] MEDS: TAMSULOSIN 0.4 MG CAP.ER.24H PO SCH (11:56)
[2024-03-30 11:57] VITALS: BP 145/84; PULSE 70
== END 2024-03-30 12:58 | disposition home or self-care (01) | DRG 243 ==
LOC: 3SCARD 17:42
PROVIDERS: ADMIT Internal Medicine Cardiovascular Disease; ATTEND Internal Medicine Cardiovascular Disease
PROC: 02H63JZ Insertion of Pacemaker Lead into Right Atrium, Percutaneous Approach (ICD-10-PCS; principal; 2024-03-29 13:50)
PROC: 0JH606Z Insertion of Pacemaker, Dual Chamber into Chest Subcutaneous Tissue and Fascia, Open Approach (ICD-10-PCS; principal; 2024-03-29 13:50)
PROC: B51N1ZZ Fluoroscopy of Left Upper Extremity Veins using Low Osmolar Contrast (ICD-10-PCS; principal; 2024-03-29 13:50)
PROC: 3E0102A Introduction of Anti-Infective Envelope into Subcutaneous Tissue, Open Approach (ICD-10-PCS; principal; 2024-03-29 13:50)
PROC: 02HK3JZ Insertion of Pacemaker Lead into Right Ventricle, Percutaneous Approach (ICD-10-PCS; principal; 2024-03-29 13:50)
DX: I44.2 Atrioventricular block, complete (principal); I13.0 Hypertensive heart and chronic kidney disease with heart failure and stage 1 through stage 4 chronic kidney disease, or unspecified chronic kidney disease; I50.32 Chronic diastolic (congestive) heart failure; I25.10 Atherosclerotic heart disease of native coronary artery without angina pectoris; E78.5 Hyperlipidemia, unspecified; E11.22 Type 2 diabetes mellitus with diabetic chronic kidney disease; N18.30 Chronic kidney disease, stage 3 unspecified; E89.0 Postprocedural hypothyroidism; K44.9 Diaphragmatic hernia without obstruction or gangrene; Z66 Do not resuscitate; Z95.1 Presence of aortocoronary bypass graft; Z95.5 Presence of coronary angioplasty implant and graft; I25.2 Old myocardial infarction; Z88.5 Allergy status to narcotic agent; Z79.899 Other long term (current) drug therapy; Z79.890 Hormone replacement therapy; Z79.02 Long term (current) use of antithrombotics/antiplatelets; R00.1 Bradycardia, unspecified
CPT/HCPCS: 33208; 71046; 80048; 84439; 84443; 85025

== ENCOUNTER 2024-04-19 17:20 | Inpatient (IN) | payer MEDICARE ==
[~2024-04-19 17:20] MED LIST changes: -ALPRAZolam 0.25 MG TAB PO PRN; -ALPRAZolam 0.5 MG TAB PO PRN; -ASPIRIN 325 MG TAB PO STA; +ASPIRIN 81 MG ONE; -ATORVASTATIN 80 MG TAB PO STA; +FUROSEMIDE 10 MG/ML 4 ML VIAL ONE; +HEPARIN SOD,PORK IN 0.45% NACL 250 ML IV ONE; +HEPARIN SODIUM 1,000 UN/ML (10ML VL) ONE; +NITROGLYCERIN OINT 1 INCH/GM PACKET TOPICAL ONE; -NITROGLYCERIN SL TABS 0.4 MG TAB SUBLINGUAL PRN; -SODIUM CHLORIDE 0.9% 1,000 ML in EMPTY BAG 1 BAG IV SCH
[2024-04-19] MEDS ORDERED: SODIUM CHLORIDE 0.9% 1,000 ML BAG ONE (18:00)
[2024-04-20] MEDS ORDERED: FUROSEMIDE 40 MG TAB ONE (21:20)
[2024-04-20] MEDS ORDERED: RANOLAZINE 500 MG TAB.ER.12H PO ONE (21:21)
[2024-04-20] MEDS ORDERED: carvediloL 12.5 MG TAB ONE (21:21)
[2024-04-20] MEDS ORDERED: ATORVASTATIN 40 MG TAB ONE (21:21)
[2024-04-21] MEDS ORDERED: HEPARIN SODIUM 1,000 UN/ML (10ML VL) ONE (02:57)
[2024-04-21] MEDS ORDERED: RANOLAZINE 500 MG TAB.ER.12H PO ONE ×2 (11:01→22:30)
[2024-04-21] MEDS ORDERED: FUROSEMIDE 40 MG TAB ONE ×2 (11:01→23:59)
[2024-04-21] MEDS ORDERED: ASPIRIN 81 MG ONE (11:01)
[2024-04-21] MEDS ORDERED: ISOSORBIDE MONONITRATE ER 60 MG TAB.ER.24H PO ONE (11:01)
[2024-04-21] MEDS ORDERED: carvediloL 12.5 MG TAB ONE ×2 (11:02→22:30)
[2024-04-21] MEDS ORDERED: FUROSEMIDE 10 MG/ML 4 ML VIAL ONE (22:29)
[2024-04-21] MEDS ORDERED: ATORVASTATIN 40 MG TAB ONE (22:29)
[2024-04-21] MEDS ORDERED: LEVOTHYROXINE 137 MCG TAB ONE (23:59)
[2024-04-22] MEDS ORDERED: LEVOTHYROXINE 137 MCG TAB ONE (08:00)
[2024-04-22] MEDS ORDERED: SODIUM CHLORIDE 0.9% 1,000 ML BAG ONE (08:00)
[2024-04-22] MEDS ORDERED: ISOSORBIDE MONONITRATE ER 60 MG TAB.ER.24H PO ONE (08:54)
[2024-04-22] MEDS ORDERED: ASPIRIN 81 MG ONE (08:54)
[2024-04-22] MEDS ORDERED: RANOLAZINE 500 MG TAB.ER.12H PO ONE (08:55)
[2024-04-22] MEDS ORDERED: carvediloL 12.5 MG TAB ONE (08:55)
[2024-04-22] MEDS ORDERED: FUROSEMIDE 40 MG TAB ONE (08:55)
--- NOTE | 2024-05-25 14:38 | XR ---
Patient Jose Oshea ID [id number] Order # EXAMINATION TYPE: XR chest 2V DATE OF EXAM: 05/01/2024 COMPARISON: No comparison available on downtime PACS. INDICATION: Pain TECHNIQUE: Frontal and lateral views of the chest are obtained. FINDINGS: The heart size is dominant. Sternotomy wires are present from prior CABG. Pacemaker overlies the lef t chest. The pulmonary vasculature is normal. Small right pleural effusion is present and this extends along the lateral margin or fracture. Lurer ior pleural effusion is also noted.. IMPRESSION: 1. Small right pleural effusion 2. Cardiomegaly
== END 2024-04-22 11:49 | disposition home or self-care (01) | DRG 292 ==
LOC: UNDODISIN 17:20 → 3SCARD 17:20
PROVIDERS: ADMIT Hospitalist; ATTEND Hospitalist
DX: I13.0 Hypertensive heart and chronic kidney disease with heart failure and stage 1 through stage 4 chronic kidney disease, or unspecified chronic kidney disease (principal); I44.2 Atrioventricular block, complete; I42.9 Cardiomyopathy, unspecified; I50.9 Heart failure, unspecified; N18.9 Chronic kidney disease, unspecified; I25.2 Old myocardial infarction; E78.00 Pure hypercholesterolemia, unspecified; I08.1 Rheumatic disorders of both mitral and tricuspid valves; Z88.5 Allergy status to narcotic agent; Z95.1 Presence of aortocoronary bypass graft; Z95.0 Presence of cardiac pacemaker
CPT/HCPCS: 71046; 80048; 80053; 81003; 83735; 83880; 84484; 85025; 85730; 93308; 96374; 96375; 96376; 99291

== ENCOUNTER 2024-05-27 21:16 | Inpatient (IN) | payer MEDICARE ==
[2024-05-27 22:04] LABS: Basophils % (A) 1 %; Eosinophils # (A) 0.2 k/uL (0-0.7); Eosinophils % (A) 2 %; HCT 29.5 % (39.0-53.0); Hypochromasia Marked; Lymphocytes % (A) 24 %; MCHC 30.4 g/dL (31.0-37.0); Mean Platelet Volume 8.5; Monocytes # (A) 0.6 k/uL (0-1.0); Monocytes % (A) 8 %; Neutrophils # (A) 5.2 k/uL (1.3-7.7); Neutrophils % (A) 62 %; Platelet Count 317 k/uL (150-450); RBC 3.33 m/uL (4.30-5.90); RDW 15.7 % (11.5-15.5); WBC 8.4 k/uL (3.8-10.6)
[2024-05-27 22:15] LABS: MCV 88.6 fL (80.0-100.0)
[2024-05-27 22:17] LABS: INR 1.2 (<1.2); Partial Thromboplastin Time 23.8 sec (22.0-30.0); Prothrombin Time 12.6 sec (10.0-12.5); Sodium 136 mmol/L (137-145)
[2024-05-27 22:18] LABS: ALT 17 U/L (4-49); AST 35 U/L (17-59); African American GFR (CKD) 36 (>60 ml/min/1.73 sqM); Albumin 3.6 g/dL (3.5-5.0); Alkaline Phosphatase 50 U/L (38-126); Anion Gap 10 mmol/L; Blood Urea Nitrogen 40 mg/dL (9-20); Calcium 9.4 mg/dL (8.4-10.2); Carbon Dioxide 22 mmol/L (22-30); Chloride 104 mmol/L (98-107); Glucose 120 mg/dL (74-99); Non-African American GFR(CKD) 31 (>60 ml/min/1.73 sqM); Potassium 4.4 mmol/L (3.5-5.1); Total Bilirubin 0.7 mg/dL (0.2-1.3); Total Protein 6.1 g/dL (6.3-8.2)
[2024-05-27 22:25] LABS: NT-Pro-B-Type Natriuretic Pept 11200 pg/mL
[2024-05-27] MEDS: SODIUM CHLORIDE 0.9% 500 ML 500 ML IV ONE (22:30)
--- NOTE | 2024-05-28 00:24 | CT ---
EXAM: CT Angiography Chest With Intravenous Contrast CLINICAL HISTORY: ITS.REASON CT Reason: elevated d-dimer, exertional sob TECHNIQUE: Axial computed tomographic angiography images of the chest with intravenous contrast. CTDI is 31.3 mGy and DLP is 658 mGy-cm. This CT exam was performed using one or more of the following dose reduction techniques: automated exposure control, adjustment of the mA and/or kV according to patient size, and/or use of iterative reconstruction technique. MIP reconstructed images were created and reviewed. COMPARISON: No relevant prior studies available. FINDINGS: Pulmonary arteries: Unremarkable. No pulmonary embolism. Aorta: Atherosclerotic changes of the aorta. No thoracic aortic aneurysm. Lungs: See below. Pleural space: Small bilateral pleural effusions. Subjacent airspace consolidations, likely atelectasis. Heart: Cardiomegaly. No significant pericardial effusion. No evidence of RV dysfunction. Bones/joints: Degenerative changes of the spine. Sternotomy wires. No acute fracture. No dislocation. Soft tissues: Unremarkable. Lymph nodes: Unremarkable. No enlarged lymph nodes. Spleen: Calcified splenic granulomas. Tubes, lines and devices: Pacemaker leads. IMPRESSION: Small bilateral pleural effusions. Subjacent airspace consolidations, likely atelectasis.
--- NOTE | 2024-05-28 00:31 | XR ---
EXAM: XR Chest, 2 Views CLINICAL HISTORY: ITS.REASON XR Reason: difficulty breathing TECHNIQUE: Frontal and lateral views of the chest. COMPARISON: Concomitant chest CT. FINDINGS: Lungs: Unremarkable. No consolidation. Pleural space: Small bilateral pleural effusions. No pneumothorax. Heart: Cardiomegaly. Mediastinum: Mediastinal clips. Bones/joints: Sternotomy wires. No acute fracture. Tubes, lines and devices: Pacemaker leads. IMPRESSION: Small bilateral pleural effusions. Refer to the concomitant chest CT.
--- NOTE | 2024-05-28 01:02 | ED ---
SOB HPI - General Chief Complaint: Shortness of Breath Stated Complaint: SOB Time Seen by Provider: 05/27/24 21:25 Source: patient Mode of arrival: wheelchair Limitations: no limitations - History of Present Illness Initial Comments: 83-year-old male presents emergency department reporting shortness of breath especially with exertion. Patient was hospitalized in April for similar complaint. He has known CHF. States that since he got home he has become more short of breath when ambulating. States he can only take a couple of steps befo re having to stop. He is on Bumex and has been taking it as directed. Denies weight gain. States that he drinks 2, 16 ounce bottles of water a day. He denies any chest pain. No fevers, chills or cough. Has some lower extremity swelling. No other alleviating, precipitating or modifying factors - Related Data Home Medications Medication Instructions Recorded Confirmed Fenofibrate Nanocrystallized 145 mg PO DAILY 11/07/19 05/28/24 [Fenofibrate] Nitroglycerin Sl Tabs [Nitrostat] 0.4 mg SL Q5M PRN 11/07/19 05/28/24 Ranolazine [Ranexa] 1,000 mg PO BID 06/18/22 05/28/24 Cinnamon Bark [Cinnamon] 2,000 mg PO BID 10/29/22 05/28/24 Bumetanide [BUMEX] 0.5 mg PO DAILY 03/21/24 05/28/24 Co Q-10(Unknown Dose) 1 tab PO DAILY 03/21/24 05/28/24 Docusate [Colace] 200 mg PO BID 03/21/24 05/28/24 Potassium Chloride ER [K-Dur 10] 10 meq PO DAILY 03/21/24 05/28/24 Previous Rx's Medication Instructions Recorded carvediloL [Coreg*] 12.5 mg PO BID-W/MEALS #30 tab 06/24/22 Levothyroxine Sodium [Synthroid] 137 mcg PO DAILY@0630 #30 tab 03/30/24 Tamsulosin [Flomax] 0.4 mg PO PC-BRKFST #30 cap 03/30/24 Aspirin 81 mg PO DAILY #30 tab 06/02/24 Atorvastatin [Lipitor] 40 mg PO HS #30 tab 06/02/24 Dapagliflozin Propanediol [Farxiga] 10 mg PO DAILY #30 tab 06/02/24 Isosorbide Mononitrate ER [Imdur] 30 mg PO HS #30 tab 06/02/24 Allergies Allergy/AdvReac Type Severity Reaction Status Date / Time morphine AdvReac bowel Verified 05/28/24 09:15 obstruction/ileus Review of Systems ROS Statement: Those systems with pertinent positive or pertinent negative responses have been documented in the HPI. ROS Other: All systems not noted in ROS Statement are negative. Past Medical History Past Medical History: Coronary Artery Disease (CAD), Hyperlipidemia, Hypertension, Myocardial Infarction ([place]), Prostate Disorder, Thyroid Disorder Additional Past Medical History / Comment(s): SOB, third degree heart block with syncopal episodes March 2024 with pending pacemaker. Last Myocardial Infarction Date:: unknown History of Any Multi-Drug Resistant Organisms: None Reported Past Surgical History: Appendectomy, Cholecystectomy, Coronary Bypass/CABG, H eart Catheterization With Stent Additional Past Surgical History / Comment(s): thyroidectomy, 4 vessel CABG 25 yrs ago, 2-3 cardiac stents, toya cataracts Past Anesthesia/Blood Transfusion Reactions: No Reported Reaction Date of Last Stent Placement:: 2019 Past Psychological History: No Psychological Hx Reported Smoking Status: Never smoker Past Alcohol Use History: None Reported Past Drug Use History: None Reported - Past Family History Mother Family Medical History: No Reported History General Exam Limitations: no limitations General appearance: alert, in no apparent distress Head exam: Present: atraumatic, normocephalic, normal inspection Eye exam: Present: normal appearance, PERRL, EOMI. Absent: scleral icterus, conjunctival injection, periorbital swelling ENT exam: Present: normal exam, mucous membranes moist Neck exam: Present: normal inspection. Absent: tenderness, meningismus, lymph adenopathy Respiratory exam: Present: rales, other (Exertional dyspnea). Absent: respiratory distress, wheezes, rhonchi, stridor Cardiovascular Exam: Present: regular rate, normal rhythm, normal heart sounds. Absent: systolic murmur, diastolic murmur, rubs, gallop, clicks GI/Abdominal exam: Present: soft, normal bowel sounds. Absent: distended, tenderness, guarding, rebound, rigid Extremities exam: Present: normal inspection, full ROM, normal capillary refill. Absent: tenderness, pedal edema, joint swelling, calf tenderness Back exam: Present: normal inspection Neurological exam: Present: alert, oriented X3, CN II-XII intact Psychiatric exam: Present: normal affect, normal mood Skin exam: Present: warm, dry, intact, normal color. Absent: rash Course Vital Signs 05/27/24 05/27/24 05/27/24 21:20 21:53 23:19 Temperature 98 F Pulse Rate 66 64 Pulse Rate [ Recreation Instructor ] Respiratory 20 19 18 Rate Blood Pressure 102/68 117/74 Blood Pressure [Right Arm] O2 Sat by Pulse 100 100 99 Oximetry 05/28/24 05/28/24 05/28/24 03:00 06:38 09:05 Temperature Pulse Rate 65 65 69 Pulse Rate [ Recreation Instructor ] Respiratory 24 18 20 Rate Blood Pressure 110/70 126/81 123/78 Blood Pressure [Right Arm] O2 Sat by Pulse 98 100 99 Oximetry 05/28/24 05/28/24 05/28/24 11:00 14:55 17:40 Temperature Pulse Rate 72 65 60 Pulse Rate [ Recreation Instructor ] Respiratory 20 20 20 Rate Blood Pressure 124/67 127/78 125/74 Blood Pressure [Right Arm] O2 Sat by Pulse 95 96 96 Oximetry 05/28/24 05/28/24 05/29/24 21:13 23:20 00:58 Temperature 97.6 F Pulse Rate 60 60 Pulse Rate [ 62 Recreation Instructor ] Respiratory 18 18 20 Rate Blood Pressure 103/69 97/59 Blood Pressure 97/59 [Right Arm] O2 Sat by Pulse 100 100 100 Oximetry 05/29/24 05/29/24 05/29/24 04:00 09:52 10:23 Temperature 98 F 97.5 F L Pulse Rate 60 60 Pulse Rate [ 62 Recreation Instructor ] Respiratory 19 20 18 Rate Blood Pressure 103/65 123/69 Blood Pressure 110/69 [Right Arm] O2 Sat by Pulse 98 100 100 Oximetry 05/29/24 05/29/24 05/29/24 12:57 13:19 14:24 Temperature Pulse Rate 67 64 60 Pulse Rate [ Recreation Instructor ] Respiratory 22 16 20 Rate Blood Pressure 88/46 94/55 100/61 Blood Pressure [Right Arm] O2 Sat by Pulse 100 100 100 Oximetry 05/29/24 05/29/24 05/30/24 18:24 23:35 00:40 Temperature Pulse Rate 63 61 60 Pulse Rate [ Recreation Instructor ] Respiratory 20 16 18 Rate Blood Pressure 109/59 84/57 106/71 Blood Pressure [Right Arm] O2 Sat by Pulse 100 96 95 Oximetry Medical Decision Making - Medical Decision Making Was pt. sent in by a medical professional or institution (MARGOT Marshall, CARDIOLOGY TECHNICIAN, urgent care, hospital, or fdc...) When possible be specific @ -No Did you speak to anyone other than the patient for history (EMS, parent, family, police, friend...)? What history was obtained from this source @ -No Did you review nursing and triage notes (agree or disagree)? Why? @ -I reviewed and agree with nursing and triage notes Were old charts reviewed (outside hosp., previous admission, EMS record, old EKG, old radiological studies, urgent care reports/EKG's, fdc records)? Report findings @ -No old charts were reviewed Differential Diagnosis (chest pain, altered mental status, abdominal pain women, abdominal pain men, vaginal bleeding, weakness, fever, dyspnea, syncope, headache, dizziness, GI bleed, back pain, seizure, CVA, palpatations, mental health, musculoskeletal)? @ -Differential Dyspnea: Coronary syndrome, arrhythmia, tamponade, asthma, COPD, pulmonary embolism, pneumonia, pneumothorax, pulmonary effusion, anaphylaxis, diabetic ketoacidosis, flailed chest, pulmonary contusion, diaphragmatic rupture, anemia, neuromuscular, this is not meant to be an all-inclusive list. EKG interpreted by me (3pts min.). @ -Yes and demonstrates sinus rhythm with a rate of 65. QRS 124. QTc of 441. No acute ST segment elevations. Mild ST depression in 1 and aVL some baseline artifact. X-rays interpreted by me (1pt min.). @ -yes and demonstrates bilateral pleural effusions CT interpreted by me (1pt min.). @ -Yes and demonstrates bilateral pleural effusions U/S interpreted by me (1pt. min.). @ -None done What testing was considered but not performed or refused? (CT, X-rays, U/S, labs)? Why? @ -None What meds were considered but not given or refused? Why? @ -None Did you discuss the management of the patient with other professionals (professionals i.e. MARGOT Marshall, CARDIOLOGY TECHNICIAN, lab, RT, psych nurse, social services specialist, stunt driver, teacher, air intelligence officer, family caseworker)? Give summary @ -Spoke with Keira for admission Was smoking cessation discussed for >3mins.? @ -No Was critical care preformed (if so, how long)? @ -No Were there social determinants of health that impacted care today? How? (Homelessness, low income, unemployed, alcoholism, drug addiction, transportation, low edu. Level, literacy, decrease access to med. care, senior living, rehab)? @ -No Was there de-escalation of care discussed even if they declined (Discuss DNR or withdrawal of care, Hospice)? DNR status @ -No What co-morbidities impacted this encounter? (DM, HTN, Smoking, COPD, CAD, Ca ncer, CVA, ARF, Chemo, Hep., AIDS, mental health diagnosis, sleep apnea, morbid obesity)? @ -CHF Was patient admitted / discharged? Hospital course, mention meds given and route, prescriptions, significant lab abnormalities, going to OR and other pertinent info. @ -Upon arrival patient seen and evaluated in room 18. Thorough history and physical exam was performed. Laboratory studies are conducted. Chest x-ray and CT are performed which demonstrate signs of congestive heart failure. Patient will be admitted for diuresis Undiagnosed new problem with uncertain prognosis? @ -No Drug Therapy requiring intensive monitoring for toxicity (Heparin, Nitro, Insulin, Cardizem)? @ -No Were any procedures done? @ -No Diagnosis/symptom? @ -Acute respiratory insufficiency, acute exacerbation of CHF, pleural effusions Acute, or Chronic, or Acute on Chronic? @ -Acute Uncomplicated (without systemic symptoms) or Complicated (systemic symptoms)? @ -Complicated Side effects of treatment? @ -No Exacerbation, Progression, or Severe Exacerbation? @ -No Poses a threat to life or bodily function? How? (Chest pain, [place], [place], pneumonia, PE, COPD, DKA, ARF, appy, cholecystitis, CVA, Diverticulitis, Homicidal, Suicidal, threat to staff... and all critical care pts) @ -No - Lab Data Result diagrams: 06/01/24 06:21 06/01/24 06:21 Lab Results 05/27/24 05/27/24 05/27/24 Range/Units 21:52 21:52 21:52 WBC 8.4 (3.8-10.6) k/uL RBC 3.33 L (4.30-5.90) m/uL Hgb 9.0 L (13.0-17.5) gm/dL Hct 29.5 L (39.0-53.0) % MCV 88.6 D (80.0-100.0) fL MCH 27.0 (25.0-35.0) pg MCHC 30.4 L (31.0-37.0) g/dL RDW 15.7 H (11.5-15.5) % Plt Count 317 (150-450) k/uL MPV 8.5 Neutrophils % 62 % Lymphocytes % 24 % Monocytes % 8 % Eosinophils % 2 % Basophils % 1 % Neutrophils # 5.2 (1.3-7.7) k/uL Lymphocytes # 2.0 (1.0-4.8) k/uL Monocytes # 0.6 (0-1.0) k/uL Eosinophils # 0.2 (0-0.7) k/uL Basophils # 0.0 (0-0.2) k/uL Hypochromasia Marked PT 12.6 H (10.0-12.5) sec INR 1.2 H (<1.2) APTT 23.8 (22.0-30.0) sec D-Dimer 1.53 H (<0.60) mg/L FEU Sodium 136 L (137-145) mmol/L Potassium 4.4 (3.5-5.1) mmol/L Chloride 104 (98-107) mmol/L Carbon Dioxide 22 (22-30) mmol/L Anion Gap 10 mmol/L BUN 40 H (9-20) mg/dL Creatinine 1.94 H (0.66-1.25) mg/dL Est GFR (CKD-EPI)AfAm 36 (>60 ml/min/1.73 sqM) Est GFR (CKD-EPI)NonAf 31 (>60 ml/min/1.73 sqM) Glucose 120 H (74-99) mg/dL Plasma Lactic Acid Gurjit (0.7-2.0) mmol/L Calcium 9.4 (8.4-10.2) mg/dL Total Bilirubin 0.7 (0.2-1.3) mg/dL AST 35 (17-59) U/L ALT 17 (4-49) U/L Alkaline Phosphatase 50 (38-126) U/L Troponin I (0.000-0.034) ng/mL NT-Pro-B Natriuret Pep 26759 pg/mL Total Protein 6.1 L (6.3-8.2) g/dL Albumin 3.6 (3.5-5.0) g/dL 05/27/24 05/27/24 Range/Units 21:52 21:52 WBC (3.8-10.6) k/uL RBC (4.30-5.90) m/uL Hgb (13.0-17.5) gm/dL Hct (39.0-53.0) % MCV (80.0-100.0) fL MCH (25.0-35.0) pg MCHC (31.0-37.0) g/dL RDW (11.5-15.5) % Plt Count (150-450) k/uL MPV Neutrophils % % Lymphocytes % % Monocytes % % Eosinophils % % Basophils % % Neutrophils # (1.3-7.7) k/uL Lymphocytes # (1.0-4.8) k/uL Monocytes # (0-1.0) k/uL Eosinophils # (0-0.7) k/uL Basophils # (0-0.2) k/uL Hypochromasia PT (10.0-12.5) sec INR (<1.2) APTT (22.0-30.0) sec D-Dimer (<0.60) mg/L FEU Sodium (137-145) mmol/L Potassium (3.5-5.1) mmol/L Chloride (98-107) mmol/L Carbon Dioxide (22-30) mmol/L Anion Gap mmol/L BUN (9-20) mg/dL Creatinine (0.66-1.25) mg/dL Est GFR (CKD-EPI)AfAm (>60 ml/min/1.73 sqM) Est GFR (CKD-EPI)NonAf (>60 ml/min/1.73 sqM) Glucose (74-99) mg/dL Plasma Lactic Acid Gurjit 1.0 (0.7-2.0) mmol/L Calcium (8.4-10.2) mg/dL Total Bilirubin (0.2-1.3) mg/dL AST (17-59) U/L ALT (4-49) U/L Alkaline Phosphatase (38-126) U/L Troponin I 0.044 H* (0.000-0.034) ng/mL NT-Pro-B Natriuret Pep pg/mL Total Protein (6.3-8.2) g/dL Albumin (3.5-5.0) g/dL Disposition Clinical Impression: NSTEMI (non-ST elevated myocardial infarction), Pleural effusion, Acute exacerbation of congestive heart failure, Exertional dyspnea Disposition: ADMITTED IP TO THIS [facility] Condition: Stable Is patient prescribed a controlled substance at d/c from ED?: No Decision to Admit Reason: Admit from EC Decision Date: 05/28/24 Decision Time: 01:02
[2024-05-28] MEDS ORDERED: NALOXONE 0.4 MG/ML 1 ML VIAL IV PRN (01:05)
[2024-05-28] MEDS: FUROSEMIDE 10 MG/ML 10 ML VIAL IV STA (01:20)
[2024-05-28] MEDS: FUROSEMIDE 10 MG/ML 4 ML VIAL IV SCH (09:08)
[2024-05-28] MEDS: RANOLAZINE 500 MG TAB.ER.12H PO SCH (12:34)
[2024-05-28] MEDS: FENOFIBRATE 160 MG TAB PO SCH (12:35)
[2024-05-28] MEDS: TAMSULOSIN 0.4 MG CAP.ER.24H PO SCH (12:35)
[2024-05-28] MEDS: carvediloL 12.5 MG TAB PO SCH (12:35)
[2024-05-28] MEDS: TICAGRELOR 90 MG TAB PO SCH (12:35)
--- NOTE | 2024-05-28 14:11 | P.CRDCN ---
History of Present Illness Consult date: 05/28/24 History of present illness: The patient is a pleasant 82-year-old gentleman with a past medical history significant for CAD status post CABG with unknown details as well as hypertension and dyslipidemia and permanent pacemaker and valvular heart disease. The patient is known to our service from before. He is somewhat poor historian. He presented to the hospital with progressive exertional dyspnea and bilateral lower extremity edema but no anginal chest pain or chest discomfort and no dizziness or lightheaded snuffing of heart racing or feeling and no presyncope or syncope. He underwent further evaluation including chest x-ray showed pulmonary vascular congestion and bilateral pleural effusion. The EKG showed an atrial paced rhythm with nonspecific ST and T wave abnormalities. NT proBNP came to be elevated. The rest of her blood work overall came to be unremarkable. The patient was given 1 dose of Lasix and subsequently was started on Lasix 40 mg IV twice daily. Persistent echo showed preserved LV systolic function with EF at 50% with mild aortic and mitral regurgitation but no significant valvular abnormalities at that point. The physical examination is remarkable for stable vital signs with regular rate and rhythm and systolic murmur at the right upper sternal border with bilateral rhonchi and bilateral lower EXTR pitting edema noted as well. Please note that the troponin came in to be also slightly elevated Assessment Heart failure exacerbation secondary to diastolic dysfunction Evidence of myocardial injury with no evidence of ischemia Status post dual-chamber pacemaker Multiple comorbid conditions including hypertension and dyslipidemia Coronary artery disease status post CABG appears to be stable Plan Follow-up on the echocardiogram which was performed Continue the current dose of Lasix IV Continue monitor the kidney function and electrolytes Follow-up with the patient consider medical treatment for the mildly abnormal troponin Past Medical History Past Medical History: Coronary Artery Disease (CAD), Hyperlipidemia, Hypertension, Myocardial Infarction ([place]), Prostate Disorder, Thyroid Disorder Additional Past Medical History / Comment(s): SOB, third degree heart block with syncopal episodes March 2024 with pending pacemaker. Last Myocardial Infarction Date:: unknown History of Any Multi-Drug Resistant Organisms: None Reported Past Surgical History: Appendectomy, Cholecystectomy, Coronary Bypass/CABG, Heart Catheterization With Stent Additional Past Surgical History / Comment(s): thyroidectomy, 4 vessel CABG 25 yrs ago, 2-3 cardiac stents, toya cataracts Past Anesthesia/Blood Transfusion Reactions: No Reported Reaction Date of Last Stent Placement:: 2019 Past Psychological History: No Psychological Hx Reported Smoking Status: Never smoker Past Alcohol Use History: None Reported Past Drug Use History: None Reported - Past Family History Mother Family Medical History: No Reported History Medications and Allergies Home Medications Medication Instructions Recorded Confirmed Type Atorvastatin [Lipitor] 20 mg PO HS 11/07/19 05/28/24 History Fenofibrate Nanocrystallized 145 mg PO DAILY 11/07/19 05/28/24 History [Fenofibrate] Nitroglycerin Sl Tabs [Nitrostat] 0.4 mg SL Q5M PRN 11/07/19 05/28/24 History Ticagrelor [Brilinta] 90 mg PO BID 11/07/19 05/28/24 History Isosorbide Mononitrate ER [Imdur] 60 mg PO HS 07/02/21 05/28/24 History Ranolazine [Ranexa] 1,000 mg PO BID 06/18/22 05/28/24 History carvediloL [Coreg*] 12.5 mg PO BID-W/MEALS #30 tab 06/24/22 05/28/24 Rx Cinnamon Bark [Cinnamon] 2,000 mg PO BID 10/29/22 05/28/24 History Bumetanide [BUMEX] 0.5 mg PO DAILY 03/21/24 05/28/24 History Co Q-10(Unknown Dose) 1 tab PO DAILY 03/21/24 05/28/24 History Docusate [Colace] 200 mg PO BID 03/21/24 05/28/24 History Isosorbide Mononitrate ER [Imdur] 15 mg PO HS 03/21/24 05/28/24 History Potassium Chloride ER [K-Dur 10] 10 meq PO DAILY 03/21/24 05/28/24 History Levothyroxine Sodium [Synthroid] 137 mcg PO DAILY@0630 #30 tab 03/30/24 05/28/24 Rx Tamsulosin [Flomax] 0.4 mg PO PC-BRKFST #30 cap 03/30/24 05/28/24 Rx Allergies Allergy/AdvReac Type Severity Reaction Status Date / Time morphine AdvReac bowel Verified 05/28/24 09:15 obstruction/ileus Physical Exam Vitals: Vital Signs Temp Pulse Resp BP Pulse Ox 05/28/24 11:00 72 20 124/67 95 05/28/24 09:05 69 20 123/78 99 05/28/24 06:38 65 18 126/81 100 05/28/24 03:00 65 24 110/70 98 05/27/24 23:19 64 18 117/74 99 05/27/24 21:53 19 100 05/27/24 21:20 98 F 66 20 102/68 100 Intake and Output 05/27/24 05/28/24 05/28/24 22:59 06:59 14:59 Intake Total 473 Output Total 1000 900 Balance -1000 -427 Intake: Oral 473 Output: Urine 1000 900 Other: Weight 81.647 kg Results 05/27/24 21:52 05/27/24 21:52 Cardiac Enzymes 05/27/24 05/27/24 05/28/24 Range/Units 21:52 21:52 04:46 AST 35 (17-59) U/L Troponin I 0.044 H* 0.050 H* (0.000-0.034) ng/mL 05/28/24 Range/Units 07:40 AST (17-59) U/L Troponin I 0.049 H* (0.000-0.034) ng/mL Coagulation 05/27/24 Range/Units 21:52 PT 12.6 H (10.0-12.5) sec APTT 23.8 (22.0-30.0) sec CBC 05/27/24 Range/Units 21:52 WBC 8.4 (3.8-10.6) k/uL RBC 3.33 L (4.30-5.90) m/uL Hgb 9.0 L (13.0-17.5) gm/dL Hct 29.5 L (39.0-53.0) % Plt Count 317 (150-450) k/uL Comprehensive Metabolic Panel 05/27/24 Range/Units 21:52 Sodium 136 L (137-145) mmol/L Potassium 4.4 (3.5-5.1) mmol/L Chloride 104 (98-107) mmol/L Carbon Dioxide 22 (22-30) mmol/L BUN 40 H (9-20) mg/dL Creatinine 1.94 H (0.66-1.25) mg/dL Glucose 120 H (74-99) mg/dL Calcium 9.4 (8.4-10.2) mg/dL AST 35 (17-59) U/L ALT 17 (4-49) U/L Alkaline Phosphatase 50 (38-126) U/L Total Protein 6.1 L (6.3-8.2) g/dL Albumin 3.6 (3.5-5.0) g/dL Current Medications Generic Name Dose Route Start Last Admin Trade Name Freq PRN Reason Stop Dose Admin Atorvastatin Calcium 20 mg 05/28/24 21:00 Atorvastatin 20 Mg Tab PO HS [facility] Carvedilol 12.5 mg 05/28/24 11:45 05/28/24 12:35 Carvedilol 12.5 Mg Tab PO 12.5 mg BID-W/MEALS [place] Administration Fenofibrate 160 mg 05/28/24 11:45 05/28/24 12:35 Fenofibrate 160 Mg Tab PO 160 mg DAILY [facility] Administration Furosemide 40 mg 05/28/24 09:00 05/28/24 09:08 Furosemide 10 Mg/Ml 4 Ml Vial IV 40 mg BID [facility] Administration Isosorbide Mononitrate 60 mg 05/28/24 21:00 Isosorbide Mononitrate Er 60 Mg Tab.Er.24h PO HS [facility] Levothyroxine Sodium 137 mcg 05/29/24 06:30 Levothyroxine 137 Mcg Tab PO DAILY@0630 [facility] Naloxone HCl 0.2 mg 05/28/24 01:05 Naloxone 0.4 Mg/Ml 1 Ml Vial IV Q2M PRN Opioid Reversal Ranolazine 1,000 mg 05/28/24 11:45 05/28/24 12:34 Ranolazine 500 Mg Tab.Er.12h PO 1,000 mg BID [facility] Administration Tamsulosin HCl 0.4 mg 05/28/24 11:45 05/28/24 12:35 Tamsulosin 0.4 Mg Cap.Er.24h PO 0.4 mg PC-BRKFST [place] Administration Ticagrelor 90 mg 05/28/24 11:45 05/28/24 12:35 Ticagrelor 90 Mg Tab PO 90 mg BID [facility] Administration Intake and Output 05/27/24 05/28/24 05/28/24 22:59 06:59 14:59 Intake Total 473 Output Total 1000 900 Balance -1000 -427 Intake: Oral 473 Output: Urine 1000 900 Other: Weight 81.647 kg 05/27/24 21:52 05/27/24 21:52
--- NOTE | 2024-05-28 17:16 | P.HPIM ---
History of Present Illness H&P Date: 05/28/24 History of present illness: This is a 82-year-old male patient with past medically significant for coronary artery disease status post CABG with unknown details, permanent pacemaker, valvular heart disease, hypertension, hyperlipidemia who presented to hospital with progressive exertional dyspnea, lower extremity swelling, productive cough with clear sputum. Patient denied any chest pain, palpitations, dizziness, syncopal episode. Patient denied any fever, chills, sore throat. Patient denied any nausea vomiting diarrhea constipation abdominal pain dysuria urgency frequency weakness or numbness to his extremities. Patient x-ray showed pulmonary venous congestion, bilateral pleural effusion. EKG showed atrial paced rhythm with nonspecific ST and T wave changes. NT proBNP was elevated. Patient given 1 dose of IV Lasix in the ED, patient reported improvement in the symptoms. Recent echocardiogram showed EF 50% with mild aortic and mitral regurg. REVIEW OF SYSTEMS: CONSTITUTIONAL: Complains of fatigue HEENT: No recent visual problems or hearing problems. Denied any sore throat. CARDIOVASCULAR: No chest pain, orthopnea, PND, no palpitations, no syncope. PULMONARY: Breath, cough. GASTROINTESTINAL: No diarrhea, no nausea, no vomiting, no abdominal pain. NEUROLOGICAL: No headaches, no weakness, no numbness. HEMATOLOGICAL: Denies any bleeding or petechiae. GENITOURINARY: Denies any burning micturition, frequency, or urgency. MUSCULOSKELETAL/RHEUMATOLOGICAL: No lower extremity swelling. ENDOCRINE: Denies any polyuria or polydipsia. The rest of the 14-point review of systems is negative. PHYSICAL EXAMINATION: GENERAL: The patient is A&O x3, NAD HEENT: EOMI, Sclerae anicteric, Moist Mucous membranes Neck: Supple, Non tender, No JVD PULMONARY: Equal breath souds B/L, No wheezing, No crackles. CARDIOVASCULAR: S1, S2 present. No murmurs, rubs, or gallops. ABDOMEN: Soft, nontender, nondistended, normoactive bowel sounds. No guarding or rebound tenderness. MUSCULOSKELETAL: No edema, No cyanosis. No clubbing. Normal ROM. Intact peripheral pulses. EXTREMITIES: No cyanosis, clubbing, or pedal edema. NEUROLOGICAL: CN 2-12 grossly intact. 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 Cardiology consult Monitor vital signs and labs Continue telemetry monitoring Labs and medication were reviewed. Continue same treatment. Resume home medication. Further recommendations as per clinical course of the patient Dictation was produced using [employer] dictation software. please excuse any grammatical, word or spelling errors. 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 Last Myocardial Infarction Date:: unknown History of Any Multi-Drug Resistant Organisms: None Reported Past Surgical History: Appendectomy, Cholecystectomy, Coronary Bypass/CABG, Heart Catheterization With Stent Additional Past Surgical History / Comment(s): thyroidectomy, 4 vessel CABG 25 yrs ago, 2-3 cardiac stents, toya cataracts Past Anesthesia/Blood Transfusion Reactions: No Reported Reaction Date of Last Stent Placement:: 2019 Past Psychological History: No Psychological Hx Reported Smoking Status: Never smoker Past Alcohol Use History: None Reported Past Drug Use History: None Reported - Past Family History Mother Family Medical History: No Reported History Medications and Allergies Home Medications Medication Instructions Recorded Confirmed Type Atorvastatin [Lipitor] 20 mg PO HS 11/07/19 05/28/24 History Fenofibrate Nanocrystallized 145 mg PO DAILY 11/07/19 05/28/24 History [Fenofibrate] Nitroglycerin Sl Tabs [Nitrostat] 0.4 mg SL Q5M PRN 11/07/19 05/28/24 History Ticagrelor [Brilinta] 90 mg PO BID 11/07/19 05/28/24 History Isosorbide Mononitrate ER [Imdur] 60 mg PO HS 07/02/21 05/28/24 History Ranolazine [Ranexa] 1,000 mg PO BID 06/18/22 05/28/24 History carvediloL [Coreg*] 12.5 mg PO BID-W/MEALS #30 tab 06/24/22 05/28/24 Rx Cinnamon Bark [Cinnamon] 2,000 mg PO BID 10/29/22 05/28/24 History Bumetanide [BUMEX] 0.5 mg PO DAILY 03/21/24 05/28/24 History Co Q-10(Unknown Dose) 1 tab PO DAILY 03/21/24 05/28/24 History Docusate [Colace] 200 mg PO BID 03/21/24 05/28/24 History Isosorbide Mononitrate ER [Imdur] 15 mg PO HS 03/21/24 05/28/24 History Potassium Chloride ER [K-Dur 10] 10 meq PO DAILY 03/21/24 05/28/24 History Levothyroxine Sodium [Synthroid] 137 mcg PO DAILY@0630 #30 tab 03/30/24 05/28/24 Rx Tamsulosin [Flomax] 0.4 mg PO PC-BRKFST #30 cap 03/30/24 05/28/24 Rx Allergies Allergy/AdvReac Type Severity Reaction Status Date / Time morphine AdvReac bowel Verified 05/28/24 09:15 obstruction/ileus Physical Exam Vitals: Vital Signs Temp Pulse Resp BP Pulse Ox 05/28/24 14:55 65 20 127/78 96 05/28/24 11:00 72 20 124/67 95 05/28/24 09:05 69 20 123/78 99 05/28/24 06:38 65 18 126/81 100 05/28/24 03:00 65 24 110/70 98 05/27/24 23:19 64 18 117/74 99 05/27/24 21:53 19 100 05/27/24 21:20 98 F 66 20 102/68 100 Intake and Output 05/28/24 05/28/24 05/28/24 06:59 14:59 22:59 Intake Total 473 Output Total 1000 900 Balance -1000 -427 Intake: Oral 473 Output: Urine 1000 900 Results CBC & Chem 7: 05/27/24 21:52 05/27/24 21:52 Labs: Abnormal Lab Results - Last 24 Hours (Table) 05/27/24 05/27/24 05/27/24 Range/Units 21:52 21:52 21:52 RBC 3.33 L (4.30-5.90) m/uL Hgb 9.0 L (13.0-17.5) gm/dL Hct 29.5 L (39.0-53.0) % MCHC 30.4 L (31.0-37.0) g/dL RDW 15.7 H (11.5-15.5) % PT 12.6 H (10.0-12.5) sec INR 1.2 H (<1.2) D-Dimer 1.53 H (<0.60) mg/L FEU Sodium 136 L (137-145) mmol/L BUN 40 H (9-20) mg/dL Creatinine 1.94 H (0.66-1.25) mg/dL Glucose 120 H (74-99) mg/dL Troponin I (0.000-0.034) ng/mL Total Protein 6.1 L (6.3-8.2) g/dL 05/27/24 05/28/24 05/28/24 Range/Units 21:52 04:46 07:40 RBC (4.30-5.90) m/uL Hgb (13.0-17.5) gm/dL Hct (39.0-53.0) % MCHC (31.0-37.0) g/dL RDW (11.5-15.5) % PT (10.0-12.5) sec INR (<1.2) D-Dimer (<0.60) mg/L FEU Sodium (137-145) mmol/L BUN (9-20) mg/dL Creatinine (0.66-1.25) mg/dL Glucose (74-99) mg/dL Troponin I 0.044 H* 0.050 H* 0.049 H* (0.000-0.034) ng/mL Total Protein (6.3-8.2) g/dL
[2024-05-28] MEDS: ATORVASTATIN 20 MG TAB PO SCH (20:27)
[2024-05-28] MEDS: ISOSORBIDE MONONITRATE ER 60 MG TAB.ER.24H PO SCH (20:27)
[2024-05-28] MEDS: HEPARIN SODIUM,PORCINE 5,000 UNIT/ML 1 ML VIAL SQ SCH (20:32)
[2024-05-29] MEDS: LEVOTHYROXINE 137 MCG TAB PO SCH (06:31)
[2024-05-29 07:17] LABS: Basophils % (A) 0 %; Eosinophils # (A) 0.3 k/uL (0-0.7); Eosinophils % (A) 3 %; HCT 30.3 % (39.0-53.0); Hypochromasia Marked; Lymphocytes # (A) 1.9 k/uL (1.0-4.8); Lymphocytes % (A) 21 %; MCH 26.4 pg (25.0-35.0); MCHC 29.8 g/dL (31.0-37.0); MCV 88.6 fL (80.0-100.0); Mean Platelet Volume 8.2; Monocytes # (A) 0.7 k/uL (0-1.0); Monocytes % (A) 8 %; Neutrophils # (A) 5.6 k/uL (1.3-7.7); Neutrophils % (A) 64 %; Platelet Count 340 k/uL (150-450); RBC 3.42 m/uL (4.30-5.90); RDW 15.7 % (11.5-15.5); WBC 8.8 k/uL (3.8-10.6)
[2024-05-29 07:26] LABS: African American GFR (CKD) 30 (>60 ml/min/1.73 sqM); Anion Gap 8 mmol/L; Blood Urea Nitrogen 42 mg/dL (9-20); Carbon Dioxide 30 mmol/L (22-30); Chloride 101 mmol/L (98-107); Glucose 106 mg/dL (74-99); Non-African American GFR(CKD) 26 (>60 ml/min/1.73 sqM); Potassium 3.6 mmol/L (3.5-5.1); Sodium 139 mmol/L (137-145)
[2024-05-29] MEDS ORDERED: HEPARIN SODIUM 1,000 UN/ML (10ML VL) IV PRN (09:48)
--- NOTE | 2024-05-29 09:48 | P.PN ---
Subjective Progress Note Date: 05/29/24 The patient is a pleasant 82-year-old gentleman with a past medical history significant for CAD status post CABG with unknown details as well as hypertension and dyslipidemia and permanent pacemaker and valvular heart disease. The patient is known to our service from before. He is somewhat poor historian. He presented to the hospital with progressive exertional dyspnea and bilateral lower extremity edema but no anginal chest pain or chest discomfort and no dizziness or lightheaded snuffing of heart racing or feeling and no presyncope or syncope. He underwent further evaluation including chest x-ray showed pulmonary vascular congestion and bilateral pleural effusion. The EKG showed an atrial paced rhythm with nonspecific ST and T wave abnormalities. NT proBNP came to be elevated. The rest of her blood work overall came to be unremarkable. The patient was given 1 dose of Lasix and subsequently was started on Lasix 40 mg IV twice daily. Persistent echo showed preserved LV systolic function with EF at 50% with mild aortic and mitral regurgitation but no significant valvular abnormalities at that point. The physical examination is remarkable for stable vital signs with regular rate and rhythm and systolic murmur at the right upper sternal border with bilateral rhonchi and bilateral lower extremity pitting edema noted as well. Please note that the troponin came in to be also slightly elevated May 29, 2024 The patient was seen and evaluated this morning. He is somewhat lethargic but he stated that he is feeling better with the shortness of breath and lower extremities edema improved. His kidney function is worse. I am going to decrease the dose of Lasix from 40 mg IV twice daily to 20 mg IV twice daily. He underwent an echocardiogram and that still pending. The physical examination is remarkable for the patient who is somewhat slightly lethargic with diminished breathing sounds bilaterally and regular rate and rhythm and soft systolic murmur and mild bilateral lower extremities edema. Please note that his troponin came in to be slightly elevated. Assessment Heart failure exacerbation secondary to diastolic dysfunction Evidence of myocardial injury with no evidence of ischemia Status post dual-chamber pacemaker Multiple comorbid conditions including hypertension and dyslipidemia Coronary artery disease status post CABG appears to be stable Plan Follow-up on the echocardiogram which was performed Continue IV Lasix with reduced dose Start the patient on heparin IV given the abnormal troponin Continue monitor the kidney function and electrolytes Further recommendation to follow the echocardiogram Objective - Vital Signs Vital signs: Vital Signs Temp 98 F 05/29/24 04:00 Pulse 62 05/29/24 04:00 Resp 19 05/29/24 04:00 BP 110/69 05/29/24 04:00 Pulse Ox 98 05/29/24 04:00 FiO2 Intake & Output 05/28/24 05/29/24 05/29/24 18:59 06:59 18:59 Intake Total 473 Output Total 900 1800 Balance -427 -1800 Intake: Oral 473 Output: Urine 900 1800 - Labs CBC & Chem 7: 05/29/24 06:55 05/29/24 06:55 Labs: Abnormal Lab Results - Last 24 Hours (Table) 05/29/24 05/29/24 Range/Units 06:55 06:55 RBC 3.42 L (4.30-5.90) m/uL Hgb 9.0 L (13.0-17.5) gm/dL Hct 30.3 L (39.0-53.0) % MCHC 29.8 L (31.0-37.0) g/dL RDW 15.7 H (11.5-15.5) % BUN 42 H (9-20) mg/dL Creatinine 2.24 H (0.66-1.25) mg/dL Glucose 106 H (74-99) mg/dL
[2024-05-29] MEDS: ASPIRIN 81 MG PO SCH (10:28)
[2024-05-29] MEDS: FUROSEMIDE 10 MG/ML 2 ML VIAL IV SCH (10:31)
[2024-05-29] MEDS: HEPARIN SOD,PORK IN 0.45% NACL 25,000 UNIT in 0.45% NACL 1 250ML.BAG IV SCH (10:37)
--- NOTE | 2024-05-29 13:49 | P.PN ---
Subjective Progress Note Date: 05/29/24 Interval History: This is a 82-year-old male patient with past medically significant for coronary artery disease status post CABG with unknown details, permanent pacemaker, valvular heart disease, hypertension, hyperlipidemia who presented to hospital with progressive exertional dyspnea, lower extremity swelling, productive cough with clear sputum. Patient denied any chest pain, palpitations, dizziness, syncopal episode. Patient denied any fever, chills, sore throat. Patient denied any nausea vomiting diarrhea constipation abdominal pain dysuria urgency frequency weakness or numbness to his extremities. Patient x-ray showed pulmonary venous congestion, bilateral pleural effusion. EKG showed atrial paced rhythm with nonspecific ST and T wave changes. NT proBNP was elevated. Patient given 1 dose of IV Lasix in the ED, patient reported improvement in the symptoms. Recent echocardiogram showed EF 50% with mild aortic and mitral regurg. 05/29/2024--patient was seen and examined today. Patient sitting up in chair, complained of feeling lethargic, reported feeling better with improved shortness of breath and improvement of swelling of legs and hands. Afebrile, heart rate 64, respiratory rate 16, blood pressure is on the lower side 94/55, oxygen saturation 100% on 2 L. WBCs 8.8, hemoglobin 9.0, platelets 340. BUN is 42, creatinine went up to 2.24 today as compared to 1. 9 4. Troponin yesterday monitored, trend remained flat. Currently on heparin drip. Cardiology following, decrease IV Lasix to 20 mg twice daily from 40 mg twice daily, echocardiogram results are pending. 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 Echocardiogram Cardiology consulted Monitor vital signs and labs Continue telemetry monitoring Labs and medication were reviewed. Continue same treatment. Resume home medication. Further recommendations as per clinical course of the patient DVT prophylaxis: Anticoagulated PHYSICAL EXAMINATION: GENERAL: The patient is A&O x3, NAD HEENT: EOMI, Sclerae anicteric, Moist Mucous membranes Neck: Supple, Non tender, No JVD PULMONARY: Decreased breath souds B/L, No wheezing, + crackles. CARDIOVASCULAR: S1, S2 present. No murmurs, rubs, or gallops. ABDOMEN: Soft, nontender, nondistended, normoactive bowel sounds. No guarding or rebound tenderness. MUSCULOSKELETAL: No edema, No cyanosis. No clubbing. Normal ROM. Intact peripheral pulses. EXTREMITIES: No cyanosis, clubbing, or pedal edema. NEUROLOGICAL: CN 2-12 grossly intact. No FND Skin: No Rash REVIEW OF SYSTEMS: CONSTITUTIONAL: No fever or chills. CARDIOVASCULAR: No chest pain, palpitations or syncope. PULMONARY: Complains of shortness of breath, swelling is improving. GASTROINTESTINAL: No nausea, vomiting, diarrhea, abdominal pain. : No Dysuria, urgency, frequency. Extremities: No edema. NEUROLOGICAL: No headaches, no weakness, or numbness Dictation was produced using [employer] dictation software. please excuse any grammatical, word or spelling errors. Objective - Vital Signs Vital signs: Vital Signs Temp 97.5 F L 05/29/24 10:23 Pulse 64 05/29/24 13:19 Resp 16 05/29/24 13:19 BP 94/55 05/29/24 13:19 Pulse Ox 100 05/29/24 13:19 FiO2 Intake & Output 05/28/24 05/29/24 05/29/24 18:59 06:59 18:59 Intake Total 473 Output Total 900 1800 Balance -427 -1800 Intake: Oral 473 Output: Urine 900 1800 - Labs CBC & Chem 7: 05/29/24 06:55 05/29/24 06:55 Labs: Abnormal Lab Results - Last 24 Hours (Table) 05/29/24 05/29/24 Range/Units 06:55 06:55 RBC 3.42 L (4.30-5.90) m/uL Hgb 9.0 L (13.0-17.5) gm/dL Hct 30.3 L (39.0-53.0) % MCHC 29.8 L (31.0-37.0) g/dL RDW 15.7 H (11.5-15.5) % BUN 42 H (9-20) mg/dL Creatinine 2.24 H (0.66-1.25) mg/dL Glucose 106 H (74-99) mg/dL
[2024-05-29] MEDS: ATORVASTATIN 40 MG TAB PO SCH (22:09)
[2024-05-30 08:26] LABS: Basophils # (A) 0.1 k/uL (0-0.2); Basophils % (A) 1 %; Eosinophils # (A) 0.4 k/uL (0-0.7); Eosinophils % (A) 4 %; HCT 29.9 % (39.0-53.0); Hypochromasia Marked; Lymphocytes # (A) 2.2 k/uL (1.0-4.8); Lymphocytes % (A) 24 %; MCH 26.7 pg (25.0-35.0); MCV 88.9 fL (80.0-100.0); Mean Platelet Volume 8.2; Monocytes # (A) 0.8 k/uL (0-1.0); Monocytes % (A) 9 %; Neutrophils # (A) 5.6 k/uL (1.3-7.7); Neutrophils % (A) 60 %; Platelet Count 334 k/uL (150-450); RBC 3.36 m/uL (4.30-5.90); RDW 15.6 % (11.5-15.5); WBC 9.4 k/uL (3.8-10.6)
[2024-05-30 08:42] LABS: African American GFR (CKD) 32 (>60 ml/min/1.73 sqM); Anion Gap 5 mmol/L; Blood Urea Nitrogen 42 mg/dL (9-20); Calcium 8.9 mg/dL (8.4-10.2); Carbon Dioxide 32 mmol/L (22-30); Chloride 101 mmol/L (98-107); Glucose 108 mg/dL (74-99); Non-African American GFR(CKD) 28 (>60 ml/min/1.73 sqM); Potassium 3.7 mmol/L (3.5-5.1); Sodium 138 mmol/L (137-145)
--- NOTE | 2024-05-30 13:25 | P.PN ---
Subjective Progress Note Date: 05/30/24 This is a 82-year-old male patient with past medically significant for coronary artery disease status post CABG with unknown details, permanent pacemaker, valvular heart disease, hypertension, hyperlipidemia who presented to hospital with progressive exertional dyspnea, lower extremity swelling, productive cough with clear sputum. Patient denied any chest pain, palpitations, dizziness, syncopal episode. Patient denied any fever, chills, sore throat. Patient denied any nausea vomiting diarrhea constipation abdominal pain dysuria urgency frequency weakness or numbness to his extremities. Patient x-ray showed pulmonary venous congestion, bilateral pleural effusion. EKG showed atrial paced rhythm with nonspecific ST and T wave changes. NT proBNP was elevated. Patient given 1 dose of IV Lasix in the ED, patient reported improvement in the symptoms. Recent echocardiogram showed EF 50% with mild aortic and mitral regurg. 05/29/2024--patient was seen and examined today. Patient sitting up in chair, complained of feeling lethargic, reported feeling better with improved shortness of breath and improvement of swelling of legs and hands. Afebrile, heart rate 64, respiratory rate 16, blood pressure is on the lower side 94/55, oxygen saturation 100% on 2 L. WBCs 8.8, hemoglobin 9.0, platelets 340. BUN is 42, creatinine went up to 2.24 today as compared to 1. 9 4. Troponin yesterday thu ito, trend remained flat. Currently on heparin drip. Cardiology following, decrease IV Lasix to 20 mg twice daily from 40 mg twice daily, echocardiogram results are pending. 05/30. Patient seen and examined. Blood work done this morning showed WBC 9.4, hemoglobin 9, platelet count 324, sodium 130, potassium 3.7, BUN 42, creatinine 2.12. States breathing is improved. REVIEW OF SYSTEMS: CONSTITUTIONAL: No fever, no malaise,. CARDIOVASCULAR: No chest pain, no palpitations, no syncope. PULMONARY: No shortness of breath, no cough, GASTROINTESTINAL: No diarrhea, no nausea, no vomiting, no abdominal pain. NEUROLOGICAL: No headaches, no weakness, PHYSICAL EXAMINATION: GENERAL: The patient is alert and oriented x3, not in any acute distress. Well developed, well nourished. HEENT: Pupils are round and equally reacting to light. EOMI. No scleral icterus. No conjunctival pallor. Normocephalic, atraumatic. No pharyngeal erythema. No thyromegaly. CARDIOVASCULAR: S1 and S2 present. No murmurs, rubs, or gallops. PULMONARY: Chest is clear to auscultation, no wheezing or crackles. ABDOMEN: Soft, nontender, nondistended, normoactive bowel sounds. No palpable organomegaly. MUSCULOSKELETAL: No joint swelling or deformity. EXTREMITIES: No cyanosis, clubbing, or pedal edema. NEUROLOGICAL: Gross neurological examination did not reveal any focal deficits. SKIN: No rashes. Assessment and plan Acute on chronic diastolic CHF: Elevated troponin: History of CAD/CABG: Status post dual-chamber pacemaker SHANTAL on CKD: Hypertension Hyperlipidemia Hypothyroidism BPH Monitor vital signs Monitor CBC Monitor CMP Continue telemetry monitoring Encourage use of incentive spirometer Continue aspirin, Lipitor Continue Coreg DC pharmacy dose heparin Switch IV Lasix to oral Bumex Continue Ranexa Continue Synthroid Cardiology following Labs and medication were reviewed.. Continue same treatment. Continue with symptomatic treatment. Resume home medication. Monitor labs and vitals. DVT and GI prophylaxis. Further recommendations as per clinical course of the patient Dictation was produced using [employer] dictation software. please excuse any grammatical, word or spelling errors. Objective - Vital Signs Vital signs: Vital Signs Temp 97.5 F L 05/30/24 08:17 Pulse 60 05/30/24 08:17 Resp 20 05/30/24 08:17 BP 109/65 05/30/24 08:17 Pulse Ox 100 05/30/24 08:17 FiO2 Intake & Output 05/29/24 05/30/24 05/30/24 18:59 06:59 18:59 Intake Total 346.863 Output Total 300 Balance -300 346.863 Weight 80.9 kg Intake: IV 10 Invasive Line 1 10 Intake, IV Titration 216.863 Amount Heparin Sod,Pork in 0.45% 216.863 NaCl 25,000 unit In 0.45 % NaCl 1 250ml.bag @ 12 UNITS/KG/HR 9.798 mls/hr IV .Q24H [facility] Rx#: [id number] Oral 120 Output: Urine 300 Other: Voiding Method External Catheter External Catheter - Labs CBC & Chem 7: 05/30/24 07:49 05/30/24 07:49 Labs: Abnormal Lab Results - Last 24 Hours (Table) 05/29/24 05/30/24 05/30/24 Range/Units 16:25 07:49 07:49 RBC 3.36 L (4.30-5.90) m/uL Hgb 9.0 L (13.0-17.5) gm/dL Hct 29.9 L (39.0-53.0) % MCHC 30.0 L (31.0-37.0) g/dL RDW 15.6 H (11.5-15.5) % APTT 45.4 H 49.4 H (22.0-30.0) sec Carbon Dioxide (22-30) mmol/L BUN (9-20) mg/dL Creatinine (0.66-1.25) mg/dL Glucose (74-99) mg/dL 05/30/24 Range/Units 07:49 RBC (4.30-5.90) m/uL Hgb (13.0-17.5) gm/dL Hct (39.0-53.0) % MCHC (31.0-37.0) g/dL RDW (11.5-15.5) % APTT (22.0-30.0) sec Carbon Dioxide 32 H (22-30) mmol/L BUN 42 H (9-20) mg/dL Creatinine 2.12 H (0.66-1.25) mg/dL Glucose 108 H (74-99) mg/dL
--- NOTE | 2024-05-30 14:00 | P.PN ---
Subjective HISTORY OF PRESENT ILLNESS: The patient is a pleasant 82-year-old gentleman with a past medical history significant for CAD status post CABG with unknown details as well as hypertension and dyslipidemia and permanent pacemaker and valvular heart disease. The patient is known to our service from before. He is somewhat poor historian. He presented to the hospital with progressive exertional dyspnea and bilateral lower extremity edema but no anginal chest pain or chest discomfort and no dizziness or lightheaded snuffing of heart racing or feeling and no presyncope or syncope. He underwent further evaluation including chest x-ray showed pulmonary vascular congestion and bilateral pleural effusion. The EKG showed an atrial paced rhythm with nonspecific ST and T wave abnormalities. NT proBNP came to be elevated. The rest of her blood work overall came to be unremarkable. The patient was given 1 dose of Lasix and subsequently was s tarted on Lasix 40 mg IV twice daily. Persistent echo showed preserved LV systolic function with EF at 50% with mild aortic and mitral regurgitation but no significant valvular abnormalities at that point. The physical examination is remarkable for stable vital signs with regular rate and rhythm and systolic murmur at the right upper sternal border with bilateral rhonchi and bilateral lower extremity pitting edema noted as well. Please note that the troponin came in to be also slightly elevated May 29, 2024 The patient was seen and evaluated this morning. He is somewhat lethargic but he stated that he is feeling better with the shortness of breath and lower extremities edema improved. His kidney function is worse. I am going to decrease the dose of Lasix from 40 mg IV twice daily to 20 mg IV twice daily. He underwent an echocardiogram and that still pending. The physical examination is remarkable for the patient who is somewhat slightly lethargic with diminished breathing sounds bilaterally and regular rate and rhythm and soft systolic murmur and mild bilateral lower extremities edema. Please note that his troponin came in to be slightly elevated. 05/30/2024 Patient examined this morning at the bedside. Patient's family is present. Patient currently denies chest pain or pressure. He denies shortness of breath. He remains on IV heparin. PHYSICAL EXAM: VITAL SIGNS: Reviewed. GENERAL: Well-developed in no acute distress. NECK: Supple. No JVD or thyromegaly LUNGS: Respirations even and unlabored. Lungs essentially clear to auscultation bilaterally. HEART: Regular rate and rhythm. S1 and S2 heard. EXTREMITIES: Normal range of motion. No clubbing or cyanosis. Peripheral pulses intact. No lower extremity edema ASSESSMENT: Shortness of breath Acute on chronic heart failure with preserved EF, 50% in 03/2024 Chronic kidney disease Elevated troponins, type II [place] secondary to oxygen supply and demand mismatch Coronary artery disease with previous CABG Status post dual-chamber pacemaker implantation secondary to complete heart block, March 2024 Hypertension Hyperlipidemia PLAN: Discontinue IV heparin. Begin subcu heparin Discontinue IV diuretics Add Bumex 1 mg daily Add Farxiga 10 mg daily Continue to monitor kidney function 2D echo ordered. Await results. Patient to have BNP and BMP performed outpatient in 1 week Further recommendations pending patient course Nurse practitioner note has been reviewed by physician. Signing provider agrees with the documented findings, assessment, and plan of care documented by [employer] ENG[employer] as a scribe. Objective - Vital Signs Vital signs: Vital Signs Temp 98.1 F 05/30/24 11:24 Pulse 62 05/30/24 11:24 Resp 18 05/30/24 11:24 BP 97/54 05/30/24 11:24 Pulse Ox 97 05/30/24 11:24 FiO2 Intake & Output 05/29/24 05/30/24 05/30/24 18:59 06:59 18:59 Intake Total 484.989 Output Total 300 Balance -300 484.989 Weight 80.9 kg Intake: IV 10 Invasive Line 1 10 Intake, IV Titration 234.989 Amount Heparin Sod,Pork in 0.45% 234.989 NaCl 25,000 unit In 0.45 % NaCl 1 250ml.bag @ 12 UNITS/KG/HR 9.798 mls/hr IV .Q24H [facility] Rx#: [id number] Oral 240 Output: Urine 300 Other: Voiding Method External Catheter External Catheter - Labs CBC & Chem 7: 05/30/24 07:49 05/30/24 07:49 Labs: Abnormal Lab Results - Last 24 Hours (Table) 05/29/24 05/30/24 05/30/24 Range/Units 16:25 07:49 07:49 RBC 3.36 L (4.30-5.90) m/uL Hgb 9.0 L (13.0-17.5) gm/dL Hct 29.9 L (39.0-53.0) % MCHC 30.0 L (31.0-37.0) g/dL RDW 15.6 H (11.5-15.5) % APTT 45.4 H 49.4 H (22.0-30.0) sec Carbon Dioxide (22-30) mmol/L BUN (9-20) mg/dL Creatinine (0.66-1.25) mg/dL Glucose (74-99) mg/dL 05/30/24 Range/Units 07:49 RBC (4.30-5.90) m/uL Hgb (13.0-17.5) gm/dL Hct (39.0-53.0) % MCHC (31.0-37.0) g/dL RDW (11.5-15.5) % APTT (22.0-30.0) sec Carbon Dioxide 32 H (22-30) mmol/L BUN 42 H (9-20) mg/dL Creatinine 2.12 H (0.66-1.25) mg/dL Glucose 108 H (74-99) mg/dL
[2024-05-30] MEDS: HEPARIN SODIUM,PORCINE 5,000 UNIT/ML 1 ML VIAL SQ SCH (17:19)
--- NOTE | 2024-05-30 17:41 | CA ---
Transthoracic Echo Report Name: Jose Oshea Age: 83 Gender: M : 1940 Exam Date: 05/30/2024 09:29 Exam Location: [facility] Ht (in): 68 Wt (lb): 180 Ordering Physician: Jakub Kaur MD ([id number]) Attending/Referring Phys: Ham Pumper Eloisa Brady RDCS Procedure CPT: Indications: chf Cardiac Hx: Limited for LVF Technical Quality: Fair Contrast 1: Definity Total Dose (mL): 2 Contrast 2: Total Dose (mL): MEASUREMENTS (Male / Female) Normal Values 2D ECHO LV Diastolic Diameter PLAX 4.7 cm 4.2 - 5.9 / 3.9 - 5.3 cm LV Systolic Diameter PLAX 3.6 cm IVS Diastolic Thickness 1.6 cm 0.6 - 1.0 / 0.6 - 0.9 cm LVPW Diastolic Thickness 1.5 cm 0.6 - 1.0 / 0.6 - 0.9 cm LV Relative Wall Thickness 0.7 RV Internal Dim ED PLAX 2.9 cm LA Systolic Diameter LX 5.4 cm 3.0 - 4.0 / 2.7 - 3.8 cm LV Diastolic Volume MOD BP 62.0 cm??? 67 - 155 / 56 - 104 cm??? LV Systolic Volume MOD BP 37.3 cm??? 22 - 58 / 19 - 49 cm??? LV Ejection Fraction MOD BP 39.7 % >= 55 % LV Cardiac Index MOD BP 950.1 cm???/min???m??? LV Diastolic Volume MOD 4C 65.9 cm??? LV Systolic Volume MOD 4C 38.5 cm??? LV Ejection Fraction MOD 4C 41.6 % LV Cardiac Index MOD 4C 1057.3 cm???/min???m??? LV Diastolic Length 4C 7.9 cm LV Systolic Length 4C 7.6 cm LV Diastolic Volume MOD 2C 56.2 cm??? LV Systolic Volume MOD 2C 37.7 cm??? LV Ejection Fraction MOD 2C 33.0 % LV Cardiac Index MOD 2C 715.1 cm???/min???m??? LV Diastolic Length 2C 8.2 cm LV Systolic Length 2C 7.7 cm M-MODE Aortic Root Diameter MM 3.6 cm LA Systolic Diameter MM 4.7 cm LA Ao Ratio MM 1.3 AV Cusp Separation MM 1.4 cm FINDINGS Left Ventricle Left ventricular ejection fraction is estimated at 40-45 %. Moderately increased septal wall thickness. Hypokinetic septum. [place] hypokinetic. Left ventricular cavity size normal. Right Ventricle Right Atrium Left Atrium Severely increased left atrial diameter. Mitral Valve Aortic Valve Tricuspid Valve Pulmonic Valve Pericardium No pericardial or pleural effusion. Aorta Aorta at upper limits of normal. CONCLUSIONS Diagnosis: Acute congestive heart failure, non-Q wave [place] 2D echo shows reduced LV systolic function with septal hypokinesis ejection fraction around 40% Previewed by: Dr. Demar Allred MD (Electronically Signed) Final Date: 30 May 2024 17:41
[2024-05-30] MEDS ORDERED: ALBUTEROL NEBULIZED 2.5 MG/3 ML INHALATION PRN (18:48)
[2024-05-30] MEDS: ALBUTEROL NEBULIZED 2.5 MG/3 ML INHALATION SCH (20:38)
[2024-05-31] MEDS: DAPAGLIFLOZIN PROPANEDIOL 10 MG TABLET PO SCH (08:42)
[2024-05-31] MEDS: BUMETANIDE 1 MG TAB PO SCH (08:42)
[2024-05-31 11:50] LABS: African American GFR (CKD) 32 (>60 ml/min/1.73 sqM); Anion Gap 8 mmol/L; Blood Urea Nitrogen 45 mg/dL (9-20); Calcium 9.2 mg/dL (8.4-10.2); Carbon Dioxide 30 mmol/L (22-30); Chloride 101 mmol/L (98-107); Glucose 136 mg/dL (74-99); Non-African American GFR(CKD) 28 (>60 ml/min/1.73 sqM); Potassium 4.3 mmol/L (3.5-5.1); Sodium 139 mmol/L (137-145)
--- NOTE | 2024-05-31 12:21 | P.PN ---
Subjective Progress Note Date: 05/31/24 This is a 82-year-old male patient with past medically significant for coronary artery disease status post CABG with unknown details, permanent pacemaker, valvular heart disease, hypertension, hyperlipidemia who presented to hospital with progressive exertional dyspnea, lower extremity swelling, productive cough with clear sputum. Patient denied any chest pain, palpitations, dizziness, syncopal episode. Patient denied any fever, chills, sore throat. Patient denied any nausea vomiting diarrhea constipation abdominal pain dysuria urgency frequency weakness or numbness to his extremities. Patient x-ray showed pulmonary venous congestion, bilateral pleural effusion. EKG showed atrial paced rhythm with nonspecific ST and T wave changes. NT proBNP was elevated. Patient given 1 dose of IV Lasix in the ED, patient reported improvement in the symptoms. Recent echocardiogram showed EF 50% with mild aortic and mitral regurg. 05/29/2024--patient was seen and examined today. Patient sitting up in chair, complained of feeling lethargic, reported feeling better with improved shortness of breath and improvement of swelling of legs and hands. Afebrile, heart rate 64, respiratory rate 16, blood pressure is on the lower side 94/55, oxygen saturation 100% on 2 L. WBCs 8.8, hemoglobin 9.0, platelets 340. BUN is 42, creatinine went up to 2.24 today as compared to 1. 9 4. Troponin yesterday thu ito, trend remained flat. Currently on heparin drip. Cardiology following, decrease IV Lasix to 20 mg twice daily from 40 mg twice daily, echocardiogram results are pending. 05/30. Patient seen and examined. Blood work done this morning showed WBC 9.4, hemoglobin 9, platelet count 324, sodium 130, potassium 3.7, BUN 42, creatinine 2.12. States breathing is improved. 05/31. Patient seen and examined. 2D echo done showed reduced LV systolic function with septal hypokinesis EF of 40%. Complaining of shortness of breath and wheezing. REVIEW OF SYSTEMS: CONSTITUTIONAL: No fever, no malaise,. CARDIOVASCULAR: No chest pain, no palpitations, no syncope. PULMONARY: As mentioned above GASTROINTESTINAL: No diarrhea, no nausea, no vomiting, no abdominal pain. NEUROLOGICAL: No headaches, no weakness, PHYSICAL EXAMINATION: GENERAL: The patient is alert and oriented x3, not in any acute distress. Well developed, well nourished. HEENT: Pupils are round and equally reacting to light. EOMI. No scleral icterus. No conjunctival pallor. Normocephalic, atraumatic. No pharyngeal erythema. No thyromegaly. CARDIOVASCULAR: S1 and S2 present. No murmurs, rubs, or gallops. PULMONARY: Coarse breath sound bilaterally, no wheezing or crackles. ABDOMEN: Soft, nontender, nondistended, normoactive bowel sounds. No palpable organomegaly. MUSCULOSKELETAL: No joint swelling or deformity. EXTREMITIES: No cyanosis, clubbing, or pedal edema. NEUROLOGICAL: Gross neurological examination did not reveal any focal deficits. SKIN: No rashes. Assessment and plan Acute on chronic diastolic CHF: Elevated troponin: History of CAD/CABG: Status post dual-chamber pacemaker SHANTAL on CKD: Hypertension Hyperlipidemia Hypothyroidism BPH Monitor vital signs Monitor CBC Monitor CMP Continue telemetry monitoring Encourage use of incentive spirometer Continue aspirin, Lipitor Continue Coreg Continue Bumex Continue Ranexa Continue Synthroid Cardiology following PT and OT consulted Labs and medication were reviewed.. Continue same treatment. Continue with symptomatic treatment. Resume home medication. Monitor labs and vitals. DVT and GI prophylaxis. Further recommendations as per clinical course of the patient Dictation was produced using [employer] dictation software. please excuse any gr ammatical, word or spelling errors. Objective - Vital Signs Vital signs: Vital Signs Temp 97.9 F 05/31/24 08:00 Pulse 72 05/31/24 08:32 Resp 20 05/31/24 08:00 BP 101/64 05/31/24 08:00 Pulse Ox 95 05/31/24 08:00 FiO2 Intake & Output 05/30/24 05/31/24 05/31/24 18:59 06:59 18:59 Intake Total 484.989 20 240 Output Total 500 400 Balance -15.011 -380 240 Intake: IV 10 20 Invasive Line 1 10 20 Intake, IV Titration 234.989 Amount Heparin Sod,Pork in 0.45% 234.989 NaCl 25,000 unit In 0.45 % NaCl 1 250ml.bag @ 12 UNITS/KG/HR 9.798 mls/hr IV .Q24H [facility] Rx#: [id number] Oral 240 240 Output: Urine 500 400 Other: Voiding Method External Catheter External Catheter - Labs CBC & Chem 7: 05/30/24 07:49 05/31/24 10:31
--- NOTE | 2024-05-31 13:50 | P.PN ---
Subjective HISTORY OF PRESENT ILLNESS: The patient is a pleasant 82-year-old gentleman with a past medical history significant for CAD status post CABG with unknown details as well as hypertension and dyslipidemia and permanent pacemaker and valvular heart disease. The patient is known to our service from before. He is somewhat poor historian. He presented to the hospital with progressive exertional dyspnea and bilateral lower extremity edema but no anginal chest pain or chest discomfort and no dizziness or lightheaded snuffing of heart racing or feeling and no presyncope or syncope. He underwent further evaluation including chest x-ray showed pulmonary vascular congestion and bilateral pleural effusion. The EKG showed an atrial paced rhythm with nonspecific ST and T wave abnormalities. NT proBNP came to be elevated. The rest of her blood work overall came to be unremarkable. The patient was given 1 dose of Lasix and subsequently was s tarted on Lasix 40 mg IV twice daily. Persistent echo showed preserved LV systolic function with EF at 50% with mild aortic and mitral regurgitation but no significant valvular abnormalities at that point. The physical examination is remarkable for stable vital signs with regular rate and rhythm and systolic murmur at the right upper sternal border with bilateral rhonchi and bilateral lower extremity pitting edema noted as well. Please note that the troponin came in to be also slightly elevated May 29, 2024 The patient was seen and evaluated this morning. He is somewhat lethargic but he stated that he is feeling better with the shortness of breath and lower extremities edema improved. His kidney function is worse. I am going to decrease the dose of Lasix from 40 mg IV twice daily to 20 mg IV twice daily. He underwent an echocardiogram and that still pending. The physical examination is remarkable for the patient who is somewhat slightly lethargic with diminished breathing sounds bilaterally and regular rate and rhythm and soft systolic murmur and mild bilateral lower extremities edema. Please note that his troponin came in to be slightly elevated. 05/30/2024 Patient examined this morning at the bedside. Patient's family is present. Patient currently denies chest pain or pressure. He denies shortness of breath. He remains on IV heparin. 05/31/2024 Patient examined this morning at the bedside. Patient currently denies any chest pain or pressure. He does report some mild wheezing this morning. He states his breathing treatments have been helping him. Echocardiogram completed revealing ejection fraction 40 to 45% with hypokinetic septum and apex which was noted on previous echoes. Patient's family expressing concerns that patient has issues urinating at home due to his enlarged prostate. He is currently on Flomax. PHYSICAL EXAM: VITAL SIGNS: Reviewed. GENERAL: Well-developed in no acute distress. NECK: Supple. No JVD or thyromegaly LUNGS: Respirations even and unlabored. Lungs with mild wheezing noted. HEART: Regular rate and rhythm. S1 and S2 heard. EXTREMITIES: Normal range of motion. No clubbing or cyanosis. Peripheral pulses intact. 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 Signing provider agrees with the documented findings, assessment, and plan of care documented by STUDIO OWNER as a scribe. Objective - Vital Signs Vital signs: Vital Signs Temp 97.7 F 05/31/24 11:36 Pulse 68 05/31/24 11:56 Resp 20 05/31/24 11:36 BP 107/66 05/31/24 11:36 Pulse Ox 100 05/31/24 11:36 FiO2 Intake & Output 05/30/24 05/31/24 05/31/24 18:59 06:59 18:59 Intake Total 484.989 20 250 Output Total 500 400 Balance -15.011 -380 250 Intake: IV 10 20 10 Invasive Line 1 10 20 10 Intake, IV Titration 234.989 Amount Heparin Sod,Pork in 0.45% 234.989 NaCl 25,000 unit In 0.45 % NaCl 1 250ml.bag @ 12 UNITS/KG/HR 9.798 mls/hr IV .Q24H [facility] Rx#: [id number] Oral 240 240 Output: Urine 500 400 Other: Voiding Method External Catheter External Catheter External Catheter # Bowel Movements 1 - Labs CBC & Chem 7: 05/30/24 07:49 05/31/24 10:31 Labs: Abnormal Lab Results - Last 24 Hours (Table) 09/17/24 Range/Units 10:31 BUN 45 H (9-20) mg/dL Creatinine 2.15 H (0.66-1.25) mg/dL Glucose 136 H (74-99) mg/dL
[2024-06-01 07:17] LABS: Basophils % (A) 1 %; Eosinophils # (A) 0.3 k/uL (0-0.7); Eosinophils % (A) 3 %; HCT 28.3 % (39.0-53.0); HGB 8.5 gm/dL (13.0-17.5); Hypochromasia Marked; Lymphocytes # (A) 2.2 k/uL (1.0-4.8); Lymphocytes % (A) 26 %; MCH 26.7 pg (25.0-35.0); MCHC 30.1 g/dL (31.0-37.0); MCV 88.8 fL (80.0-100.0); Mean Platelet Volume 8.5; Monocytes # (A) 0.6 k/uL (0-1.0); Monocytes % (A) 7 %; Neutrophils # (A) 5.4 k/uL (1.3-7.7); Neutrophils % (A) 61 %; Platelet Count 315 k/uL (150-450); RBC 3.19 m/uL (4.30-5.90); RDW 15.6 % (11.5-15.5); WBC 8.8 k/uL (3.8-10.6)
[2024-06-01 07:29] LABS: ALT 16 U/L (4-49); AST 33 U/L (17-59); African American GFR (CKD) 31 (>60 ml/min/1.73 sqM); Albumin 3.3 g/dL (3.5-5.0); Alkaline Phosphatase 54 U/L (38-126); Anion Gap 4 mmol/L; Blood Urea Nitrogen 44 mg/dL (9-20); Calcium 9.3 mg/dL (8.4-10.2); Carbon Dioxide 33 mmol/L (22-30); Chloride 102 mmol/L (98-107); Glucose 127 mg/dL (74-99); Non-African American GFR(CKD) 27 (>60 ml/min/1.73 sqM); Potassium 4.3 mmol/L (3.5-5.1); Sodium 139 mmol/L (137-145); Total Bilirubin 0.6 mg/dL (0.2-1.3); Total Protein 5.8 g/dL (6.3-8.2)
[2024-06-01] MEDS: ALBUTEROL NEBULIZED 1.25 MG/3 ML INHALATION PRN (08:36)
[2024-06-01] MEDS: ALBUTEROL NEBULIZED 1.25 MG/3 ML INHALATION SCH (11:36)
--- NOTE | 2024-06-01 12:35 | P.PN ---
Subjective Progress Note Date: 06/01/24 This is a 82-year-old male patient with past medically significant for coronary artery disease status post CABG with unknown details, permanent pacemaker, valvular heart disease, hypertension, hyperlipidemia who presented to hospital with progressive exertional dyspnea, lower extremity swelling, productive cough with clear sputum. Patient denied any chest pain, palpitations, dizziness, syncopal episode. Patient denied any fever, chills, sore throat. Patient denied any nausea vomiting diarrhea constipation abdominal pain dysuria urgency frequency weakness or numbness to his extremities. Patient x-ray showed pulmonary venous congestion, bilateral pleural effusion. EKG showed atrial paced rhythm with nonspecific ST and T wave changes. NT proBNP was elevated. Patient given 1 dose of IV Lasix in the ED, patient reported improvement in the symptoms. Recent echocardiogram showed EF 50% with mild aortic and mitral regurg. 05/29/2024--patient was seen and examined today. Patient sitting up in chair, complained of feeling lethargic, reported feeling better with improved shortness of breath and improvement of swelling of legs and hands. Afebrile, heart rate 64, respiratory rate 16, blood pressure is on the lower side 94/55, oxygen saturation 100% on 2 L. WBCs 8.8, hemoglobin 9.0, platelets 340. BUN is 42, creatinine went up to 2.24 today as compared to 1. 9 4. Troponin yesterday thu ito, trend remained flat. Currently on heparin drip. Cardiology following, decrease IV Lasix to 20 mg twice daily from 40 mg twice daily, echocardiogram results are pending. 05/30. Patient seen and examined. Blood work done this morning showed WBC 9.4, hemoglobin 9, platelet count 324, sodium 130, potassium 3.7, BUN 42, creatinine 2.12. States breathing is improved. 05/31. Patient seen and examined. 2D echo done showed reduced LV systolic function with septal hypokinesis EF of 40%. Complaining of shortness of breath and wheezing. 06/01. Patient seen and examined. Blood work done this morning showed WBC 8.8, hemoglobin 8.5, sodium 139, potassium 4.3, BUN 40, creatinine 2.22. Breathing is improved REVIEW OF SYSTEMS: CONSTITUTIONAL: No fever, no malaise,. CARDIOVASCULAR: No chest pain, no palpitations, no syncope. PULMONARY: As mentioned above GASTROINTESTINAL: No diarrhea, no nausea, no vomiting, no abdominal pain. NEUROLOGICAL: No headaches, no weakness, PHYSICAL EXAMINATION: GENERAL: The patient is alert and oriented x3, not in any acute distress. Well developed, well nourished. HEENT: Pupils are round and equally reacting to light. EOMI. No scleral icterus. No conjunctival pallor. Normocephalic, atraumatic. No pharyngeal erythema. No thyromegaly. CARDIOVASCULAR: S1 and S2 present. No murmurs, rubs, or gallops. PULMONARY: Coarse breath sound bilaterally, no wheezing or crackles. ABDOMEN: Soft, nontender, nondistended, normoactive bowel sounds. No palpable organomegaly. MUSCULOSKELETAL: No joint swelling or deformity. EXTREMITIES: No cyanosis, clubbing, or pedal edema. NEUROLOGICAL: Gross neurological examination did not reveal any focal deficits. SKIN: No rashes. Assessment and plan Acute on chronic diastolic CHF: Elevated troponin: History of CAD/CABG: Status post dual-chamber pacemaker SHANTAL on CKD: Hypertension Hyperlipidemia Hypothyroidism BPH Monitor vital signs Monitor CBC Monitor CMP Continue telemetry monitoring Encourage use of incentive spirometer Continue aspirin, Lipitor Continue Coreg Continue Bumex Continue Ranexa Continue Synthroid Cardiology following PT and OT consulted Labs and medication were reviewed.. Continue same treatment. Continue with symptomatic treatment. Resume home medication. Monitor labs and vitals. DVT and GI prophylaxis. Further recommendations as per clinical course of the patient Dictation was produced using [employer] dictation software. please excuse any grammatical, word or spelling errors. Objective - Vital Signs Vital signs: Vital Signs Temp 98.7 F 06/01/24 12:00 Pulse 60 06/01/24 12:00 Resp 16 06/01/24 12:00 BP 114/78 06/01/24 12:00 Pulse Ox 100 06/01/24 12:00 FiO2 Intake & Output 05/31/24 06/01/24 06/01/24 18:59 06:59 18:59 Intake Total 620 410 180 Output Total 700 500 Balance -80 -90 180 Weight 81.1 kg Intake: IV 20 20 Invasive Line 1 20 20 Oral 600 390 180 Output: Urine 700 500 Other: Voiding Method External Catheter External Catheter External Catheter # Voids 1 # Bowel Movements 1 1 - Labs CBC & Chem 7: 06/01/24 06:21 06/01/24 06:21 Labs: Abnormal Lab Results - Last 24 Hours (Table) 06/01/24 06/01/24 Range/Units 06:21 06:21 RBC 3.19 L (4.30-5.90) m/uL Hgb 8.5 L (13.0-17.5) gm/dL Hct 28.3 L (39.0-53.0) % MCHC 30.1 L (31.0-37.0) g/dL RDW 15.6 H (11.5-15.5) % Carbon Dioxide 33 H (22-30) mmol/L BUN 44 H (9-20) mg/dL Creatinine 2.22 H (0.66-1.25) mg/dL Glucose 127 H (74-99) mg/dL Total Protein 5.8 L (6.3-8.2) g/dL Albumin 3.3 L (3.5-5.0) g/dL
--- NOTE | 2024-06-01 12:50 | P.PN ---
Subjective HISTORY OF PRESENT ILLNESS: The patient is a pleasant 82-year-old gentleman with a past medical history significant for CAD status post CABG with unknown details as well as hypertension and dyslipidemia and permanent pacemaker and valvular heart disease. The patient is known to our service from before. He is somewhat poor historian. He presented to the hospital with progressive exertional dyspnea and bilateral lower extremity edema but no anginal chest pain or chest discomfort and no dizziness or lightheaded snuffing of heart racing or feeling and no presyncope or syncope. He underwent further evaluation including chest x-ray showed pulmonary vascular congestion and bilateral pleural effusion. The EKG showed an atrial paced rhythm with nonspecific ST and T wave abnormalities. NT proBNP came to be elevated. The rest of her blood work overall came to be unremarkable. The patient was given 1 dose of Lasix and subsequently was s tarted on Lasix 40 mg IV twice daily. Persistent echo showed preserved LV systolic function with EF at 50% with mild aortic and mitral regurgitation but no significant valvular abnormalities at that point. The physical examination is remarkable for stable vital signs with regular rate and rhythm and systolic murmur at the right upper sternal border with bilateral rhonchi and bilateral lower extremity pitting edema noted as well. Please note that the troponin came in to be also slightly elevated May 29, 2024 The patient was seen and evaluated this morning. He is somewhat lethargic but he stated that he is feeling better with the shortness of breath and lower extremities edema improved. His kidney function is worse. I am going to decrease the dose of Lasix from 40 mg IV twice daily to 20 mg IV twice daily. He underwent an echocardiogram and that still pending. The physical examination is remarkable for the patient who is somewhat slightly lethargic with diminished breathing sounds bilaterally and regular rate and rhythm and soft systolic murmur and mild bilateral lower extremities edema. Please note that his troponin came in to be slightly elevated. 05/30/2024 Patient examined this morning at the bedside. Patient's family is present. Patient currently denies chest pain or pressure. He denies shortness of breath. He remains on IV heparin. 05/31/2024 Patient examined this morning at the bedside. Patient currently denies any chest pain or pressure. He does report some mild wheezing this morning. He states his breathing treatments have been helping him. Echocardiogram completed revealing ejection fraction 40 to 45% with hypokinetic septum and apex which was noted on previous echoes. Patient's family expressing concerns that patient has issues urinating at home due to his enlarged prostate. He is currently on Flomax. 06/01/2024 Patient examined this morning the bedside. Patient currently denies chest pain or pressure. He denies shortness of breath. Blood pressure this morning is soft with a reading of 90/50. PHYSICAL EXAM: VITAL SIGNS: Reviewed. GENERAL: Well-developed in no acute distress. NECK: Supple. No JVD or thyromegaly LUNGS: Respirations even and unlabored. Lungs diminished bilaterally HEART: Regular rate and rhythm. S1 and S2 heard. EXTREMITIES: Normal range of motion. No clubbing or cyanosis. Peripheral pulses intact. 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 Please reconsult if needed. Nurse practitioner note has been reviewed by physician. Signing provider agrees with the documented findings, assessment, and plan of care documented by SOCIAL SCIENCES PROFESSOR as a scribe. Objective - Vital Signs Vital signs: Vital Signs Temp 98.7 F 06/01/24 12:00 Pulse 60 06/01/24 12:00 Resp 16 06/01/24 12:00 BP 114/78 06/01/24 12:00 Pulse Ox 100 06/01/24 12:00 FiO2 Intake & Output 05/31/24 06/01/24 06/01/24 18:59 06:59 18:59 Intake Total 620 410 180 Output Total 700 500 Balance -80 -90 180 Weight 81.1 kg Intake: IV 20 20 Invasive Line 1 20 20 Oral 600 390 180 Output: Urine 700 500 Other: Voiding Method External Catheter External Catheter External Catheter # Voids 1 # Bowel Movements 1 1 - Labs CBC & Chem 7: 06/01/24 06:21 06/01/24 06:21 Labs: Abnormal Lab Results - Last 24 Hours (Table) 06/01/24 06/01/24 Range/Units 06:21 06:21 RBC 3.19 L (4.30-5.90) m/uL Hgb 8.5 L (13.0-17.5) gm/dL Hct 28.3 L (39.0-53.0) % MCHC 30.1 L (31.0-37.0) g/dL RDW 15.6 H (11.5-15.5) % Carbon Dioxide 33 H (22-30) mmol/L BUN 44 H (9-20) mg/dL Creatinine 2.22 H (0.66-1.25) mg/dL Glucose 127 H (74-99) mg/dL Total Protein 5.8 L (6.3-8.2) g/dL Albumin 3.3 L (3.5-5.0) g/dL
[2024-06-01 20:05] LABS: Glucose,Whole Blood 140 mg/dL (70-110)
[2024-06-01] MEDS: ISOSORBIDE MONONITRATE ER 30 MG TAB.ER.24H PO SCH (21:00)
[2024-06-02] MEDS: BUMETANIDE 0.5 MG TABLET PO SCH (08:14)
[2024-06-02 08:22] VITALS: TEMP 97.9
[2024-06-02] MEDS ORDERED: BUMETANIDE 1 MG TAB PO SCH (09:00)
--- NOTE | 2024-06-02 09:48 | CDI ---
Documentation Clarification Form Date: 06/02/2024 09:25:12 AM From: Alma Pascal RN CCDS Phone: [phone] Admit Date: 05/28/2024 01:05:00 AM Patient Name: Jose Oshea Visit Number: [id number] Discharge Date: ATTENTION: The Clinical Documentation Specialists (CDI) and [facility] Coding Staff appreciate your assistance in clarifying documentation. Please respond to the clarification below the line at the bottom and electronically sign. The CDI & [facility] Coding staff will review the response and follow-up if needed. Please note: Queries are made part of the Legal Health Record. If you have any questions, please contact the author of this message via ITS. Doctor: Luis Lora Conflicting documentation has been found in the medical record. As attending physician, please provide clarification. Acute on Chronic Diastolic CHF, 06/01, Medicine note Acute on Chronic Heart Failure with reduced EF 40-50%, 05/31 Cardiology note History/Risk Factors: 82 year old male presents to the ED with exertional dyspnea, lower extremity swelling, productive cough with clear sputum. Medical history: Recent echo showed EF 50%, Dual chamber pacemaker. Clinical Indicators: CTA 05/28: Small bilateral pleural effusions. Subjacent airspace consolidations, likely atelectasis CXR, 05/28: Small bilateral pleural effusions. Subjacent airspace consolidations, likely atelectasis 05/30 ECHO: 2d ECHO shows reduced LV systolic function with septal hypokinesis ejection fraction around 40% . Treatment: Monitor daily weight and I Os, Cardiac diet, Telemetry, 05/28 Lasix 60mg IV x 1; 05/28 05/29 Lasix 40mg IV BID; 05/28 Coreg 12.5mg PO BID; 05/28 05/31 Imdur 60mg PO HS; 05/29 05/30 Lasix 20mg IV BID; 05/31 06/01 Bumex 1mg PO Daily; 06/01 Imdur 30mg PO HS; 06/02 Bumex 0.5mg PO Daily; Farxiga 10mg Po daily Please clarify which diagnosis is most appropriate: [ ] Acute on Chronic Diastolic CHF [x ] Acute on Chronic Systolic CHF [ ] Other (please specify) [ ] Unable to determine (Template Last Revised: November 2020 MTDD
[2024-06-02 11:09] VITALS: BP 109/69; PULSE 64; RESP 20
--- NOTE | 2024-06-02 12:29 | P.DS ---
Providers Date of admission: 05/28/24 01:05 Expected date of discharge: 06/02/24 Attending physician: Tamiko Payne Primary care physician: Rody Mercedes Hospital Course: Discharge diagnoses; Acute on chronic diastolic CHF: Elevated troponin: History of CAD/CABG: Status post dual-chamber pacemaker SHANTAL on CKD: Hypertension Hyperlipidemia Hypothyroidism BPH Hospital course; This is a 82-year-old male patient with past medically significant for coronary artery disease status post CABG with unknown details, permanent pacemaker, valvular heart disease, hypertension, hyperlipidemia who presented to hospital with progressive exertional dyspnea, lower extremity swelling, productive cough with clear sputum. Patient denied any chest pain, palpitations, dizziness, syncopal episode. Patient denied any fever, chills, sore throat. Patient denied any nausea vomiting diarrhea constipation abdominal pain dysuria urgency frequency weakness or numbness to his extremities. Patient x-ray showed pulmonary venous congestion, bilateral pleural effusion. EKG showed atrial paced rhythm with nonspecific ST and T wave changes. NT proBNP was elevated. Patient given 1 dose of IV Lasix in the ED, patient reported improvement in the symptoms. Recent echocardiogram showed EF 50% with mild aortic and mitral regurg. 05/29/2024--patient was seen and examined today. Patient sitting up in chair, complained of feeling lethargic, reported feeling better with improved shortness of breath and improvement of swelling of legs and hands. Afebrile, heart rate 64, respiratory rate 16, blood pressure is on the lower side 94/55, oxygen saturation 100% on 2 L. WBCs 8.8, hemoglobin 9.0, platelets 340. BUN is 42, creatinine went up to 2.24 today as compared to 1. 9 4. Troponin yesterday monitored, trend remained flat. Currently on heparin drip. Cardiology following, decrease IV Lasix to 20 mg twice daily from 40 mg twice daily, echocardiogram results are pending. 05/30. Patient seen and examined. Blood work done this morning showed WBC 9.4, hemoglobin 9, platelet count 324, sodium 130, potassium 3.7, BUN 42, creatinine 2.12. States breathing is improved. 05/31. Patient seen and examined. 2D echo done showed reduced LV systolic func tion with septal hypokinesis EF of 40%. Complaining of shortness of breath and wheezing. 06/01. Patient seen and examined. Blood work done this morning showed WBC 8.8, hemoglobin 8.5, sodium 139, potassium 4.3, BUN 40, creatinine 2.22. Breathing is improved 06/02. Patient seen and examined. Patient is doing much better, cardiology recommended decreasing dose of Imdur to 30 mg, Brilinta was discontinued. Patient to follow-up outpatient with cardiology PHYSICAL EXAMINATION: GENERAL: The patient is alert and oriented x3, not in any acute distress. Well developed, well nourished. HEENT: Pupils are round and equally reacting to light. EOMI. No scleral icterus. No conjunctival pallor. Normocephalic, atraumatic. No pharyngeal erythema. No thyromegaly. CARDIOVASCULAR: S1 and S2 present. No murmurs, rubs, or gallops. PULMONARY: Chest is clear to auscultation, no wheezing or crackles. ABDOMEN: Soft, nontender, nondistended, normoactive bowel sounds. No palpable organomegaly. MUSCULOSKELETAL: No joint swelling or deformity. EXTREMITIES: No cyanosis, clubbing, or pedal edema. NEUROLOGICAL: Gross neurological examination did not reveal any focal deficits. SKIN: No rashes. Dictation was produced using [employer] dictation software. please excuse any grammatical, word or spelling errors. Patient Condition at Discharge: Stable Plan - Discharge Summary Discharge Rx Participant: Yes New Discharge Prescriptions: New Aspirin 81 mg PO DAILY #30 tab Isosorbide Mononitrate ER [Imdur] 30 mg PO HS #30 tab Atorvastatin [Lipitor] 40 mg PO HS #30 tab Dapagliflozin Propanediol [Farxiga] 10 mg PO DAILY #30 tab Continue Nitroglycerin Sl Tabs [Nitrostat] 0.4 mg SL Q5M PRN PRN Reason: Chest Pain Fenofibrate Nanocrystallized [Fenofibrate] 145 mg PO DAILY Cinnamon Bark [Cinnamon] 2,000 mg PO BID Potassium Chloride ER [K-Dur 10] 10 meq PO DAILY Bumetanide [BUMEX] 0.5 mg PO DAILY Levothyroxine Sodium [Synthroid] 137 mcg PO DAILY@0630 #30 tab Tamsulosin [Flomax] 0.4 mg PO PC-BRKFST #30 cap Ranolazine [Ranexa] 1,000 mg PO BID carvediloL [Coreg*] 12.5 mg PO BID-W/MEALS #30 tab Docusate [Colace] 200 mg PO BID Co Q-10(Unknown Dose) 1 tab PO DAILY Discontinued Atorvastatin [Lipitor] 20 mg PO HS Ticagrelor [Brilinta] 90 mg PO BID Isosorbide Mononitrate ER [Imdur] 60 mg PO HS Isosorbide Mononitrate ER [Imdur] 15 mg PO HS Discharge Medication List Fenofibrate Nanocrystallized [Fenofibrate] 145 mg PO DAILY 11/07/19 [History] Nitroglycerin Sl Tabs [Nitrostat] 0.4 mg SL Q5M PRN 11/07/19 [History] Ranolazine [Ranexa] 1,000 mg PO BID 06/18/22 [History] carvediloL [Coreg*] 12.5 mg PO BID-W/MEALS #30 tab 06/24/22 [Rx] Cinnamon Bark [Cinnamon] 2,000 mg PO BID 10/29/22 [History] Bumetanide [BUMEX] 0.5 mg PO DAILY 03/21/24 [History] Co Q-10(Unknown Dose) 1 tab PO DAILY 03/21/24 [History] Docusate [Colace] 200 mg PO BID 03/21/24 [History] Potassium Chloride ER [K-Dur 10] 10 meq PO DAILY 03/21/24 [History] Levothyroxine Sodium [Synthroid] 137 mcg PO DAILY@0630 #30 tab 03/30/24 [Rx] Tamsulosin [Flomax] 0.4 mg PO PC-BRKFST #30 cap 03/30/24 [Rx] Aspirin 81 mg PO DAILY #30 tab 06/02/24 [Rx] Atorvastatin [Lipitor] 40 mg PO HS #30 tab 06/02/24 [Rx] Dapagliflozin Propanediol [Farxiga] 10 mg PO DAILY #30 tab 06/02/24 [Rx] Isosorbide Mononitrate ER [Imdur] 30 mg PO HS #30 tab 06/02/24 [Rx] Follow up Appointment(s)/Referral(s): Rody Mercedes DO [Primary Care Provider] - 1-2 days Sergio Rice MD [Medical Doctor] - 1 Week Ambulatory/Diagnostic Orders: Basic Metabolic Panel [LAB.AMB] Time Frame: 1 Week, Location: None Selected Miscellaneous Lab Order [LAB.AMB] Time Frame: 1 Week, Location: None Selected Activity/Diet/Wound Care/Special Instructions: BMP AND BNP IN ONE WEEK Discharge Disposition: HOME SELF-CARE
== END 2024-06-02 13:36 | disposition home or self-care (01) | DRG 280 ==
LOC: EC 21:16 → 3SCARD 05-28 01:05
PROVIDERS: ADMIT Hospitalist; ATTEND Hospitalist
DX: I13.0 Hypertensive heart and chronic kidney disease with heart failure and stage 1 through stage 4 chronic kidney disease, or unspecified chronic kidney disease (principal); I50.23 Acute on chronic systolic (congestive) heart failure; I21.A1 Myocardial infarction type 2; N17.9 Acute kidney failure, unspecified; I25.10 Atherosclerotic heart disease of native coronary artery without angina pectoris; E78.5 Hyperlipidemia, unspecified; J44.9 Chronic obstructive pulmonary disease, unspecified; N40.0 Benign prostatic hyperplasia without lower urinary tract symptoms; N18.9 Chronic kidney disease, unspecified; E89.0 Postprocedural hypothyroidism; Z95.1 Presence of aortocoronary bypass graft; Z95.0 Presence of cardiac pacemaker; Z79.02 Long term (current) use of antithrombotics/antiplatelets; Z79.82 Long term (current) use of aspirin; Z79.84 Long term (current) use of oral hypoglycemic drugs; Z79.890 Hormone replacement therapy; Z79.899 Other long term (current) drug therapy; Z95.5 Presence of coronary angioplasty implant and graft
CPT/HCPCS: 36415; 71046; 71275; 80048; 80053; 83605; 83735; 83880; 84484; 85025; 85379; 85610; 85730; 93005; 93308; 94640; 94760; 96361; 96365; 96366; 96367; 96372; 96375; 96376; 99285